=== PATIENT | female | born 1930 | race Hispanic/Latino ===

== ENCOUNTER 2017-02-02 09:59 | Inpatient (IN) | payer BC, MEDICARE ==
[2017-02-02] MEDS ORDERED: Sodium Chloride 0.9% 1,000 ML IV SCH ×2 (10:45→22:21)
[2017-02-02] MEDS ORDERED: Iohexol 240 (50 ml) ONE (10:47)
--- NOTE | 2017-02-02 10:50 | ED PDOC ---
Arrival/HPI - General Chief Complaint: Abdominal Pain Time Seen by Provider: 02/02/17 10:00 Historian: Patient, Other (son) - History of Present Illness Narrative History of Present Illness (Text): 02/02/17 10:54 An 86 year old female, whose past medical history includes coronary artery disease (cardiac stent next week), hypertension, and hypothyroidism, presents to the emergency department, with abdominal pain on right lower quadrant for the past 3 days. Patient notes slight diarrhea last week but denies any fever, vomiting, nausea, dysuria or any other complaints at this time. PMD: Dr. Hernandez Outsoles Channel Opener: Dr. Bauer 02/02/17 17:43 Time/Duration: Other (3 days) Symptom Onset: Sudden Symptom Course: Unchanged Activities at Onset: Rest Context: Home Associated Symptoms (Text): diarrhea Past Medical History - Provider Review Nursing Documentation Reviewed: Yes - Tetanus Immunization Tetanus Immunization: Unknown - Cardiac Hx Hypertension: Yes - Pulmonary Hx Respiratory Disorders: No - Neurological Hx Neurological Disorder: No - HEENT Hx HEENT Disorder: No - Renal Hx Renal Disorder: No - Endocrine/Metabolic Other/Comment: THYROID DISEASE - Hematological/Oncological Hx Blood Disorders: No - Integumentary Hx Dermatological Disorder: No - Musculoskeletal/Rheumatological Hx Musculoskeletal Disorders: No - Gastrointestinal Hx Gastrointestinal Disorders: Yes Other/Comment: COLON CA - Genitourinary/Gynecological Hx Genitourinary Disorders: No - Psychiatric Hx Depression: No Hx Emotional Abuse: No Hx Physical Abuse: No Hx Substance Use: No - Past Surgical History Past Surgical History: Non-Contributing - Surgical History Other/Comment: R/T COLON CA, ANEURYSM - Suicidal Assessment Feels Threatened In Home Enviroment: No Family/Social History - Physician Review Nursing Documentation Reviewed: Yes Family/Social History: No Known Family HX Smoking Status: Former Smoker Hx Alcohol Use: Yes Frequency of alcohol use: Socially Hx Substance Use: No Allergies/Home Meds Allergies/Adverse Reactions: Allergies No Known Allergies Allergy (Verified 02/02/17 10:11) Home Medications: Home Meds Medication Instructions Recorded Confirmed Aspirin [Ecotrin] 81 mg PO DAILY 01/30/17 02/02/17 Rosuvastatin Calcium [Crestor] 10 mg PO DAILY 01/30/17 02/02/17 Review of Systems - Physician Review All systems were reviewed & negative as marked: Yes - Review of Systems Constitutional: absent: Fevers Gastrointestinal: Abdominal Pain (RLQ ), Diarrhea. absent: Nausea, Vomiting Genitourinary Female: absent: Dysuria Physical Exam Vital Signs Reviewed: Yes Vital Signs Temp Pulse Resp BP Pulse Ox 02/02/17 21:00 91 H 17 188/99 H 94 L 02/02/17 20:45 86 17 189/99 H 95 02/02/17 20:11 98.1 F 86 19 209/118 H 02/02/17 18:00 83 18 152/103 H 97 02/02/17 16:00 75 18 147/95 H 98 02/02/17 14:00 80 18 132/91 H 97 02/02/17 10:17 98.1 F 74 21 184/91 H 98 Temperature: Afebrile Blood Pressure: Hypertensive Pulse: Regular Respiratory Rate: Normal Appearance: Positive for: Well-Appearing, Non-Toxic, Comfortable Pain Distress: None Mental Status: Positive for: Alert and Oriented X 3 - Systems Exam Head: Present: Atraumatic, Normocephalic Mouth: Present: Moist Mucous Membranes Nose (External): Present: Atraumatic Neck: Present: Normal Range of Motion Respiratory/Chest: Present: Clear to Auscultation, Good Air Exchange Cardiovascular: Present: Regular Rate and Rhythm, Normal S1, S2. No: Murmurs Abdomen: Present: Tenderness (RLQ), Normal Bowel Sounds. No: Distention, Peritoneal Signs Upper Extremity: Present: Normal Inspection Lower Extremity: Present: Normal Inspection Neurological: Present: GCS=15, Speech Normal Skin: Present: Warm, Dry Psychiatric: Present: Alert, Oriented x 3, Normal Insight, Normal Concentration Medical Decision Making ED Course and Treatment: 02/02/17 10:45 Impression: An 86 year old female with RLQ abdominal pain. rule out appendicitis Differential Diagnosis included but are not limited to: appendicitis Plan: -- EKG -- CT abd/pelvis -- labs -- Urinalysis -- Pepcid, IV fluids -- Reassess and disposition Prior Visits: Notes and results from previous visits were reviewed. Patient last reported to the emergency department on 04/07/14 for evaluation of laceration to forehead. Patient advised suture removal after a week. Patient was discharged. Progress Notes: 02/02/17 11:23 Dr. Bauer riveter pneumatic came down to the emergency department to see patient. Patient has a history of Atrial fibrillation. EKG: NSR at [address] Abdomen and Pelvis with contrast Creator : Saud Alvarenga MD Report Date : 02/02/2017 14:25 FINDINGS: LOWER THORAX: Unremarkable. LIVER: Unremarkable. No gross lesion or ductal dilatation. Innumerable hepatic cysts the largest measures 18.6 by a 14.4 cm. The preponderance of cysts in the liver measured 2 cm less. GALLBLADDER AND BILE DUCTS: Unremarkable. PANCREAS: Unremarkable. No gross lesion or ductal dilatation. SPLEEN: Unremarkable. ADRENALS: Unremarkable. No mass. KIDNEYS AND URETERS: Unremarkable. No hydronephrosis. No solid mass. Dilated extrarenal pelvis on the right without evidence of obstructive uropathy. Relative UPJ obstruction. VASCULATURE: Unremarkable. No aortic aneurysm. BOWEL: Segmental thickening of a short segmental loop of the terminal ileum. This extends to the ileocecal valve region. APPENDIX: No abnormalities to suggest acute appendicitis. No right lower quadrant inflammatory processes identified. PERITONEUM: Pelvic ascites, trace free fluid about the liver.. No free air. LYMPH NODES: Unremarkable. No enlarged lymph nodes. BLADDER: Unremarkable. REPRODUCTIVE: Unremarkable. BONES: No acute fracture. Moderate-severe thoracolumbar Scoliosis, secondary degenerative change at multiple levels. OTHER FINDINGS: IVC filter. IMPRESSION: Inflammatory changes likely focal/ short segment ileitis. No evidence of mechanical bowel obstruction. Additional benign and/or incidental findings described above. Paged Dr. Hernandez patients primary doctor for patient admission of hyponatremia , sodium 128 and Ileitis. pt ordered for IV fluids. 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 02/02/17 15:[address] Hernandez again. 02/02/17 15:[address] Hernandez, who recommends GI consult, Dr. Brown, to call resident Keena. Keena made aware. consult for GI placed. 02/02/17 17:44 02/02/17 17:55 - Lab Interpretations Microbiology Results: Microbiology Results 02/02/17 11:40 Urine Urine Culture - Final Gram Positive Cocci Lab Results: 02/02/17 10:50 02/02/17 10:50 Lab Results 02/02/17 11:40: Urine Color Light yellow, Urine Appearance Clear, Urine pH 7.0, Ur Specific [place] 1.010, Urine Protein Negative, Urine Glucose (UA) Negative, Urine Ketones Negative, Urine Blood Trace-intact H, Urine Nitrate Negative, Urine Bilirubin Negative, Urine Urobilinogen 0.2, Ur Leukocyte Esterase Negative , Urine RBC 0 - 2, Urine WBC 0 - 2, Ur Epithelial Cells 0 - 2, Urine Bacteria Rare 02/02/17 10:50: Sodium 127 L, Potassium 3.5 L, Chloride 89 L, Carbon Dioxide 29 , Anion Gap 13, BUN 12, Creatinine 0.8, Est GFR ( Amer) > 60, Est GFR ( Non-Af Amer) > 60, Random Glucose 93, Calcium 9.4, Total Bilirubin 1.9 H, AST 43 H, ALT 42, Alkaline Phosphatase 166 H, Total Protein 7.2, Albumin 4.2, Globulin 2.9, Albumin/Globulin Ratio 1.4 02/02/17 10:50: WBC 6.3, RBC 4.10, Hgb 12.8, Hct 35.8 L, MCV 87.3, MCH 31.2, MCHC 35.8, RDW 12.8, Plt Count 218, MPV 8.9, Gran % 69.6 H, Lymph % (Auto) 18.7 L, Geary % (Auto) 9.8 H, Eos % (Auto) 1.1 L, Baso % (Auto) 0.8, Gran # 4.40, Lymph # 1.2, Geary # 0.6, Eos # 0.1, Baso # 0.05 02/02/17 10:35: 25-OH Vitamin D Total 22.0 L 02/02/17 10:35: Free T4 1.71, TSH 3rd Generation 5.95 H 02/02/17 10:35: Vitamin B1 107 02/02/17 10:35: Vitamin B12 > 1000 H, Folate 10.7 I have reviewed the lab results: Yes - RAD Interpretation Radiology Orders: 02/02/17 10:44 ABD PELVIS PO & IV CONTRAST [CT] Stat - EKG Interpretation Interpreted by ED Physician: Yes Type: 12 lead EKG - Medication Orders Current Medication Orders: Acetaminophen (Tylenol 325mg Tab) 650 mg PO Q6H PRN PRN Reason: Fever >100.4 F Amlodipine Besylate (Norvasc) 5 mg PO DAILY YESENIA Last Admin: 02/12/17 09:24 Dose: 5 mg Aspirin (Ecotrin) 81 mg PO DAILY [facility] Last Admin: 02/12/17 09:24 Dose: 81 mg Atorvastatin Calcium (Lipitor) 20 mg PO DIN [facility] Last Admin: 02/12/17 17:44 Dose: 20 mg Cefpodoxime Proxetil (Vantin) 200 mg PO Q12 [facility] PRN Reason: Protocol Stop: 02/16/17 22:01 Last Admin: 02/12/17 22:00 Dose: 200 mg Cholecalciferol (Vitamin D) 2,000 iu PO DAILY [facility] Last Admin: 02/12/17 09:24 Dose: 2,000 iu Docusate Sodium (Colace) 100 mg PO BID [facility] Last Admin: 02/12/17 17:44 Dose: 100 mg Guaifenesin (Robitussin) 100 mg PO Q4H PRN PRN Reason: Cough Last Admin: 02/12/17 05:39 Dose: 100 mg Hydralazine HCl (Apresoline) 10 mg PO Q6H PRN PRN Reason: Systolic Blood Pressure Levalbuterol HCl (Xopenex) 0.63 mg IH [id number] [facility] Last Admin: 02/13/17 01:32 Dose: Not Given Non-Admin Reason: Patient Refused Levothyroxine Sodium (Synthroid) 50 mcg PO DAILY [facility] Last Admin: 02/12/17 09:24 Dose: 50 mcg Losartan Potassium (Cozaar) 100 mg PO DAILY [facility] Last Admin: 02/12/17 09:24 Dose: 100 mg Magnesium Oxide (Mag-Ox) 800 mg PO BID [facility] Last Admin: 02/12/17 17:44 Dose: 800 mg Metoprolol Tartrate (Lopressor) 25 mg PO BRKDIN [facility] Last Admin: 02/12/17 17:44 Dose: 25 mg Metronidazole (Flagyl) 500 mg PO Q8 [facility] PRN Reason: Protocol Last Admin: 02/13/17 06:29 Dose: 500 mg Morphine Sulfate (Morphine) 1 mg IVP Q4H PRN PRN Reason: Pain, moderate (4-7) Last Admin: 02/11/17 16:49 Dose: 1 mg Pantoprazole Sodium (Protonix Ec Tab) 40 mg PO 0630 [facility] Last Admin: 02/13/17 06:29 Dose: 40 mg Simethicone (Mylicon Chew Tab) 80 mg PO PCHS PRN PRN Reason: GI distress Zolpidem Tartrate (Ambien) 5 mg PO HS PRN; Protocol PRN Reason: Insomnia Last Admin: 02/12/17 23:30 Dose: 5 mg Re-Assess: Reassess Psych Meds Document 02/13/17 00:30 AJP (Rec: 02/13/17 02:04 AJP [email or web address]) Reassess Psych Med Effective Discontinued Medications Albuterol/Ipratropium (Duoneb 3 Mg/0.5 Mg (3 Ml) Ud) 3 ml IH [id number] [facility] Last Admin: 02/09/17 11:14 Dose: 3 ml Amlodipine Besylate (Norvasc) 2.5 mg PO DAILY [facility] Last Admin: 02/10/17 10:14 Dose: 2.5 mg Atropine Sulfate (Atropine) Confirm Administered Dose 0.8 mg .ROUTE .STK-MED ONE Stop: 02/09/17 07:07 Last Admin: 02/09/17 09:20 Dose: Bivalirudin (Angiomax) Confirm Administered Dose 250 mg IV .STK-MED ONE Stop: 02/09/17 07:05 Last Admin: 02/09/17 09:19 Dose: Cefpodoxime Proxetil (Vantin) 200 mg PO Q12 [facility] PRN Reason: Protocol Stop: 02/10/17 10:01 Last Admin: 02/09/17 09:32 Dose: Not Given Non-Admin Reason: Patient Lethargic Clopidogrel Bisulfate (Plavix) 300 mg PO STAT STA Stop: 02/08/17 16:06 Last Admin: 02/08/17 16:14 Dose: 300 mg Clopidogrel Bisulfate (Plavix) 75 mg PO DAILY [facility] Last Admin: 02/09/17 06:49 Dose: 75 mg Doxycycline Hyclate (Doryx) 100 mg PO Q12 [facility] PRN Reason: Protocol Last Admin: 02/11/17 09:23 Dose: 100 mg Enoxaparin Sodium (Lovenox) 30 mg SC DAILY [facility] PRN Reason: Protocol Last Admin: 02/08/17 10:25 Dose: 30 mg Epinephrine Bitartrate (Epinephrine) Confirm Administered Dose 1 mg .ROUTE .STK- MED ONE Stop: 02/09/17 07:07 Last Admin: 02/09/17 09:21 Dose: Famotidine (Pepcid) 20 mg IVP STAT STA Stop: 02/02/17 10:46 Last Admin: 02/02/17 11:06 Dose: 20 mg Fentanyl (Fentanyl) Confirm Administered Dose 100 mcg .ROUTE .STK-MED ONE Stop: 02/09/17 07:34 Last Admin: 02/09/17 07:43 Dose: 50 mcg Comments: IV by Dr. Bauer Furosemide (Lasix) 20 mg IVP ONCE STA Stop: 02/09/17 16:02 Furosemide (Lasix) 40 mg IVP ONCE STA Stop: 02/09/17 16:02 Last Admin: 02/09/17 16:29 Dose: 40 mg Hydralazine HCl (Apresoline) 10 mg IVP ONCE ONE Stop: 02/02/17 22:19 Last Admin: 02/02/17 22:36 Dose: 10 mg Hydralazine HCl (Apresoline) Confirm Administered Dose 20 mg .ROUTE .ST-MED ONE Stop: 02/09/17 08:07 Last Admin: 02/09/17 08:07 Dose: 20 mg Comments: IV per Dr. Bauer. 10 mg @ 0807 and 10 mg @ 0814 Hydralazine HCl (Apresoline) 10 mg PO STAT STA Stop: 02/10/17 12:28 Last Admin: 02/10/17 13:25 Dose: 10 mg Hydrochlorothiazide (Microzide) 12.5 mg PO STAT STA Stop: 02/02/17 16:53 Last Admin: 02/02/17 17:07 Dose: 12.5 mg Hydrochlorothiazide (Microzide) 12.5 mg PO DAILY [facility] Last Admin: 02/03/17 10:10 Dose: 12.5 mg Hydrochlorothiazide (Microzide) 12.5 mg PO DAILY [facility] Last Admin: 02/07/17 15:56 Dose: 12.5 mg Hydrochlorothiazide (Hydrodiuril) 25 mg PO DAILY [facility] Last Admin: 02/09/17 09:31 Dose: Not Given Non-Admin Reason: Patient Lethargic Sodium Chloride (Sodium Chloride 0.9%) 1,000 mls @ 100 mls/hr IV .Q10H [facility] Last Admin: 02/02/17 11:06 Dose: 100 mls/hr Metronidazole (Flagyl) 500 mg in 100 mls @ 100 mls/hr IVPB Q8 [facility] PRN Reason: Protocol Last Admin: 02/05/17 05:41 Dose: 100 mls/hr Sodium Chloride (Sodium Chloride 0.9%) 100 mls @ 75 mls/hr IV .[id number] [facility] Last Admin: 02/02/17 19:25 Dose: Ceftriaxone Sodium (Rocephin 1 Gram Ivpb) 1 gm in 100 mls @ 100 mls/hr IVPB DAILY [facility] PRN Reason: Protocol Last Admin: 02/04/17 10:09 Dose: 100 mls/hr Sodium Chloride (Sodium Chloride 0.9%) 1,000 mls @ 75 mls/hr IV .[id number] [facility] Last Admin: 02/02/17 23:48 Dose: Magnesium Sulfate 2 gm/ Sodium (Chloride) 104 mls @ 102 mls/hr IV ONCE ONE Stop: 02/03/17 13:18 Last Admin: 02/03/17 13:19 Dose: 102 mls/hr Sodium Chloride (Sodium Chloride 0.9%) 1,000 mls @ 75 mls/hr IV .[id number] [facility] Potassium Chloride (Potassium Chloride 10 Meq/100 Ml) 10 meq in 100 mls @ 100 mls/hr IVPB Q2H [facility] Stop: 02/04/17 14:44 Last Admin: 02/04/17 14:32 Dose: 100 mls/hr Sodium Chloride (Sodium Chloride 0.9%) 1,000 mls @ 100 mls/hr IV .Q10H [facility] Last Admin: 02/08/17 01:59 Dose: 100 mls/hr Magnesium Sulfate 2 gm/ Sodium (Chloride) 104 mls @ 102 mls/hr IV ONCE ONE Stop: 02/06/17 10:05 Last Admin: 02/06/17 10:11 Dose: 102 mls/hr Magnesium Sulfate 2 gm/ Sodium (Chloride) 104 mls @ 102 mls/hr IV ONCE ONE Stop: 02/07/17 10:17 Last Admin: 02/07/17 10:39 Dose: 102 mls/hr Magnesium Sulfate 2 gm/ Sodium (Chloride) 104 mls @ 102 mls/hr IV ONCE ONE Stop: 02/08/17 09:25 Last Admin: 02/08/17 10:28 Dose: 102 mls/hr Heparin Sodium (Porcine) (Heparin 1000 Units/500 Ml Ns) Confirm Administered Dose 1,500 mls @ ud IV .STK-MED ONE Stop: 02/09/17 07:06 Sodium Chloride (Sodium Chloride 0.9%) 1,000 mls @ 100 mls/hr IV .Q10H [facility] Stop: 02/09/17 14:00 Last Admin: 02/09/17 09:00 Dose: 100 mls/hr Magnesium Sulfate 2 gm/ Sodium (Chloride) 104 mls @ 102 mls/hr IV ONCE ONE Stop: 02/09/17 14:26 Last Admin: 02/09/17 14:45 Dose: 102 mls/hr Cefepime HCl (Maxipime 1gm) 1 gm in 100 mls @ 100 mls/hr IVPB Q12 [facility] PRN Reason: Protocol Last Admin: 02/10/17 10:13 Dose: 100 mls/hr Iohexol (Omnipaque 240 (50 Ml)) Confirm Administered Dose 50 ml .ROUTE .STK-MED ONE Stop: 02/02/17 10:48 Last Admin: 02/02/17 20:02 Dose: Iohexol (Omnipaque 240 (50 Ml)) Confirm Administered Dose 50 ml .ROUTE .STK-MED ONE Stop: 02/08/17 16:12 Iohexol (Omnipaque 350 150 Ml) Confirm Administered Dose 150 ml .ROUTE .STK-MED ONE Stop: 02/09/17 07:06 Last Admin: 02/09/17 07:54 Dose: 150 ml Comments: During cath Iohexol (Omnipaque 350mg/Ml 50 Ml) Confirm Administered Dose 50 ml .ROUTE .STK- MED ONE Stop: 02/09/17 07:06 Last Admin: 02/09/17 09:22 Dose: Iohexol (Omnipaque 350 100 Ml) Confirm Administered Dose 350 mg .ROUTE .STK-MED ONE Stop: 02/09/17 07:06 Last Admin: 02/09/17 09:22 Dose: Levalbuterol HCl (Xopenex) Confirm Administered Dose 0.63 mg .ROUTE .STK-MED ONE Stop: 02/09/17 15:33 Levofloxacin/Dextrose (Levaquin 750mg) 750 mg IVPB Q24H [facility] Last Admin: 02/09/17 16:30 Dose: Levothyroxine Sodium (Synthroid) 25 mcg PO DAILY [facility] Last Admin: 02/09/17 09:32 Dose: Not Given Non-Admin Reason: Patient Lethargic Lidocaine HCl (Lidocaine 2% 20ml Vial) Confirm Administered Dose 20 ml .ROUTE .STK-MED ONE Stop: 02/09/17 07:05 Last Admin: 02/09/17 07:54 Dose: 10 ml Comments: SC into right groin by Dr. Bauer Losartan Potassium (Cozaar) 100 mg PO DAILY [facility] Last Admin: 02/09/17 09:31 Dose: Not Given Non-Admin Reason: Patient Lethargic Losartan Potassium (Cozaar) 100 mg PO STAT STA Stop: 02/02/17 19:11 Last Admin: 02/02/17 19:24 Dose: 100 mg Losartan Potassium (Cozaar) 50 mg PO DAILY [facility] Last Admin: 02/11/17 09:23 Dose: 50 mg Magnesium Oxide (Mag-Ox) 400 mg PO BID [facility] Last Admin: 02/09/17 09:31 Dose: Not Given Non-Admin Reason: Patient Lethargic Metronidazole (Flagyl) 500 mg PO Q8 [facility] PRN Reason: Protocol Stop: 02/10/17 14:01 Last Admin: 02/10/17 13:59 Dose: 500 mg Midazolam HCl (Versed Inj) Confirm Administered Dose 2 mg .ROUTE .STK-MED ONE Stop: 02/09/17 07:34 Last Admin: 02/09/17 07:43 Dose: 2 mg Comments: IV by Dr. Bauer. Midazolam HCl (Versed Inj) Confirm Administered Dose 2 mg .ROUTE .STK-MED ONE Stop: 02/09/17 07:54 Last Admin: 02/09/17 07:53 Dose: 1 mg Comments: IV per Dr. Bauer Morphine Sulfate (Morphine) 1 mg IVP ONCE ONE Stop: 02/02/17 20:09 Last Admin: 02/02/17 20:15 Dose: 1 mg Pneumococcal Polyvalent Vaccine (Pneumovax 23 Vaccine) 0.5 ml IM .ONCE ONE Stop: 02/02/17 20:20 Potassium Chloride (K-Dur 20 Meq Er Tab) 40 meq PO ONCE ONE Stop: 02/02/17 16:25 Last Admin: 02/02/17 16:37 Dose: 40 meq Potassium Chloride (K-Dur 20 Meq Er Tab) 40 meq PO Q2 [facility] Stop: 02/04/17 14:01 Last Admin: 02/04/17 14:35 Dose: 40 meq Potassium Chloride (K-Dur 20 Meq Er Tab) 40 meq PO ONCE ONE Stop: 02/06/17 09:04 Last Admin: 02/06/17 10:12 Dose: 40 meq Potassium Chloride (K-Dur 20 Meq Er Tab) 40 meq PO ONCE ONE Stop: 02/08/17 08:25 Last Admin: 02/08/17 10:43 Dose: 40 meq Potassium Chloride (K-Dur 20 Meq Er Tab) 40 meq PO Q2H [facility]IA Stop: 02/09/17 15:31 Last Admin: 02/09/17 16:29 Dose: 40 meq Potassium Chloride (K-Dur 20 Meq Er Tab) 20 meq PO BID YESENIA Stop: 02/14/17 18:01 Last Admin: 02/10/17 17:21 Dose: 20 meq Potassium Phos/Sodium Phos (Neutra-Phos) 1 pkt PO BID YESENIA Stop: 02/08/17 10:01 Last Admin: 02/08/17 10:25 Dose: 1 pkt Tolvaptan (Samsca) 15 mg PO ONCE ONE Stop: 02/10/17 08:31 Last Admin: 02/10/17 10:16 Dose: 15 mg Tolvaptan (Samsca) 15 mg PO ONCE ONE Stop: 02/10/17 14:14 Last Admin: 02/10/17 17:20 Dose: 15 mg Zolpidem Tartrate (Ambien) 5 mg PO HS PRN; Protocol PRN Reason: Insomnia - Scribe Statement The provider has reviewed the documentation as recorded by the Christi Allen Provider Scribe Attestation: All medical record entries made by the Christi were at my direction and personally dictated by me. I have reviewed the chart and agree that the record accurately reflects my personal performance of the history, physical exam, medical decision making, and the department course for this patient. I have also personally directed, reviewed, and agree with the discharge instructions and disposition. Disposition/Present on Arrival - Present on Arrival Any Indicators Present on Arrival: No History of DVT/PE: No History of Uncontrolled Diabetes: No Urinary Catheter: No History of Decub. 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
[2017-02-02 11:08] LABS: ADD MANUAL DIFF? NO
[2017-02-02 11:18] LABS: BASO # 0.05 K/mm3 (0.0-2.0); BASO % 0.8 % (0.0-3.0); EOS # 0.1 (0.0-0.7); EOS % 1.1 % (1.5-5.0); GRAN % 69.6 % (50.0-68.0); HEMATOCRIT 35.8 % (36.0-48.0); LYMPH # 1.2 (1.2-3.4); LYMPH % 18.7 % (22.0-35.0); MEAN CELL VOLUME 87.3 fL (80.0-105.0); MEAN CORPUSCULAR HEMOGLOBIN 31.2 pg (25.0-35.0); MEAN CORPUSCULAR HGB CONC 35.8 g/dl (31.0-37.0); MEAN PLATELET VOLUME 8.9 fl (7.0-11.0); MONO # 0.6 (0.1-0.6); MONO % 9.8 % (1.0-6.0); PLATELET COUNT 218 10^3/uL (120.0-450.0); RED CELL DISTRIBUTION WIDTH 12.8 % (11.5-14.5); WHITE BLOOD COUNT 6.3 10^3/ul (4.5-11.0)
[2017-02-02 11:48] LABS: ALB/GLOB RATIO 1.4 (1.1-1.8); ALKALINE PHOSPHATASE 166 U/L (38-133); ALT/SGPT 42 U/L (7-56); AST/SGOT 43 U/L (15-39); BILIRUBIN,TOTAL 1.9 mg/dL (0.2-1.3); BLOOD UREA NITROGEN 12 mg/dL (7-21); CALCIUM 9.4 mg/dL (8.4-10.5); CARBON DIOXIDE 29 mmol/L (21-33); CHLORIDE 89 mmol/L (98-107); GFR AFRICAN-AMERICAN > 60; GLUCOSE,RANDOM 93 mg/dL (70-110); POTASSIUM 3.5 mmol/L (3.6-5.0); SODIUM 127 mmol/L (132-148); TOTAL PROTEIN 7.2 g/dL (5.8-8.3)
[2017-02-02 12:07] LABS: URINE BILIRUBIN NEGATIVE (NEGATIVE); URINE BLOOD TRACE-INTACT (NEGATIVE); URINE GLUCOSE (UA) NEGATIVE (NEGATIVE); URINE KETONE NEGATIVE (NEGATIVE); URINE LEUKOCYTE ESTERASE NEGATIVE Leu/uL (NEGATIVE); URINE PROTEIN NEGATIVE mg/dL (<30 mg/dL); URINE UROBILINOGEN 0.2 E.U./dL (<1 E.U./dL)
--- NOTE | 2017-02-02 12:12 | CON ---
DATE: 02/02/2017 HISTORY OF PRESENT ILLNESS: The patient is an 86-year-old woman who presents with abdominal pain, amber th right upper quadrant as well as right lower quadrant. She was evaluated in the Emergency Room wit h ruling out appendicitis. PAST MEDICAL HISTORY: Notable for chronic atrial fibrillation, in which she stopped taking anticoagu lation for questionable reasons. In addition, the patient recently underwent a stress test, which was abnormal. The patient was sched uled for cardiac catheterization next week. The patient also suffers from hypertension. She is free of chest pain at this point. SOCIAL HISTORY: Reviewed in detail. REVIEW OF SYSTEMS: Reviewed in detail. No cardiac symptomatology is noted. PHYSICAL EXAMINATION: VITAL SIGNS: Stable, heart rate is stable. NECK: Negative JVD. LUNGS: Without rales. HEART: Reveals S1, S2. EXTREMITIES: Without edema. ABDOMEN: Reveals right upper quadrant and right lower quadrant tenderness. EKG shows atrial fibrillation with nonspecific ST-T changes. The computer system is down and no laboratories are available. IMPRESSION: 1. Abdominal pain. 2. Chronic atrial fibrillation with controlled heart rate. 3. Hypertension. 4. History of abnormal stress test. Given these findings, no anticoagulation has been ordered with the possibility of ruling out appendic itis. The patient is being admitted to the hospital. Blaze Bauer MD cc: [id number] TT: 02/02/2017 12:12:02 Confirmation # [id number] Dictation # [id number]
[2017-02-02 12:41] LABS: URINE APPEARANCE CLEAR (CLEAR); URINE COLOR LIGHT YELLOW (YELLOW)
[2017-02-02 13:35] LABS: URINE BACTERIA RARE (NEG); URINE EPITHELIAL CELLS 0 - 2 /hpf (0-5); URINE RBC 0 - 2 /hpf (0-2); URINE WBC 0 - 2 /hpf (0-6)
--- NOTE | 2017-02-02 14:24 | CT ---
PROCEDURE: CT Abdomen and Pelvis with contrast HISTORY: RLQ abdominal pain COMPARISON: None. TECHNIQUE: Contrast dose: 100 cc Omnipaque 350. Radiation dose: Total exam DLP = 193.92 mGy-cm. This CT exam was performed using one or more of the following dose reduction techniques: Automated exposure control, adjustment of the mA and/or kV according to patient size, and/or use of iterative reconstruction technique. FINDINGS: LOWER THORAX: Unremarkable. LIVER: Unremarkable. No gross lesion or ductal dilatation. Innumerable hepatic cysts the largest measures 18.6 by a 14.4 cm. The preponderance of cysts in the liver measured 2 cm less. GALLBLADDER AND BILE DUCTS: Unremarkable. PANCREAS: Unremarkable. No gross lesion or ductal dilatation. SPLEEN: Unremarkable. ADRENALS: Unremarkable. No mass. KIDNEYS AND URETERS: Unremarkable. No hydronephrosis. No solid mass. Dilated extrarenal pelvis on the right without evidence of obstructive uropathy. Relative UPJ obstruction. VASCULATURE: Unremarkable. No aortic aneurysm. BOWEL: Segmental thickening of a short segmental loop of the terminal ileum. This extends to the ileocecal valve region. APPENDIX: No abnormalities to suggest acute appendicitis. No right lower quadrant inflammatory processes identified. PERITONEUM: Pelvic ascites, trace free fluid about the liver.. No free air. LYMPH NODES: Unremarkable. No enlarged lymph nodes. BLADDER: Unremarkable. REPRODUCTIVE: Unremarkable. BONES: No acute fracture. Moderate-severe thoracolumbar Scoliosis, secondary degenerative change at multiple levels. OTHER FINDINGS: IVC filter. IMPRESSION: Inflammatory changes likely focal/ short segment ileitis. No evidence of mechanical bowel obstruction. Additional benign and/or incidental findings described above.
[2017-02-02] MEDS ORDERED: Potassium Chloride 20 mEq ER Tab PO ONE (16:24)
--- NOTE | 2017-02-02 16:34 | CP.PCM.HP ---
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 Patient states the pain was sudden, when she was seating down. Described the pain as sharp, non radiating. Currently pain is 4/10. Patient didn 't try any meds to relieve the pain at home. Patient decided to come to the ed today because her daughter in law told her to come get it check out. Pain is not associated with eating. Patient denies n/v/d, admits to lack of appetite, drinks prune juice for constipation, thus have bowel movement at least once a day. Patient denies fever, or chills. Denies dysurea, hematuria. Denies night sweats. Admits to weight loss due to not eating. As per patient's daughter adri, patient was told by her creasing machine operator to stop digoxin few days ago. Patient is scheduled for cadiac cath next week with Dr Bauer. 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 PSH: Varun aneurysm clipping, ivc filter, colon ca resection in 2013. FMH: Mom, sisters and maternal aunts from brain hemorrhage 2nd to brain aneurysm. Social: lives with her son, daughter in law, former pack a day smoker, quit 47 yrs ago, denies alcohol and illicit drug use. Walks unassisted. Allergy: NKDA Home meds: please see emr for full list. Present on Admission - Present on Admission Any Indicators Present on Admission: No History of DVT/PE: No History of Uncontrolled Diabetes: No Urinary Catheter: No Decubitus Ulcer Present: No Review of Systems - Review of Systems All systems: reviewed and no additional remarkable complaints except Review of Systems: As mentioned in HPI. Past Patient History - Tetanus Immunizations Tetanus Immunization: Unknown - Past Social History Smoking Status: Former Smoker Alcohol: None Drugs: Denies Home Situation {Lives}: With Family - CARDIAC Hx Hypertension: Yes - PULMONARY Hx Respiratory Disorders: No - NEUROLOGICAL Hx Neurological Disorder: No - HEENT Hx HEENT Problems: No - RENAL Hx Chronic Kidney Disease: No - ENDOCRINE/METABOLIC Other/Comment: THYROID DISEASE - HEMATOLOGICAL/ONCOLOGICAL Hx Blood Disorders: No - INTEGUMENTARY Hx Dermatological Problems: No - MUSCULOSKELETAL/RHEUMATOLOGICAL Hx Musculoskeletal Disorders: No - GASTROINTESTINAL Hx Gastrointestinal Disorders: Yes Other/Comment: COLON CA - GENITOURINARY/GYNECOLOGICAL Hx Genitourinary Disorders: No - PSYCHIATRIC Hx Depression: No Hx Emotional Abuse: No Hx Physical Abuse: No Hx Substance Use: No - SURGICAL HISTORY Other/Comment: R/T COLON CA, ANEURYSM Meds Allergies/Adverse Reactions: Allergies Allergy/AdvReac Type Severity Reaction Status Date / Time No Known Allergies Allergy Verified 02/17/17 19:36 Physical Exam - Constitutional Appears: No Acute Distress, Cachectic, Chronically Ill - Head Exam Head Exam: ATRAUMATIC, NORMAL INSPECTION, NORMOCEPHALIC - Eye Exam Eye Exam: EOMI, Normal appearance, PERRL. absent: Scleral icterus - ENT Exam ENT Exam: Mucous Membranes Dry - Neck Exam Neck exam: Positive for: Normal Inspection - Respiratory Exam Respiratory Exam: Clear to Auscultation Bilateral, NORMAL BREATHING PATTERN. absent: Rales, Rhonchi, Wheezes, Respiratory Distress, Stridor - Cardiovascular Exam Cardiovascular Exam: REGULAR RHYTHM, RRR, +S1, +S2. absent: Gallop, Irregular Rhythm, Rubs, Systolic Murmur - GI/Abdominal Exam GI & Abdominal Exam: Distended (mild), Normal Bowel Sounds, Soft, Tenderness ( right upper and lower quadrants). absent: Firm, Hernia, Hyperactive Bowel Sounds, Hypoactive Bowel Sounds, Organomegaly, Pulsatile Mass, Rebound, Rigid - Extremities Exam Extremities exam: Positive for: normal inspection. Negative for: calf tenderness, pedal edema, tenderness - Back Exam Back exam: NORMAL INSPECTION - Neurological Exam Neurological exam: Alert, Oriented x3 - Psychiatric Exam Psychiatric exam: Normal Affect, Normal Mood - Skin Skin Exam: Dry, Intact, Rash (errythematous rash on the face.), Warm Results - Vital Signs Recent Vital Signs: Last Vital Signs Temp 98.1 F 02/02/17 10:17 Pulse 80 02/02/17 14:00 Resp 18 02/02/17 14:00 BP 132/91 H 02/02/17 14:00 Pulse Ox 97 02/02/17 14:00 - Labs Result Diagrams: 02/02/17 10:50 02/02/17 10:50 Labs: Laboratory Results - last 24 hr 02/02/17 02/02/17 02/02/17 10:50 10:50 11:40 WBC 6.3 RBC 4.10 Hgb 12.8 Hct 35.8 L MCV 87.3 MCH 31.2 MCHC 35.8 RDW 12.8 Plt Count 218 MPV 8.9 Gran % 69.6 H Lymph % (Auto) 18.7 L [place] % (Auto) 9.8 H Eos % (Auto) 1.1 L Baso % (Auto) 0.8 Gran # 4.40 Lymph # 1.2 [place] # 0.6 Eos # 0.1 Baso # 0.05 Sodium 127 L Potassium 3.5 L Chloride 89 L Carbon Dioxide 29 Anion Gap 13 BUN 12 Creatinine 0.8 Est GFR ( Amer) > 60 Est GFR (Non-Af Amer) > 60 Random Glucose 93 Calcium 9.4 Total Bilirubin 1.9 H AST 43 H ALT 42 Alkaline Phosphatase 166 H Total Protein 7.2 Albumin 4.2 Globulin 2.9 Albumin/Globulin Ratio 1.4 Urine Color Light yellow Urine Appearance Clear Urine pH 7.0 Ur Specific [place] 1.010 Urine Protein Negative Urine Glucose (UA) Negative Urine Ketones Negative Urine Blood Trace-intact H Urine Nitrate Negative Urine Bilirubin Negative Urine Urobilinogen 0.2 Ur Leukocyte Esterase Negative Urine RBC 0 - 2 Urine WBC 0 - 2 Ur Epithelial Cells 0 - 2 Urine Bacteria Rare Assessment & Plan - Assessment and Plan (Free Text) Assessment: Patient is an 86 y/o with PMH of Afib ( not on anticoagulation), htn, scoliosis , hypothyroidism, DVT with IVC filter 4 years ago, 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 CT abdomen revealed inflammatory changes likely focal short segment ileitis. Plan: 1) Right upper and lower quadrants abdominal pain - Ct revealed ileitis - r/o acute kimber versus appendicitis - will obtain bcx, ua normal - afebrile no leukocytosis - will start cipro/flagyl - ID consult - NS@75 cc/hr - Morphine prn for pain - Gi consult 2) Hypokalemia- will replete and monitor 3) Mild hyponatremia- ns@75 cc/hr 4) Mild transaminitis - will consider hep panel, - Ct with normal gallbladder and duscts, + hepatic cysts - will consider abdominal u/s. 5) Hypothyroism - will obtain tsh, free t4 - continue synthroid 6) Errythematous rash on the face - allergic reaction versus vitamin deficiency - Less likely shingles - will obtain vit b12, folate, tsh 7) HTN- continue cozaar and hctz 8) h/o abnormal stress test - Cardio on consult - Continue asa, and Lipitor 9) Chronic afib - not on anticoagulation due to brain aneurysm - CHADS2 score of 2, [id number] score of 4 for age, sex, and htn. - HASBLED score of 2 for predisposition to bleeding and age >65. 10) h/o DVT s/p IVC filter 11) DVT and gi prophylaxis: lovenox and protonix. Patient seen, examined, case discussed with Dr Hernandez - Date & Time Date: 02/02/17 Time: 16:40 <Leo Hernandez - Last Filed: 02/23/17 19:22> Results - Vital Signs Recent Vital Signs: Last Vital Signs Temp 97.9 F 02/14/17 16:00 Pulse 80 02/14/17 17:19 Resp 19 02/14/17 16:00 BP 144/91 H 02/14/17 17:19 Pulse Ox 99 02/14/17 16:00 - Labs Result Diagrams: 02/14/17 07:00 02/14/17 13:49 Attending/Attestation - Attestation I have personally seen and examined this patient.: Yes I have fully participated in the care of the patient.: Yes I have reviewed all pertinent clinical information: Yes Notes (Text): 02/23/17 19:22 Medical record note made by the resident after discussion with my direction and input after the patient was personally seen and examined by me. I have reviewed the chart and agree that the record accurately reflects by personal performance of the history, physical exam, data review, and medical decision-making, in the course for the patient. I have also personally directed the plan of care.
[2017-02-02] MEDS: metroNIDAZOLE IV 500 mg/100 ml 500 MG/100 ML BAG IVPB SCH ×2 (16:37→23:13)
[2017-02-02] MEDS: Sodium Chloride 0.9% 100 ML IV SCH ×2 (16:38→19:25)
--- NOTE | 2017-02-02 18:19 | CARD ---
APPROVED REPORT EKG Measurement Heart [id number] <Conclusion> Atrial fibrillation Left axis deviation Anteroseptal infarct, age undetermined ST & T wave abnormality, consider lateral ischemia or digitalis effect Abnormal ECG
[2017-02-02] MEDS: Morphine 2 mg/ml ISec IVP PRN (18:57)
[2017-02-02 19:18] LABS: FREE T4 1.71 ng/dL (0.78-2.19)
[2017-02-02 19:32] LABS: THYROID STIMULATING HORMONE 5.95 mIU/mL (0.46-4.68)
[2017-02-02] MEDS ORDERED: Morphine 2 mg/ml ISec IVP ONE (20:08)
[2017-02-02 20:19] VITALS: BMI 21.9
[2017-02-02] MEDS ORDERED: Pneumococcal 23-Valent Vaccine IM ONE (20:19)
[2017-02-02 21:13] LABS: FOLATE 10.7 ng/mL
[2017-02-02] MEDS ORDERED: Ciprofloxacin 400mg/200ml D5W 400 MG/200 ML BAG IVPB SCH (22:00)
[2017-02-02] MEDS: cefTRIAXone 1 gm 1 GM/100 ML BAG IVPB SCH (22:11)
[2017-02-03] MEDS: Morphine 2 mg/ml ISec IVP PRN ×3 (03:07→20:25)
[2017-02-03] MEDS: metroNIDAZOLE IV 500 mg/100 ml 500 MG/100 ML BAG IVPB SCH ×3 (05:53→22:09)
[2017-02-03] MEDS: Pantoprazole 40 mg EC Tab PO SCH (05:54)
[2017-02-03 08:20] LABS: ADD MANUAL DIFF? NO
[2017-02-03 08:28] LABS: BASO # 0.01 K/mm3 (0.0-2.0); BASO % 0.1 % (0.0-3.0); GRAN # 9.75 (1.4-6.5); GRAN % 87.5 % (50.0-68.0); HEMATOCRIT 37.3 % (36.0-48.0); LYMPH # 0.7 (1.2-3.4); LYMPH % 5.9 % (22.0-35.0); MEAN CELL VOLUME 87.6 fL (80.0-105.0); MEAN CORPUSCULAR HEMOGLOBIN 30.8 pg (25.0-35.0); MEAN CORPUSCULAR HGB CONC 35.1 g/dl (31.0-37.0); MEAN PLATELET VOLUME 9.3 fl (7.0-11.0); MONO # 0.7 (0.1-0.6); MONO % 6.5 % (1.0-6.0); PLATELET COUNT 231 10^3/uL (120.0-450.0); WHITE BLOOD COUNT 11.1 10^3/ul (4.5-11.0)
[2017-02-03 08:44] LABS: ALB/GLOB RATIO 1.4 (1.1-1.8); ALKALINE PHOSPHATASE 139 U/L (38-133); ALT/SGPT 33 U/L (7-56); AST/SGOT 43 U/L (15-39); BILIRUBIN,TOTAL 1.6 mg/dL (0.2-1.3); BLOOD UREA NITROGEN 13 mg/dL (7-21); CALCIUM 8.6 mg/dL (8.4-10.5); CARBON DIOXIDE 21 mmol/L (21-33); CHLORIDE 90 mmol/L (98-107); GFR AFRICAN-AMERICAN > 60; GLUCOSE,RANDOM 146 mg/dL (70-110); POTASSIUM 3.6 mmol/L (3.6-5.0); SODIUM 125 mmol/L (132-148)
--- NOTE | 2017-02-03 09:33 | CP.PCM.CON ---
History of Present Illness - History of Present Illness History of Present Illness: Hepatobiliary Surgery Consult: Dr Guerrier Pt is an 86F w/ pmh of htn, afib (not anticoagulated), DVT s/p IVC filter, hypothyroidism, brain aneurysm, and colon cancer s/p resection and chemo 16 years ago at [facility]. Pt presented with a 3 day history of RUQ abdominal pain, worse with movement. Currently pt states pain is a 1/10, dull ache, and has significantly improved since yesterday. She is currently eating and tolerating a diet. She is having regular bowel movements with the aide of prune juice. She denies fevers, chills, sob, chest pain, diarrhea, or constipation. Denies any recent weight loss. Her son was bedside who confirms her medical history. Pt is scheduled for cardiac cath next week as she had recent abnormal stress test. Surgery consulted for CT findings of multiple cysts of the liver. Per son pt has had these most of her life, and was told at time of colon cancer resection these are benign lesions, likely Polycystic Liver disease. Review of Systems - Review of Systems All systems: reviewed and no additional remarkable complaints except (as per hpi ) Past Patient History - Tetanus Immunizations Tetanus Immunization: Unknown - Past Social History Smoking Status: Former Smoker Alcohol: None Drugs: Denies Home Situation {Lives}: With Family - CARDIAC Hx Hypertension: Yes - PULMONARY Hx Respiratory Disorders: No - NEUROLOGICAL Hx Neurological Disorder: No - HEENT Hx HEENT Problems: No - RENAL Hx Chronic Kidney Disease: No - ENDOCRINE/METABOLIC Other/Comment: THYROID DISEASE - HEMATOLOGICAL/ONCOLOGICAL Hx Blood Disorders: No - INTEGUMENTARY Hx Dermatological Problems: No - MUSCULOSKELETAL/RHEUMATOLOGICAL Hx Musculoskeletal Disorders: No - GASTROINTESTINAL Hx Gastrointestinal Disorders: Yes Other/Comment: COLON CA - GENITOURINARY/GYNECOLOGICAL Hx Genitourinary Disorders: No - PSYCHIATRIC Hx Depression: No Hx Emotional Abuse: No Hx Physical Abuse: No Hx Substance Use: No - SURGICAL HISTORY Other/Comment: R/T COLON CA, ANEURYSM Meds Allergies/Adverse Reactions: Allergies Allergy/AdvReac Type Severity Reaction Status Date / Time No Known Allergies Allergy Verified 02/02/17 10:11 - Medications Medications: Current Medications Acetaminophen (Tylenol 325mg Tab) 650 mg PO Q6H PRN PRN Reason: Fever >100.4 F Aspirin (Ecotrin) 81 mg PO DAILY [facility] Atorvastatin Calcium (Lipitor) 20 mg PO DIN [facility] Last Admin: 02/02/17 17:08 Dose: 20 mg Docusate Sodium (Colace) 100 mg PO BID [facility] Last Admin: 02/02/17 17:08 Dose: 100 mg Enoxaparin Sodium (Lovenox) 30 mg SC DAILY [facility] PRN Reason: Protocol Hydrochlorothiazide (Microzide) 12.5 mg PO DAILY [facility] Metronidazole (Flagyl) 500 mg in 100 mls @ 100 mls/hr IVPB Q8 [facility] PRN Reason: Protocol Last Admin: 02/03/17 05:53 Dose: 100 mls/hr Ceftriaxone Sodium (Rocephin 1 Gram Ivpb) 1 gm in 100 mls @ 100 mls/hr IVPB DAILY [facility] PRN Reason: Protocol Last Admin: 02/02/17 22:11 Dose: 100 mls/hr Sodium Chloride (Sodium Chloride 0.9%) 1,000 mls @ 75 mls/hr IV .[id number] [facility] Last Admin: 02/02/17 23:48 Dose: Not Given Levothyroxine Sodium (Synthroid) 25 mcg PO DAILY [facility] Losartan Potassium (Cozaar) 100 mg PO DAILY [facility] Morphine Sulfate (Morphine) 1 mg IVP Q4H PRN PRN Reason: Pain, moderate (4-7) Last Admin: 02/03/17 03:07 Dose: 1 mg Pantoprazole Sodium (Protonix Ec Tab) 40 mg PO 0630 [facility] Last Admin: 02/03/17 05:54 Dose: 40 mg Zolpidem Tartrate (Ambien) 5 mg PO HS PRN; Protocol PRN Reason: Insomnia Last Admin: 02/02/17 22:36 Dose: 5 mg Physical Exam - Constitutional Appears: Non-toxic, No Acute Distress - Head Exam Head Exam: NORMOCEPHALIC - Eye Exam Eye Exam: Normal appearance. absent: Scleral icterus - ENT Exam ENT Exam: Normal Exam - Respiratory Exam Respiratory Exam: absent: Accessory Muscle Use, Respiratory Distress - Cardiovascular Exam Cardiovascular Exam: Irregular Rhythm - GI/Abdominal Exam GI & Abdominal Exam: Distended, Firm, Normal Bowel Sounds, Soft. absent: Guarding, Hernia, Tenderness - Extremities Exam Extremities exam: Negative for: pedal edema - Neurological Exam Neurological exam: Alert, Oriented x3 - Psychiatric Exam Psychiatric exam: Normal Affect, Normal Mood - Skin Skin Exam: Normal Color, Warm Results - Vital Signs Recent Vital Signs: Last Vital Signs Temp 98.3 F 02/03/17 08:22 Pulse 78 02/03/17 08:22 Resp 22 02/03/17 08:22 BP 150/89 02/03/17 08:22 Pulse Ox 96 02/03/17 08:22 - Labs Result Diagrams: 02/03/17 07:30 02/03/17 07:30 Labs: Laboratory Results - last 24 hr 02/03/17 02/03/17 02/03/17 06:20 07:30 07:30 WBC 11.1 H D RBC 4.26 Hgb 13.1 Hct 37.3 MCV 87.6 MCH 30.8 MCHC 35.1 RDW 13.0 Plt Count 231 MPV 9.3 Gran % 87.5 H Lymph % (Auto) 5.9 L [place] % (Auto) 6.5 H Eos % (Auto) 0.0 L Baso % (Auto) 0.1 Gran # 9.75 H Lymph # 0.7 L [place] # 0.7 H Eos # 0.0 Baso # 0.01 Sodium 125 L Potassium 3.6 Chloride 90 L Carbon Dioxide 21 Anion Gap 18 BUN 13 Creatinine 0.7 Est GFR ( Amer) > 60 Est GFR (Non-Af Amer) > 60 Random Glucose 146 H Calcium 8.6 Magnesium 1.2 L Total Bilirubin 1.6 H AST 43 H ALT 33 Alkaline Phosphatase 139 H Total Protein 7.0 Albumin 4.1 Globulin 2.9 Albumin/Globulin Ratio 1.4 Assessment & Plan - Assessment and Plan (Free Text) Assessment: 86F with significant PMH found to have multiple cysts of liver; likely Polycystic Liver Disease Plan: Pt currently with minimal symptoms These lesions have been present for a number of years and are likely benign Pt is poor surgical candidate given cardiac history regardless No surgical intervention planned Cont to adv diet as tolerated further mgmt per primary and cardiology d/w Dr Chey Guerrero, DO, PGY2
[2017-02-03] MEDS: Enoxaparin 30 mg Syringe SC SCH (10:09)
[2017-02-03] MEDS: Levothyroxine 25 MCG TAB PO SCH (10:10)
--- NOTE | 2017-02-03 10:10 | CP.PCM.PN ---
<Benita Morse - Last Filed: 02/03/17 17:22> Subjective - Date & Time of Evaluation Date of Evaluation: 02/03/17 Time of Evaluation: 08:20 - Subjective Subjective: Medicine progress note for Dr Sr and Dr Hernandez service Patient with no acute events overnight. Patient reports the abdominal pain has improved. Denies n/v/d. Denies fever or chills. Objective - Vital Signs/Intake and Output Vital Signs (last 24 hours): Temp Pulse Resp BP Pulse Ox 98.3 F 78 22 150/89 96 02/03/17 08:22 02/03/17 08:22 02/03/17 08:22 02/03/17 08:22 02/03/17 08:22 Intake and Output: 02/03/17 02/03/17 06:59 18:59 Intake Total 800 Balance 800 - Medications Medications: Current Medications Acetaminophen (Tylenol 325mg Tab) 650 mg PO Q6H PRN PRN Reason: Fever >100.4 F Aspirin (Ecotrin) 81 mg PO DAILY [facility] Atorvastatin Calcium (Lipitor) 20 mg PO DIN [facility] Last Admin: 02/02/17 17:08 Dose: 20 mg Docusate Sodium (Colace) 100 mg PO BID [facility] Last Admin: 02/02/17 17:08 Dose: 100 mg Enoxaparin Sodium (Lovenox) 30 mg SC DAILY [facility] PRN Reason: Protocol Hydrochlorothiazide (Microzide) 12.5 mg PO DAILY [facility] Metronidazole (Flagyl) 500 mg in 100 mls @ 100 mls/hr IVPB Q8 [facility] PRN Reason: Protocol Last Admin: 02/03/17 05:53 Dose: 100 mls/hr Ceftriaxone Sodium (Rocephin 1 Gram Ivpb) 1 gm in 100 mls @ 100 mls/hr IVPB DAILY [facility] PRN Reason: Protocol Last Admin: 02/02/17 22:11 Dose: 100 mls/hr Sodium Chloride (Sodium Chloride 0.9%) 1,000 mls @ 75 mls/hr IV .[id number] [facility] Last Admin: 02/02/17 23:48 Dose: Not Given Levothyroxine Sodium (Synthroid) 25 mcg PO DAILY [facility] Losartan Potassium (Cozaar) 100 mg PO DAILY [facility] Morphine Sulfate (Morphine) 1 mg IVP Q4H PRN PRN Reason: Pain, moderate (4-7) Last Admin: 02/03/17 03:07 Dose: 1 mg Pantoprazole Sodium (Protonix Ec Tab) 40 mg PO 0630 [facility] Last Admin: 02/03/17 05:54 Dose: 40 mg Zolpidem Tartrate (Ambien) 5 mg PO HS PRN; Protocol PRN Reason: Insomnia Last Admin: 02/02/17 22:36 Dose: 5 mg - Labs Labs: 02/03/17 07:30 02/03/17 07:30 - Constitutional Appears: No Acute Distress, Cachectic, Chronically Ill - Head Exam Head Exam: ATRAUMATIC, NORMAL INSPECTION, NORMOCEPHALIC - Eye Exam Eye Exam: EOMI, Normal appearance, PERRL. absent: Scleral icterus - ENT Exam ENT Exam: Mucous Membranes Dry - Neck Exam Neck Exam: Normal Inspection - Respiratory Exam Respiratory Exam: Clear to Ausculation Bilateral, NORMAL BREATHING PATTERN. absent: Rales, Rhonchi, Wheezes, Respiratory Distress, Stridor - Cardiovascular Exam Cardiovascular Exam: REGULAR RHYTHM, RRR, +S1, +S2 - GI/Abdominal Exam GI & Abdominal Exam: Distended, Soft, Tenderness (right upper quadrant pain. ), Normal Bowel Sounds. 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 CT abdomen revealed inflammatory changes likely focal short segment ileitis. Patient also has liver cysts with the largest being 20 cm. Plan: 1) Right upper and lower quadrants abdominal pain - Ct revealed ileitis, and liver cysts ( largest 20 cm) - bcx fo marek with no growth, ucx growing gram positive cocci, likely contamination. - Remains afebrile, no leukocytosis - On Rocephin and flagyl - ID following - d/c ivf - Morphine prn for pain - Gi following 2) Hypokalemia- will replete and monitor 3) Hypomagnesemia- will replete and monitor 4) Liver cysts- large being 20 cm - surgery consulted- - no surgical intervention - chronic problem, had work up in the past ~16 years ago as per family when patient was diagnosed with colon ca. 5) Mild hyponatremia- - continue ns@75 cc/hr 6) Transaminitis - likely secondary to hepatic cysts. - Ct with normal gallbladder and ducts, + hepatic cysts - no surgical intervention for the hepatic cysts - gi following 7) Hypothyroism - continue synthroid 25 cc qd. 8) Errythematous rash on the face - allergic reaction versus vitamin deficiency - Less likely shingles - vit b12 normal - will observe 9) HTN- continue cozaar and hctz - will monitor and adjust meds accordingly. 10) h/o abnormal stress test - Cardio on consult - Continue asa, and Lipitor - cardiac cath on 11) Chronic afib - not on anticoagulation due to brain aneurysm - CHADS2 score of 2, [id number] score of 4 for age, sex, and htn. - HASBLED score of 2 for predisposition to bleeding and age >65. - Risk versus benefit of choosing anticoagulation versus refusing anticoag discussed with family at bedside,. Considering eliquis versus pradaxa. 12) h/o DVT s/p IVC filter 13) DVT and gi prophylaxis: lovenox and protonix. Patient seen,examined, discussed with Dr Hernandez <Leo Hernandez - Last Filed: 02/23/17 19:25> Objective - Vital Signs/Intake and Output Vital Signs (last 24 hours): Temp Pulse Resp BP Pulse Ox 97.9 F 80 19 144/91 H 99 02/14/17 16:00 02/14/17 17:19 02/14/17 16:00 02/14/17 17:19 02/14/17 16:00 - Labs Labs: 02/14/17 07:00 02/14/17 13:49 Attending/Attestation - Attestation I have personally seen and examined this patient.: Yes I have fully participated in the care of the patient.: Yes I have reviewed all pertinent clinical information, including history, physical exam and plan: Yes Notes (Text): 02/23/17 19:25 Medical record note made by the resident after discussion with my direction and input after the patient was personally seen and examined by me. I have reviewed the chart and agree that the record accurately reflects by personal performance of the history, physical exam, data review, and medical decision-making, in the course for the patient. I have also personally directed the plan of care.
[2017-02-03] MEDS: cefTRIAXone 1 gm 1 GM/100 ML BAG IVPB SCH (10:11)
[2017-02-03] MEDS ORDERED: Magnesium Sulfate 2 GM in Sodium Chloride 0.9% 100 ML IV ONE (12:17)
[2017-02-03] MEDS ORDERED: Simethicone 80 mg Chewtab PO PRN (12:18)
--- NOTE | 2017-02-03 12:20 | PN ---
DATE: 02/03/[address] Blaze Bauer. SUBJECTIVE: The patient complains of weakness and poor appetite. She denies any chest pain. PHYSICAL EXAMINATION: VITAL SIGNS: Blood pressure 150/89, heart rate 78, temperature 98.3, respirations 22. HEENT: Normocephalic. NECK: No JVD. CHEST: Clear. HEART: S1, S2 irregular. EXTREMITIES: No edema. LABORATORIES: CBC: WBC 11.1, hemoglobin 13.1, hematocrit 37.6, platelet count 231,000. SMA-7: Sod ium 125, potassium 3.6, chloride 90, CO2 of 21, glucose 146, BUN 15, creatinine 0.7. TSH level is el evated at 5.95. EKG revealed atrial fibrillation at rate 64, anteroseptal infarct of indeterminate age, ST-T wave rachel nges. Consider lateral ischemia or digitalis effect. Abdomen and pelvis CT scan: Inflammatory wise ges likely focal/short segment ileitis, no evidence of mechanical bowel obstruction. ASSESSMENT: 1. Chronic atrial fibrillation. 2. History of recent positive stress test. The patient is planned to undergo a cardiac catheterizat ion 02/09. 3. History of colon cancer some 20 years ago, status post resection and chemotherapy. 4. History of deep venous thrombosis, status post inferior vena caval filter. 5. History of cerebral aneurysm, status post embolization some 20 years ago. 6. Ileitis. RECOMMENDATIONS: Continue current IV Rocephin at 1 gram daily. Continue Synthroid 25 mcg once a day . Hydrochlorothiazide will be discontinued as the patient appears dehydrated and hyponatremic. Cont inue IV Flagyl in the meantime, continue aspirin 81 mg once a day and Cozaar at 100 mg once a day. Joao Richard MD cc: [id number] TT: 02/03/2017 12:20:24 Confirmation # [id number] Dictation # [id number]
--- NOTE | 2017-02-03 16:44 | CP.PCM.CON ---
History of Present Illness - History of Present Illness History of Present Illness: 86 year old female with PMH of HTN, CAD, hypothyroidism was brought in to [facility] because of right lower quadrant pain for the past 3-4 days. She denies diarrhea, no nausea or vomiting, no fever or chills, no headache or dizziness, no chest pain, no SOB, no dysphagia, no cough or colds. In the ED, CT abdomen and pelvis revealed ileitis and Infectious Diseases consult is requested to further evaluate and manage. The patient denies eating foods out of the ordinary, has not traveled outside of [place] in the past 3 months. Review of Systems - Review of Systems All systems: reviewed and no additional remarkable complaints except (as per HPI ) Past Patient History - Tetanus Immunizations Tetanus Immunization: Unknown - Past Social History Smoking Status: Former Smoker - CARDIAC Hx Cardia Arrhythmia: Yes (afib) Hx Hypercholesterolemia: Yes Hx Hypertension: Yes Hx Peripheral Edema: Yes (feet at times when feet are down/ble+1) Other/Comment: embolism 20 years ago has ivc filter pt and family not sure where the embolism was,pt is scheduled for cardiac catherization 02/09/[address] trujillo, varicose veins to ble, feet turn "blue" at times when feet are down - PULMONARY Hx Respiratory Disorders: No - NEUROLOGICAL Hx Neurological Disorder: No - HEENT Hx HEENT Problems: Yes ([place] b/l hearing aids) Hx Cataracts: Yes (b/l no sx) 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 - RENAL Hx Chronic Kidney Disease: No - ENDOCRINE/METABOLIC Hx Hypothyroidism: Yes Other/Comment: THYROID DISEASE - HEMATOLOGICAL/ONCOLOGICAL Hx Cancer: Yes (colon ca 24 yrs ago) Hx Chemotherapy: Yes (1 yr) Hx Shingles: Yes (jul 04 2012 r groin vagina r buttocks) Other/Comment: colon resection - INTEGUMENTARY Hx Dermatological Problems: Yes Other/Comment: flat red rash to face of unknown origin on and off x1 yr, bruise left upper arm - MUSCULOSKELETAL/RHEUMATOLOGICAL Hx Falls: No - GASTROINTESTINAL Hx Gastrointestinal Disorders: Yes Other/Comment: COLON CA - GENITOURINARY/GYNECOLOGICAL Hx Genitourinary Disorders: No - PSYCHIATRIC Hx Substance Use: No - SURGICAL HISTORY Other/Comment: R/T COLON CA, ANEURYSM Meds Allergies/Adverse Reactions: Allergies Allergy/AdvReac Type Severity Reaction Status Date / Time No Known Allergies Allergy Verified 02/02/17 10:11 - Medications Medications: Current Medications Acetaminophen (Tylenol 325mg Tab) 650 mg PO Q6H PRN PRN Reason: Fever >100.4 F Aspirin (Ecotrin) 81 mg PO DAILY [facility] Atorvastatin Calcium (Lipitor) 20 mg PO DIN [facility] Last Admin: 02/02/17 17:08 Dose: 20 mg Docusate Sodium (Colace) 100 mg PO BID [facility] Last Admin: 02/02/17 17:08 Dose: 100 mg Enoxaparin Sodium (Lovenox) 30 mg SC DAILY [facility] PRN Reason: Protocol Metronidazole (Flagyl) 500 mg in 100 mls @ 100 mls/hr IVPB Q8 [facility] PRN Reason: Protocol Last Admin: 02/02/17 16:37 Dose: 100 mls/hr Sodium Chloride (Sodium Chloride 0.9%) 100 mls @ 75 mls/hr IV .Q1H20M [facility] Last Admin: 02/02/17 19:25 Dose: Not Given Levothyroxine Sodium (Synthroid) 25 mcg PO DAILY [facility] Losartan Potassium (Cozaar) 100 mg PO DAILY [facility] Morphine Sulfate (Morphine) 1 mg IVP Q4H PRN PRN Reason: Pain, moderate (4-7) Last Admin: 02/02/17 18:57 Dose: 1 mg Pantoprazole Sodium (Protonix Ec Tab) 40 mg PO 0630 [facility] Physical Exam - Constitutional Appears: Non-toxic, No Acute Distress - Head Exam Head Exam: NORMAL INSPECTION - ENT Exam ENT Exam: Mucous Membranes Moist - Neck Exam Neck exam: Negative for: Lymphadenopathy, Meningismus - Respiratory Exam Respiratory Exam: Decreased Breath Sounds - Cardiovascular Exam Cardiovascular Exam: +S1, +S2 - GI/Abdominal Exam GI & Abdominal Exam: Soft, Tenderness (right lower quadrant, mild). absent: Distended, Rebound, Rigid Results - Vital Signs Recent Vital Signs: Last Vital Signs Temp 98.1 F 02/02/17 20:11 Pulse 91 H 02/02/17 21:00 Resp 17 02/02/17 21:00 BP 188/99 H 02/02/17 21:00 Pulse Ox 94 L 02/02/17 21:00 - Labs Result Diagrams: 02/03/17 07:30 02/03/17 07:30 Assessment & Plan - Assessment and Plan (Free Text) Plan: Assessment Ileitis, acute hepatic cysts, etiology to be determined HTN CAD hypothyroidism Plan Started patient on Rocephin and Flagyl pending blood cx and will monitor clinical response Follow up GI evaluation of hepatic cysts - patient has no travel outside of the country and it would unlikely to be parasitic will follow clinically
[2017-02-03] MEDS ORDERED: Vancomycin 1gm in NS 250ml 1 GM/250 ML BAG IVPB SCH (16:45)
[2017-02-03] MEDS ORDERED: Sodium Chloride 0.9% 1,000 ML IV SCH (17:29)
--- NOTE | 2017-02-03 18:29 | CP.PCM.CON ---
History of Present Illness - History of Present Illness History of Present Illness: Seen and examined earlier this morning. Chart reviewed. Daughter in law and son at bedside. Request for consult is for Abdominal Pain/Ileitis. HPI: This is a 86 year old female with a PMH of Colon Cancer, s/p chemo and resection ,DVTw/ IVC filter, brain aneurysm, Atrial Fibrillation came to the ER with complaints of worsening right sided abdominal pain that originally started 5 days ago. The pain is not associated with eating food. No sick contacts, recent travel, or food intake, always go out to eat but nothing unsual. She also recall having diarrhea 1 week ago, it has improved , No N/V, fever or chills, her appetite is poor to begin with according to her daughter in law who say that she only has one good meal a day and just "picks" the rest of the day. SHe has "normal" BMs, does not note any bleeding er rectum. Does report weight loss but poor appetite as explained. Last COLOn was at least 5 year ago, no acute findings and she does not want another one. She does have a history of Liver cyst in the past, about 27 years now, it first discovered around the time she had colon cancer and multiple test done such as MRI that have been showing stable in size and was reproted to be benign as reported by her son. In the ER had ct scan of abdomen and pelvis and hepatic cyst 18.6x14.4cm and ileitis. PMH: Colon cancer with chemo, resection, Liver Cysts, DVT, Brain aneurysm, Atrial Fibrillation, Scoliosis, hypothyroidism,Dementia, [place], Shingles PSH: IVC filter, brain aneurysm clipping, colon resection(2012), colon 5 yrs ago. FHX: sister, mother, and unts from brain aneurysm Social HX: Former smoker, denies ETOH, drug abuse ALLergies: NKDA MEDS: reviewed as per MAR and home med list ROS: systems reviewed with positive findings, see hpi Past Patient History - Tetanus Immunizations Tetanus Immunization: Unknown - Past Social History Smoking Status: Former Smoker - CARDIAC Hx Cardia Arrhythmia: Yes (afib) Hx Hypercholesterolemia: Yes Hx Hypertension: Yes Hx Peripheral Edema: Yes (feet at times when feet are down/ble+1) Other/Comment: embolism 20 years ago has ivc filter pt and family not sure where the embolism was,pt is scheduled for cardiac catherization 02/09/[address] trujillo, varicose veins to ble, feet turn "blue" at times when feet are down - PULMONARY Hx Respiratory Disorders: No - NEUROLOGICAL Hx Neurological Disorder: No - HEENT Hx HEENT Problems: Yes ([place] b/l hearing aids) Hx Cataracts: Yes (b/l no sx) 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 - RENAL Hx Chronic Kidney Disease: No - ENDOCRINE/METABOLIC Hx Hypothyroidism: Yes Other/Comment: THYROID DISEASE - HEMATOLOGICAL/ONCOLOGICAL Hx Cancer: Yes (colon ca 24 yrs ago) Hx Chemotherapy: Yes (1 yr) Hx Shingles: Yes (jul 04 2012 r groin vagina r buttocks) Other/Comment: colon resection - INTEGUMENTARY Hx Dermatological Problems: Yes Other/Comment: flat red rash to face of unknown origin on and off x1 yr, bruise left upper arm - MUSCULOSKELETAL/RHEUMATOLOGICAL Hx Falls: No - GASTROINTESTINAL Hx Gastrointestinal Disorders: Yes Other/Comment: COLON CA - GENITOURINARY/GYNECOLOGICAL Hx Genitourinary Disorders: No - PSYCHIATRIC Hx Substance Use: No - SURGICAL HISTORY Other/Comment: R/T COLON CA, ANEURYSM Meds Allergies/Adverse Reactions: Allergies Allergy/AdvReac Type Severity Reaction Status Date / Time No Known Allergies Allergy Verified 02/02/17 10:11 - Medications Medications: Current Medications Acetaminophen (Tylenol 325mg Tab) 650 mg PO Q6H PRN PRN Reason: Fever >100.4 F Aspirin (Ecotrin) 81 mg PO DAILY [facility] Last Admin: 02/03/17 10:10 Dose: 81 mg Atorvastatin Calcium (Lipitor) 20 mg PO DIN [facility] Last Admin: 02/02/17 17:08 Dose: 20 mg Cholecalciferol (Vitamin D) 2,000 iu PO DAILY [facility] Docusate Sodium (Colace) 100 mg PO BID [facility] Last Admin: 02/03/17 10:10 Dose: 100 mg Enoxaparin Sodium (Lovenox) 30 mg SC DAILY [facility] PRN Reason: Protocol Last Admin: 02/03/17 10:09 Dose: 30 mg Metronidazole (Flagyl) 500 mg in 100 mls @ 100 mls/hr IVPB Q8 [facility] PRN Reason: Protocol Last Admin: 02/03/17 14:48 Dose: 100 mls/hr Ceftriaxone Sodium (Rocephin 1 Gram Ivpb) 1 gm in 100 mls @ 100 mls/hr IVPB DAILY [facility] PRN Reason: Protocol Last Admin: 02/03/17 10:11 Dose: 100 mls/hr Sodium Chloride (Sodium Chloride 0.9%) 100 mls @ 75 mls/hr IV .Q1H20M [facility] Levothyroxine Sodium (Synthroid) 25 mcg PO DAILY [facility] Last Admin: 02/03/17 10:10 Dose: 25 mcg Losartan Potassium (Cozaar) 100 mg PO DAILY [facility] Last Admin: 02/03/17 10:10 Dose: 100 mg Morphine Sulfate (Morphine) 1 mg IVP Q4H PRN PRN Reason: Pain, moderate (4-7) Last Admin: 02/03/17 10:26 Dose: 1 mg Pantoprazole Sodium (Protonix Ec Tab) 40 mg PO 0630 [facility] Last Admin: 02/03/17 05:54 Dose: 40 mg Simethicone (Mylicon Chew Tab) 80 mg PO [facility] PRN PRN Reason: GI distress Zolpidem Tartrate (Ambien) 5 mg PO HS PRN; Protocol PRN Reason: Insomnia Last Admin: 02/02/17 22:36 Dose: 5 mg Physical Exam - Constitutional Appears: No Acute Distress - Head Exam Head Exam: NORMAL INSPECTION - Eye Exam Eye Exam: Normal appearance, PERRL. absent: Scleral icterus - ENT Exam ENT Exam: Mucous Membranes Moist - Neck Exam Neck exam: Positive for: Normal Inspection - Respiratory Exam Respiratory Exam: Clear to Auscultation Bilateral, NORMAL BREATHING PATTERN. absent: Rhonchi, Wheezes, Respiratory Distress - Cardiovascular Exam Cardiovascular Exam: +S1, +S2 - GI/Abdominal Exam GI & Abdominal Exam: Distended, Normal Bowel Sounds, Soft, Tenderness. absent: Guarding, Organomegaly (right sided /mid abdominal tenderness), Rebound - Extremities Exam Extremities exam: Positive for: pedal pulses present. Negative for: calf tenderness, pedal edema - Neurological Exam Neurological exam: Alert, Oriented x3 - Skin Skin Exam: Dry, Warm Results - Vital Signs Recent Vital Signs: Last Vital Signs Temp 98.3 F 02/03/17 08:22 Pulse 78 02/03/17 08:22 Resp 22 02/03/17 08:22 BP 150/89 02/03/17 08:22 Pulse Ox 96 02/03/17 08:22 - Labs Result Diagrams: 02/03/17 07:30 05/26/17 07:30 Labs: Laboratory Results - last 24 hr 02/03/17 02/03/17 02/03/17 06:20 07:30 07:30 WBC 11.1 H D RBC 4.26 Hgb 13.1 Hct 37.3 MCV 87.6 MCH 30.8 MCHC 35.1 RDW 13.0 Plt Count 231 MPV 9.3 Gran % 87.5 H Lymph % (Auto) 5.9 L [place] % (Auto) 6.5 H Eos % (Auto) 0.0 L Baso % (Auto) 0.1 Gran # 9.75 H Lymph # 0.7 L [place] # 0.7 H Eos # 0.0 Baso # 0.01 Sodium 125 L Potassium 3.6 Chloride 90 L Carbon Dioxide 21 Anion Gap 18 BUN 13 Creatinine 0.7 Est GFR ( Amer) > 60 Est GFR (Non-Af Amer) > 60 Random Glucose 146 H Calcium 8.6 Magnesium 1.2 L Total Bilirubin 1.6 H AST 43 H ALT 33 Alkaline Phosphatase 139 H Total Protein 7.0 Albumin 4.1 Globulin 2.9 Albumin/Globulin Ratio 1.4 Assessment & Plan - Assessment and Plan (Free Text) Assessment: Abdominal Pain Ilietis Liver Cysts H/O Colon cancer, s/p resection H/O Brain Aneurysm w/clip Chronic Atrial Fibrillation Elevated LFT, ? liver cyst HTN Hyponatremia PLAN: on IV antibiotics: ceftriaxone and flagyl diet as tolerated bowel regmine, Colace on Lovenox continue PPi on Morphine for pain surgical eval Thank you for this consult and for allowing us to participate in your patient care, will make further recommendation based upon clinical course. Seen and discussed with Dr. Brown.
[2017-02-04] MEDS: metroNIDAZOLE IV 500 mg/100 ml 500 MG/100 ML BAG IVPB SCH ×3 (05:35→22:26)
[2017-02-04] MEDS: Pantoprazole 40 mg EC Tab PO SCH (05:35)
--- NOTE | 2017-02-04 06:39 | CP.PCM.PN ---
<Benita Morse - Last Filed: 02/04/17 21:59> Subjective - Date & Time of Evaluation Date of Evaluation: 02/04/17 Time of Evaluation: 08:00 - Subjective Subjective: Medicine progress note for Dr Sr and Dr Hernandez. No acute events overnight. Patient reports the abdominal pain has resolved, but she's still feeling weak. Admits to lack of appetite. Denies n/v/d, denies cp or sob. Objective - Vital Signs/Intake and Output Vital Signs (last 24 hours): Temp Pulse Resp BP Pulse Ox 98 F 85 19 143/80 93 L 02/03/17 16:00 02/03/17 16:00 02/03/17 16:00 02/03/17 16:00 02/03/17 16:00 Intake and Output: 02/03/17 02/04/17 18:59 06:59 Intake Total 180 Balance 180 - Medications Medications: Current Medications Acetaminophen (Tylenol 325mg Tab) 650 mg PO Q6H PRN PRN Reason: Fever >100.4 F Aspirin (Ecotrin) 81 mg PO DAILY [facility] Last Admin: 02/03/17 10:10 Dose: 81 mg Atorvastatin Calcium (Lipitor) 20 mg PO DIN [facility] Last Admin: 02/03/17 18:03 Dose: 20 mg Cholecalciferol (Vitamin D) 2,000 iu PO DAILY [facility] Last Admin: 02/03/17 18:04 Dose: 2,000 iu Docusate Sodium (Colace) 100 mg PO BID [facility] Last Admin: 02/03/17 18:03 Dose: 100 mg Enoxaparin Sodium (Lovenox) 30 mg SC DAILY [facility] PRN Reason: Protocol Last Admin: 02/03/17 10:09 Dose: 30 mg Metronidazole (Flagyl) 500 mg in 100 mls @ 100 mls/hr IVPB Q8 [facility] PRN Reason: Protocol Last Admin: 02/04/17 05:35 Dose: 100 mls/hr Ceftriaxone Sodium (Rocephin 1 Gram Ivpb) 1 gm in 100 mls @ 100 mls/hr IVPB DAILY [facility] PRN Reason: Protocol Last Admin: 02/03/17 10:11 Dose: 100 mls/hr Sodium Chloride (Sodium Chloride 0.9%) 1,000 mls @ 75 mls/hr IV .[id number] [facility] Levothyroxine Sodium (Synthroid) 25 mcg PO DAILY [facility] Last Admin: 02/03/17 10:10 Dose: 25 mcg Losartan Potassium (Cozaar) 100 mg PO DAILY [facility] Last Admin: 02/03/17 10:10 Dose: 100 mg Morphine Sulfate (Morphine) 1 mg IVP Q4H PRN PRN Reason: Pain, moderate (4-7) Last Admin: 02/03/17 20:25 Dose: 1 mg Pantoprazole Sodium (Protonix Ec Tab) 40 mg PO 0630 [facility] Last Admin: 02/04/17 05:35 Dose: 40 mg Simethicone (Mylicon Chew Tab) 80 mg PO [facility] PRN PRN Reason: GI distress Zolpidem Tartrate (Ambien) 5 mg PO HS PRN; Protocol PRN Reason: Insomnia Last Admin: 02/03/17 22:09 Dose: 5 mg - Labs Labs: 02/03/17 07:30 02/03/17 07:30 Assessment and Plan - Assessment and Plan (Free Text) Assessment: Patient is an 86 y/o with PMH of Afib ( not on anticoagulation), htn, scoliosis , hypothyroidism, DVT with IVC filter 4 years ago, 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 CT abdomen revealed inflammatory changes likely focal short segment ileitis. Patient also has liver cysts with the largest being 20 cm. Plan: 1) Ileitis - bcx,and ucx negative so far - Remains afebrile, +mild leukocytosis - On Rocephin and flagyl - Id following - Morphine prn for pain - Gi following 2) Severe hypokalemia- Potassium today is 2.9, - will replete with 40 meqx2 kdur, and 10 meqx2 iv kcl. 3) Hypomagnesemia- s/p repletion, will monitor. 4) Liver cysts- large being 20 cm - no surgical intervention - chronic problem, had work up in the past ~16 years ago as per family when patient was diagnosed with colon ca. Family's not interested in biopsy. 5) Hyponatremia -worsening, patient with poor oral intake. - Increase IVF to continue ns@100 cc/hr, and monitor bmp. 6) Anemia- likely dilutional, will monitor for now 7) Transaminitis - likely secondary to hepatic cysts. - Ct with normal gallbladder and ducts, + hepatic cysts - no surgical intervention for the hepatic cysts - gi following 7) Hypothyroidism - continue synthroid 25 cc qd. 8) Erythematous rash on the face - allergic reaction versus vitamin deficiency - Less likely shingles - vit b12 normal - will continue to observe 9) HTN- continue cozaar and hctz 10) h/o abnormal stress test - Cardio on consult - Continue asa, and Lipitor - cardiac cath on 11) Chronic afib - - CHADS2 score of 2, [id number] score of 4 for age, sex, and htn. - HASBLED score of 2 for predisposition to bleeding and age >65. - Risk versus benefit of choosing anticoagulation versus refusing anticoag discussed with family at bedside,.Considering eliquis versus pradaxa. 12) h/o DVT s/p IVC filter 13) DVT and gi prophylaxis: lovenox and protonix. Patient seen,examined, discussed with Dr Hernandez <Leo Hernandez - Last Filed: 02/24/17 18:41> Objective - Vital Signs/Intake and Output Vital Signs (last 24 hours): Temp Pulse Resp BP Pulse Ox 97.9 F 80 19 144/91 H 99 02/14/17 16:00 02/14/17 17:19 02/14/17 16:00 02/14/17 17:19 02/14/17 16:00 - Labs Labs: 02/14/17 07:00 02/14/17 13:49 Attending/Attestation - Attestation I have personally seen and examined this patient.: Yes I have fully participated in the care of the patient.: Yes I have reviewed all pertinent clinical information, including history, physical exam and plan: Yes Notes (Text): 02/24/17 18:41 Medical record note made by the resident after discussion with my direction and input after the patient was personally seen and examined by me. I have reviewed the chart and agree that the record accurately reflects by personal performance of the history, physical exam, data review, and medical decision-making, in the course for the patient. I have also personally directed the plan of care.
[2017-02-04 07:40] LABS: ADD MANUAL DIFF? NO
[2017-02-04 07:51] LABS: BASO # 0.01 K/mm3 (0.0-2.0); BASO % 0.1 % (0.0-3.0); EOS % 0.1 % (1.5-5.0); GRAN # 10.51 (1.4-6.5); GRAN % 82.5 % (50.0-68.0); HEMATOCRIT 32.7 % (36.0-48.0); LYMPH # 1.2 (1.2-3.4); LYMPH % 9.5 % (22.0-35.0); MEAN CELL VOLUME 87.7 fL (80.0-105.0); MEAN CORPUSCULAR HEMOGLOBIN 31.1 pg (25.0-35.0); MEAN CORPUSCULAR HGB CONC 35.5 g/dl (31.0-37.0); MEAN PLATELET VOLUME 9.1 fl (7.0-11.0); MONO % 7.8 % (1.0-6.0); PLATELET COUNT 224 10^3/uL (120.0-450.0); RED CELL DISTRIBUTION WIDTH 13.2 % (11.5-14.5); WHITE BLOOD COUNT 12.7 10^3/ul (4.5-11.0)
--- NOTE | 2017-02-04 08:12 | CON ---
DATE: 02/03/2017 This is an addendum to GI consultation report dicted by Ana Raphael APN. This patient was seen and evaluated earlier today. Discussed with the patient' s family members who were at bedside. This 86-year-old patient was admitted with abdominal pain and right-sided abdominal discomfort. The patient did have loose bowel movements. Two days before the onset, she had some fish for dinner The patient has loose bowel movements and abdominal discomfort since then. CT scan shows some thickening in the terminal ileal area. Some inflammatory changes. The patient was also found to have a large cystic lesion in the liver area. The patient has a history of colon cancer in the past. Had surgery. The patient was followed in the past by Dr. Yaw De Leon. On examination, the patient has fullness in the right upper quadrant area with a mass. Probably this cystic lesion which was noted in the CAT scan was palpable. The patient does have some tenderness in the right lower quadrant area. LABORATORY DATA: Her WBC mildly elevated at 11.1. Total bilirubin is 1.6, alkaline phosphatase 139. I discussed with the patient, presently on antibiotics. The most likely impression is most likely this is an acute enterocolitis, probably from food and the patient's large cyst and the history of colon cancer in the past. Discussed with the family. The patient does not want any invasive procedures. The present plan is to continue the antibiotic and slowly advance to soft diet. Followup of the stool cultures. This cystic lesion in the liver appears to be significantly larger. The patient, as per family, had a CAT scan done in the [facility]. I could not review it in the [facility]. We will review the [facility] records, the previous CAT scan and compare the size of the cyst. Thank you very much for allowing us to participate in the care of the patient. Discussed with her. The patient's case was also discussed with the surgical first assistant. Andreia Brown MD cc: [id number] TT: 02/04/2017 08:11:19 Confirmation # [id number] Dictation # [id number] vaughn GRIFFIN
[2017-02-04 09:02] LABS: ALB/GLOB RATIO 1.2 (1.1-1.8); ALKALINE PHOSPHATASE 96 U/L (38-133); ALT/SGPT 35 U/L (7-56); AST/SGOT 33 U/L (15-39); BILIRUBIN,TOTAL 1.3 mg/dL (0.2-1.3); BLOOD UREA NITROGEN 19 mg/dL (7-21); CALCIUM 7.9 mg/dL (8.4-10.5); CARBON DIOXIDE 24 mmol/L (21-33); CHLORIDE 94 mmol/L (98-107); GFR AFRICAN-AMERICAN > 60; GLUCOSE,RANDOM 106 mg/dL (70-110); SODIUM 124 mmol/L (132-148); TOTAL PROTEIN 5.3 g/dL (5.8-8.3)
[2017-02-04 09:13] LABS: POTASSIUM 2.9 mmol/L (3.6-5.0)
[2017-02-04] MEDS: Enoxaparin 30 mg Syringe SC SCH (10:09)
[2017-02-04] MEDS: cefTRIAXone 1 gm 1 GM/100 ML BAG IVPB SCH (10:09)
[2017-02-04] MEDS: Levothyroxine 25 MCG TAB PO SCH (10:10)
[2017-02-04] MEDS: Potassium Chloride 20 mEq ER Tab PO SCH ×2 (12:09→14:35)
--- NOTE | 2017-02-04 13:43 | PN ---
DATE: 02/04/2017 The patient seen earlier today in 363, bed 2. No fevers, no chills. She is comfortable. PHYSICAL EXAMINATION: VITAL SIGNS: Temperature is 98, blood pressure is 125/70, respiratory rate of 22. HEENT: Unremarkable. NECK: Supple. LUNGS: Have decreased breath sounds. HEART: Normal S1, S2. ABDOMEN: Soft. LABORATORY DATA: Reveals a white count of 12,700, hemoglobin of 11. BUN of 19, creatinine of 0.7. Urinalysis is noted. Microbiology is noted. Review of orders reveals the patient to be on IV Flagyl and IV ceftriaxone. ASSESSMENT AND PLAN: An 86-year-old female with hypertension, coronary artery disease, hypothyroidis m, admitted with abdominal discomfort, diarrhea, acute ileitis and hepatic cyst on ceftriaxone and Fl agyl. Today, she is doing much better. No stool cultures are available. May be able to switch to p .o. Vantin and p.o. Flagyl to complete therapy. Case discussed with Dr. Hernandez, covering doctor for today. The blood cultures are reported to be negative. No diarrhea now. Note, stool culture and t he urine culture is reported as a gram-positive cocci, so urinalysis is negative. Josh Callaway MD cc: [id number] TT: 02/04/2017 13:42:32 Confirmation # [id number] Dictation # [id number] cn
--- NOTE | 2017-02-04 14:12 | PN ---
DATE: 02/04/2017 The patient is still experiencing weakness and poor appetite. PHYSICAL EXAMINATION: VITAL SIGNS: Blood pressure 125/79, heart rate 87, temperature 98.6, respirations 22. HEENT: Dry mucous membranes. NECK: No JVD. CHEST: Clear. HEART: S1, S2 regular. EXTREMITIES: No edema. LABORATORIES: Hemoglobin and hematocrit 11.6 and 32.7, white count and platelet count 12.7 and 224,0 00. SMA-7: Sodium 124, potassium 2.9, chloride 94, CO2 24, glucose 106, BUN 19, creatinine 0.7. I did review the gastroenterology recommendation and according to the GI evaluation the most likely i mpression is acute enterocolitis, probably from food and the patient's large cyst and the history of colon cancer in the past. The patient does not require any invasive studies. Continue antibiotics. ASSESSMENT: 1. Chronic atrial fibrillation. 2. Positive recent stress test. 3. History of colon cancer. 4. Enterocolitis. 5. Hypokalemia and hyponatremia as well as dehydration. RECOMMENDATIONS: Continue current IV Rocephin and normal saline infusion at 75 mL an hour. Continue IV potassium infusion, a total of 20 mEq to be given intravenous today, besides K-Dur at 40 mEq oral replacement. Continue IV Flagyl. Continue aspirin 81 mg once a day. The patient was encouraged to drink and eat and avoid salt restriction for now. Joao Richard MD cc: [id number] TT: 02/04/2017 14:11:47 Confirmation # [id number] Dictation # [id number] judi
[2017-02-04] MEDS: Sodium Chloride 0.9% 1,000 ML IV SCH (21:50)
[2017-02-05] MEDS: Pantoprazole 40 mg EC Tab PO SCH (05:41)
[2017-02-05] MEDS: metroNIDAZOLE IV 500 mg/100 ml 500 MG/100 ML BAG IVPB SCH (05:41)
[2017-02-05 07:23] LABS: MAGNESIUM 1.6 mg/dL (1.7-2.2); PHOSPHOROUS 1.8 mg/dL (2.5-4.5)
[2017-02-05 08:10] LABS: ADD MANUAL DIFF? NO
[2017-02-05 08:20] LABS: BASO # 0.03 K/mm3 (0.0-2.0); BASO % 0.3 % (0.0-3.0); EOS # 0.1 (0.0-0.7); EOS % 1.1 % (1.5-5.0); GRAN # 7.64 (1.4-6.5); GRAN % 74.5 % (50.0-68.0); HEMATOCRIT 29.8 % (36.0-48.0); LYMPH # 1.4 (1.2-3.4); LYMPH % 13.9 % (22.0-35.0); MEAN CELL VOLUME 88.7 fL (80.0-105.0); MEAN CORPUSCULAR HEMOGLOBIN 31.3 pg (25.0-35.0); MEAN CORPUSCULAR HGB CONC 35.2 g/dl (31.0-37.0); MEAN PLATELET VOLUME 9.1 fl (7.0-11.0); MONO # 1.1 (0.1-0.6); MONO % 10.2 % (1.0-6.0); PLATELET COUNT 220 10^3/uL (120.0-450.0); RED CELL DISTRIBUTION WIDTH 13.3 % (11.5-14.5); WHITE BLOOD COUNT 10.3 10^3/ul (4.5-11.0)
[2017-02-05 08:30] LABS: ALB/GLOB RATIO 1.3 (1.1-1.8); ALKALINE PHOSPHATASE 91 U/L (38-133); ALT/SGPT 34 U/L (7-56); AST/SGOT 33 U/L (15-39); BILIRUBIN,TOTAL 1.1 mg/dL (0.2-1.3); BLOOD UREA NITROGEN 12 mg/dL (7-21); CALCIUM 7.8 mg/dL (8.4-10.5); CARBON DIOXIDE 22 mmol/L (21-33); CHLORIDE 99 mmol/L (98-107); GFR AFRICAN-AMERICAN > 60; GLUCOSE,RANDOM 81 mg/dL (70-110); POTASSIUM 3.9 mmol/L (3.6-5.0); SODIUM 126 mmol/L (132-148); TOTAL PROTEIN 5.4 g/dL (5.8-8.3)
--- NOTE | 2017-02-05 09:03 | PN ---
DATE: 02/04/2017 This patient was seen and evaluated earlier. The patient is tolerating the diet. Abdominal discomfort has significantly improved. PHYSICAL EXAMINATION: VITAL SIGNS: Temperature is 98.6, pulse 87, blood pressure is 125/79. HEENT: Atraumatic, anicteric. NECK: Supple. HEART: S1, S2 heard. LUNGS: Bilateral air entry present. ABDOMEN: Soft, softly distended. EXTREMITIES: No edema, no cyanosis. LABORATORY DATA: Hemoglobin 11.6, hematocrit 32.7, WBCs 12.7, platelets 224. Sodium 124, potassium 2.9. IMPRESSION: This 86-year-old patient is admitted with abdominal pain, loose bowel movements. The patient does have a large hepatic cyst. Clinically, the colonic inflammatory changes noticed on the CAT scan probably could be secondary to the enterocolitis. RECOMMENDATIONS: 1. Continue the antibiotics. 2. Electrolytic abnormalities. Supplement the potassium. Change the fluid to treat hyponatremia. Continue to closely monitor electrolytes. We will get the records of the previous CAT scan done in . We will continue to closely follow up her care and suggest further management based on the clinical course. Andreia Brown MD cc: [id number] TT: 02/05/2017 09:02:51 Confirmation # [id number] Dictation # [id number] en MTDD
[2017-02-05] MEDS: Levothyroxine 25 MCG TAB PO SCH (10:44)
[2017-02-05] MEDS: Enoxaparin 30 mg Syringe SC SCH (10:44)
[2017-02-05] MEDS: Cefpodoxime (Vantin) 200 mg Tab PO SCH ×2 (10:44→21:53)
--- NOTE | 2017-02-05 11:01 | PN ---
DATE: 02/05/2017 The patient is seen earlier this morning in 363, bed 2. No fevers and chills. PHYSICAL EXAMINATION: VITAL SIGNS: Temperature is 98. Blood pressure is 125/70, respiratory rate of 16. HEENT: Unremarkable. NECK: Supple. LUNGS: Have decreased breath sounds. HEART: Normal S1, S2. ABDOMEN: Soft, nontender. No organomegaly, no rebound or guarding. No masses. LABORATORY DATA: Reveals the white count is down to 10.3, hemoglobin of 10. Chemistries are noted. BUN of 12, creatinine of 0.6. Urinalysis is noted. Microbiology: Blood cultures are no growth. U rine culture has gram-positive cocci - it is final. Review of the orders reveals the patient to be on IV Flagyl and IV ceftriaxone. Dr. Brown's note is reviewed. ASSESSMENT AND PLAN: This is an 86-year-old female with hypertension, coronary artery disease, hypot hyroidism admitted with abdominal discomfort, diarrhea, acute ileitis, hepatic cyst and currently on ceftriaxone and Flagyl. We will change the Flagyl to p.o. and ceftriaxone, p.o. Vantin. The patient 's abdominal pain and diarrhea have resolved. ____ stool cultures. No etiology. We will need close followup with GI and PMD as outpatient. Josh Callaway MD cc: [phone] TT: 02/05/2017 11:00:50 Confirmation # [id number] Dictation # [id number] judi
--- NOTE | 2017-02-05 14:42 | CP.PCM.PN ---
<Cristobal Kern - Last Filed: 02/05/17 14:38> Subjective - Date & Time of Evaluation Date of Evaluation: 02/05/17 Time of Evaluation: 14:38 - Subjective Subjective: GI for Dr. Brown Pt s&e w attending. NAVA. Pain controlled. Pt doesn't want invasive intervention. Denies F/C/N/V/D/CP/SOB Objective - Vital Signs/Intake and Output Vital Signs (last 24 hours): Temp Pulse Resp BP Pulse Ox 98.0 F 92 H 20 163/98 H 95 02/05/17 06:00 02/05/17 06:00 02/05/17 06:00 02/05/17 06:00 02/05/17 06:00 Intake and Output: 02/05/17 02/05/17 06:59 18:59 Intake Total 1240 Output Total 0 Balance 1240 - Medications Medications: Current Medications Acetaminophen (Tylenol 325mg Tab) 650 mg PO Q6H PRN PRN Reason: Fever >100.4 F Aspirin (Ecotrin) 81 mg PO DAILY [facility] Last Admin: 02/05/17 10:45 Dose: 81 mg Atorvastatin Calcium (Lipitor) 20 mg PO DIN [facility] Last Admin: 02/04/17 17:16 Dose: 20 mg Cefpodoxime Proxetil (Vantin) 200 mg PO Q12 [facility] PRN Reason: Protocol Stop: 02/10/17 10:01 Last Admin: 02/05/17 10:44 Dose: 200 mg Cholecalciferol (Vitamin D) 2,000 iu PO DAILY [facility] Last Admin: 02/05/17 10:44 Dose: 2,000 iu Docusate Sodium (Colace) 100 mg PO BID [facility] Last Admin: 02/05/17 10:45 Dose: 100 mg Enoxaparin Sodium (Lovenox) 30 mg SC DAILY [facility] PRN Reason: Protocol Last Admin: 02/05/17 10:44 Dose: 30 mg Sodium Chloride (Sodium Chloride 0.9%) 1,000 mls @ 100 mls/hr IV .Q10H [facility] Last Admin: 02/04/17 21:50 Dose: 100 mls/hr Levothyroxine Sodium (Synthroid) 25 mcg PO DAILY [facility] Last Admin: 02/05/17 10:44 Dose: 25 mcg Losartan Potassium (Cozaar) 100 mg PO DAILY [facility] Last Admin: 02/05/17 10:45 Dose: 100 mg Magnesium Oxide (Mag-Ox) 400 mg PO BID [facility] Metronidazole (Flagyl) 500 mg PO Q8 [facility] PRN Reason: Protocol Stop: 02/10/17 14:01 Last Admin: 02/05/17 14:25 Dose: 500 mg Morphine Sulfate (Morphine) 1 mg IVP Q4H PRN PRN Reason: Pain, moderate (4-7) Last Admin: 02/03/17 20:25 Dose: 1 mg Pantoprazole Sodium (Protonix Ec Tab) 40 mg PO 0630 [facility] Last Admin: 02/05/17 05:41 Dose: 40 mg Simethicone (Mylicon Chew Tab) 80 mg PO [facility] PRN PRN Reason: GI distress Zolpidem Tartrate (Ambien) 5 mg PO HS PRN; Protocol PRN Reason: Insomnia Last Admin: 02/04/17 22:26 Dose: 5 mg - Labs Labs: 02/05/17 07:00 02/05/17 07:00 - Constitutional Appears: No Acute Distress - Head Exam Head Exam: ATRAUMATIC, NORMAL INSPECTION, NORMOCEPHALIC - Eye Exam Eye Exam: EOMI, Normal appearance, PERRL Pupil Exam: NORMAL ACCOMODATION, PERRL - ENT Exam ENT Exam: Mucous Membranes Moist, Normal Exam - Neck Exam Neck Exam: Full ROM, Normal Inspection. absent: Lymphadenopathy - Respiratory Exam Respiratory Exam: Clear to Ausculation Bilateral, NORMAL BREATHING PATTERN - Cardiovascular Exam Cardiovascular Exam: REGULAR RHYTHM, +S1, +S2. absent: Murmur - GI/Abdominal Exam GI & Abdominal Exam: Distended, Soft, Tenderness, Mass, Normal Bowel Sounds, Organomegaly. absent: Firm, Guarding, Rigid, Pulsatile Mass, Rebound - Exam Exam: NORMAL INSPECTION - Extremities Exam Extremities Exam: Full ROM, Normal Capillary Refill, Normal Inspection. absent : Joint Swelling, Pedal Edema - Back Exam Back Exam: NORMAL INSPECTION - Neurological Exam Neurological Exam: Alert, Awake, CN II-XII Intact, Normal Gait, Oriented x3 - Psychiatric Exam Psychiatric exam: Normal Affect, Normal Mood - Skin Skin Exam: Dry, Intact, Normal Color, Warm Assessment and Plan - Assessment and Plan (Free Text) Assessment: Abdominal Pain Ilietis, enterocolitis Hyponatremia Liver Cysts H/O Colon cancer, s/p resection H/O Brain Aneurysm w/clip Chronic Atrial Fibrillation HTN Hyponatremia PLAN: ABX diet as tolerated IVF for hyponatremia surgical eval: No surgical intervention at this time. Pt refuses invasive procedure f/u previous CT from [facility] Seen and discussed with Dr. Brown. <Andreia Brown V - Last Filed: 04/20/17 16:58> Objective - Vital Signs/Intake and Output Vital Signs (last 24 hours): Temp Pulse Resp BP Pulse Ox 97.9 F 80 19 144/91 H 99 02/14/17 16:00 02/14/17 17:19 02/14/17 16:00 02/14/17 17:19 02/14/17 16:00 - Labs Labs: 02/14/17 07:00 02/14/17 13:49 - GI/Abdominal Exam GI & Abdominal Exam: Soft, Tenderness. absent: Guarding, Rebound Assessment and Plan - Assessment and Plan (Free Text) Assessment: This is an addendum note to the GI progress note of Dr. Kern, patient was seen, case reviewed and discussed and agree with assessment and plan as stated above. continue diet as tolerated and antibiotics.
[2017-02-05] MEDS: Morphine 2 mg/ml ISec IVP PRN (19:05)
[2017-02-06] MEDS: Morphine 2 mg/ml ISec IVP PRN ×2 (03:16→17:48)
[2017-02-06] MEDS: Pantoprazole 40 mg EC Tab PO SCH (06:04)
[2017-02-06 07:51] LABS: ALB/GLOB RATIO 1.1 (1.1-1.8); ALKALINE PHOSPHATASE 104 U/L (38-133); ALT/SGPT 37 U/L (7-56); AST/SGOT 30 U/L (15-39); BLOOD UREA NITROGEN 7 mg/dL (7-21); CALCIUM 7.8 mg/dL (8.4-10.5); CARBON DIOXIDE 23 mmol/L (21-33); CHLORIDE 100 mmol/L (98-107); GFR AFRICAN-AMERICAN > 60; GLUCOSE,RANDOM 82 mg/dL (70-110); MAGNESIUM 1.4 mg/dL (1.7-2.2); PHOSPHOROUS 2.1 mg/dL (2.5-4.5); POTASSIUM 3.5 mmol/L (3.6-5.0); SODIUM 129 mmol/L (132-148); TOTAL PROTEIN 5.3 g/dL (5.8-8.3)
[2017-02-06 08:55] LABS: ADD MANUAL DIFF? NO
[2017-02-06] MEDS ORDERED: Potassium Chloride 20 mEq ER Tab PO ONE (09:03)
[2017-02-06] MEDS ORDERED: Magnesium Sulfate 2 GM in Sodium Chloride 0.9% 100 ML IV ONE (09:04)
--- NOTE | 2017-02-06 09:06 | CP.PCM.PN ---
<Benita Morse - Last Filed: 02/06/17 16:17> Subjective - Date & Time of Evaluation Date of Evaluation: 02/06/17 Time of Evaluation: 07:20 - Subjective Subjective: Medicine progress note for Dr Sr and Dr Hernandez. No events overnight. Patient denies cp. sob. n/v/. Patient report bm daily. Patient reports the abdominal pain has resolved. Objective - Vital Signs/Intake and Output Vital Signs (last 24 hours): Temp Pulse Resp BP Pulse Ox 98.0 F 92 H 20 163/98 H 95 02/05/17 06:00 02/05/17 06:00 02/05/17 06:00 02/05/17 06:00 02/05/17 06:00 Intake and Output: 02/06/17 02/06/17 06:59 18:59 Intake Total 420 Balance 420 - Medications Medications: Current Medications Acetaminophen (Tylenol 325mg Tab) 650 mg PO Q6H PRN PRN Reason: Fever >100.4 F Aspirin (Ecotrin) 81 mg PO DAILY [facility] Last Admin: 02/05/17 10:45 Dose: 81 mg Atorvastatin Calcium (Lipitor) 20 mg PO DIN [facility] Last Admin: 02/04/17 17:16 Dose: 20 mg Cefpodoxime Proxetil (Vantin) 200 mg PO Q12 [facility] PRN Reason: Protocol Stop: 02/10/17 10:01 Last Admin: 02/05/17 21:53 Dose: 200 mg Cholecalciferol (Vitamin D) 2,000 iu PO DAILY [facility] Last Admin: 02/05/17 10:44 Dose: 2,000 iu Docusate Sodium (Colace) 100 mg PO BID [facility] Last Admin: 02/05/17 10:45 Dose: 100 mg Enoxaparin Sodium (Lovenox) 30 mg SC DAILY [facility] PRN Reason: Protocol Last Admin: 02/05/17 10:44 Dose: 30 mg Sodium Chloride (Sodium Chloride 0.9%) 1,000 mls @ 100 mls/hr IV .Q10H [facility] Last Admin: 02/04/17 21:50 Dose: 100 mls/hr Magnesium Sulfate 2 gm/ Sodium (Chloride) 104 mls @ 102 mls/hr IV ONCE ONE Stop: 02/06/17 10:05 Levothyroxine Sodium (Synthroid) 25 mcg PO DAILY [facility] Last Admin: 02/05/17 10:44 Dose: 25 mcg Losartan Potassium (Cozaar) 100 mg PO DAILY [facility] Last Admin: 02/05/17 10:45 Dose: 100 mg Magnesium Oxide (Mag-Ox) 400 mg PO BID [facility] Metronidazole (Flagyl) 500 mg PO Q8 [facility] PRN Reason: Protocol Stop: 02/10/17 14:01 Last Admin: 02/06/17 06:04 Dose: 500 mg Morphine Sulfate (Morphine) 1 mg IVP Q4H PRN PRN Reason: Pain, moderate (4-7) Last Admin: 02/06/17 03:16 Dose: 1 mg Pantoprazole Sodium (Protonix Ec Tab) 40 mg PO 0630 [facility] Last Admin: 02/06/17 06:04 Dose: 40 mg Potassium Chloride (K-Dur 20 Meq Er Tab) 40 meq PO ONCE ONE Stop: 02/06/17 09:04 Potassium Phos/Sodium Phos (Neutra-Phos) 1 pkt PO BID [facility] Stop: 02/08/17 10:01 Simethicone (Mylicon Chew Tab) 80 mg PO [facility] PRN PRN Reason: GI distress Zolpidem Tartrate (Ambien) 5 mg PO HS PRN; Protocol PRN Reason: Insomnia Last Admin: 02/05/17 23:32 Dose: 5 mg - Labs Labs: 02/05/17 07:00 02/06/17 06:00 - Constitutional Appears: No Acute Distress, Cachectic, Chronically Ill - Head Exam Head Exam: ATRAUMATIC, NORMAL INSPECTION, NORMOCEPHALIC - Eye Exam Eye Exam: Normal appearance, PERRL. absent: Scleral icterus - ENT Exam ENT Exam: Mucous Membranes Moist - Neck Exam Neck Exam: Normal Inspection - Respiratory Exam Respiratory Exam: Clear to Ausculation Bilateral, NORMAL BREATHING PATTERN. absent: Rales, Rhonchi, Wheezes, Respiratory Distress, Stridor - Cardiovascular Exam Cardiovascular Exam: REGULAR RHYTHM, RRR, +S1, +S2 - GI/Abdominal Exam GI & Abdominal Exam: Soft, Normal Bowel Sounds. 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 CT abdomen revealed inflammatory changes likely focal short segment ileitis. Patient also has liver cysts with the largest being 20 cm. Plan: 1) Ileitis - Simons culture with no growth. contaminated urine. - afebrile, leukocytosis resolved. - On Rocephin and flagyl - Id and Gi following - Morphine prn for pain 2) Hyponatremia - improving - will keep ns@ 100cc/hr, will continue to monitor. 3) Hypokalemia, hypophosphatemia and hypomagnesemia- - will replete and continue monitor. 4) Liver cysts- largest being 20 cm - no surgical intervention - chronic problem, had work up in the past ~16 years ago as per family when patient was diagnosed with colon ca. Family's not interested in biopsy. 5) Anemia- likely dilutional, will monitor for now 6) Transaminitis- resolved - likely secondary to hepatic cysts. - Ct with normal gallbladder and ducts, + hepatic cysts - no surgical intervention for the hepatic cysts 7) Hypothyroidism - continue synthroid 25 cc qd. 8) Erythematous rash on the face - allergic reaction versus vitamin deficiency - Less likely shingles - vit b12 normal - will continue to observe 9) HTN- continue cozaar and hctz 10) h/o abnormal stress test - Cardio on consult - Continue asa, and Lipitor - cardiac cath on 11) Chronic afib - - CHADS2 score of 2, [id number] score of 4 for age, sex, and htn. - HASBLED score of 2 for predisposition to bleeding and age >65. - Risk versus benefit of choosing anticoagulation versus refusing anticoag discussed with family at bedside,.Considering eliquis versus pradaxa. 12) h/o DVT s/p IVC filter 13) DVT and gi prophylaxis: lovenox and protonix. 14) Dispo- transfer to TCU for PT, pending cardiac cath. Patient seen,examined, discussed with Dr Hernandez <Leo Hernandez - Last Filed: 02/24/17 18:52> Objective - Vital Signs/Intake and Output Vital Signs (last 24 hours): Temp Pulse Resp BP Pulse Ox 97.9 F 80 19 144/91 H 99 02/14/17 16:00 02/14/17 17:19 02/14/17 16:00 02/14/17 17:19 02/14/17 16:00 - Labs Labs: 02/14/17 07:00 02/14/17 13:49 Attending/Attestation - Attestation I have personally seen and examined this patient.: Yes I have fully participated in the care of the patient.: Yes I have reviewed all pertinent clinical information, including history, physical exam and plan: Yes Notes (Text): 02/24/17 18:52 Medical record note made by the resident after discussion with my direction and input after the patient was personally seen and examined by me. I have reviewed the chart and agree that the record accurately reflects by personal performance of the history, physical exam, data review, and medical decision-making, in the course for the patient. I have also personally directed the plan of care.
[2017-02-06 09:23] LABS: BASO # 0.04 K/mm3 (0.0-2.0); BASO % 0.5 % (0.0-3.0); EOS # 0.2 (0.0-0.7); EOS % 2.4 % (1.5-5.0); GRAN # 5.81 (1.4-6.5); GRAN % 68.7 % (50.0-68.0); HEMATOCRIT 30.3 % (36.0-48.0); LYMPH # 1.5 (1.2-3.4); LYMPH % 17.7 % (22.0-35.0); MEAN CELL VOLUME 89.1 fL (80.0-105.0); MEAN CORPUSCULAR HGB CONC 33.7 g/dl (31.0-37.0); MEAN PLATELET VOLUME 8.8 fl (7.0-11.0); MONO # 0.9 (0.1-0.6); MONO % 10.7 % (1.0-6.0); PLATELET COUNT 246 10^3/uL (120.0-450.0); RED CELL DISTRIBUTION WIDTH 13.5 % (11.5-14.5); WHITE BLOOD COUNT 8.4 10^3/ul (4.5-11.0)
[2017-02-06] MEDS: Cefpodoxime (Vantin) 200 mg Tab PO SCH ×2 (10:12→21:46)
[2017-02-06] MEDS: Magnesium Oxide 400 mg Tab UD PO SCH ×2 (10:13→17:32)
[2017-02-06] MEDS: Levothyroxine 25 MCG TAB PO SCH (10:13)
[2017-02-06] MEDS: Enoxaparin 30 mg Syringe SC SCH (10:14)
[2017-02-06] MEDS: Potassium & Sodium Phosphate PO SCH ×2 (10:14→17:32)
--- NOTE | 2017-02-06 13:06 | PN ---
DATE: 02/06/2017 The patient is in room 363, bed 2. PHYSICAL EXAMINATION: VITAL SIGNS: Temperature is 98, blood pressure is 140/70, respiratory rate of 16, heart rate of 98. HEENT: Unremarkable. NECK: Supple. LUNGS: Have decreased breath sounds. HEART: Normal S1, S2. ABDOMEN: Soft, nontender. LABORATORY DATA: Reveals a white count of 8.4, hemoglobin of 10, platelets of 246. BUN of 7, creati nine of 0.5. Urinalysis is noted. Microbiology is noted. Review of orders reveals the patient to be on p.o. Flagyl and p.o. Vantin. note is reviewe d. Dr. Kern's note is reviewed from yesterday. ASSESSMENT AND PLAN: This is an 86-year-old female with hypertension, coronary artery disease, hypot hyroidism, admitted with abdominal discomfort, diarrhea, acute ileitis, hepatic cyst, was treated wit h ceftriaxone, Flagyl, now currently on p.o. Vantin and p.o. Flagyl to complete therapy, to follow up with GI. Josh Callaway MD cc: [phone] TT: 02/06/2017 13:05:17 Confirmation # [id number] Dictation # [id number] misa
[2017-02-06] MEDS: Sodium Chloride 0.9% 1,000 ML IV SCH (23:36)
--- NOTE | 2017-02-06 23:55 | PN ---
DATE: 02/06/2017 SUBJECTIVE: This patient is tolerating the diet. The patient's family was at bedside. Denies any a bdominal pain now. PHYSICAL EXAMINATION: VITAL SIGNS: Temperature is 97.9, pulse 89, blood pressure is 150/80. HEENT: Atraumatic, anicteric. NECK: Supple. HEART: S1, S2 heard. LUNGS: present on the right side of the abdomen. EXTREMITIES: No cyanosis, no clubbing. ADDENDUM VITAL SIGNS: Temperature is 97.9, pulse 89, blood pressure is 150/80. LABORATORY DATA: Hemoglobin is 10.2, hematocrit is 30.3, platelet count is 246, WBC is 8.4. Sodium 129, creatinine is 3.5. IMPRESSION: This 86-year-old patient admitted with abdominal pain. CT shows some inflammation in th e terminal ilium area. The patient has a large area of cysts. IMPRESSION: Would recommend: 1. To continue the antibiotic course. 2. Correction of the electrolytes. 3. The largest cyst. Will try to get the old x-rays from the medical from the [facility]. Com pare it. Family does not want any surgical intervention or aggressive management. Denies for any. W ill continue to closely follow. The patient does have a large cyst. Less likely this carries an mehrdad ology for mild transaminase elevation that could be multifactorial, including drug induced has to be considered. Thank you very much for allowing us to participate in the care of the patient. Andreia Brown MD cc: [id number] TT: 02/06/2017 23:54:43 Confirmation # [id number] Dictation # [id number] dn
[2017-02-07] MEDS: Pantoprazole 40 mg EC Tab PO SCH (06:15)
[2017-02-07 07:40] LABS: ALB/GLOB RATIO 1.2 (1.1-1.8); ALKALINE PHOSPHATASE 124 U/L (38-133); ALT/SGPT 35 U/L (7-56); AST/SGOT 35 U/L (15-39); BILIRUBIN,TOTAL 0.8 mg/dL (0.2-1.3); BLOOD UREA NITROGEN 5 mg/dL (7-21); CALCIUM 8.1 mg/dL (8.4-10.5); CARBON DIOXIDE 24 mmol/L (21-33); CHLORIDE 100 mmol/L (98-107); GFR AFRICAN-AMERICAN > 60; GLUCOSE,RANDOM 81 mg/dL (70-110); MAGNESIUM 1.5 mg/dL (1.7-2.2); PHOSPHOROUS 2.6 mg/dL (2.5-4.5); POTASSIUM 3.8 mmol/L (3.6-5.0); SODIUM 128 mmol/L (132-148); TOTAL PROTEIN 5.6 g/dL (5.8-8.3)
--- NOTE | 2017-02-07 08:32 | PN ---
DATE: 02/05/2017 The patient is an ____[id number] female seen and examined at bedside. Granddaughter was also there at that time. States that she is feeling a little bit better. She did pass her bowels, and stated it was not diarrhea in nature, decreased p.o. intake still at this point. No chest pain, no shortness o f breath, no nausea, no vomiting. However, did notice that the patient was talking in 2-3 word sente nces with some mild shortness of breath. However, she denies that she short of breath. PHYSICAL EXAMINATION: VITAL SIGNS: Blood pressure currently is 125/79, pulse rate 92. Temperature is 98.0. O2 saturation is 95 on room air. HEENT: Normocephalic, atraumatic. [place] conjunctivae. Nonicteric sclerae. NECK: No JVD, no thyromegaly. CARDIOVASCULAR: Regular rate and rhythm. S1, S2 appreciated with a ____ II/ systolic murmur noted. ABDOMEN: Mildly distended, no tenderness. Negative Santana's sign. Negative guarding. EXTREMITIES: Peripheral pulses +2. No pitting edema. LABORATORY DATA: WBCs of 10.3, hemoglobin of 10.5, hematocrit of 29.8, platelets of 220. Chemistry within normal limits except for sodium of 126, magnesium 1.6. LFTs now within normal limits. Blood cultures are negative. ASSESSMENT: 1. Ileus. 2. Colitis. 3. Hypokalemia. 4. Liver cyst. 5. Hyponatremia. 6. Decreased magnesium. PLAN: At this time, we will restart her IV fluids. We will advance her diet. ____ GI evaluation. We will continue her levothyroxine, as well as IV fluids at this point, as well as Flagyl. We will g et her up and moving and advance her diet, and continue to watch her very closely. Leo Hernandez MD cc: [id number] TT: 02/05/2017 13:10:48 Confirmation # [id number] Dictation # [id number] judi
[2017-02-07] MEDS ORDERED: Magnesium Sulfate 2 GM in Sodium Chloride 0.9% 100 ML IV ONE (09:16)
[2017-02-07] MEDS: Magnesium Oxide 400 mg Tab UD PO SCH ×2 (09:30→18:31)
[2017-02-07] MEDS: Cefpodoxime (Vantin) 200 mg Tab PO SCH ×2 (09:30→21:35)
[2017-02-07] MEDS: Levothyroxine 25 MCG TAB PO SCH (09:30)
[2017-02-07] MEDS: Enoxaparin 30 mg Syringe SC SCH (09:31)
[2017-02-07] MEDS: Potassium & Sodium Phosphate PO SCH ×2 (09:31→18:31)
--- NOTE | 2017-02-07 12:26 | PN ---
DATE: 02/07/2017 The patient was seen and examined at the bedside late this morning. The patient denies any nausea or vomiting. The abdominal pain is better. She was reported to have a bowel movement that was soft. The patient is pending abdominal x-ray to evaluate the SBO, and chest x-ray. The patient denies any shortness of breath or chest pain. No fever or chills. VITAL SIGNS: Temperature is 97.9, blood pressure is 165/95, pulse rate is 102, respirations 20, 96% nasal cannula. LABORATORY DATA: No CBC today. Her labs today is a CMP: The sodium is 128, K 3.8, BUN is 5, creatinine 0.5, mag is 1.5. Total bilirubin is 0.8, AST 35, ALT 35, alkaline phosphatase is 124. PHYSICAL EXAMINATION: HEENT: Sclerae are anicteric. NECK: Supple. CARDIAC: S1 and S2. LUNGS: With decreased breath sounds but positive air entry. No rales or wheeze. ABDOMEN: With bowel sounds. Abdomen appears distended, soft, a little bit firm on the right side of the abdomen. No rebound or guarding. ASSESSMENT: An 86-year-old female who came with abdominal pain which patient states has improved as well as loose bowel movement. The patient with history of hepatic cysts in the past was found to have a large hepatic cyst. CAT scan done showing some inflammation in the ileum, probably has enterocolitis. The patient is noted to have hyponatremia. PLAN: The patient is going for an abdominal x-ray, rule out small bowel obstruction. The patient is reporting having bowel movements. The patient also has a history of colon cancer. Family does not want any liver biopsies. The patient is on IV antibiotics, Flagyl and is on oral Vantin. Continue aspirin. The patient is on stool softeners. The patient is also on magnesium supplements and is on Lovenox. Continue diet as tolerated. The patient's liver enzymes are now within normal limits. The patient was seen and case discussed with Dr. Brown. Ana Hooperes BOWEN cc: [id number] TT: 02/07/2017 12:02:36 Confirmation # [id number] Dictation # [id number] mn 02/07/2017 11:25:26 MTDD
--- NOTE | 2017-02-07 12:30 | CP.PCM.PN ---
Subjective - Date & Time of Evaluation Date of Evaluation: 02/07/17 Time of Evaluation: 10:45 - Subjective Subjective: Comfortable, improved abdominal pain, no fevers overnight, not in distress. Objective - Vital Signs/Intake and Output Vital Signs (last 24 hours): Temp Pulse Resp BP Pulse Ox 97.9 F 102 H 20 165/95 H 96 02/07/17 08:16 02/07/17 08:16 02/07/17 08:16 02/07/17 08:16 02/07/17 08:16 Intake and Output: 02/07/17 02/07/17 06:59 18:59 Intake Total 1220 Balance 1220 - Medications Medications: Current Medications Acetaminophen (Tylenol 325mg Tab) 650 mg PO Q6H PRN PRN Reason: Fever >100.4 F Aspirin (Ecotrin) 81 mg PO DAILY [facility] Last Admin: 02/07/17 09:30 Dose: 81 mg Atorvastatin Calcium (Lipitor) 20 mg PO DIN [facility] Last Admin: 02/06/17 17:32 Dose: 20 mg Cefpodoxime Proxetil (Vantin) 200 mg PO Q12 [facility] PRN Reason: Protocol Stop: 02/10/17 10:01 Last Admin: 02/07/17 09:30 Dose: 200 mg Cholecalciferol (Vitamin D) 2,000 iu PO DAILY [facility] Last Admin: 02/07/17 09:30 Dose: 2,000 iu Docusate Sodium (Colace) 100 mg PO BID [facility] Last Admin: 02/07/17 09:30 Dose: 100 mg Enoxaparin Sodium (Lovenox) 30 mg SC DAILY [facility] PRN Reason: Protocol Last Admin: 02/07/17 09:31 Dose: 30 mg Sodium Chloride (Sodium Chloride 0.9%) 1,000 mls @ 100 mls/hr IV .Q10H [facility] Last Admin: 02/06/17 23:36 Dose: 100 mls/hr Levothyroxine Sodium (Synthroid) 25 mcg PO DAILY [facility] Last Admin: 02/07/17 09:30 Dose: 25 mcg Losartan Potassium (Cozaar) 100 mg PO DAILY [facility] Last Admin: 02/07/17 09:30 Dose: 100 mg Magnesium Oxide (Mag-Ox) 400 mg PO BID [facility] Last Admin: 02/07/17 09:30 Dose: 400 mg Metronidazole (Flagyl) 500 mg PO Q8 [facility] PRN Reason: Protocol Stop: 02/10/17 14:01 Last Admin: 02/07/17 06:15 Dose: 500 mg Morphine Sulfate (Morphine) 1 mg IVP Q4H PRN PRN Reason: Pain, moderate (4-7) Last Admin: 02/06/17 17:48 Dose: 1 mg Pantoprazole Sodium (Protonix Ec Tab) 40 mg PO 0630 [facility] Last Admin: 02/07/17 06:15 Dose: 40 mg Potassium Phos/Sodium Phos (Neutra-Phos) 1 pkt PO BID [facility] Stop: 02/08/17 10:01 Last Admin: 02/07/17 09:31 Dose: 1 pkt Simethicone (Mylicon Chew Tab) 80 mg PO [facility] PRN PRN Reason: GI distress Zolpidem Tartrate (Ambien) 5 mg PO HS PRN; Protocol PRN Reason: Insomnia Last Admin: 02/06/17 23:34 Dose: 5 mg - Labs Labs: 02/06/17 08:00 02/07/17 06:45 - Constitutional Appears: Non-toxic, No Acute Distress - Head Exam Head Exam: NORMAL INSPECTION - Respiratory Exam Respiratory Exam: Decreased Breath Sounds - Cardiovascular Exam Cardiovascular Exam: +S1, +S2 - GI/Abdominal Exam GI & Abdominal Exam: Soft. absent: Tenderness Assessment and Plan - Assessment and Plan (Free Text) Plan: Assessment Ileitis, acute, improving clinically hepatic cysts, etiology to be determined HTN CAD hypothyroidism Plan continue Rocephin and Flagyl day 5; will continue to monitor clinical response Follow up GI evaluation of hepatic cysts - GI to compare old films with current one will follow clinically
--- NOTE | 2017-02-07 13:10 | CP.PCM.PN ---
<Benita Morse - Last Filed: 02/07/17 15:33> Subjective - Date & Time of Evaluation Date of Evaluation: 02/07/17 Time of Evaluation: 08:00 - Subjective Subjective: Medicine progress note for Dr Sr and Dr Hernandez No acute overnight events. Patient reports no abdominal pain, admits to cough with sputum ( don't known the color), denies fever, chills, n/v/d. Objective - Vital Signs/Intake and Output Vital Signs (last 24 hours): Temp Pulse Resp BP Pulse Ox 97.9 F 102 H 20 165/95 H 96 02/07/17 08:16 02/07/17 08:16 02/07/17 08:16 02/07/17 08:16 02/07/17 08:16 Intake and Output: 02/07/17 02/07/17 06:59 18:59 Intake Total 1220 Balance 1220 - Medications Medications: Current Medications Acetaminophen (Tylenol 325mg Tab) 650 mg PO Q6H PRN PRN Reason: Fever >100.4 F Aspirin (Ecotrin) 81 mg PO DAILY [facility] Last Admin: 02/07/17 09:30 Dose: 81 mg Atorvastatin Calcium (Lipitor) 20 mg PO DIN [facility] Last Admin: 02/06/17 17:32 Dose: 20 mg Cefpodoxime Proxetil (Vantin) 200 mg PO Q12 [facility] PRN Reason: Protocol Stop: 02/10/17 10:01 Last Admin: 02/07/17 09:30 Dose: 200 mg Cholecalciferol (Vitamin D) 2,000 iu PO DAILY [facility] Last Admin: 02/07/17 09:30 Dose: 2,000 iu Docusate Sodium (Colace) 100 mg PO BID [facility] Last Admin: 02/07/17 09:30 Dose: 100 mg Enoxaparin Sodium (Lovenox) 30 mg SC DAILY [facility] PRN Reason: Protocol Last Admin: 02/07/17 09:31 Dose: 30 mg Sodium Chloride (Sodium Chloride 0.9%) 1,000 mls @ 100 mls/hr IV .Q10H [facility] Last Admin: 02/06/17 23:36 Dose: 100 mls/hr Levothyroxine Sodium (Synthroid) 25 mcg PO DAILY [facility] Last Admin: 02/07/17 09:30 Dose: 25 mcg Losartan Potassium (Cozaar) 100 mg PO DAILY [facility] Last Admin: 02/07/17 09:30 Dose: 100 mg Magnesium Oxide (Mag-Ox) 400 mg PO BID [facility] Last Admin: 02/07/17 09:30 Dose: 400 mg Metronidazole (Flagyl) 500 mg PO Q8 [facility] PRN Reason: Protocol Stop: 02/10/17 14:01 Last Admin: 02/07/17 06:15 Dose: 500 mg Morphine Sulfate (Morphine) 1 mg IVP Q4H PRN PRN Reason: Pain, moderate (4-7) Last Admin: 02/06/17 17:48 Dose: 1 mg Pantoprazole Sodium (Protonix Ec Tab) 40 mg PO 0630 [facility] Last Admin: 02/07/17 06:15 Dose: 40 mg Potassium Phos/Sodium Phos (Neutra-Phos) 1 pkt PO BID [facility] Stop: 02/08/17 10:01 Last Admin: 02/07/17 09:31 Dose: 1 pkt Simethicone (Mylicon Chew Tab) 80 mg PO [facility] PRN PRN Reason: GI distress Zolpidem Tartrate (Ambien) 5 mg PO PRN; Protocol PRN Reason: Insomnia Last Admin: 02/06/17 23:34 Dose: 5 mg - Labs Labs: 02/06/17 08:00 02/07/17 06:45 - Constitutional Appears: No Acute Distress, Cachectic, Chronically Ill - Head Exam Head Exam: ATRAUMATIC, NORMAL INSPECTION, NORMOCEPHALIC - Eye Exam Eye Exam: Normal appearance. absent: Scleral icterus - ENT Exam ENT Exam: Mucous Membranes Dry - Neck Exam Neck Exam: Normal Inspection - Respiratory Exam Respiratory Exam: Decreased Breath Sounds (at the bases.), NORMAL BREATHING PATTERN. absent: Rales, Rhonchi, Wheezes, Respiratory Distress, Stridor - Cardiovascular Exam Cardiovascular Exam: REGULAR RHYTHM, +S1, +S2 - GI/Abdominal Exam GI & Abdominal Exam: Distended (mild), Soft, Normal Bowel Sounds. 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 CT abdomen revealed inflammatory changes likely focal short segment ileitis. Patient also has liver cysts with the largest being 20 cm, family not interested in surgical intervention. Plan: 1) Hyponatremia - Hyponatremia not adequately responding to NS - SIADH versus cerebral salt wasting versus poor intake versus thyroid - Serum osm of 262 - will obtain random urine creat, sodium and urine osmol. 3) Cough- - will obtain chest x-ray - afebrile, no neulocytosis - will consider duonebs, procal - will consider antibiotics for pna prn. 2) Ileitis - abdominal pain resolved - now on po vantin and flagyl. 3) Hypokalemia, hypophosphatemia and hypomagnesemia- - will replete and continue monitor. 4) Liver cysts- largest being 20 cm - no surgical intervention, no biopsy as per family - chronic problem, had work up in the past ~16 years ago as per family when patient was diagnosed with colon ca. 5) Anemia- likely dilutional, will monitor for now 6) Transaminitis- resolved - likely secondary to hepatic cysts. - Ct with normal gallbladder and ducts, + hepatic cysts - no surgical intervention for the hepatic cysts 7) Hypothyroidism - continue synthroid 25 cc qd. 8) Erythematous rash on the face- observe 9) HTN- continue cozaar and hctz, - will add Lopressor. 10) h/o abnormal stress test - Continue asa, and Lipitor - cardiac cath on 11) Chronic afib - - CHADS2 score of 2, [id number] score of 4 for age, sex, and htn. - HASBLED score of 2 for predisposition to bleeding and age >65. - Risk versus benefit of choosing anticoagulation versus refusing anticoag discussed with family at bedside.Considering eliquis versus pradaxa. 12) h/o DVT s/p IVC filter 13) DVT and gi prophylaxis: lovenox and protonix. 14) Dispo- pending Patient seen,examined, discussed with Dr Hernandez <Leo Hernandez - Last Filed: 02/24/17 18:56> Objective - Vital Signs/Intake and Output Vital Signs (last 24 hours): Temp Pulse Resp BP Pulse Ox 97.9 F 80 19 144/91 H 99 02/14/17 16:00 02/14/17 17:19 02/14/17 16:00 02/14/17 17:19 02/14/17 16:00 - Labs Labs: 02/14/17 07:00 02/14/17 13:49 Attending/Attestation - Attestation I have personally seen and examined this patient.: Yes I have fully participated in the care of the patient.: Yes I have reviewed all pertinent clinical information, including history, physical exam and plan: Yes Notes (Text): 02/24/17 18:56 Medical record note made by the resident after discussion with my direction and input after the patient was personally seen and examined by me. I have reviewed the chart and agree that the record accurately reflects by personal performance of the history, physical exam, data review, and medical decision-making, in the course for the patient. I have also personally directed the plan of care.
--- NOTE | 2017-02-07 13:13 | PN ---
DATE: 02/07/2017 The patient denies chest pain. Her appetite has improved. She did earlier report abdominal pain to the nursing team. However, she denies having abdominal pain at this time. PHYSICAL EXAMINATION: VITAL SIGNS: Blood pressure 165/95, heart rate 102, temperature 97.9, respirations 20. HEENT: Pale conjunctivae. CHEST: Diminished breath sounds over the bases. HEART: S1, S2 irregular. ABDOMEN: Soft. EXTREMITIES: No edema. LABORATORIES: Yesterday's hemoglobin and hematocrit 10.2 and 30.3. White count and platelet count a re within normal limit. Today's SMA-7: Sodium 138, potassium 3.8, chloride 100, CO2 of 24, glucose 81, BUN 5, creatinine 0.5. ASSESSMENT: 1. Chronic atrial fibrillation. 2. Recently positive stress test. 3. History of colon cancer. 4. Enterocolitis. 5. Improving hyponatremia. RECOMMENDATIONS: Continue current Cozaar at 100 mg once a day, aspirin at 81 mg once a day, oral Fla gyl at 500 mg q.8 hours, Lipitor at 20 mg once a day, subcutaneous Lovenox at 30 mg once a day, oral Protonix at 40 mg daily, Synthroid 25 mcg once a day. Joao Richard MD cc: [id number] TT: 02/07/2017 13:12:58 Confirmation # [id number] Dictation # [id number] sn
--- NOTE | 2017-02-07 13:58 | RAD ---
HISTORY: evaluate for sbo COMPARISON: No prior. FINDINGS: BOWEL: Normal. No obstruction. No free air. BONES: Normal. OTHER FINDINGS: None. IMPRESSION: No active disease.
--- NOTE | 2017-02-07 14:00 | RAD ---
HISTORY: evaluate for pneumonia. COMPARISON: No prior. TECHNIQUE: Chest PA and lateral FINDINGS: LUNGS: Bibasilar infiltrates and small effusions PLEURA: Small effusions CARDIOVASCULAR: Normal. OSSEOUS STRUCTURES: No significant abnormalities. VISUALIZED UPPER ABDOMEN: Normal. OTHER FINDINGS: None. IMPRESSION: Bibasilar infiltrates and small effusions
[2017-02-07] MEDS: Morphine 2 mg/ml ISec IVP PRN (18:39)
[2017-02-08] MEDS: Sodium Chloride 0.9% 1,000 ML IV SCH (01:59)
--- NOTE | 2017-02-08 05:17 | PN ---
DATE: 02/07/2017 ADDENDUM This is an addendum to the GI progress report dictated by Ana Raphael APN. The patient is tolerating the diet. She says she has been moving her bowels. Abdomen appears to be more distended. It is probably related to the cyst in the liver area. The patient was admitted with, what appears to be, like an enteritis, probably gastroenteritis, on IV antibiotics. The patient is on Vantin now and also p.o. Flagyl. The patient's family does not want any aggressive intervention. History of colon cancer in the past. Thank you very much for allowing me to participate in the care of the patient. Andreia Brown MD cc: [id number] TT: 02/08/2017 05:16:43 Confirmation # [id number] Dictation # [id number] vaughn GRIFFIN
[2017-02-08] MEDS: Pantoprazole 40 mg EC Tab PO SCH (06:02)
[2017-02-08] MEDS ORDERED: Albuterol-Ipratrop 3 mg / 0.5 (3 ml) UD IH PRN (07:20)
[2017-02-08 07:23] LABS: ADD MANUAL DIFF? NO
[2017-02-08 07:32] LABS: BASO # 0.11 K/mm3 (0.0-2.0); BASO % 1.7 % (0.0-3.0); EOS # 0.2 (0.0-0.7); GRAN # 3.94 (1.4-6.5); HEMATOCRIT 29.3 % (36.0-48.0); LYMPH # 1.4 (1.2-3.4); LYMPH % 21.9 % (22.0-35.0); MEAN CELL VOLUME 88.8 fL (80.0-105.0); MEAN CORPUSCULAR HEMOGLOBIN 30.6 pg (25.0-35.0); MEAN CORPUSCULAR HGB CONC 34.5 g/dl (31.0-37.0); MEAN PLATELET VOLUME 8.4 fl (7.0-11.0); MONO # 0.9 (0.1-0.6); MONO % 13.4 % (1.0-6.0); PLATELET COUNT 265 10^3/uL (120.0-450.0); RED CELL DISTRIBUTION WIDTH 13.5 % (11.5-14.5); WHITE BLOOD COUNT 6.6 10^3/ul (4.5-11.0)
[2017-02-08 07:41] LABS: ALB/GLOB RATIO 1.2 (1.1-1.8); ALKALINE PHOSPHATASE 115 U/L (38-133); ALT/SGPT 34 U/L (7-56); AST/SGOT 38 U/L (15-39); BILIRUBIN,TOTAL 0.8 mg/dL (0.2-1.3); BLOOD UREA NITROGEN 4 mg/dL (7-21); CALCIUM 7.9 mg/dL (8.4-10.5); CARBON DIOXIDE 26 mmol/L (21-33); CHLORIDE 96 mmol/L (98-107); GFR AFRICAN-AMERICAN > 60; GLUCOSE,RANDOM 82 mg/dL (70-110); MAGNESIUM 1.4 mg/dL (1.7-2.2); POTASSIUM 3.6 mmol/L (3.6-5.0); SODIUM 126 mmol/L (132-148); TOTAL PROTEIN 5.2 g/dL (5.8-8.3)
[2017-02-08] MEDS: Albuterol-Ipratrop 3 mg / 0.5 (3 ml) UD IH SCH ×5 (07:54→23:11)
[2017-02-08] MEDS ORDERED: Magnesium Sulfate 2 GM in Sodium Chloride 0.9% 100 ML IV ONE (08:24)
[2017-02-08] MEDS ORDERED: Potassium Chloride 20 mEq ER Tab PO ONE (08:24)
--- NOTE | 2017-02-08 10:17 | CON ---
DATE: 02/08/2017 REASON FOR CONSULTATION: Abnormal chest x-ray. REFERRING PHYSICIAN: Dr. Thanh Sr. History is obtained via extensive discussion with the medical affairs leader. I have also reviewed the chart at length, and discussed the case with the patient at length. HISTORY OF PRESENT ILLNESS: The patient is an 86-year-old female, with past medical history significant for hypertension, atrial fibrillation, hypothyroidism, deep venous thrombosis in the past, status post inferior vena cava filter placement, history of brain aneurysm, history of colon cancer, who presented to [facility] -- originally on 02/02/2017 -- with main complaint of abdominal pain for the previous 3 days. CAT scan of the abdomen and pelvis was done-- as part of the initial workup. Findings were consistent with acute ileitis. The patient was thus admitted for additional evaluation. Again, I did discuss the case with the medical affairs leader and patient at length. The patient is not short of breath at rest. She does state to occasional mild dyspnea on exertion. The patient also complains of a minimal cough with no sputum production. There is no history of chest pain, coughing up of blood or chest pain -- made worse with deep respirations. There is no history of temperatures, chills or infectious exposure. There is no history of night sweats, weight loss or appetite change prior to the above events. No history of leg or calf pains. No history of syncope or diaphoresis. No history of recent travel or trauma. REVIEW OF SYSTEMS: No history of acute urinary symptoms. No new neurological or musculoskeletal complaints. Rest of review of systems is negative. ALLERGIES: No known allergies. SOCIAL HISTORY: Positive for remote tobacco usage. No alcohol. FAMILY HISTORY: No inheritable diseases. HOME MEDICATIONS: Include Crestor, losartan, levothyroxine, Ecotrin. PHYSICAL EXAMINATION: GENERAL: The patient appears comfortable at rest this morning. She is not short of breath. VITAL SIGNS: Temperature is 97.9, pulse 102, respirations 18/20, blood pressure 165/95. Oxygen saturation on nasal cannula is 96%-98%. HEENT: Normocephalic, atraumatic. NECK: No JVD. CARDIOVASCULAR: Systolic ejection murmur at the lower left sternal border. No S3 gallop. LUNGS: Minimal crackles at the bases. No rhonchi. No wheezing. EXTREMITIES: Mild edema. No cyanosis, no clubbing. Calves are nontender to palpation. GASTROINTESTINAL: Abdomen is soft, nontender, nondistended. Bowel sounds are positive. SKIN: No acute rash. NEUROLOGIC: Limited at the present time. PERTINENT LABORATORY DATA: Chest x-ray was done yesterday and reviewed. There are small bilateral pleural effusions seen. There is also a minimal linear infiltrate noted at the right base -- most consistent with atelectasis. Complete metabolic profile: Sodium 126, chloride 96, calcium 7.9, magnesium 1.4 , total protein 5.2, albumin 2.8. Rest of the metabolic profile is within normal limits. CBC: White count 6.6, hemoglobin 10.1, hematocrit 29.3, platelets of 265. IMPRESSION: 1. Probable atelectasis -- right base. 2. Small pleural effusions. 3. Ileitis. 4. Mild anemia. 5. Electrolyte abnormalities. PLAN: Again, I did discuss the case with the medical affairs leader and patient at length. The patient presented to [facility] -- originally on 2016 -- with abdominal pain for 3 days. As above, the CAT scan revealed acute ileitis. The patient was thus admitted for additional evaluation. I did review the chest x-ray as above. There is a minimal linear infiltrate at the right base -- most consistent with atelectasis. There are also small bilateral pleural effusions. Procalcitonin level has been ordered. B-type natriuretic peptide has also been ordered. Again, there is no recent history of temperatures. The leukocytosis -- previously seen -- has completely resolved. There is no significant alveolar arterial gradient. Oxygen saturation on nasal cannula is 96%-98%. I will also order incentive spirometer for the patient. The patient was also instructed to be out of bed as much as possible--also spoke with the nurse. GI evaluation is ongoing. Inputs are noted. Clinical status of the patient is certainly improved -- compared to the initial presentation. Additional pulmonary intervention will be based on the above results, as well as the clinical status of the patient. Thank you very much for this pulmonary consultation. Tony Luong MD cc: [id number] TT: 02/08/2017 10:17:09 Confirmation # [id number] Dictation # [id number] jn ELIAS
[2017-02-08] MEDS: Levothyroxine 25 MCG TAB PO SCH (10:24)
[2017-02-08] MEDS: Cefpodoxime (Vantin) 200 mg Tab PO SCH ×2 (10:24→22:11)
[2017-02-08] MEDS: Magnesium Oxide 400 mg Tab UD PO SCH ×2 (10:24→17:52)
[2017-02-08] MEDS: Potassium & Sodium Phosphate PO SCH (10:25)
[2017-02-08] MEDS: Enoxaparin 30 mg Syringe SC SCH (10:25)
--- NOTE | 2017-02-08 13:30 | CP.PCM.PN ---
<ErlinCristobal - Last Filed: 02/08/17 13:26> Subjective - Date & Time of Evaluation Date of Evaluation: 02/08/17 Time of Evaluation: 13:27 - Subjective Subjective: GI for Dr. Stephanie Jackson s&raheem VICK. ABd pain controlled. +BM. Denies F/C/n/V/D/CP/SOB. Resting comfortably. Objective - Vital Signs/Intake and Output Vital Signs (last 24 hours): Temp Pulse Resp BP Pulse Ox 98.3 F 104 H 19 175/90 H 96 02/08/17 07:50 02/08/17 07:50 02/08/17 07:50 02/08/17 10:25 02/08/17 07:50 Intake and Output: 02/08/17 02/08/17 06:59 18:59 Intake Total 1360 Balance 1360 - Medications Medications: Current Medications Acetaminophen (Tylenol 325mg Tab) 650 mg PO Q6H PRN PRN Reason: Fever >100.4 F Albuterol/Ipratropium (Duoneb 3 Mg/0.5 Mg (3 Ml) Ud) 3 ml IH Q2H PRN PRN Reason: Shortness of Breath Albuterol/Ipratropium (Duoneb 3 Mg/0.5 Mg (3 Ml) Ud) 3 ml IH [id number] [facility] Last Admin: 02/08/17 11:16 Dose: 3 ml Amlodipine Besylate (Norvasc) 2.5 mg PO DAILY [facility] Last Admin: 02/08/17 10:25 Dose: 2.5 mg Aspirin (Ecotrin) 81 mg PO DAILY [facility] Last Admin: 02/08/17 10:24 Dose: 81 mg Atorvastatin Calcium (Lipitor) 20 mg PO DIN [facility] Last Admin: 02/07/17 18:31 Dose: 20 mg Cefpodoxime Proxetil (Vantin) 200 mg PO Q12 [facility] PRN Reason: Protocol Stop: 02/10/17 10:01 Last Admin: 02/08/17 10:24 Dose: 200 mg Cholecalciferol (Vitamin D) 2,000 iu PO DAILY [facility] Last Admin: 02/08/17 10:24 Dose: 2,000 iu Docusate Sodium (Colace) 100 mg PO BID [facility] Last Admin: 02/08/17 10:24 Dose: 100 mg Enoxaparin Sodium (Lovenox) 30 mg SC DAILY [facility] PRN Reason: Protocol Last Admin: 02/08/17 10:25 Dose: 30 mg Guaifenesin (Robitussin) 100 mg PO Q4H PRN PRN Reason: Cough Hydrochlorothiazide (Hydrodiuril) 25 mg PO DAILY [facility] Last Admin: 02/08/17 10:24 Dose: 25 mg Levothyroxine Sodium (Synthroid) 25 mcg PO DAILY [facility] Last Admin: 02/08/17 10:24 Dose: 25 mcg Losartan Potassium (Cozaar) 100 mg PO DAILY [facility] Last Admin: 02/08/17 10:25 Dose: 100 mg Magnesium Oxide (Mag-Ox) 400 mg PO BID [facility] Last Admin: 02/08/17 10:24 Dose: 400 mg Metronidazole (Flagyl) 500 mg PO Q8 [facility] PRN Reason: Protocol Stop: 02/10/17 14:01 Last Admin: 02/08/17 06:02 Dose: 500 mg Morphine Sulfate (Morphine) 1 mg IVP Q4H PRN PRN Reason: Pain, moderate (4-7) Last Admin: 02/07/17 18:39 Dose: 1 mg Pantoprazole Sodium (Protonix Ec Tab) 40 mg PO 0630 [facility] Last Admin: 02/08/17 06:02 Dose: 40 mg Simethicone (Mylicon Chew Tab) 80 mg PO HS PRN PRN Reason: GI distress Zolpidem Tartrate (Ambien) 5 mg PO HS PRN; Protocol PRN Reason: Insomnia Last Admin: 02/07/17 21:37 Dose: 5 mg - Labs Labs: 02/08/17 07:00 02/08/17 07:00 - Constitutional Appears: No Acute Distress - Head Exam Head Exam: ATRAUMATIC, NORMAL INSPECTION, NORMOCEPHALIC - Eye Exam Eye Exam: EOMI, Normal appearance, PERRL Pupil Exam: NORMAL ACCOMODATION, PERRL - ENT Exam ENT Exam: Mucous Membranes Moist, Normal Exam - Neck Exam Neck Exam: Full ROM, Normal Inspection. absent: Lymphadenopathy - Respiratory Exam Respiratory Exam: Clear to Ausculation Bilateral, NORMAL BREATHING PATTERN - Cardiovascular Exam Cardiovascular Exam: REGULAR RHYTHM, +S1, +S2. absent: Murmur - GI/Abdominal Exam GI & Abdominal Exam: Distended, Soft, Normal Bowel Sounds, Organomegaly. absent : Firm, Guarding, Rigid, Tenderness - Extremities Exam Extremities Exam: Full ROM, Normal Capillary Refill, Normal Inspection. absent : Joint Swelling, Pedal Edema - Back Exam Back Exam: NORMAL INSPECTION - Neurological Exam Neurological Exam: Alert, Awake, CN II-XII Intact, Normal Gait, Oriented x3 - Psychiatric Exam Psychiatric exam: Normal Affect, Normal Mood - Skin Skin Exam: Dry, Intact, Normal Color, Warm Assessment and Plan - Assessment and Plan (Free Text) Assessment: Abdominal Pain Ilietis, enterocolitis Hyponatremia Liver Cysts H/O Colon cancer, s/p resection H/O Brain Aneurysm w/clip Chronic Atrial Fibrillation HTN Hyponatremia PLAN: ABX diet as tolerated IVF for hyponatremia surgical eval: No surgical intervention at this time. Pt refuses invasive procedure f/u previous CT from [facility] Will discuss with Dr. Brown. <Andreia Brown V - Last Filed: 04/20/17 17:02> Objective - Vital Signs/Intake and Output Vital Signs (last 24 hours): Temp Pulse Resp BP Pulse Ox 97.9 F 80 19 144/91 H 99 02/14/17 16:00 02/14/17 17:19 02/14/17 16:00 02/14/17 17:19 02/14/17 16:00 - Labs Labs: 02/14/17 07:00 02/14/17 13:49 Assessment and Plan - Assessment and Plan (Free Text) Assessment: please see addendum, that was dictated.
--- NOTE | 2017-02-08 15:18 | CP.PCM.PN ---
<Benita Morse - Last Filed: 02/08/17 15:12> Subjective - Date & Time of Evaluation Date of Evaluation: 02/08/17 Time of Evaluation: 08:10 - Subjective Subjective: Medicine progress note for Dr Hernandez and Dr Sr service. Patient with no overnight acute events. Patient reports she's still coughing, with sputum ( don't know the color). Patient denies chest pain, sob, n/v/d. Denies fever or chills. Objective - Vital Signs/Intake and Output Vital Signs (last 24 hours): Temp Pulse Resp BP Pulse Ox 98.3 F 104 H 19 175/90 H 96 02/08/17 07:50 02/08/17 07:50 02/08/17 07:50 02/08/17 10:25 02/08/17 07:50 Intake and Output: 02/08/17 02/08/17 06:59 18:59 Intake Total 1360 660 Balance 1360 660 - Medications Medications: Current Medications Acetaminophen (Tylenol 325mg Tab) 650 mg PO Q6H PRN PRN Reason: Fever >100.4 F Albuterol/Ipratropium (Duoneb 3 Mg/0.5 Mg (3 Ml) Ud) 3 ml IH Q2H PRN PRN Reason: Shortness of Breath Albuterol/Ipratropium (Duoneb 3 Mg/0.5 Mg (3 Ml) Ud) 3 ml IH [id number] [facility] Last Admin: 02/08/17 11:16 Dose: 3 ml Amlodipine Besylate (Norvasc) 2.5 mg PO DAILY [facility] Last Admin: 02/08/17 10:25 Dose: 2.5 mg Aspirin (Ecotrin) 81 mg PO DAILY [facility] Last Admin: 02/08/17 10:24 Dose: 81 mg Atorvastatin Calcium (Lipitor) 20 mg PO DIN [facility] Last Admin: 02/07/17 18:31 Dose: 20 mg Cefpodoxime Proxetil (Vantin) 200 mg PO Q12 [facility] PRN Reason: Protocol Stop: 02/10/17 10:01 Last Admin: 02/08/17 10:24 Dose: 200 mg Cholecalciferol (Vitamin D) 2,000 iu PO DAILY [facility] Last Admin: 02/08/17 10:24 Dose: 2,000 iu Docusate Sodium (Colace) 100 mg PO BID [facility] Last Admin: 02/08/17 10:24 Dose: 100 mg Enoxaparin Sodium (Lovenox) 30 mg SC DAILY [facility] PRN Reason: Protocol Last Admin: 02/08/17 10:25 Dose: 30 mg Guaifenesin (Robitussin) 100 mg PO Q4H PRN PRN Reason: Cough Hydrochlorothiazide (Hydrodiuril) 25 mg PO DAILY [facility] Last Admin: 02/08/17 10:24 Dose: 25 mg Levothyroxine Sodium (Synthroid) 25 mcg PO DAILY [facility] Last Admin: 02/08/17 10:24 Dose: 25 mcg Losartan Potassium (Cozaar) 100 mg PO DAILY [facility] Last Admin: 02/08/17 10:25 Dose: 100 mg Magnesium Oxide (Mag-Ox) 400 mg PO BID [facility] Last Admin: 02/08/17 10:24 Dose: 400 mg Metronidazole (Flagyl) 500 mg PO Q8 [facility] PRN Reason: Protocol Stop: 02/10/17 14:01 Last Admin: 02/08/17 06:02 Dose: 500 mg Morphine Sulfate (Morphine) 1 mg IVP Q4H PRN PRN Reason: Pain, moderate (4-7) Last Admin: 02/07/17 18:39 Dose: 1 mg Pantoprazole Sodium (Protonix Ec Tab) 40 mg PO 0630 [facility] Last Admin: 02/08/17 06:02 Dose: 40 mg Simethicone (Mylicon Chew Tab) 80 mg PO P[facility] PRN PRN Reason: GI distress Zolpidem Tartrate (Ambien) 5 mg PO HS PRN; Protocol PRN Reason: Insomnia Last Admin: 02/07/17 21:37 Dose: 5 mg - Labs Labs: 02/08/17 07:00 02/08/17 07:00 - Constitutional Appears: No Acute Distress, Cachectic, Chronically Ill - Head Exam Head Exam: ATRAUMATIC, NORMAL INSPECTION, NORMOCEPHALIC - Eye Exam Eye Exam: EOMI, Normal appearance, PERRL. absent: Scleral icterus - ENT Exam ENT Exam: Mucous Membranes Dry - Neck Exam Neck Exam: Normal Inspection - Respiratory Exam Respiratory Exam: Clear to Ausculation Bilateral, NORMAL BREATHING PATTERN. absent: Prolonged Expiratory Phase, Rales, Rhonchi, Wheezes, Respiratory Distress, Stridor - Cardiovascular Exam Cardiovascular Exam: REGULAR RHYTHM, RRR, +S1, +S2. absent: Murmur - GI/Abdominal Exam GI & Abdominal Exam: Soft, Normal Bowel Sounds. 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 Patient also has liver cysts with the largest being 20 cm, family not interested in surgical intervention. Patient is going for cardiac cath tomorrow. Plan: 1) h/o abnormal stress test - Continue asa, and Lipitor - NPO for cardiac cath tomorrow. 2) Chronic hyponatremia - SIADH versus cerebral salt wasting versus poor intake versus thyroid - Serum osm of 262 - Not responding to fluid challenge - More like SIADH picture - will just monitor for now. 3) Cough likely 2nd to atelectasis, r/o pneumonia - OOBTC - duoneb treatment - Pulm consult, rec appreciated, will order procal and pro-bnp. - continue robitussin 4) Ileitis - abdominal pain resolved - now on po vantin and flagyl. 5) Hypokalemia, hypophosphatemia and hypomagnesemia- - will replete and continue monitor. 6) Liver cysts- largest being 20 cm- chronic- family not interested in biopsy or any intervention. 7) Anemia- likely dilutional versus iatrogenic, - will continue to monitor. 8) Transaminitis- resolved, continue to monitor. 9) Hypothyroidism - continue synthroid 25 cc qd. 10) Erythematous rash on the face- observe 11) HTN- continue cozaar, hctz, and lopressor. 12) Chronic afib - Not on anticoagulation, Risk versus benefit of choosing anticoagulation versus refusing anticoag discussed with family at bedside. Considering eliquis versus pradaxa. 13) h/o DVT s/p IVC filter 14) DVT and gi prophylaxis: lovenox and protonix. 15) Dispo- pending Patient seen,examined, discussed with Dr Hernandez <Leo Hernandez - Last Filed: 02/11/17 16:32> Objective - Vital Signs/Intake and Output Vital Signs (last 24 hours): Temp Pulse Resp BP Pulse Ox 98 F 76 21 140/82 94 L 02/11/17 07:18 02/11/17 14:00 02/11/17 07:18 02/11/17 09:23 02/11/17 07:18 Intake and Output: 02/11/17 02/11/17 06:59 18:59 Intake Total 1680 740 Balance 1680 740 - Medications Medications: Current Medications Acetaminophen (Tylenol 325mg Tab) 650 mg PO Q6H PRN PRN Reason: Fever >100.4 F Amlodipine Besylate (Norvasc) 5 mg PO DAILY [facility] Last Admin: 02/11/17 09:21 Dose: 5 mg Aspirin (Ecotrin) 81 mg PO DAILY [facility] Last Admin: 02/11/17 09:23 Dose: 81 mg Atorvastatin Calcium (Lipitor) 20 mg PO DIN [facility] Last Admin: 02/10/17 17:20 Dose: 20 mg Cefpodoxime Proxetil (Vantin) 200 mg PO Q12 [facility] PRN Reason: Protocol Stop: 02/16/17 22:01 Last Admin: 02/11/17 09:21 Dose: 200 mg Cholecalciferol (Vitamin D) 2,000 iu PO DAILY [facility] Last Admin: 02/11/17 09:19 Dose: 2,000 iu Docusate Sodium (Colace) 100 mg PO BID [facility] Last Admin: 02/11/17 09:21 Dose: 100 mg Guaifenesin (Robitussin) 100 mg PO Q4H PRN PRN Reason: Cough Last Admin: 02/10/17 21:14 Dose: 100 mg Hydralazine HCl (Apresoline) 10 mg PO Q6H PRN PRN Reason: Systolic Blood Pressure Levalbuterol HCl (Xopenex) 0.63 mg IH [id number] [facility] Last Admin: 02/11/17 13:16 Dose: 0.63 mg Levothyroxine Sodium (Synthroid) 50 mcg PO DAILY [facility] Last Admin: 02/11/17 09:21 Dose: 50 mcg Losartan Potassium (Cozaar) 50 mg PO DAILY [facility] Last Admin: 02/11/17 09:23 Dose: 50 mg Magnesium Oxide (Mag-Ox) 800 mg PO BID [facility] Last Admin: 02/11/17 09:23 Dose: 800 mg Metoprolol Tartrate (Lopressor) 25 mg PO BRKDIN [facility] Last Admin: 02/11/17 08:04 Dose: 25 mg Metronidazole (Flagyl) 500 mg PO Q8 [facility] PRN Reason: Protocol Last Admin: 02/11/17 13:23 Dose: 500 mg Morphine Sulfate (Morphine) 1 mg IVP Q4H PRN PRN Reason: Pain, moderate (4-7) Last Admin: 02/09/17 12:52 Dose: 1 mg Pantoprazole Sodium (Protonix Ec Tab) 40 mg PO 0630 [facility] Last Admin: 02/11/17 05:58 Dose: 40 mg Simethicone (Mylicon Chew Tab) 80 mg PO [facility] PRN PRN Reason: GI distress Zolpidem Tartrate (Ambien) 5 mg PO HS PRN; Protocol PRN Reason: Insomnia Last Admin: 02/10/17 21:15 Dose: 5 mg - Labs Labs: 02/11/17 06:30 02/11/17 15:00 Attending/Attestation - Attestation I have personally seen and examined this patient.: Yes I have fully participated in the care of the patient.: Yes I have reviewed all pertinent clinical information, including history, physical exam and plan: Yes Notes (Text): 02/11/17 16:32 Medical record note made by the resident after discussion with my direction and input after the patient was personally seen and examined by me. I have reviewed the chart and agree that the record accurately reflects by personal performance of the history, physical exam, data review, and medical decision-making, in the course for the patient. I have also personally directed the plan of care.
[2017-02-08] MEDS ORDERED: Iohexol 240 (50 ml) ONE (16:11)
--- NOTE | 2017-02-08 17:10 | PN ---
DATE: 02/08/2017 SUBJECTIVE: The patient is comfortable in bed. PHYSICAL EXAMINATION: VITAL SIGNS: Blood pressure varies from 166 to 175 systolic, heart rate is 100. NECK: Negative JVD. LUNGS: Decreased breath sounds. HEART: Revealed S1, S2. EXTREMITIES: Without edema. LABORATORY DATA: Hemoglobin is 10.1. Chemistries: The potassium is 3.6, BUN and creatinine is 8 an d 0.5. ProBNP is . IMPRESSION: 1. Abnormal stress test. 2. High probability for coronary artery disease. 3. History of atrial fibrillation. 4. Mild anemia. PLAN: Given these findings, will start the patient on aspirin and Plavix. Will proceed to cardiac c atheterization in the morning. Blaze Bauer MD cc: [id number] TT: 02/08/2017 17:10:03 Confirmation # [id number] Dictation # [id number] dn
--- NOTE | 2017-02-08 18:52 | CP.PCM.PN ---
Subjective - Date & Time of Evaluation Date of Evaluation: 02/08/17 Time of Evaluation: 11:00 - Subjective Subjective: Improved abdominal pain, no fevers overnight. Objective - Vital Signs/Intake and Output Vital Signs (last 24 hours): Temp Pulse Resp BP Pulse Ox 98.9 F 89 20 131/81 99 02/08/17 16:00 02/08/17 16:00 02/08/17 16:00 02/08/17 16:00 02/08/17 16:00 Intake and Output: 02/08/17 02/08/17 06:59 18:59 Intake Total 1360 660 Balance 1360 660 - Medications Medications: Current Medications Acetaminophen (Tylenol 325mg Tab) 650 mg PO Q6H PRN PRN Reason: Fever >100.4 F Albuterol/Ipratropium (Duoneb 3 Mg/0.5 Mg (3 Ml) Ud) 3 ml IH Q2H PRN PRN Reason: Shortness of Breath Albuterol/Ipratropium (Duoneb 3 Mg/0.5 Mg (3 Ml) Ud) 3 ml IH [id number] [facility] Last Admin: 02/08/17 15:35 Dose: 3 ml Amlodipine Besylate (Norvasc) 2.5 mg PO DAILY [facility] Last Admin: 02/08/17 10:25 Dose: 2.5 mg Aspirin (Ecotrin) 81 mg PO DAILY [facility] Last Admin: 02/08/17 10:24 Dose: 81 mg Atorvastatin Calcium (Lipitor) 20 mg PO DIN [facility] Last Admin: 02/08/17 17:52 Dose: 20 mg Cefpodoxime Proxetil (Vantin) 200 mg PO Q12 [facility] PRN Reason: Protocol Stop: 02/10/17 10:01 Last Admin: 02/08/17 10:24 Dose: 200 mg Cholecalciferol (Vitamin D) 2,000 iu PO DAILY [facility] Last Admin: 02/08/17 10:24 Dose: 2,000 iu Clopidogrel Bisulfate (Plavix) 75 mg PO DAILY [facility] Docusate Sodium (Colace) 100 mg PO BID [facility] Last Admin: 02/08/17 17:52 Dose: 100 mg Guaifenesin (Robitussin) 100 mg PO Q4H PRN PRN Reason: Cough Hydrochlorothiazide (Hydrodiuril) 25 mg PO DAILY [facility] Last Admin: 02/08/17 10:24 Dose: 25 mg Levothyroxine Sodium (Synthroid) 25 mcg PO DAILY [facility] Last Admin: 02/08/17 10:24 Dose: 25 mcg Losartan Potassium (Cozaar) 100 mg PO DAILY [facility] Last Admin: 02/08/17 10:25 Dose: 100 mg Magnesium Oxide (Mag-Ox) 400 mg PO BID [facility] Last Admin: 02/08/17 17:52 Dose: 400 mg Metronidazole (Flagyl) 500 mg PO Q8 [facility] PRN Reason: Protocol Stop: 02/10/17 14:01 Last Admin: 02/08/17 15:39 Dose: 500 mg Morphine Sulfate (Morphine) 1 mg IVP Q4H PRN PRN Reason: Pain, moderate (4-7) Last Admin: 02/07/17 18:39 Dose: 1 mg Pantoprazole Sodium (Protonix Ec Tab) 40 mg PO 0630 [facility] Last Admin: 02/08/17 06:02 Dose: 40 mg Simethicone (Mylicon Chew Tab) 80 mg PO [facility] PRN PRN Reason: GI distress Zolpidem Tartrate (Ambien) 5 mg PO PRN; Protocol PRN Reason: Insomnia Last Admin: 02/07/17 21:37 Dose: 5 mg - Labs Labs: 02/08/17 07:00 02/08/17 07:00 - Constitutional Appears: Non-toxic, No Acute Distress - Head Exam Head Exam: NORMAL INSPECTION - ENT Exam ENT Exam: Mucous Membranes Moist - Neck Exam Neck Exam: absent: Lymphadenopathy, Meningismus - Respiratory Exam Respiratory Exam: Decreased Breath Sounds - Cardiovascular Exam Cardiovascular Exam: +S1, +S2 - GI/Abdominal Exam GI & Abdominal Exam: Soft. absent: Tenderness Assessment and Plan - Assessment and Plan (Free Text) Plan: Assessment Ileitis, acute, improving clinically hepatic cysts, etiology to be determined HTN CAD hypothyroidism Plan continue Rocephin and Flagyl day 6; will continue to monitor clinical response Follow up GI evaluation of hepatic cysts - GI to compare old films with current one
--- NOTE | 2017-02-08 22:11 | CT ---
EXAM: CT Abdomen and Pelvis With Intravenous Contrast CLINICAL HISTORY: 86 years old, female; Signs and symptoms; Other: R/O obstruction TECHNIQUE: Axial computed tomography images of the abdomen and pelvis with intravenous contrast. This CT exam was performed using one or more of the following dose reduction techniques: automated exposure control, adjustment of the mA and/or kV according to patient size, and/or use of iterative reconstruction technique. Coronal and sagittal reformatted images were created and reviewed. CONTRAST: 50 mL of omni 240 administered intravenously. EXAM DATE/TIME: 02/08/2017 4:01 PM COMPARISON: CT - ABD PELVIS PO IV CONTRAST 02/02/2017 1:03:51 PM FINDINGS: Lower thorax: The heart is mildly enlarged. There are coronary calcifications.There is calcification of the mitral annulus. There is now a moderate right pleural effusion. There is partial right lower lobe atelectasis. There is trace left effusion. There is scarring at the left base. There is minimal atelectasis at the left base. ABDOMEN: Liver: The liver is enlarged. There are multiple cysts. Largest cyst measures at least 18 x 16 cm. Enlarged liver displaces adjacent solid viscera and bowel Gallbladder and bile ducts: unremarkable Pancreas: Pancreas is atrophic. Spleen: There is a calcification in the spleen. Adrenals: unremarkable Kidneys and ureters: Right kidney is displaced by the enlarged liver. There is mild right pelvocaliectasis. Right ureter is difficult to identify. Left kidney and ureter are unremarkable.. Stomach and bowel: Stomach is partially distended. Stomach is mildly displaced by the enlarged liver. Rotation is normal. There is no small bowel obstruction. The terminal ileum is collapsed. Terminal ileum is not opacified with contrast. Appendix is not visualized. There is a moderately large amount of stool in the colon. Appendix: See above. PELVIS: Bladder: Bladder is partially distended. Reproductive: Uterus and adnexal structures are unremarkable. ABDOMEN and PELVIS: Intraperitoneal space: There is a small amount of free fluid in the pelvis. There is no free air. Bones/joints: There is scoliosis. There is distortion of the thoracic cage. There are degenerative changes. Soft tissues: There is body wall edema. Vasculature: There are vascular calcifications. Aorta is ectatic. Lymph nodes: unremarkable IMPRESSION: Interval development of a moderate-sized right effusion with right lower lobe airspace disease, atelectasis and or infiltrate; enlarged liver with multiple cysts, unchanged; right pelvocaliectasis, similar findings seen on the prior study; no bowel obstruction, probable constipation; scoliosis and degenerative change Additional findings as described above.
--- NOTE | 2017-02-08 23:50 | PN ---
DATE: 02/08/2017 This is an addendum dictation to the GI progress note of Dr. Kern. The patient was seen and evaluated earlier today. The patient is comfortable, tolerating the diet. On examination, abdomen appears to be more pronounced. More distended. The patient is scheduled for cardiac catheterization. I did discuss with Dr. Bauer, would request for a CT with p.o. contrast to rule out any partial obstruction. We will continue to closely follow up her care. Thank you for allowing me to participate in the care of the patient. Andreia Brown MD cc: [phone] TT: 02/08/2017 23:50:09 Confirmation # [id number] Dictation # [id number]
[2017-02-09] MEDS: Albuterol-Ipratrop 3 mg / 0.5 (3 ml) UD IH SCH ×3 (04:28→11:14)
[2017-02-09] MEDS: Pantoprazole 40 mg EC Tab PO SCH (05:39)
[2017-02-09] MEDS ORDERED: Lidocaine 2% Inj (20ml) ONE (07:04)
[2017-02-09] MEDS ORDERED: Iohexol 350mgl/ml 50 ML ONE (07:05)
[2017-02-09] MEDS ORDERED: Iohexol 350 MG/100 ML VIAL ONE (07:05)
[2017-02-09] MEDS ORDERED: Atropine 0.4 mg/ml Inj (1 mL) ONE (07:06)
--- NOTE | 2017-02-09 07:24 | PN ---
DATE: 02/09/2017 SUBJECTIVE: The patient appears comfortable this morning. She is not short of breath at rest. PHYSICAL EXAMINATION: VITAL SIGNS: Temperature is 98.9, pulse 89, respirations 18/20, blood pressure 131/81. Oxygen saturation on nasal cannula is 99%. HEENT: Normocephalic, atraumatic. No JVD. CARDIOVASCULAR: Systolic ejection murmur at the lower left sternal border. No S3 gallop. LUNGS: Minimal crackles at the bases. No rhonchi. No wheezing. EXTREMITIES: Mild edema. No cyanosis, no clubbing. Calves are nontender to palpation. GASTROINTESTINAL: Abdomen is soft, nontender, nondistended. Bowel sounds are positive. SKIN: No acute rash. NEUROLOGIC: Limited at the present time. CURRENT LABORATORY DATA: B-type natriuretic peptide done yesterday - slightly elevated - 2009. Procalcitonin is negative - less than 0.05. IMPRESSION: 1. Atelectasis - right base. 2. Bilateral pleural effusions. 3. Ileitis. 4. Mild anemia. 5. Electrolyte abnormalities. PLAN: The patient appears comfortable this morning. She is not short of breath at rest. She states her cough is less. She states she is feeling much better overall. On physical exam, there no significant bronchospasm noted. In addition, there is no significant alveolar arterial gradient. I will continue with the current nebulizer treatments for now. The patient does have bilateral pleural effusions, with an increase in the B-type natriuretic peptide. However , she is going for cardiac catheterization today - and will receive a considerable dye load. Therefore, I will not start diuretics at this point in time. In addition to the above, the procalcitonin is negative. The patient has been started on antibiotic therapy - as per infectious disease. There are no temperatures noted. There is no leukocytosis. Clinical status of the patient is certainly improved - compared to the initial presentation. However, the overall status/prognosis - for this very elderly female - remains guarded. I will discuss the above with the attending physician this morning. Tony Luong MD cc: [phone] TT: 02/09/2017 07:24:03 Confirmation # [id number] Dictation # [id number] mn MTDD
[2017-02-09] MEDS ORDERED: Midazolam 2 MG/2 ML VIAL ONE ×2 (07:33→07:53)
[2017-02-09] MEDS ORDERED: Sodium Chloride 0.9% 1,000 ML IV SCH (08:30)
--- NOTE | 2017-02-09 08:42 | CARDCATH ---
PROCEDURE DATE: 02/09/2017 HISTORY: The patient is an 86-year-old woman who presents with abdominal pain. She had an abnormal stress test. Because of this, cardiac catheterization was recommended. PROCEDURE: Left heart catheterization with coronary angiography and left ventriculogram. The right femoral artery was cannulated with a 6-[place] sheath that was exchanged to a 7-[place] sheat h because of oozing around the sheath. Left ventriculogram and coronary arteriography were performed. There were no complications. Findings on catheterization revealed a left ventricle that contracted normally. Estimated ejection f raction is 70%. Her coronary anatomy revealed a left main artery that was calcified without critical lesions. The LAD revealed a 50% stenosis in the mid portion. The circumflex artery and obtuse marginal branches revealed calcification and atherosclerosis without critical lesions. The right coronary artery was visualized with an aortic flush and revealed no critical lesions, and w ith right dominant circulation. Manual compression was used to close the femoral artery site. The patient needed IV hydralazine to help control the blood pressure from 160/115 down to 110 systoli c. Manual compression resulted in hemostasis. The patient tolerated the procedure well. In summary, the catheterization revealed normal LV function. Diffuse atherosclerosis in the coronary tree with single-vessel CAD with a 50% stenosis in the mid-LA D. Given these findings, the patient's treatment will be medical therapy. We will discontinue her Plavi x. A strict cardiac risk reduction program will be necessary. Blaze Bauer MD cc: [phone] TT: 02/09/2017 08:41:53 jn
[2017-02-09] MEDS: Magnesium Oxide 400 mg Tab UD PO SCH ×2 (09:31→17:45)
[2017-02-09] MEDS: Cefpodoxime (Vantin) 200 mg Tab PO SCH (09:32)
[2017-02-09] MEDS: Levothyroxine 25 MCG TAB PO SCH (09:32)
[2017-02-09 10:38] LABS: ADD MANUAL DIFF? NO
[2017-02-09 10:44] LABS: BASO # 0.04 K/mm3 (0.0-2.0); BASO % 0.7 % (0.0-3.0); EOS % 0.5 % (1.5-5.0); GRAN # 4.55 (1.4-6.5); GRAN % 76.6 % (50.0-68.0); HEMATOCRIT 28.8 % (36.0-48.0); LYMPH # 0.8 (1.2-3.4); LYMPH % 13.1 % (22.0-35.0); MEAN CELL VOLUME 88.3 fL (80.0-105.0); MEAN CORPUSCULAR HEMOGLOBIN 30.7 pg (25.0-35.0); MEAN CORPUSCULAR HGB CONC 34.7 g/dl (31.0-37.0); MEAN PLATELET VOLUME 8.2 fl (7.0-11.0); MONO # 0.5 (0.1-0.6); MONO % 9.1 % (1.0-6.0); PLATELET COUNT 256 10^3/uL (120.0-450.0); RED CELL DISTRIBUTION WIDTH 13.7 % (11.5-14.5); WHITE BLOOD COUNT 5.9 10^3/ul (4.5-11.0)
[2017-02-09 10:54] LABS: ALB/GLOB RATIO 1.2 (1.1-1.8); ALKALINE PHOSPHATASE 115 U/L (38-133); ALT/SGPT 36 U/L (7-56); AST/SGOT 38 U/L (15-39); BILIRUBIN,TOTAL 0.9 mg/dL (0.2-1.3); BLOOD UREA NITROGEN 6 mg/dL (7-21); CARBON DIOXIDE 24 mmol/L (21-33); CHLORIDE 94 mmol/L (98-107); GFR AFRICAN-AMERICAN > 60; GLUCOSE,RANDOM 115 mg/dL (70-110); MAGNESIUM 1.4 mg/dL (1.7-2.2); PHOSPHOROUS 3.5 mg/dL (2.5-4.5); POTASSIUM 3.5 mmol/L (3.6-5.0); SODIUM 124 mmol/L (132-148); TOTAL PROTEIN 5.4 g/dL (5.8-8.3)
--- NOTE | 2017-02-09 12:31 | PN ---
DATE: 02/09/2017 Seen and examined at the bedside earlier today, status post cardiac catheterization. Family is curre ntly at the bedside. Denies any nausea, vomiting, or abdominal pain. Right groin remains intact. VITAL SIGNS: Temperature is 98.1, blood pressure is 109/93, pulse 97, respirations 18. LABORATORY DATA: WBC 5.9, H and H is 10.0 and 28.8, platelets are 256. Sodium 124, K is 3.5, BUN is 6, creatinine 0.5. LFTs are within normal limits. The patient had a CT scan of abdomen and pelvis yesterday with oral contrast and it showed moderate sized right effusion with right lower lobe airspa ce disease, atelectasis and/or infiltrate, enlarged liver with multiple cysts which is unchanged. Blaine mayberry also has pelvocaliectasis, similar findings seen on prior study. There is no bowel obstruction, pr obable constipation, scoliosis and degenerative change. PHYSICAL EXAMINATION: HEENT: Sclerae are anicteric. NECK: Supple. CARDIAC: S1, S2. LUNGS: Good air entry, mild crackles at the bases. No rales or wheeze. ABDOMEN: With bowel sounds, softly distended, not tender, no rebound or guarding. EXTREMITIES: Positive mild edema, right groin is intact. NEUROLOGIC: Awake, but lethargic. No acute distress. ASSESSMENT: The patient with ileitis, constipation, mild anemia with bilateral pleural effusions, st atus post cardiac catheterization. The cardiac catheterization revealed normal LV function and diffu se atherosclerosis and coronary tree with single vessel coronary artery disease with a 50% stenosis i n the mid left anterior descending. The patient also with multiple liver cysts with the largest cyst measuring 18 x 16 cm. PLAN: The patient is on oral Vantin, is on aspirin. Continue stool softeners. Continue GI prophyla xis. The patient is also on Flagyl. Diet as tolerated. The patient is off of Plavix now, and Loven ox. The patient did not want any aggressive intervention. Spoke to the family at the bedside. The patient was seen and case discussed with Dr. Brown. Ana WISEMAN cc: [phone] TT: 02/09/2017 12:30:18 Confirmation # [id number] Dictation # [id number] rn
[2017-02-09] MEDS: Morphine 2 mg/ml ISec IVP PRN (12:52)
[2017-02-09] MEDS ORDERED: Magnesium Sulfate 2 GM in Sodium Chloride 0.9% 100 ML IV ONE (13:25)
[2017-02-09] MEDS: Potassium Chloride 20 mEq ER Tab PO SCH ×3 (14:45→17:45)
[2017-02-09] MEDS ORDERED: Levalbuterol 0.63 MG/3 ML Inhal Soln UD ONE (15:32)
[2017-02-09] MEDS: Levalbuterol 0.63 MG/3 ML Inhal Soln UD IH SCH ×2 (15:33→19:13)
--- NOTE | 2017-02-09 15:52 | RAD ---
HISTORY: Shortness of breath COMPARISON: No prior. FINDINGS: LUNGS: There is diffuse haziness in the right lung. There is a left retrocardiac opacity. PLEURA: Bilateral pleural effusions. No pneumothorax. CARDIOVASCULAR: Normal. OSSEOUS STRUCTURES: There is severe S-shaped scoliosis. VISUALIZED UPPER ABDOMEN: Normal. OTHER FINDINGS: None. IMPRESSION: 1. Diffuse haziness in the right lung may represent layering pleural effusion or alveolar edema. Follow-up is advised. 2. Small pleural effusions.
--- NOTE | 2017-02-09 16:08 | CP.PCM.PN ---
<LitoBenita - Last Filed: 02/09/17 22:42> Subjective - Date & Time of Evaluation Date of Evaluation: 02/09/17 Time of Evaluation: 07:15 - Subjective Subjective: Medicine progress note for Dr Sr and Dr Hernandez service This AM patient went for cardiac cath. Saw patient post cath, patient appeared lethargic, was shivering and tachycardic. In reviewing the chart, it was noted patient had episodes of hypotension with SBP in the 80s during cardiac cath, however its currently resolved with SBP of 140s. Rectal temp was 99.1. Patient had crackles on auscultation. Chest x-ray was obtained and revealed b/l pulmonary effusion R>L. Spoke to Dr Sr-> will give 40 ivp Lasix. Spoke to Dr Hodges @[phone], agreed with Lasix 40 mg ivp stat, and is fine with treating her as HAP. Spoke to Dr Bauer, agreed with lasix. Will reevaluate. Patient is to be transferred back to 3rd floor on remote tele. Objective - Vital Signs/Intake and Output Vital Signs (last 24 hours): Temp Pulse Resp BP Pulse Ox 99.1 F 126 H 20 153/83 H 92 L 02/09/17 14:45 02/09/17 14:45 02/09/17 14:45 02/09/17 14:45 02/09/17 07:43 Intake and Output: 02/09/17 02/09/17 06:59 18:59 Intake Total 780 0 Balance 780 0 - Medications Medications: Current Medications Acetaminophen (Tylenol 325mg Tab) 650 mg PO Q6H PRN PRN Reason: Fever >100.4 F Amlodipine Besylate (Norvasc) 2.5 mg PO DAILY [facility] Last Admin: 02/09/17 09:31 Dose: Not Given Aspirin (Ecotrin) 81 mg PO DAILY [facility] Last Admin: 02/09/17 09:15 Dose: Not Given Atorvastatin Calcium (Lipitor) 20 mg PO DIN [facility] Last Admin: 02/08/17 17:52 Dose: 20 mg Cefpodoxime Proxetil (Vantin) 200 mg PO Q12 [facility] PRN Reason: Protocol Stop: 02/10/17 10:01 Last Admin: 02/09/17 09:32 Dose: Not Given Cholecalciferol (Vitamin D) 2,000 iu PO DAILY [facility] Last Admin: 02/09/17 09:33 Dose: Not Given Docusate Sodium (Colace) 100 mg PO BID [facility] Last Admin: 02/09/17 09:31 Dose: Not Given Furosemide (Lasix) 40 mg IVP ONCE STA Stop: 02/09/17 16:02 Guaifenesin (Robitussin) 100 mg PO Q4H PRN PRN Reason: Cough Levalbuterol HCl (Xopenex) 0.63 mg IH [id number] [facility] Last Admin: 02/09/17 15:33 Dose: 0.63 mg Levothyroxine Sodium (Synthroid) 25 mcg PO DAILY [facility] Last Admin: 02/09/17 09:32 Dose: Not Given Magnesium Oxide (Mag-Ox) 400 mg PO BID [facility] Last Admin: 02/09/17 09:31 Dose: Not Given Metronidazole (Flagyl) 500 mg PO Q8 [facility] PRN Reason: Protocol Stop: 02/10/17 14:01 Last Admin: 02/09/17 14:44 Dose: 500 mg Morphine Sulfate (Morphine) 1 mg IVP Q4H PRN PRN Reason: Pain, moderate (4-7) Last Admin: 02/09/17 12:52 Dose: 1 mg Pantoprazole Sodium (Protonix Ec Tab) 40 mg PO 0630 [facility] Last Admin: 02/09/17 05:39 Dose: Not Given Simethicone (Mylicon Chew Tab) 80 mg PO [facility] PRN PRN Reason: GI distress Zolpidem Tartrate (Ambien) 5 mg PO HS PRN; Protocol PRN Reason: Insomnia Last Admin: 02/08/17 22:06 Dose: 5 mg - Labs Labs: 02/09/17 10:20 02/09/17 10:20 - Constitutional Appears: In Acute Distress (mild), Older Than Stated Age, Cachectic, Chronically Ill, Other (appears jaundice.) - Head Exam Head Exam: ATRAUMATIC, NORMAL INSPECTION, NORMOCEPHALIC - Eye Exam Eye Exam: Normal appearance, PERRL. absent: Scleral icterus - ENT Exam ENT Exam: Mucous Membranes Moist - Neck Exam Neck Exam: Normal Inspection - Respiratory Exam Respiratory Exam: Rales (diffuse.), NORMAL BREATHING PATTERN. absent: Decreased Breath Sounds, Rhonchi, Wheezes, Respiratory Distress, Stridor - Cardiovascular Exam Cardiovascular Exam: Tachycardia, REGULAR RHYTHM, +S1, +S2. absent: Gallop, JVD , Rubs - GI/Abdominal Exam GI & Abdominal Exam: Distended (mild), Rigid, Soft, Tenderness, Normal Bowel Sounds. absent: Firm, Guarding, Rebound - Extremities Exam Extremities Exam: Normal Inspection - Back Exam Back Exam: NORMAL INSPECTION - Neurological Exam Neurological Exam: Alert, Awake. 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 Patient also has liver cysts with the largest being 20 cm, family not interested in surgical intervention. Patient is s/p cardiac cath with 50% stenosis of mid LAD. Patient is currently in CHF exacerbation. Patient also has worsening hyponatremia. Plan: 1) B/L pleural effusion R>L - will give stat Lasix 40 ivp and reassess 2) Lung infiltration- L>R - will repeat bcx and procal - will start doxy and cefepime for possible HAP. -Pulm made aware. -will change duoneb to xoponex 2nd to tachycardia. 3) Chronic hyponatremia- - SIADH versus cerebral salt wasting versus poor intake versus thyroid - Serum osm of 262 - Not responding to fluid challenge - will avoid diuretics - nephro consult 4) Ileitis - abdominal pain resolved - now on po vantin and flagyl. - Repeat CT with constipation - will continue stool softener. 5) Hypokalemia, hypophosphatemia and hypomagnesemia- - will replete and continue monitor. 6) Liver cysts- largest being 20 cm-, [facility] radialogist was not able locate find old scans, IR consult for possible draining of the cyst. 7) Anemia- likely dilutional versus iatrogenic, - will continue to monitor. 8) Transaminitis- resolved, continue to monitor. 9) Hypothyroidism - continue synthroid 50 mcg qd. 10) Erythematous rash on the face- observe 11) HTN- d/c htcz and losartan, will consider hyralazine and norvasc. 12) Chronic afib - Not on anticoagulation, Risk versus benefit of choosing anticoagulation versus refusing anticoag discussed with family at bedside. Considering eliquis versus pradaxa. 13) h/o DVT s/p IVC filter 14) DVT and gi prophylaxis: lovenox and protonix. 15) Dispo- pending Patient seen,examined, discussed with Dr Sr. <Thanh Sr - Last Filed: 03/17/17 09:30> Objective - Vital Signs/Intake and Output Vital Signs (last 24 hours): Temp Pulse Resp BP Pulse Ox 97.9 F 80 19 144/91 H 99 02/14/17 16:00 02/14/17 17:19 02/14/17 16:00 02/14/17 17:19 02/14/17 16:00 - Labs Labs: 02/14/17 07:00 02/14/17 13:49 Attending/Attestation - Attestation I have personally seen and examined this patient.: Yes I have fully participated in the care of the patient.: Yes I have reviewed all pertinent clinical information, including history, physical exam and plan: Yes Notes (Text): 03/17/17 09:30 03/17/17 09:23 Medical note made by resident after discussion with my direction and input after patient personally seen by me. I have reviewed the chart and agree that the record reflects my personal performance of the history, physical, data review and decision making.
[2017-02-09] MEDS ORDERED: levoFLOXacin 750 mg in D5W 150 ML BAG IVPB SCH (16:30)
--- NOTE | 2017-02-09 21:47 | CP.PCM.CON ---
History of Present Illness - History of Present Illness History of Present Illness: Initial Nephrology Consultation: Assessment: Hypo-osmolar Hyponatremia acute component with relatively conc urine as compared to serum with high urine Na favors excess ADH which may be triggered by her pain or it could very well be SIADH. chronic hyponatremia likely due to tea/toast diet, poor solute intake and thiazide diuretics Hypokalemia and Hypomagnesemia Hypertension Hepatomegaly with large liver cysts CAD Plan will Increase K and Mag supplementation oral fluid restriction to 40 oz/day avoid serum Na correction >6 meq/day. pt encouraged to eat more protein and food family doesn't wish to pursue aggressive testing for her such as looking for cancer causing these symptoms and hyponatremia. Hence will manage symptomatically considering slight elevated BNP and effusions, agree with lasix if Na stays low then will consider Tolvaptan HTN control: avoid HCTZ. may add beta-desmond if okay by cardiology as HR also elevated Glycemic control Further work up for as per primary team Thanks for allowing me to participate in care of your patient. Will follow patient with you. Please call if any Qs Dr Darrell Orellana Office: [phone] Chief Complaint; Abdomen distension Daughter is bedside and provided most of hx. HPI: Patient is a 86 y/o female with PMH of HTN, A fib, Hypothyroidism , h/o DVT with IVC filter, h/o brain aneurysm behind the optic nerve s/p surgery , h/o colon ca s/p chemo and surgery many years ago came with c/o abdomen distension and found to have large liver with cysts. She also has very decreased appetite for last 2-3 months with decreased oral intake. Also has SOB on exertion, gradually progressive. renal consult for hyponatremia. as per daughter, as outpt her serum Sodium usually on slight low side. on Hyzaar for years. ROS: Constitutional Symptoms: Denies fever. No chills. had Recent Weight Changes Eyes: denies change in vision, denies watery eyes, denies double vision Ears/Nose/Mouth/Throat: Denies Abnormal Taste. No Bad breath or Bad Taste. Cardiovascular: No chest pain. There is v/o shortness of breath. No palpitations. Pulmonary: c/o shortness of breath or cough. Gastrointestinal: c/o abdominal pain No nausea. No vomiting. Denies change in bowel habits but has chronic constipation. Denies Bleeding Genitourinary: No Change in force of strain when urinating. No increase in urinary frequency. No pain while urinating. Denies blood in urine. Neurological: Denies headaches. No dizziness. Denies loss of balance. has weakness, denies tingling/numbness Dermatological: No Rash or Bruising or ulcers. Psychiatric: Denies Anxiety. No depression. Denies hallucinations. Rheumatological: No joint pain. Denies Joint swelling Endocrine: c/o tiredness. c/o Fatigue and denies Heat/Cold Intolerance. Physical Examination: General Appearance: Comfortable, in no acute respiratory distress, co-operative . elderly female Vitals reviewed and noted as below Head; Atraumatic, normocephalic ENT: no ulcers no thrush. Tongue is midline. Oropharynx: no rash or ulcers. EYES: Pupils are equal, round and reactive to light accommodation. Eye muscles and extraocular movement intact. Sclera is anicteric. Neck; supple no lymphadenopathy, no thyromegaly or bruit Lungs: Normal respiratory rate/effort. Breath sounds bilateral equal and clear Heart: Normal rate. s1s2 normal. No rub or gallop. Extremities: no edema. No varicose veins Neurological: Patient is alert, awake and oriented to person, place and time. No focal deficit. Strength bilateral appropriate and equal Skin: Warm and dry. Normal turgor. No rash. Palpitation: Normal elasticity for age Abdomen: Abdomen is soft. Bowel sounds +. There is mild upper abdominal tenderness with hepatomegaly, no guarding/rigidity Psych: lack insight and has normal affect/mood MSK: no joint tenderness or swelling. Digits and nails normal, no deformity : kidney or bladder not palpable Labs/imaging reviewed. Past medical history, past surgical history, family history, social history, allergy reviewed and noted as below Work up CXR: b/l pleural effusion cath: 1 vessel CAD 50% and normal LVEF Mg 1.4 Phos 3.5 Alb 2.9 BNP 2070 Urine Na 106 with osmol 330 Past Patient History - Tetanus Immunizations Tetanus Immunization: Unknown - Past Social History Smoking Status: Former Smoker - CARDIAC Hx Hypercholesterolemia: Yes Hx Hypertension: Yes - PULMONARY Hx Respiratory Disorders: No - NEUROLOGICAL Hx Neurological Disorder: No - HEENT Hx HEENT Problems: Yes ([place] b/l hearing aids) Hx Cataracts: Yes (b/l no sx) 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 - RENAL Hx Chronic Kidney Disease: No - ENDOCRINE/METABOLIC Hx Hypothyroidism: Yes - HEMATOLOGICAL/ONCOLOGICAL Hx Blood Transfusion Reaction: No - INTEGUMENTARY Hx Dermatological Problems: Yes Other/Comment: flat red rash to face of unknown origin on and off x1 yr, bruise left upper arm - MUSCULOSKELETAL/RHEUMATOLOGICAL Hx Falls: No - GASTROINTESTINAL Hx Gastrointestinal Disorders: Yes Other/Comment: COLON CA - GENITOURINARY/GYNECOLOGICAL Hx Genitourinary Disorders: No - PSYCHIATRIC Hx Substance Use: No - SURGICAL HISTORY Hx Surgeries: Yes - ANESTHESIA Hx Anesthesia Reactions: No Meds Allergies/Adverse Reactions: Allergies Allergy/AdvReac Type Severity Reaction Status Date / Time No Known Allergies Allergy Verified 02/02/17 10:11 - Medications Medications: Current Medications Acetaminophen (Tylenol 325mg Tab) 650 mg PO Q6H PRN PRN Reason: Fever >100.4 F Amlodipine Besylate (Norvasc) 2.5 mg PO DAILY [facility] Last Admin: 02/09/17 09:31 Dose: Not Given Aspirin (Ecotrin) 81 mg PO DAILY [facility] Last Admin: 02/09/17 09:15 Dose: Not Given Atorvastatin Calcium (Lipitor) 20 mg PO DIN [facility] Last Admin: 02/09/17 17:45 Dose: 20 mg Cholecalciferol (Vitamin D) 2,000 iu PO DAILY [facility] Last Admin: 02/09/17 09:33 Dose: Not Given Docusate Sodium (Colace) 100 mg PO BID [facility] Last Admin: 02/09/17 17:45 Dose: 100 mg Doxycycline Hyclate (Doryx) 100 mg PO Q12 [facility] PRN Reason: Protocol Guaifenesin (Robitussin) 100 mg PO Q4H PRN PRN Reason: Cough Cefepime HCl (Maxipime 1gm) 1 gm in 100 mls @ 100 mls/hr IVPB Q12 [facility] PRN Reason: Protocol Levalbuterol HCl (Xopenex) 0.63 mg IH [id number] [facility] Last Admin: 02/09/17 19:13 Dose: Not Given Levothyroxine Sodium (Synthroid) 25 mcg PO DAILY [facility] Last Admin: 02/09/17 09:32 Dose: Not Given Magnesium Oxide (Mag-Ox) 800 mg PO BID [facility] Last Admin: 02/09/17 17:45 Dose: 800 mg Metronidazole (Flagyl) 500 mg PO Q8 [facility] PRN Reason: Protocol Stop: 02/10/17 14:01 Last Admin: 02/09/17 14:44 Dose: 500 mg Morphine Sulfate (Morphine) 1 mg IVP Q4H PRN PRN Reason: Pain, moderate (4-7) Last Admin: 02/09/17 12:52 Dose: 1 mg Pantoprazole Sodium (Protonix Ec Tab) 40 mg PO 0630 [facility] Last Admin: 02/09/17 05:39 Dose: Not Given Potassium Chloride (K-Dur 20 Meq Er Tab) 20 meq PO BID [facility] Stop: 02/14/17 18:01 Last Admin: 02/09/17 17:45 Dose: 20 meq Simethicone (Mylicon Chew Tab) 80 mg PO [facility] PRN PRN Reason: GI distress Zolpidem Tartrate (Ambien) 5 mg PO HS PRN; Protocol PRN Reason: Insomnia Last Admin: 02/08/17 22:06 Dose: 5 mg Results - Vital Signs Recent Vital Signs: Last Vital Signs Temp 99.1 F 02/09/17 14:45 Pulse 126 H 02/09/17 14:45 Resp 20 02/09/17 14:45 BP 146/92 H 02/09/17 16:29 Pulse Ox 92 L 02/09/17 07:43 - Labs Result Diagrams: 02/09/17 10:20 02/09/17 10:20 Labs: Laboratory Results - last 24 hr 02/09/17 02/09/17 02/09/17 10:20 10:20 15:10 WBC 5.9 RBC 3.26 L Hgb 10.0 L Hct 28.8 L MCV 88.3 MCH 30.7 MCHC 34.7 RDW 13.7 Plt Count 256 MPV 8.2 Gran % 76.6 H Lymph % (Auto) 13.1 L Bath % (Auto) 9.1 H Eos % (Auto) 0.5 L Baso % (Auto) 0.7 Gran # 4.55 Lymph # 0.8 L Bath # 0.5 Eos # 0.0 Baso # 0.04 Sodium 124 L Potassium 3.5 L Chloride 94 L Carbon Dioxide 24 Anion Gap 10 BUN 6 L Creatinine 0.5 Est GFR ( Amer) > 60 Est GFR (Non-Af Amer) > 60 Random Glucose 115 H Calcium 8.0 L Phosphorus 3.5 Magnesium 1.4 L Total Bilirubin 0.9 AST 38 ALT 36 Alkaline Phosphatase 115 Total Protein 5.4 L Albumin 2.9 L Globulin 2.5 Albumin/Globulin Ratio 1.2 Urine Osmolality 353 Ur Random Creatinine Ur Random Sodium 02/09/17 15:10 WBC RBC Hgb Hct MCV MCH MCHC RDW Plt Count MPV Gran % Lymph % (Auto) Bath % (Auto) Eos % (Auto) Baso % (Auto) Gran # Lymph # Bath # Eos # Baso # Sodium Potassium Chloride Carbon Dioxide Anion Gap BUN Creatinine Est GFR ( Amer) Est GFR (Non-Af Amer) Random Glucose Calcium Phosphorus Magnesium Total Bilirubin AST ALT Alkaline Phosphatase Total Protein Albumin Globulin Albumin/Globulin Ratio Urine Osmolality Ur Random Creatinine 20 Ur Random Sodium 106
[2017-02-09] MEDS: Cefepime 1gm in NS 100ml 1 GM/100 ML BAG IVPB SCH (22:04)
--- NOTE | 2017-02-10 00:58 | CARD ---
APPROVED REPORT EKG Measurement Heart [id number] <Conclusion> Atrial fibrillation with rapid ventricular response Low voltage QRS Cannot rule out Anteroseptal infarct, age undetermined ST & T wave abnormality, consider lateral ischemia or digitalis effect Abnormal ECG
[2017-02-10] MEDS: Levalbuterol 0.63 MG/3 ML Inhal Soln UD IH SCH ×4 (01:30→19:30)
[2017-02-10] MEDS: Pantoprazole 40 mg EC Tab PO SCH (06:31)
[2017-02-10 06:50] LABS: ADD MANUAL DIFF? NO
[2017-02-10 07:17] LABS: BASO # 0.03 K/mm3 (0.0-2.0); BASO % 0.4 % (0.0-3.0); EOS % 0.3 % (1.5-5.0); GRAN # 4.91 (1.4-6.5); HEMATOCRIT 27.2 % (36.0-48.0); LYMPH # 1.1 (1.2-3.4); LYMPH % 15.7 % (22.0-35.0); MEAN CELL VOLUME 87.5 fL (80.0-105.0); MEAN CORPUSCULAR HEMOGLOBIN 30.5 pg (25.0-35.0); MEAN CORPUSCULAR HGB CONC 34.9 g/dl (31.0-37.0); MEAN PLATELET VOLUME 8.2 fl (7.0-11.0); MONO % 14.6 % (1.0-6.0); PLATELET COUNT 302 10^3/uL (120.0-450.0); RED CELL DISTRIBUTION WIDTH 13.9 % (11.5-14.5); WHITE BLOOD COUNT 7.1 10^3/ul (4.5-11.0)
[2017-02-10 07:18] LABS: ALB/GLOB RATIO 1.3 (1.1-1.8); ALKALINE PHOSPHATASE 124 U/L (38-133); ALT/SGPT 33 U/L (7-56); AST/SGOT 40 U/L (15-39); BILIRUBIN,TOTAL 1.1 mg/dL (0.2-1.3); BLOOD UREA NITROGEN 8 mg/dL (7-21); CALCIUM 8.4 mg/dL (8.4-10.5); CARBON DIOXIDE 25 mmol/L (21-33); CHLORIDE 93 mmol/L (98-107); CHOLESTEROL 98 mg/dL (130-200); GFR AFRICAN-AMERICAN > 60; GLUCOSE,RANDOM 93 mg/dL (70-110); POTASSIUM 4.2 mmol/L (3.6-5.0); SODIUM 123 mmol/L (132-148); TOTAL PROTEIN 5.4 g/dL (5.8-8.3); URIC ACID 3.2 mg/dL (2.5-6.2)
[2017-02-10 07:46] LABS: THYROID STIMULATING HORMONE 5.42 mIU/mL (0.46-4.68)
[2017-02-10] MEDS ORDERED: Tolvaptan 15 MG TAB PO ONE ×2 (08:30→14:13)
--- NOTE | 2017-02-10 08:39 | PN ---
DATE: 02/10/2017 SUBJECTIVE: The patient appears comfortable this morning. She is not short of breath at rest. PHYSICAL EXAMINATION: VITAL SIGNS: Last temperature recorded 99.1, pulse is approximately 100 this morning, respiratory rate 18, blood pressure 146/92. Oxygen saturation on nasal cannula is 92%-99%. HEENT: Normocephalic, atraumatic. No JVD. CARDIOVASCULAR: Systolic ejection murmur at the lower left sternal border. No S3 gallop. LUNGS: Minimal crackles at the bases. No rhonchi. No wheezing. EXTREMITIES: Mild edema. No cyanosis, no clubbing. Calves are nontender to palpation. GASTROINTESTINAL: Abdomen is soft, nontender, nondistended. Bowel sounds are positive. SKIN: No acute rash. NEUROLOGIC: Limited at the present time. PERTINENT LABORATORY DATA: Chest x-ray was repeated yesterday and reviewed. There is some haziness noted in the right lung -- probably representing layering of the pleural effusion. IMPRESSION: 1. Atelectasis -- right base. 2. Bilateral pleural effusions. 3. Mild volume overload. 4. Ileitis. 5. Mild anemia. 6. Electrolyte abnormalities. PLAN: The patient appears comfortable this morning. She is not short of breath at rest. She states her cough is less. On physical exam, there is less bronchospasm noted. I will continue with the current nebulizer treatments for now. Last chest x-ray is noted above. The patient was given several doses of Lasix yesterday. She is certainly comfortable this morning. I would continue with the antibiotic coverage as per infectious disease. There are no temperatures noted. There is no leukocytosis. Cardiology and GI evaluations are also noted. Clinical status of the patient is certainly improved -- compared to the initial presentation. However, again, the overall status/ prognosis of this very elderly patient -- remains very guarded. I will discuss the above with the attending physician. Tony Luong MD cc: [id number] TT: 02/10/2017 08:38:44 Confirmation # [id number] Dictation # [id number] en MTDD
[2017-02-10] MEDS: Cefepime 1gm in NS 100ml 1 GM/100 ML BAG IVPB SCH (10:13)
[2017-02-10] MEDS: Levothyroxine 50 MCG TAB PO SCH (10:14)
[2017-02-10] MEDS: Potassium Chloride 20 mEq ER Tab PO SCH ×2 (10:14→17:21)
[2017-02-10] MEDS: Magnesium Oxide 400 mg Tab UD PO SCH ×2 (10:15→17:20)
--- NOTE | 2017-02-10 11:00 | CP.PCM.PN ---
Subjective - Date & Time of Evaluation Date of Evaluation: 02/10/17 Time of Evaluation: 09:40 - Subjective Subjective: Comfortable, afebrile, not in distress. Objective - Vital Signs/Intake and Output Vital Signs (last 24 hours): Temp Pulse Resp BP Pulse Ox 98.2 F 108 H 19 142/96 H 94 L 02/10/17 06:00 02/10/17 06:00 02/10/17 06:00 02/10/17 10:14 02/10/17 06:00 Intake and Output: 02/10/17 02/10/17 06:59 18:59 Intake Total 300 0 Balance 300 0 - Medications Medications: Current Medications Acetaminophen (Tylenol 325mg Tab) 650 mg PO Q6H PRN PRN Reason: Fever >100.4 F Amlodipine Besylate (Norvasc) 2.5 mg PO DAILY [facility] Last Admin: 02/10/17 10:14 Dose: 2.5 mg Aspirin (Ecotrin) 81 mg PO DAILY [facility] Last Admin: 02/10/17 10:14 Dose: 81 mg Atorvastatin Calcium (Lipitor) 20 mg PO DIN [facility] Last Admin: 02/09/17 17:45 Dose: 20 mg Cholecalciferol (Vitamin D) 2,000 iu PO DAILY [facility] Last Admin: 02/10/17 10:14 Dose: 2,000 iu Docusate Sodium (Colace) 100 mg PO BID [facility] Last Admin: 02/10/17 10:15 Dose: 100 mg Doxycycline Hyclate (Doryx) 100 mg PO Q12 [facility] PRN Reason: Protocol Last Admin: 02/10/17 10:14 Dose: 100 mg Guaifenesin (Robitussin) 100 mg PO Q4H PRN PRN Reason: Cough Cefepime HCl (Maxipime 1gm) 1 gm in 100 mls @ 100 mls/hr IVPB Q12 [facility] PRN Reason: Protocol Last Admin: 02/10/17 10:13 Dose: 100 mls/hr Levalbuterol HCl (Xopenex) 0.63 mg IH [id number] [facility] Last Admin: 02/10/17 08:01 Dose: 0.63 mg Levothyroxine Sodium (Synthroid) 50 mcg PO DAILY [facility] Last Admin: 02/10/17 10:14 Dose: 50 mcg Losartan Potassium (Cozaar) 50 mg PO DAILY [facility] Last Admin: 02/10/17 10:15 Dose: 50 mg Magnesium Oxide (Mag-Ox) 800 mg PO BID [facility] Last Admin: 02/10/17 10:15 Dose: 800 mg Metoprolol Tartrate (Lopressor) 25 mg PO BRKDIN [facility] Last Admin: 02/10/17 08:44 Dose: 25 mg Metronidazole (Flagyl) 500 mg PO Q8 [facility] PRN Reason: Protocol Stop: 02/10/17 14:01 Last Admin: 02/10/17 06:31 Dose: 500 mg Morphine Sulfate (Morphine) 1 mg IVP Q4H PRN PRN Reason: Pain, moderate (4-7) Last Admin: 02/09/17 12:52 Dose: 1 mg Pantoprazole Sodium (Protonix Ec Tab) 40 mg PO 0630 [facility] Last Admin: 02/10/17 06:31 Dose: 40 mg Potassium Chloride (K-Dur 20 Meq Er Tab) 20 meq PO BID [facility] Stop: 02/14/17 18:01 Last Admin: 02/10/17 10:14 Dose: 20 meq Simethicone (Mylicon Chew Tab) 80 mg PO HS PRN PRN Reason: GI distress Zolpidem Tartrate (Ambien) 5 mg PO HS PRN; Protocol PRN Reason: Insomnia Last Admin: 02/08/17 22:06 Dose: 5 mg - Labs Labs: 02/10/17 06:40 02/10/17 06:40 - Constitutional Appears: Non-toxic, No Acute Distress - Head Exam Head Exam: NORMAL INSPECTION - Neck Exam Neck Exam: absent: Meningismus - Respiratory Exam Respiratory Exam: Decreased Breath Sounds - Cardiovascular Exam Cardiovascular Exam: +S1, +S2 - GI/Abdominal Exam GI & Abdominal Exam: Soft. absent: Tenderness Assessment and Plan - Assessment and Plan (Free Text) Plan: Assessment Ileitis, acute, improving clinically atelectasis noted on the right lung base hepatic cysts, etiology to be determined HTN CAD hypothyroidism Plan continue PO Vantin and Flagyl day 8 (to complete 10-14 days) GI evaluating of hepatic cysts will continue to monitor clinically
--- NOTE | 2017-02-10 11:15 | CP.PCM.PN ---
<Benita Morse - Last Filed: 02/10/17 12:46> Subjective - Date & Time of Evaluation Date of Evaluation: 02/10/17 Time of Evaluation: 08:00 - Subjective Subjective: Medicine progress note for Dr Sr and Dr Hernandez service. Patient's SOB improved yesterday after 40 mg ivp Lasix. Patient's remained tachycardia with HR in the 110s. Patient denies chills, denies n/v/d. Denies cp , or sob, the abdominal pain has resolved. However patient's feeling weak. Objective - Vital Signs/Intake and Output Vital Signs (last 24 hours): Temp Pulse Resp BP Pulse Ox 98.2 F 108 H 19 142/96 H 94 L 02/10/17 06:00 02/10/17 06:00 02/10/17 06:00 02/10/17 10:14 02/10/17 06:00 Intake and Output: 02/10/17 02/10/17 06:59 18:59 Intake Total 300 0 Balance 300 0 - Medications Medications: Current Medications Acetaminophen (Tylenol 325mg Tab) 650 mg PO Q6H PRN PRN Reason: Fever >100.4 F Amlodipine Besylate (Norvasc) 2.5 mg PO DAILY [facility] Last Admin: 02/10/17 10:14 Dose: 2.5 mg Aspirin (Ecotrin) 81 mg PO DAILY [facility] Last Admin: 02/10/17 10:14 Dose: 81 mg Atorvastatin Calcium (Lipitor) 20 mg PO DIN [facility] Last Admin: 02/09/17 17:45 Dose: 20 mg Cholecalciferol (Vitamin D) 2,000 iu PO DAILY [facility] Last Admin: 02/10/17 10:14 Dose: 2,000 iu Docusate Sodium (Colace) 100 mg PO BID [facility] Last Admin: 02/10/17 10:15 Dose: 100 mg Doxycycline Hyclate (Doryx) 100 mg PO Q12 [facility] PRN Reason: Protocol Last Admin: 02/10/17 10:14 Dose: 100 mg Guaifenesin (Robitussin) 100 mg PO Q4H PRN PRN Reason: Cough Cefepime HCl (Maxipime 1gm) 1 gm in 100 mls @ 100 mls/hr IVPB Q12 [facility] PRN Reason: Protocol Last Admin: 02/10/17 10:13 Dose: 100 mls/hr Levalbuterol HCl (Xopenex) 0.63 mg IH [id number] [facility] Last Admin: 02/10/17 08:01 Dose: 0.63 mg Levothyroxine Sodium (Synthroid) 50 mcg PO DAILY [facility] Last Admin: 02/10/17 10:14 Dose: 50 mcg Losartan Potassium (Cozaar) 50 mg PO DAILY [facility] Last Admin: 02/10/17 10:15 Dose: 50 mg Magnesium Oxide (Mag-Ox) 800 mg PO BID [facility] Last Admin: 02/10/17 10:15 Dose: 800 mg Metoprolol Tartrate (Lopressor) 25 mg PO BRKDIN [facility] Last Admin: 02/10/17 08:44 Dose: 25 mg Metronidazole (Flagyl) 500 mg PO Q8 [facility] PRN Reason: Protocol Stop: 02/10/17 14:01 Last Admin: 02/10/17 06:31 Dose: 500 mg Morphine Sulfate (Morphine) 1 mg IVP Q4H PRN PRN Reason: Pain, moderate (4-7) Last Admin: 02/09/17 12:52 Dose: 1 mg Pantoprazole Sodium (Protonix Ec Tab) 40 mg PO 0630 [facility] Last Admin: 02/10/17 06:31 Dose: 40 mg Potassium Chloride (K-Dur 20 Meq Er Tab) 20 meq PO BID [facility] Stop: 02/14/17 18:01 Last Admin: 02/10/17 10:14 Dose: 20 meq Simethicone (Mylicon Chew Tab) 80 mg PO [facility] PRN PRN Reason: GI distress Zolpidem Tartrate (Ambien) 5 mg PO HS PRN; Protocol PRN Reason: Insomnia Last Admin: 02/08/17 22:06 Dose: 5 mg - Labs Labs: 02/10/17 06:40 02/10/17 06:40 - Constitutional Appears: No Acute Distress, Cachectic, Chronically Ill - Head Exam Head Exam: ATRAUMATIC, NORMAL INSPECTION, NORMOCEPHALIC - Eye Exam Eye Exam: Normal appearance. absent: Scleral icterus - ENT Exam ENT Exam: Mucous Membranes Moist - Neck Exam Neck Exam: Normal Inspection - Respiratory Exam Respiratory Exam: Rales (at the bases), Rhonchi, NORMAL BREATHING PATTERN. absent: Prolonged Expiratory Phase, Wheezes, Respiratory Distress, Stridor - Cardiovascular Exam Cardiovascular Exam: Tachycardia, Irregular Rhythm, RRR, +S1, +S2. absent: Murmur - GI/Abdominal Exam GI & Abdominal Exam: Soft, Normal Bowel Sounds. 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 Patient also has liver cysts with the largest being 20 cm, family not interested in surgical intervention. Patient is s/p cardiac cath with 50% stenosis of mid LAD. Patient is currently in CHF exacerbation. Patient also has a worsening hyponatremia. Plan: 1) Atelectasis - will continue bronchodilators - OOBTC - Chest PT - IS - procal low, no wbc, no fever - will d/c cefepime, continue vantin. - Pulm rec appreciated. 2) B/L pleural effusion R>L - 2nd to volume overload - sob improved 3) Chronic hyponatremia- - SIADH picture - Serum osm low - nephro rec appreciated - Patient got Tolvaptan today - will continue to monitor 4) Ileitis - abdominal pain resolved - now on po vantin and flagyl. - Repeat CT with constipation - will continue stool softener. 5) Hypokalemia, hypophosphatemia and hypomagnesemia- - will continue to monitor. 6) Liver cysts- largest being 20 cm-, IR consulted for possible draining/biopsy of the cyst. 7) Anemia- likely dilutional versus iatrogenic, - will continue to monitor. 8) Transaminitis- resolved, continue to monitor. 9) Hypothyroidism - continue synthroid 50 mcg qd. 10) Erythematous rash on the face- observe 11) HTN- d/c htcz and losartan, will consider hyralazine and norvasc. 12) Chronic afib - Not on anticoagulation, - Risk versus benefit of choosing anticoagulation versus refusing anticoag discussed with family at bedside. - Patient has not agreed to anticoagulation yet. 13) h/o DVT s/p IVC filter 14) DVT and gi prophylaxis: lovenox and protonix. 15) Dispo- pending Patient seen,examined, discussed with Dr Sr. <Thanh Sr - Last Filed: 03/17/17 09:30> Objective - Vital Signs/Intake and Output Vital Signs (last 24 hours): Temp Pulse Resp BP Pulse Ox 97.9 F 80 19 144/91 H 99 02/14/17 16:00 02/14/17 17:19 02/14/17 16:00 02/14/17 17:19 02/14/17 16:00 - Labs Labs: 02/14/17 07:00 02/14/17 13:49 Attending/Attestation - Attestation I have personally seen and examined this patient.: Yes I have fully participated in the care of the patient.: Yes I have reviewed all pertinent clinical information, including history, physical exam and plan: Yes Notes (Text): 03/17/17 09:30 03/17/17 09:23 Medical note made by resident after discussion with my direction and input after patient personally seen by me. I have reviewed the chart and agree that the record reflects my personal performance of the history, physical, data review and decision making.
--- NOTE | 2017-02-10 12:19 | PN ---
DATE: 02/10/2017 The patient with an episode of dyspnea, relieved with IV Lasix. The patient is currently in a chair. She is comfortable without shortness of breath, without chest p ain. PHYSICAL EXAMINATION: VITAL SIGNS: Blood pressure is 142/96. Heart rate is 100. NECK: Negative JVD. LUNGS: Decreased breath sounds bilaterally. HEART: Revealed S1, S2. EXTREMITIES: Without edema. The right groin site is stable. LABORATORY DATA: Hemoglobin is 9.5. Chemistries: BUN and creatinine are unremarkable. IMPRESSION: 1. Transient congestive heart failure secondary to volume overload. 2. Right lower lobe pneumonia. 3. Diabetes mellitus. 4. Anemia. 5. Sepsis. Given these findings, the patient is stable post cardiac catheterization. Her CHF was secondary to a ggressive fluid administration to avoid contrast nephropathy. Currently, the patient is stable. Blaze Bauer MD cc: [facility] TT: 02/10/2017 12:18:25 Confirmation # [id number] Dictation # [id number] mn
--- NOTE | 2017-02-10 13:28 | PN ---
DATE: 02/10/2017 Seen and examined at the bedside. Earlier today the family was there. The patient occasionally havi ng cough and had shortness of breath yesterday. She had a chest x-ray, which was showing pneumonia. Denies any nausea or vomiting. She is reported to be having bowel movements daily. No reports of a ny bleeding. Did not have any fever or chills. PHYSICAL EXAMINATION: VITAL SIGNS: Temperature is 98.2, blood pressure is 142/96, respirations are 19, and is 94 on room a ir. HEENT: Sclerae are anicteric. NECK: Supple. CARDIAC: S1, S2. LUNGS: Decreased breath sounds, but no rales or wheeze. ABDOMEN: With bowel sounds, softly distended. No tenderness on palpation. No rebound or guarding. Right groin is intact. ASSESSMENT: The patient with right lower lobe pneumonia, anemia, status post ileitis, improved const ipation, history of coronary artery disease, status post cardiac catheterization and no stent placed. The patient also does have a history of liver cysts with status post CT scan showing largest cyst m easuring 18 x 16 cm. PLAN: Continue diet as tolerated. She is on aspirin. She is on IV antibiotics of Maxipime, doxycyc line p.o. and Flagyl. Continue stool softeners. She did have a repeat CT scan on 02/08 and there is no bowel obstruction and multiple cysts in the liver, same as before. I spoke to the daughter-i n-law at the bedside. The patient was seen and case discussed with Dr. Brown. Ana Raphael BOWEN cc: [id number] TT: 02/10/2017 13:28:33 Confirmation # [id number] Dictation # [id number] maile
--- NOTE | 2017-02-10 13:43 | CP.PCM.PN ---
Subjective - Date & Time of Evaluation Date of Evaluation: 02/10/17 Time of Evaluation: 13:40 - Subjective Subjective: Follow up Nephrology Consultation: Assessment: Hypo-osmolar Hyponatremia acute component with relatively conc urine as compared to serum with high urine Na favors excess ADH which may be triggered by her pain or it could very well be SIADH. chronic hyponatremia likely due to tea/toast diet, poor solute intake and thiazide diuretics Hypokalemia and Hypomagnesemia Hypertension Hepatomegaly with large liver cysts CAD Plan continue with K and Mag supplementation dose her today with tolvaptan 15 mg and monitor BMP No fluid restriction while getting tolvaptan avoid serum Na correction >6-8 meq/day. pt encouraged to eat more protein and food family doesn't wish to pursue aggressive testing for her such as looking for cancer causing these symptoms and hyponatremia. Hence will manage symptomatically HTN control with meds as ordered. avoid HCTZ. Glycemic control Further work up for as per primary team Thanks for allowing me to participate in care of your patient. Will follow patient with you. Please call if any Qs Dr Darrell Orellana Office: [phone] subjective: no new complaints. denies CP/leg swelling or urinary complaints. getting nebs Physical Examination: General Appearance: Comfortable, in no acute respiratory distress, co-operative . elderly female Vitals reviewed and noted as below Lungs: Normal respiratory rate/effort. Breath sounds bilateral with wheeze Heart: Normal rate. s1s2 normal. No rub or gallop. Extremities: no edema. No varicose veins Neurological: Patient is alert, awake and oriented to person, place and time. No focal deficit. Strength bilateral appropriate and equal Skin: Warm and dry. Normal turgor. No rash. Palpitation: Normal elasticity for age Abdomen: Abdomen is soft. Bowel sounds +. There is mild upper abdominal tenderness with hepatomegaly, no guarding/rigidity : kidney or bladder not palpable Labs/imaging reviewed. Past medical history, past surgical history, family history, social history, allergy reviewed and noted as below Work up CXR: b/l pleural effusion cath: 1 vessel CAD 50% and normal LVEF Mg 1.4 Phos 3.5 Alb 2.9 BNP 2070 Urine Na 106 with osmol 330 Objective - Vital Signs/Intake and Output Vital Signs (last 24 hours): Temp Pulse Resp BP Pulse Ox 98.2 F 108 H 19 142/96 H 94 L 02/10/17 06:00 02/10/17 06:00 02/10/17 06:00 02/10/17 10:14 02/10/17 06:00 Intake and Output: 02/10/17 02/10/17 06:59 18:59 Intake Total 300 0 Balance 300 0 - Medications Medications: Current Medications Acetaminophen (Tylenol 325mg Tab) 650 mg PO Q6H PRN PRN Reason: Fever >100.4 F Amlodipine Besylate (Norvasc) 5 mg PO DAILY [facility] Aspirin (Ecotrin) 81 mg PO DAILY [facility] Last Admin: 02/10/17 10:14 Dose: 81 mg Atorvastatin Calcium (Lipitor) 20 mg PO DIN [facility] Last Admin: 02/09/17 17:45 Dose: 20 mg Cefpodoxime Proxetil (Vantin) 200 mg PO Q12 [facility] PRN Reason: Protocol Stop: 02/16/17 22:01 Cholecalciferol (Vitamin D) 2,000 iu PO DAILY [facility] Last Admin: 02/10/17 10:14 Dose: 2,000 iu Docusate Sodium (Colace) 100 mg PO BID [facility] Last Admin: 02/10/17 10:15 Dose: 100 mg Doxycycline Hyclate (Doryx) 100 mg PO Q12 [facility] PRN Reason: Protocol Last Admin: 02/10/17 10:14 Dose: 100 mg Guaifenesin (Robitussin) 100 mg PO Q4H PRN PRN Reason: Cough Hydralazine HCl (Apresoline) 10 mg PO Q6H PRN PRN Reason: Systolic Blood Pressure Levalbuterol HCl (Xopenex) 0.63 mg IH [id number] [facility] Last Admin: 02/10/17 13:23 Dose: 0.63 mg Levothyroxine Sodium (Synthroid) 50 mcg PO DAILY [facility] Last Admin: 02/10/17 10:14 Dose: 50 mcg Losartan Potassium (Cozaar) 50 mg PO DAILY [facility] Last Admin: 02/10/17 10:15 Dose: 50 mg Magnesium Oxide (Mag-Ox) 800 mg PO BID [facility] Last Admin: 02/10/17 10:15 Dose: 800 mg Metoprolol Tartrate (Lopressor) 25 mg PO BRKDIN [facility] Last Admin: 02/10/17 08:44 Dose: 25 mg Metronidazole (Flagyl) 500 mg PO Q8 [facility] PRN Reason: Protocol Stop: 02/10/17 14:01 Last Admin: 02/10/17 06:31 Dose: 500 mg Morphine Sulfate (Morphine) 1 mg IVP Q4H PRN PRN Reason: Pain, moderate (4-7) Last Admin: 02/09/17 12:52 Dose: 1 mg Pantoprazole Sodium (Protonix Ec Tab) 40 mg PO 0630 [facility] Last Admin: 02/10/17 06:31 Dose: 40 mg Potassium Chloride (K-Dur 20 Meq Er Tab) 20 meq PO BID [facility] Stop: 02/14/17 18:01 Last Admin: 02/10/17 10:14 Dose: 20 meq Simethicone (Mylicon Chew Tab) 80 mg PO [facility] PRN PRN Reason: GI distress Zolpidem Tartrate (Ambien) 5 mg PO HS PRN; Protocol PRN Reason: Insomnia Last Admin: 02/08/17 22:06 Dose: 5 mg - Labs Labs: 02/10/17 06:40 02/10/17 06:40
[2017-02-10 13:50] LABS: BLOOD UREA NITROGEN 9 mg/dL (7-21); CALCIUM 8.5 mg/dL (8.4-10.5); CARBON DIOXIDE 26 mmol/L (21-33); CHLORIDE 91 mmol/L (98-107); GFR AFRICAN-AMERICAN > 60; GLUCOSE,RANDOM 121 mg/dL (70-110); POTASSIUM 4.3 mmol/L (3.6-5.0); SODIUM 122 mmol/L (132-148)
--- NOTE | 2017-02-10 19:23 | CON ---
DATE: 02/10/2017 TIME OF CONSULTATION: 6:11 p.m. CHIEF COMPLAINT AND HISTORY OF PRESENT ILLNESS: This is an 86-year-old female who was admitted with significant right abdominal pain. Her CT scan is notable for a 15 x 20 cm hepatic cyst, which is demonstrating mass effect on the right kidney and diaphragm. Multiple smaller hepatic cysts are seen. There is some compressive atelectasis and a small right effusion present. The patient underwent a cardiac catheterization yesterday, which was unremarkable. PAST MEDICAL HISTORY: atrial fibrillation, previous DVT with inferior vena cava filter placement. Colon cancer status post surgery and chemotherapy and a brain aneurysm status post surgery. I reviewed the patient's CT scan. I spoke briefly with the family and patient. The cyst is large and not completely simple. Some associated soft tissue is noted posteriorly. Certainly a CT-guided drainage could be performed and this could have significant relief for her pain and possibly improve her respiratory status. The family is hesitant to perform any invasive procedures given her age. Unfortunately, we cannot definitively predict her response without placing the tube and seeing how it affects her symptoms. The fluid can be sent for cytology and microbiology. The family and patient would like to consider their options. Please contact me if they wish to proceed with a CT drainage. The tube could possibly remain for several days/weeks. I explained this to the family. Blaze Ramos MD cc: [id number] TT: 02/10/2017 19:22:50 Confirmation # [id number] Dictation # [id number] reza GRIFFIN
[2017-02-10 20:28] LABS: BLOOD UREA NITROGEN 11 mg/dL (7-21); CALCIUM 8.8 mg/dL (8.4-10.5); CARBON DIOXIDE 25 mmol/L (21-33); CHLORIDE 93 mmol/L (98-107); GFR AFRICAN-AMERICAN > 60; GLUCOSE,RANDOM 115 mg/dL (70-110); POTASSIUM 4.7 mmol/L (3.6-5.0); SODIUM 124 mmol/L (132-148)
[2017-02-10] MEDS: Cefpodoxime (Vantin) 200 mg Tab PO SCH (21:14)
[2017-02-10] MEDS: guaiFENesin 100 mg/5 ml Syrup UD PO PRN (21:14)
[2017-02-11] MEDS: Levalbuterol 0.63 MG/3 ML Inhal Soln UD IH SCH ×4 (02:17→19:15)
[2017-02-11] MEDS: Pantoprazole 40 mg EC Tab PO SCH (05:58)
[2017-02-11 06:54] LABS: ADD MANUAL DIFF? NO
[2017-02-11 07:12] LABS: BASO # 0.04 K/mm3 (0.0-2.0); BASO % 0.6 % (0.0-3.0); EOS % 0.3 % (1.5-5.0); GRAN # 4.51 (1.4-6.5); GRAN % 66.9 % (50.0-68.0); HEMATOCRIT 28.1 % (36.0-48.0); LYMPH # 1.1 (1.2-3.4); LYMPH % 15.6 % (22.0-35.0); MEAN CELL VOLUME 88.1 fL (80.0-105.0); MEAN CORPUSCULAR HEMOGLOBIN 30.1 pg (25.0-35.0); MEAN CORPUSCULAR HGB CONC 34.2 g/dl (31.0-37.0); MEAN PLATELET VOLUME 8.3 fl (7.0-11.0); MONO # 1.1 (0.1-0.6); MONO % 16.6 % (1.0-6.0); PLATELET COUNT 321 10^3/uL (120.0-450.0); WHITE BLOOD COUNT 6.7 10^3/ul (4.5-11.0)
[2017-02-11 07:17] LABS: ALB/GLOB RATIO 1.2 (1.1-1.8); ALKALINE PHOSPHATASE 135 U/L (38-133); ALT/SGPT 34 U/L (7-56); AST/SGOT 38 U/L (15-39); BLOOD UREA NITROGEN 10 mg/dL (7-21); CALCIUM 8.7 mg/dL (8.4-10.5); CARBON DIOXIDE 23 mmol/L (21-33); CHLORIDE 101 mmol/L (98-107); GFR AFRICAN-AMERICAN > 60; GLUCOSE,RANDOM 93 mg/dL (70-110); POTASSIUM 4.2 mmol/L (3.6-5.0); SODIUM 132 mmol/L (132-148); TOTAL PROTEIN 5.6 g/dL (5.8-8.3)
--- NOTE | 2017-02-11 09:19 | PN ---
DATE: 02/11/2017 SUBJECTIVE: The patient appears comfortable this morning. She is not short of breath at rest. PHYSICAL EXAMINATION: VITAL SIGNS: Temperature is 98.0, pulse 104, respirations 18/20, blood pressure 145/89. Oxygen saturation on room air is 94%-97%. HEENT: Normocephalic, atraumatic. No JVD. CARDIOVASCULAR: Systolic ejection murmur at the lower left sternal border. No S3 gallop. LUNGS: Minimal crackles at the bases. Minimal/less rhonchi. No wheezing. EXTREMITIES: Mild edema. No cyanosis, no clubbing. Calves are nontender to palpation. GASTROINTESTINAL: Abdomen is soft, nontender, nondistended. Bowel sounds are positive. SKIN: No acute rash. NEUROLOGIC: Limited at the present time. IMPRESSION: 1. Atelectasis -- right base. 2. Bilateral pleural effusions. 3. Mild volume overload. 4. Ileitis. 5. Mild anemia. 6. Electrolyte abnormalities. PLAN: The patient appears comfortable this morning. She is not short of breath at rest. She does state to feeling better overall. On physical exam, only minimal bronchospasm is noted. In addition, there is no significant alveolar arterial gradient. Oxygen saturation on room air is now 94%-97%. I will continue with the current nebulizer treatments for now. The patient remains on antibiotic therapy -- as per infectious disease. Input by Dr. Hernandez is noted. Input by cardiology and GI also noted Clinical status of the patient is certainly improved -- compared to last week. However, again, the overall status/prognosis of this elderly patient remains very guarded at best. I will discuss the above with the attending physician. Tony Luong MD cc: [id number] TT: 02/11/2017 09:18:51 Confirmation # [id number] Dictation # [id number] jn ELIAS
[2017-02-11] MEDS: Levothyroxine 50 MCG TAB PO SCH (09:21)
[2017-02-11] MEDS: Cefpodoxime (Vantin) 200 mg Tab PO SCH ×2 (09:21→22:14)
[2017-02-11] MEDS: Magnesium Oxide 400 mg Tab UD PO SCH ×2 (09:23→17:06)
--- NOTE | 2017-02-11 11:41 | CP.PCM.PN ---
Subjective - Date & Time of Evaluation Date of Evaluation: 02/11/17 Time of Evaluation: 10:15 - Subjective Subjective: Comfortable, afebrile, not in distress. Objective - Vital Signs/Intake and Output Vital Signs (last 24 hours): Temp Pulse Resp BP Pulse Ox 98.2 F 108 H 19 158/100 H 94 L 02/10/17 06:00 02/10/17 06:00 02/10/17 06:00 02/10/17 06:00 02/10/17 06:00 Intake and Output: 02/10/17 02/10/17 06:59 18:59 Intake Total 300 0 Balance 300 0 - Medications Medications: Current Medications Acetaminophen (Tylenol 325mg Tab) 650 mg PO Q6H PRN PRN Reason: Fever >100.4 F Amlodipine Besylate (Norvasc) 2.5 mg PO DAILY [facility] Last Admin: 02/09/17 09:31 Dose: Not Given Aspirin (Ecotrin) 81 mg PO DAILY [facility] Last Admin: 02/09/17 09:15 Dose: Not Given Atorvastatin Calcium (Lipitor) 20 mg PO DIN [facility] [place] Last Admin: 02/09/17 17:45 Dose: 20 mg Cholecalciferol (Vitamin D) 2,000 iu PO DAILY [facility] [place] Last Admin: 02/09/17 09:33 Dose: Not Given Docusate Sodium (Colace) 100 mg PO BID [facility] [place] Last Admin: 02/09/17 17:45 Dose: 100 mg Doxycycline Hyclate (Doryx) 100 mg PO Q12 [facility] PRN Reason: Protocol Last Admin: 02/09/17 22:03 Dose: 100 mg Guaifenesin (Robitussin) 100 mg PO Q4H PRN PRN Reason: Cough Cefepime HCl (Maxipime 1gm) 1 gm in 100 mls @ 100 mls/hr IVPB Q12 [facility] [place] PRN Reason: Protocol Last Admin: 02/09/17 22:04 Dose: 100 mls/hr Levalbuterol HCl (Xopenex) 0.63 mg IH [id number] [facility] [place] Last Admin: 02/10/17 08:01 Dose: 0.63 mg Levothyroxine Sodium (Synthroid) 50 mcg PO DAILY [facility] [place] Losartan Potassium (Cozaar) 50 mg PO DAILY [facility] Magnesium Oxide (Mag-Ox) 800 mg PO BID [facility] [place] Last Admin: 02/09/17 17:45 Dose: 800 mg Metoprolol Tartrate (Lopressor) 25 mg PO BRKDIN [facility] Metronidazole (Flagyl) 500 mg PO Q8 [facility] PRN Reason: Protocol Stop: 02/10/17 14:01 Last Admin: 02/10/17 06:31 Dose: 500 mg Morphine Sulfate (Morphine) 1 mg IVP Q4H PRN PRN Reason: Pain, moderate (4-7) Last Admin: 02/09/17 12:52 Dose: 1 mg Pantoprazole Sodium (Protonix Ec Tab) 40 mg PO 0630 [facility] Last Admin: 02/10/17 06:31 Dose: 40 mg Potassium Chloride (K-Dur 20 Meq Er Tab) 20 meq PO BID [facility] Stop: 02/14/17 18:01 Last Admin: 02/09/17 17:45 Dose: 20 meq Simethicone (Mylicon Chew Tab) 80 mg PO [facility] PRN PRN Reason: GI distress Zolpidem Tartrate (Ambien) 5 mg PO HS PRN; Protocol PRN Reason: Insomnia Last Admin: 02/08/17 22:06 Dose: 5 mg - Labs Labs: 02/10/17 06:40 02/10/17 06:40 - Constitutional Appears: Non-toxic, No Acute Distress - Head Exam Head Exam: NORMAL INSPECTION - Respiratory Exam Respiratory Exam: Decreased Breath Sounds - Cardiovascular Exam Cardiovascular Exam: +S1, +S2 - GI/Abdominal Exam GI & Abdominal Exam: Soft. absent: Tenderness Assessment and Plan - Assessment and Plan (Free Text) Plan: Assessment Ileitis, acute, improving clinically hepatic cysts, etiology to be determined HTN CAD hypothyroidism Plan continue PO Vantin and Flagyl day 9; will continue to monitor clinical response Follow up GI evaluation of hepatic cysts - patient is for possible CT-guided drainage / biopsy of the cysts
--- NOTE | 2017-02-11 15:09 | CP.PCM.PN ---
Subjective - Date & Time of Evaluation Date of Evaluation: 02/11/17 Time of Evaluation: 15:07 - Subjective Subjective: Follow up Nephrology Consultation: Assessment: Hypo-osmolar Hyponatremia acute component with relatively conc urine as compared to serum with high urine Na favors excess ADH which may be triggered by her pain or it could very well be SIADH. chronic hyponatremia likely due to tea/toast diet, poor solute intake and thiazide diuretics Hypokalemia and Hypomagnesemia Hypertension Hepatomegaly with large liver cysts CAD Plan s/p dose with tolvaptan 15 mg x 2 now serum Na 132, was 124 (48 hrs ago) and 122 -124 in last 24 hrs. Hence current Na 132 is still acceptable. will repeat BMP stat and if serum Na much higher then will dilute it with D5W. avoid serum Na correction >6-8 meq/day. pt encouraged to eat more protein and food family doesn't wish to pursue aggressive testing for her such as looking for cancer causing these symptoms and hyponatremia. Hence will manage symptomatically HTN control with meds as ordered. avoid HCTZ. Glycemic control Further work up for as per primary team Thanks for allowing me to participate in care of your patient. Will follow patient with you. Please call if any Qs Dr Darrell Orellana Office: [phone] subjective: no new complaints. denies CP/leg swelling or urinary complaints. Physical Examination: General Appearance: Comfortable, in no acute respiratory distress, co-operative . elderly female Vitals reviewed and noted as below Lungs: Normal respiratory rate/effort. Breath sounds bilateral with minimal wheeze Heart: Normal rate. s1s2 normal. No rub or gallop. Extremities: no edema. No varicose veins Neurological: Patient is alert, awake and oriented to person, place and time. No focal deficit. Strength bilateral appropriate and equal Skin: Warm and dry. Normal turgor. No rash. Palpitation: Normal elasticity for age Abdomen: Abdomen is soft. Bowel sounds +. There is mild upper abdominal tenderness with hepatomegaly, no guarding/rigidity : kidney or bladder not palpable Labs/imaging reviewed. Past medical history, past surgical history, family history, social history, allergy reviewed and noted as below Work up CXR: b/l pleural effusion cath: 1 vessel CAD 50% and normal LVEF Mg 1.4 Phos 3.5 Alb 2.9 BNP 2070 Urine Na 106 with osmol 330 Objective - Vital Signs/Intake and Output Vital Signs (last 24 hours): Temp Pulse Resp BP Pulse Ox 98 F 76 21 140/82 94 L 02/11/17 07:18 02/11/17 14:00 02/11/17 07:18 02/11/17 09:23 02/11/17 07:18 Intake and Output: 02/11/17 02/11/17 06:59 18:59 Intake Total 1680 Balance 1680 - Medications Medications: Current Medications Acetaminophen (Tylenol 325mg Tab) 650 mg PO Q6H PRN PRN Reason: Fever >100.4 F Amlodipine Besylate (Norvasc) 5 mg PO DAILY [facility] Last Admin: 02/11/17 09:21 Dose: 5 mg Aspirin (Ecotrin) 81 mg PO DAILY [facility] Last Admin: 02/11/17 09:23 Dose: 81 mg Atorvastatin Calcium (Lipitor) 20 mg PO DIN [facility] Last Admin: 02/10/17 17:20 Dose: 20 mg Cefpodoxime Proxetil (Vantin) 200 mg PO Q12 [facility] PRN Reason: Protocol Stop: 02/16/17 22:01 Last Admin: 02/11/17 09:21 Dose: 200 mg Cholecalciferol (Vitamin D) 2,000 iu PO DAILY [facility] Last Admin: 02/11/17 09:19 Dose: 2,000 iu Docusate Sodium (Colace) 100 mg PO BID [facility] Last Admin: 02/11/17 09:21 Dose: 100 mg Guaifenesin (Robitussin) 100 mg PO Q4H PRN PRN Reason: Cough Last Admin: 02/10/17 21:14 Dose: 100 mg Hydralazine HCl (Apresoline) 10 mg PO Q6H PRN PRN Reason: Systolic Blood Pressure Levalbuterol HCl (Xopenex) 0.63 mg IH [id number] [facility] Last Admin: 02/11/17 13:16 Dose: 0.63 mg Levothyroxine Sodium (Synthroid) 50 mcg PO DAILY [facility] Last Admin: 02/11/17 09:21 Dose: 50 mcg Losartan Potassium (Cozaar) 50 mg PO DAILY [facility] Last Admin: 02/11/17 09:23 Dose: 50 mg Magnesium Oxide (Mag-Ox) 800 mg PO BID [facility] Last Admin: 02/11/17 09:23 Dose: 800 mg Metoprolol Tartrate (Lopressor) 25 mg PO BRKDIN YESENIA Last Admin: 02/11/17 08:04 Dose: 25 mg Metronidazole (Flagyl) 500 mg PO Q8 [facility] PRN Reason: Protocol Last Admin: 02/11/17 13:23 Dose: 500 mg Morphine Sulfate (Morphine) 1 mg IVP Q4H PRN PRN Reason: Pain, moderate (4-7) Last Admin: 02/09/17 12:52 Dose: 1 mg Pantoprazole Sodium (Protonix Ec Tab) 40 mg PO 0630 [facility] Last Admin: 02/11/17 05:58 Dose: 40 mg Simethicone (Mylicon Chew Tab) 80 mg PO PCHS PRN PRN Reason: GI distress Zolpidem Tartrate (Ambien) 5 mg PO HS PRN; Protocol PRN Reason: Insomnia Last Admin: 02/10/17 21:15 Dose: 5 mg - Labs Labs: 02/11/17 06:30 02/11/17 06:30
[2017-02-11 15:29] LABS: BLOOD UREA NITROGEN 10 mg/dL (7-21); CALCIUM 8.8 mg/dL (8.4-10.5); CARBON DIOXIDE 25 mmol/L (21-33); CHLORIDE 99 mmol/L (98-107); GFR AFRICAN-AMERICAN > 60; GLUCOSE,RANDOM 130 mg/dL (70-110); SODIUM 129 mmol/L (132-148)
[2017-02-11] MEDS: Morphine 2 mg/ml ISec IVP PRN (16:49)
--- NOTE | 2017-02-11 17:12 | CP.PCM.DIS ---
Provider - Provider Date of Admission: 02/02/17 15:16 Attending physician: Thanh Sr MD Primary care physician: Thanh Sr MD Consults: Nephro- Dr Orellana Cardio- Dr Bauer IR: Dr Ramos Surgery: Dr Guerrier ID: Dr Hernandez. Gi: Dr Houston Pulm: Dr Luong. 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 (11) Transaminitis Status: Acute Hospital Course - Lab Results Lab Results: Micro Results 02/09/17 20:30 Blood-Venous Blood Culture - Preliminary NO GROWTH AFTER 24 HOURS 02/09/17 20:00 Blood-Venous Blood Culture - Preliminary NO GROWTH AFTER 24 HOURS 02/02/17 16:30 Blood-Venous Blood Culture - Final NO GROWTH AFTER 5 DAYS 02/02/17 16:30 Blood-Venous Gram Stain - Final Most Recent Lab Values WBC 6.7 10^3/ul (4.5-11.0) 02/11/17 06:30 RBC 3.19 10^6/uL (3.5-6.1) L 02/11/17 06:30 Hgb 9.6 gm/dL (12.0-16.0) L 02/11/17 06:30 Hct 28.1 % (36.0-48.0) L 02/11/17 06:30 MCV 88.1 fL (80.0-105.0) 02/11/17 06:30 MCH 30.1 pg (25.0-35.0) 02/11/17 06:30 MCHC 34.2 g/dl (31.0-37.0) 02/11/17 06:30 RDW 14.0 % (11.5-14.5) 02/11/17 06:30 Plt Count 321 10^3/uL (120.0-450.0) 02/11/17 06:30 MPV 8.3 fl (7.0-11.0) 02/11/17 06:30 Gran % 66.9 % (50.0-68.0) 02/11/17 06:30 Lymph % (Auto) 15.6 % (22.0-35.0) L 02/11/17 06:30 Brule % (Auto) 16.6 % (1.0-6.0) H 02/11/17 06:30 Eos % (Auto) 0.3 % (1.5-5.0) L 02/11/17 06:30 Baso % (Auto) 0.6 % (0.0-3.0) 02/11/17 06:30 Gran # 4.51 (1.4-6.5) 02/11/17 06:30 Lymph # 1.1 (1.2-3.4) L 02/11/17 06:30 Brule # 1.1 (0.1-0.6) H 02/11/17 06:30 Eos # 0.0 (0.0-0.7) 02/11/17 06:30 Baso # 0.04 K/mm3 (0.0-2.0) 02/11/17 06:30 Sodium 129 mmol/L (132-148) L 02/11/17 15:00 Potassium 4.0 mmol/L (3.6-5.0) 02/11/17 15:00 Chloride 99 mmol/L (98-107) 02/11/17 15:00 Carbon Dioxide 25 mmol/L (21-33) 02/11/17 15:00 Anion Gap 9 (10-20) L 02/11/17 15:00 BUN 10 mg/dL (7-21) 02/11/17 15:00 Creatinine 0.6 mg/dL (0.5-1.4) 02/11/17 15:00 Est GFR ( Amer) > 60 02/11/17 15:00 Est GFR (Non-Af Amer) > 60 02/11/17 15:00 Random Glucose 130 mg/dL (70-110) H 02/11/17 15:00 Serum Osmolality 255 mosm/kg (271-296) L 02/10/17 06:40 Uric Acid 3.2 mg/dL (2.5-6.2) 02/10/17 06:40 Calcium 8.8 mg/dL (8.4-10.5) 02/11/17 15:00 Phosphorus 3.6 mg/dL (2.5-4.5) 02/10/17 06:30 Magnesium 1.4 mg/dL (1.7-2.2) L 02/09/17 10:20 Total Bilirubin 1.0 mg/dL (0.2-1.3) 02/11/17 06:30 AST 38 U/L (15-39) 02/11/17 06:30 ALT 34 U/L (7-56) 02/11/17 06:30 Alkaline Phosphatase 135 U/L (38-133) H 02/11/17 06:30 NT-Pro-B Natriuret Pep 2010 pg/mL (0-450) H 02/08/17 08:50 Total Protein 5.6 g/dL (5.8-8.3) L 02/11/17 06:30 Albumin 3.1 g/dL (3.0-4.8) 02/11/17 06:30 Globulin 2.5 gm/dL 02/11/17 06:30 Albumin/Globulin Ratio 1.2 (1.1-1.8) 02/11/17 06:30 Triglycerides 40 mg/dL (35-160) 02/10/17 06:40 Cholesterol 98 mg/dL (130-200) L 02/10/17 06:40 LDL Cholesterol Direct 32 mg/dL (0-129) 02/10/17 06:40 HDL Cholesterol 50 mg/dL (29-60) 02/10/17 06:40 Vitamin B1 107 nmol/L (78-185) 02/02/17 10:35 Vitamin B12 > 1000 pg/mL (239-931) H 02/02/17 10:35 25-OH Vitamin D Total 22.0 NG/ML (30.0-100.0) L 02/02/17 10:35 Folate 10.7 ng/mL 02/02/17 10:35 Procalcitonin < 0.05 NG/ML (0.19-0.49) L 02/10/17 08:30 Free T4 1.71 ng/dL (0.78-2.19) 02/02/17 10:35 TSH 3rd Generation 5.42 mIU/mL (0.46-4.68) H 02/10/17 06:40 Urine Color Light yellow (YELLOW) 02/02/17 11:40 Urine Appearance Clear (CLEAR) 02/02/17 11:40 Urine pH 7.0 (4.7-8.0) 02/02/17 11:40 Ur Specific [place] 1.010 (1.005-1.035) 02/02/17 11:40 Urine Protein Negative mg/dL (<30 mg/dL) 02/02/17 11:40 Urine Glucose (UA) Negative mg/dL (NEGATIVE) 02/02/17 11:40 Urine Ketones Negative mg/dL (NEGATIVE) 02/02/17 11:40 Urine Blood Trace-intact (NEGATIVE) H 02/02/17 11:40 Urine Nitrate Negative (NEGATIVE) 02/02/17 11:40 Urine Bilirubin Negative (NEGATIVE) 02/02/17 11:40 Urine Urobilinogen 0.2 E.U./dL (<1 E.U./dL) 02/02/17 11:40 Ur Leukocyte Esterase Negative Rosita/uL (NEGATIVE) 02/02/17 11:40 Urine RBC 0 - 2 /hpf (0-2) 02/02/17 11:40 Urine WBC 0 - 2 /hpf (0-6) 02/02/17 11:40 Ur Epithelial Cells 0 - 2 /hpf (0-5) 02/02/17 11:40 Urine Bacteria Rare (NEG) 02/02/17 11:40 Urine Osmolality 353 mosm/kg (50-645) 02/09/17 15:10 Ur Random Creatinine 20 mg/dL 02/09/17 15:10 Ur Random Sodium 106 meq/L 02/09/17 15:10 - Hospital Course Hospital Course: Patient is an 86 y/o with PMH of Afib ( not on anticoagulation), htn, scoliosis , hypothyroidism, DVT with IVC filter 4 years ago, 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 Patient was [place] cultured, with no growth so far. Patient was started on Rocephin and flagyl, and is currently completing 5 more days of po vantin and flagyl. Patient's abdominal pain has resolved, and patient reported she had bowel movement every day. Repeat flat plate and abdominal CT didn't reveal any obstructions. Patient will continue with colace and semethicone prn. Patient also has liver cysts with the largest being 20 cm, IR evaluated patient for possible drainage, however family not interested in surgical intervention. Patient is s/p cardiac cath with 50% stenosis of mid LAD. Post cardiac cath, patient developed pulm congestion, 2nd to fluid overload, chest x-ray revealed pulm congestion and atelectasis. Patient was giving bronchodilators, Lasix 40 mg ivp. Patient improved after lasix. Patient underwent repeat bcx with no growth, procal was low, with mildly elevated pro bnp. For chronic hyponatremia, nephrology was consulted, patient failed fluid challenge, work up was sent, suggesting SIADH picture. However patient's family are not interested in exploring further. Patient was giving 2 doses of Tolvaptan increasing the sodium to 132 today from 122-124s. Repeat lab revealed sodium of 129. Patient also had electrolytes abnormalities, which was repleted. Synthroid was increased to 50 mcg due elevated tsh. Furthermore, patient had transient transaminitis which has since resolved. Patient has a unknown chronic afib but was not on anticoagulation. As per patient and family, patient is at increased risk of falling, and has h/o brain aneurysm, giving the reasons why they don't want patient to be on anticoagulation. Risk versus benefit of choosing anticoagulation versus refusing anticoag discussed with family at bedside. Patient is to be discharge to follow up with Dr Sr as outpatient. Patient to complete 5 more days of vantin and flagyl. - Date & Time of H&P Date of H&P: 03/05/17 Time of H&P: 16:34 Discharge Exam - Head Exam Head Exam: ATRAUMATIC, NORMAL INSPECTION, NORMOCEPHALIC - Eye Exam Eye Exam: EOMI, Normal appearance, PERRL. absent: Scleral icterus - ENT Exam ENT Exam: Mucous Membranes Moist - Neck Exam Neck exam: Normal Inspection - Respiratory Exam Respiratory Exam: Clear to PA & Lateral, NORMAL BREATHING PATTERN, UNREMARKABLE. absent: Rales, Rhonchi, Wheezes, Respiratory Distress, Stridor - Cardiovascular Exam Cardiovascular Exam: Irregular Rhythm, +S1, +S2. absent: Diastolic murmur, Gallop, JVD, Rubs, Systolic Murmur - GI/Abdominal Exam GI & Abdominal Exam: Mass, Normal Bowel Sounds, Soft, Unremarkable. absent: Distended, Firm, Guarding, Hernia, Rebound, Tenderness - Extremities Exam Extremities exam: normal inspection - Back Exam Back exam: NORMAL INSPECTION - Neurological Exam Neurological exam: Alert, Oriented x3 - Psychiatric Exam Psychiatric exam: Normal Affect, Normal Mood - Skin Skin Exam: Dry, Intact, Normal Color, Warm Discharge Plan - Discharge Medications Prescriptions: amLODIPine [Norvasc] 5 mg PO DAILY #30 tab Cefpodoxime [Vantin] 200 mg PO Q12 #10 tab Cholecalciferol [Vitamin D 1000 IU] 2,000 iu PO DAILY #30 tab Docusate [Colace] 100 mg PO BID #30 cap Levothyroxine [Synthroid] 50 mcg PO DAILY #30 tab Losartan [Cozaar] 50 mg PO DAILY #30 tab Metoprolol Tartrate [Lopressor] 25 mg PO BRKDIN #30 tab metroNIDAZOLE [Flagyl] 500 mg PO Q8 #30 tab Simethicone [Mylicon Chew Tab] 80 mg PO PCHS PRN #30 PRN Reason: Gi Distress - Follow Up Plan Condition: STABLE Disposition: HOME/ ROUTINE Patient education suggested?: Yes Additional Instructions: Patient can be discharged home to follow up with Dr Sr in 1-2 weeks. Patient to take meds as prescribed. Go to the nearest emergency room if you experience cp, sob, fever, worst headache of your life, blurred vision. Referrals: Thanh Sr MD [Primary Care Provider] -
--- NOTE | 2017-02-11 20:10 | PN ---
DATE: 02/11/2017 SUBJECTIVE: This patient was seen and evaluated earlier today. The patient is tolerating the diet. No abdominal complaints. PHYSICAL EXAMINATION: VITAL SIGNS: Temperature is 97.8, pulse is 74, blood pressure 121/74. HEENT: Atraumatic, anicteric. NECK: Supple. HEART: S1, S2 heard. LUNGS: Bilateral air entry present. ABDOMEN: Soft and distended. EXTREMITIES: No cyanosis, no clubbing. LABORATORY DATA: Hemoglobin 9.6, hematocrit 28.1, WBC 6.7, platelets 321. Sodium 129, potassium 4.0 . IMPRESSION: This is an 86-year-old patient who was admitted with abdominal pain. The CT showed some inflammation in the area and has a large hepatic cyst. The patient's family does not want any intervention for that. The patient was treated with antibiotics with good clinical improvement. Th e patient is planned to be discharged today to complete the antibiotic course as per ID. Thank you very much for allowing us to participate in the care of the patient. Andreia Brown MD cc: [id number] TT: 02/11/2017 20:09:11 Confirmation # [id number] Dictation # [id number] dn
[2017-02-12] MEDS: Levalbuterol 0.63 MG/3 ML Inhal Soln UD IH SCH ×4 (02:06→20:11)
[2017-02-12] MEDS: guaiFENesin 100 mg/5 ml Syrup UD PO PRN (05:39)
[2017-02-12] MEDS: Pantoprazole 40 mg EC Tab PO SCH (05:39)
[2017-02-12 07:07] LABS: ALB/GLOB RATIO 1.2 (1.1-1.8); ALKALINE PHOSPHATASE 137 U/L (38-133); ALT/SGPT 46 U/L (7-56); AST/SGOT 39 U/L (15-39); BILIRUBIN,TOTAL 0.7 mg/dL (0.2-1.3); BLOOD UREA NITROGEN 10 mg/dL (7-21); CALCIUM 8.2 mg/dL (8.4-10.5); CARBON DIOXIDE 25 mmol/L (21-33); CHLORIDE 98 mmol/L (95-110); GFR AFRICAN-AMERICAN > 60; GLUCOSE,RANDOM 85 mg/dL (70-110); POTASSIUM 3.8 mmol/L (3.6-5.0); SODIUM 129 mmol/L (132-148); TOTAL PROTEIN 5.5 g/dL (5.8-8.3)
--- NOTE | 2017-02-12 08:55 | PN ---
DATE: 02/12/2017 PULMONARY NOTE SUBJECTIVE: The patient appears very comfortable this morning. She is not short of breath at rest. OBJECTIVE: VITAL SIGNS: Temperature is 97.8, pulse 74, respirations 18/20, blood pressure 121/74. Oxygen saturation on room air is 96%. HEENT: Normocephalic, atraumatic. No JVD. CARDIOVASCULAR: Systolic ejection murmur at the lower left sternal border. No S3 gallop. LUNGS: Minimal crackles at the bases. No rhonchi or wheezing this morning. EXTREMITIES: Mild edema. No cyanosis, no clubbing. Calves are nontender to palpation. GASTROINTESTINAL: Abdomen is soft, nontender, nondistended. Bowel sounds are positive. SKIN: No acute rash. NEUROLOGIC: Limited at the present time. IMPRESSION: 1. Atelectasis - right base. 2. Bilateral pleural effusions. 3. Mild volume overload. 4. Ileitis. 5. Mild anemia. 6. Electrolyte abnormalities. PLAN: The patient appears very comfortable this morning. She is not short of breath at rest. She does state to feeling better overall. On physical exam, her bronchospasm continues to resolve. In addition, the alveolar arterial gradient also continues to resolve. Oxygen saturation on room air is now 96%. I would continue with the current nebulizer treatments for now. GI evaluation is also noted. I did review the note by Dr. Riggs. The patient is for discharge in the near future. Clinically, she is certainly improved - compared to last week. However, again, the overall status/prognosis of this very elderly patient - remains very guarded. I will discuss the above with the attending physician. Tony Luong MD cc: [id number] TT: 02/12/2017 08:54:44 Confirmation # [id number] Dictation # [id number] jn ELIAS
--- NOTE | 2017-02-12 09:02 | DS ---
The resident is now talking with the family and the patient if they want to have an interventional ra diologist drain the liver cyst. Otherwise, if they are refusing, she can go home. She is comfortabl e. She is on Ambien, Apresoline, Colace, Cozaar, Ecotrin, Flagyl, Lipitor, Lopressor, magnesium oxide, m orphine p.r.n., Mylicon, Norvasc, Protonix, Robitussin, Samsca, Synthroid, Tylenol, Vantin, vitamin D and Xopenex. PHYSICAL EXAMINATION: VITAL SIGNS: She has a 98 temp, 104 pulse, 145/89 blood pressure, 21 respiratory rate, 94% O2 sat on room air. HEENT: Head is atraumatic, normocephalic. HEART: Regular rate. LUNGS: Clear to auscultation. ABDOMEN: Soft. Positive bowel sounds. EXTREMITIES: No edema. She has a 132 sodium, potassium 4.2, BUN is 10, creatinine 0.6, GFR is greater than 60, sugar is 93, calcium is 8.7, total bili is 1, AST is 38, ALT is 34, alk phos 135, total protein 5.6. White count is 6.7, hemoglobin 9.6, hematocrit 28.1, platelets of 321. She is being seen by infectious disease, pulmonology, renal and interventional radiologist and cardio logy. As far as I am concerned, if they are refusing the liver I and D and aspiration, we can discha rge her. She will continue the same medications. Follow up with Dr. Sr next week. Saud Riggs DO cc: [id number] TT: 02/12/2017 09:01:58 en
[2017-02-12] MEDS: Levothyroxine 50 MCG TAB PO SCH (09:24)
[2017-02-12] MEDS: Cefpodoxime (Vantin) 200 mg Tab PO SCH ×2 (09:24→22:00)
[2017-02-12] MEDS: Magnesium Oxide 400 mg Tab UD PO SCH ×2 (09:24→17:44)
--- NOTE | 2017-02-12 10:15 | PN ---
DATE: 02/12/[address] Sr today. Yesterday, after seeing her and writing a note, I was called later on in the day by the resident that she is ready for discharge secondary to the renal doctor, so I pu t an order in for discharge and then I got multiple phone calls from family stating that she is not r joe for discharge, so I discussed this with the resident again and we kept her for physical therapy. She might need subacute rehab. PHYSICAL EXAMINATION: VITAL SIGNS: Temp 98, 91 pulse, 154/95 blood pressure, 20 respiratory rate, 93% O2 sat on room air. HEENT: Head is atraumatic, normocephalic. HEART: Regular rate. LUNGS: Clear to auscultation. ABDOMEN: Soft. EXTREMITIES: No edema, but she is weak. She is currently on Ambien, Apresoline, Colace, Cozaar, Ecotrin, Flagyl, Lipitor, Lopressor, magnesiu m oxide, morphine, simethicone, Norvasc, Protonix, guaifenesin, Synthroid, Tylenol, Vanin, vitamin D, Xopenex. She has a 6.7 white count, 9.6 hemoglobin, 28.1 hematocrit with 321 platelets. Sodium 129, 3.8 potas sium, BUN 10, creatinine 0.6, GFR is greater than 60, sugar is 85, calcium is 8.2, total bili is 0.7, AST is 39, ALT is 46, alk phos 137, total protein is 5.5, albumin is 3, total globulin is 2.5. So the plan is to go to subacute rehab I understand now. We will check her labs tomorrow. I am larry g to increase her Cozaar to 100 mg since her blood pressure is a little bit up today. Hopefully, get her out of bed to chair, continue with physical therapy. She was here for ileitis, hypertension, coronary artery disease, liver cysts. They refused the inter ventional radiologist's approach of that. She did get the okay from renal to be discharged, but we w ill keep her for subacute rehab. Saud Riggs DO cc: [id number] TT: 02/12/2017 10:15:24 Confirmation # [id number] Dictation # [id number] en
--- NOTE | 2017-02-12 11:05 | CP.PCM.PN ---
Subjective - Date & Time of Evaluation Date of Evaluation: 02/12/17 Time of Evaluation: 10:05 - Subjective Subjective: comfortable, not in distress, no fevers overnight, no abdominal pain. Objective - Vital Signs/Intake and Output Vital Signs (last 24 hours): Temp Pulse Resp BP Pulse Ox 98 F 91 H 20 154/95 H 93 L 02/12/17 07:24 02/12/17 08:49 02/12/17 07:24 02/12/17 08:49 02/12/17 07:24 Intake and Output: 02/12/17 02/12/17 06:59 18:59 Intake Total 360 Balance 360 - Medications Medications: Current Medications Acetaminophen (Tylenol 325mg Tab) 650 mg PO Q6H PRN PRN Reason: Fever >100.4 F Amlodipine Besylate (Norvasc) 5 mg PO DAILY [facility] Last Admin: 02/12/17 09:24 Dose: 5 mg Aspirin (Ecotrin) 81 mg PO DAILY [facility] Last Admin: 02/12/17 09:24 Dose: 81 mg Atorvastatin Calcium (Lipitor) 20 mg PO DIN [facility] Last Admin: 02/11/17 17:07 Dose: 20 mg Cefpodoxime Proxetil (Vantin) 200 mg PO Q12 [facility] PRN Reason: Protocol Stop: 02/16/17 22:01 Last Admin: 02/12/17 09:24 Dose: 200 mg Cholecalciferol (Vitamin D) 2,000 iu PO DAILY [facility] Last Admin: 02/12/17 09:24 Dose: 2,000 iu Docusate Sodium (Colace) 100 mg PO BID [facility] Last Admin: 02/12/17 09:24 Dose: 100 mg Guaifenesin (Robitussin) 100 mg PO Q4H PRN PRN Reason: Cough Last Admin: 02/12/17 05:39 Dose: 100 mg Hydralazine HCl (Apresoline) 10 mg PO Q6H PRN PRN Reason: Systolic Blood Pressure Levalbuterol HCl (Xopenex) 0.63 mg IH [id number] [facility] Last Admin: 02/12/17 08:14 Dose: 0.63 mg Levothyroxine Sodium (Synthroid) 50 mcg PO DAILY [facility] Last Admin: 02/12/17 09:24 Dose: 50 mcg Losartan Potassium (Cozaar) 100 mg PO DAILY [facility] Last Admin: 02/12/17 09:24 Dose: 100 mg Magnesium Oxide (Mag-Ox) 800 mg PO BID [facility] Last Admin: 02/12/17 09:24 Dose: 800 mg Metoprolol Tartrate (Lopressor) 25 mg PO BRKDIN [facility] Last Admin: 02/12/17 08:49 Dose: 25 mg Metronidazole (Flagyl) 500 mg PO Q8 YESENIA PRN Reason: Protocol Last Admin: 02/12/17 05:39 Dose: 500 mg Morphine Sulfate (Morphine) 1 mg IVP Q4H PRN PRN Reason: Pain, moderate (4-7) Last Admin: 02/11/17 16:49 Dose: 1 mg Pantoprazole Sodium (Protonix Ec Tab) 40 mg PO 0630 [facility] Last Admin: 02/12/17 05:39 Dose: 40 mg Simethicone (Mylicon Chew Tab) 80 mg PO PCHS PRN PRN Reason: GI distress Zolpidem Tartrate (Ambien) 5 mg PO HS PRN; Protocol PRN Reason: Insomnia Last Admin: 02/11/17 23:37 Dose: 5 mg - Labs Labs: 02/11/17 06:30 02/12/17 06:46 - Constitutional Appears: Non-toxic, No Acute Distress - Head Exam Head Exam: NORMAL INSPECTION - Respiratory Exam Respiratory Exam: Decreased Breath Sounds - Cardiovascular Exam Cardiovascular Exam: +S1, +S2 - GI/Abdominal Exam GI & Abdominal Exam: Soft. absent: Tenderness Assessment and Plan - Assessment and Plan (Free Text) Plan: Assessment Ileitis, acute, improving clinically hepatic cysts, etiology to be determined HTN CAD hypothyroidism Plan continue PO Vantin and Flagyl day 10 (to complete 10-14 days of therapy); will continue to monitor clinical response Follow up GI evaluation of hepatic cysts - patient is for possible CT-guided drainage / biopsy of the cysts
--- NOTE | 2017-02-12 15:20 | CP.PCM.PN ---
Subjective - Date & Time of Evaluation Date of Evaluation: 02/12/17 Time of Evaluation: 13:00 - Subjective Subjective: Follow up Nephrology Consultation: Assessment: Hypo-osmolar Hyponatremia acute component with relatively conc urine as compared to serum with high urine Na favors excess ADH which may be triggered by her pain or it could very well be SIADH. chronic hyponatremia likely due to tea/toast diet, poor solute intake and thiazide diuretics Hypokalemia and Hypomagnesemia Hypertension Hepatomegaly with large liver cysts CAD Plan s/p dose with tolvaptan 15 mg x 2 now serum Na 129 oral fluid restriction to 40 ounces/day avoid serum Na correction >6-8 meq/day. pt encouraged to eat more protein and food family doesn't wish to pursue aggressive testing for her such as looking for cancer causing these symptoms and hyponatremia. Hence will manage symptomatically HTN control with meds as ordered. avoid HCTZ. Glycemic control Further work up for as per primary team Thanks for allowing me to participate in care of your patient. Will follow patient with you. Please call if any Qs Dr Darrell Orellana Office: [phone] subjective: no new complaints. denies CP/leg swelling or urinary complaints. Physical Examination: General Appearance: Comfortable, in no acute respiratory distress, co-operative . elderly female Vitals reviewed and noted as below Lungs: Normal respiratory rate/effort. Breath sounds bilateral clear Heart: Normal rate. s1s2 normal. No rub or gallop. Extremities: no edema. No varicose veins Neurological: Patient is alert, awake and oriented to person, place and time. No focal deficit. Strength bilateral appropriate and equal Skin: Warm and dry. Normal turgor. No rash. Palpitation: Normal elasticity for age Abdomen: Abdomen is soft. Bowel sounds +. There is mild upper abdominal tenderness with hepatomegaly, no guarding/rigidity : kidney or bladder not palpable Labs/imaging reviewed. Past medical history, past surgical history, family history, social history, allergy reviewed and noted as below Work up CXR: b/l pleural effusion cath: 1 vessel CAD 50% and normal LVEF Mg 1.4 Phos 3.5 Alb 2.9 BNP 2070 Urine Na 106 with osmol 330 Objective - Vital Signs/Intake and Output Vital Signs (last 24 hours): Temp Pulse Resp BP Pulse Ox 98 F 98 H 20 154/95 H 93 L 02/12/17 07:24 02/12/17 10:00 02/12/17 07:24 02/12/17 08:49 02/12/17 07:24 Intake and Output: 02/12/17 02/12/17 06:59 18:59 Intake Total 360 940 Balance 360 940 - Medications Medications: Current Medications Acetaminophen (Tylenol 325mg Tab) 650 mg PO Q6H PRN PRN Reason: Fever >100.4 F Amlodipine Besylate (Norvasc) 5 mg PO DAILY [facility] Last Admin: 02/12/17 09:24 Dose: 5 mg Aspirin (Ecotrin) 81 mg PO DAILY [facility] Last Admin: 02/12/17 09:24 Dose: 81 mg Atorvastatin Calcium (Lipitor) 20 mg PO DIN [facility] Last Admin: 02/11/17 17:07 Dose: 20 mg Cefpodoxime Proxetil (Vantin) 200 mg PO Q12 [facility] PRN Reason: Protocol Stop: 02/16/17 22:01 Last Admin: 02/12/17 09:24 Dose: 200 mg Cholecalciferol (Vitamin D) 2,000 iu PO DAILY [facility] Last Admin: 02/12/17 09:24 Dose: 2,000 iu Docusate Sodium (Colace) 100 mg PO BID [facility] Last Admin: 02/12/17 09:24 Dose: 100 mg Guaifenesin (Robitussin) 100 mg PO Q4H PRN PRN Reason: Cough Last Admin: 02/12/17 05:39 Dose: 100 mg Hydralazine HCl (Apresoline) 10 mg PO Q6H PRN PRN Reason: Systolic Blood Pressure Levalbuterol HCl (Xopenex) 0.63 mg IH [id number] [facility] Last Admin: 02/12/17 13:15 Dose: 0.63 mg Levothyroxine Sodium (Synthroid) 50 mcg PO DAILY [facility] Last Admin: 02/12/17 09:24 Dose: 50 mcg Losartan Potassium (Cozaar) 100 mg PO DAILY [facility] Last Admin: 02/12/17 09:24 Dose: 100 mg Magnesium Oxide (Mag-Ox) 800 mg PO BID [facility] Last Admin: 02/12/17 09:24 Dose: 800 mg Metoprolol Tartrate (Lopressor) 25 mg PO BRKDIN [facility] Last Admin: 02/12/17 08:49 Dose: 25 mg Metronidazole (Flagyl) 500 mg PO Q8 [facility] PRN Reason: Protocol Last Admin: 02/12/17 13:02 Dose: 500 mg Morphine Sulfate (Morphine) 1 mg IVP Q4H PRN PRN Reason: Pain, moderate (4-7) Last Admin: 02/11/17 16:49 Dose: 1 mg Pantoprazole Sodium (Protonix Ec Tab) 40 mg PO 0630 [facility] Last Admin: 02/12/17 05:39 Dose: 40 mg Simethicone (Mylicon Chew Tab) 80 mg PO PCHS PRN PRN Reason: GI distress Zolpidem Tartrate (Ambien) 5 mg PO HS PRN; Protocol PRN Reason: Insomnia Last Admin: 02/11/17 23:37 Dose: 5 mg - Labs Labs: 02/11/17 06:30 02/12/17 06:46
[2017-02-13] MEDS: Levalbuterol 0.63 MG/3 ML Inhal Soln UD IH SCH ×4 (01:32→19:25)
[2017-02-13] MEDS: Pantoprazole 40 mg EC Tab PO SCH (06:29)
[2017-02-13 07:33] LABS: HEMATOCRIT 28.4 % (36.0-48.0); MEAN CELL VOLUME 89.6 fL (80.0-105.0); MEAN CORPUSCULAR HEMOGLOBIN 30.3 pg (25.0-35.0); MEAN CORPUSCULAR HGB CONC 33.8 g/dl (31.0-37.0); MEAN PLATELET VOLUME 8.2 fl (7.0-11.0); RED CELL DISTRIBUTION WIDTH 14.3 % (11.5-14.5); WHITE BLOOD COUNT 7.8 10^3/ul (4.5-11.0)
[2017-02-13 07:42] LABS: ALB/GLOB RATIO 1.2 (1.1-1.8); ALKALINE PHOSPHATASE 149 U/L (38-133); ALT/SGPT 38 U/L (7-56); AST/SGOT 35 U/L (15-39); BILIRUBIN,TOTAL 0.8 mg/dL (0.2-1.3); BLOOD UREA NITROGEN 9 mg/dL (7-21); CALCIUM 8.4 mg/dL (8.4-10.5); CARBON DIOXIDE 26 mmol/L (21-33); CHLORIDE 96 mmol/L (95-110); GFR AFRICAN-AMERICAN > 60; GLUCOSE,RANDOM 90 mg/dL (70-110); POTASSIUM 3.8 mmol/L (3.6-5.0); SODIUM 128 mmol/L (132-148); TOTAL PROTEIN 5.8 g/dL (5.8-8.3)
--- NOTE | 2017-02-13 08:30 | PN ---
DATE: 02/13/2017 SUBJECTIVE: The patient appears comfortable this morning. She is not short of breath at rest. OBJECTIVE: VITAL SIGNS: Temperature is 98.6, pulse 91, respirations 18, blood pressure 136 /84. Oxygen saturation on room air is 94%. HEENT: Normocephalic, atraumatic. No JVD. CARDIOVASCULAR: Systolic ejection murmur at the lower left sternal border. No S3 gallop. LUNGS: Minimal crackles at the bases. No rhonchi. No wheezing. EXTREMITIES: Mild edema. No cyanosis, no clubbing. Calves are nontender to palpation. GASTROINTESTINAL: Abdomen is soft, nontender, nondistended. Bowel sounds are positive. SKIN: No acute rash. NEUROLOGIC: Limited at the present time. IMPRESSION: 1. Atelectasis - right base. 2. Bilateral pleural effusions. 3. Mild volume overload. 4. Ileitis. 5. Mild anemia. 6. Electrolyte abnormalities. PLAN: The patient appears comfortable this morning. She is not short of breath at rest. She states her cough is much less. She also states to feeling much better overall. On physical exam, there is no significant bronchospasm noted. In addition, there is no significant alveolar arterial gradient. I will continue with the current nebulizer treatments for now. The patient remains on antibiotic therapy - as per infectious disease. There are no temperatures noted. There is no leukocytosis. Inputs by GI and renal are also noted. Clinical status of the patient is certainly improved - compared to last week. However, again, the overall status/prognosis of this elderly patient - remains very guarded at best. I will discuss the above with the attending physician. Tony Luong MD cc: [id number] TT: 02/13/2017 08:30:05 Confirmation # [id number] Dictation # [id number] abe GRIFFIN
--- NOTE | 2017-02-13 09:28 | CP.PCM.PN ---
Subjective - Date & Time of Evaluation Date of Evaluation: 02/13/17 Time of Evaluation: 08:15 - Subjective Subjective: Comfortable, not in distress, afebrile, no diarrhea. Objective - Vital Signs/Intake and Output Vital Signs (last 24 hours): Temp Pulse Resp BP Pulse Ox 97.7 F 97 H 21 153/91 H 93 L 02/13/17 07:31 02/13/17 07:31 02/13/17 07:31 02/13/17 07:31 02/13/17 07:31 Intake and Output: 02/13/17 02/13/17 06:59 18:59 Intake Total 180 Balance 180 - Medications Medications: Current Medications Acetaminophen (Tylenol 325mg Tab) 650 mg PO Q6H PRN PRN Reason: Fever >100.4 F Amlodipine Besylate (Norvasc) 5 mg PO DAILY [facility] Last Admin: 02/12/17 09:24 Dose: 5 mg Aspirin (Ecotrin) 81 mg PO DAILY [facility] Last Admin: 02/12/17 09:24 Dose: 81 mg Atorvastatin Calcium (Lipitor) 20 mg PO DIN [facility] Last Admin: 02/12/17 17:44 Dose: 20 mg Cefpodoxime Proxetil (Vantin) 200 mg PO Q12 [facility] PRN Reason: Protocol Stop: 02/16/17 22:01 Last Admin: 02/12/17 22:00 Dose: 200 mg Cholecalciferol (Vitamin D) 2,000 iu PO DAILY [facility] Last Admin: 02/12/17 09:24 Dose: 2,000 iu Docusate Sodium (Colace) 100 mg PO BID [facility] Last Admin: 02/12/17 17:44 Dose: 100 mg Guaifenesin (Robitussin) 100 mg PO Q4H PRN PRN Reason: Cough Last Admin: 02/12/17 05:39 Dose: 100 mg Hydralazine HCl (Apresoline) 10 mg PO Q6H PRN PRN Reason: Systolic Blood Pressure Levalbuterol HCl (Xopenex) 0.63 mg IH [id number] [facility] Last Admin: 02/13/17 01:32 Dose: Not Given Levothyroxine Sodium (Synthroid) 50 mcg PO DAILY [facility] Last Admin: 02/12/17 09:24 Dose: 50 mcg Losartan Potassium (Cozaar) 100 mg PO DAILY [facility] Last Admin: 02/12/17 09:24 Dose: 100 mg Magnesium Oxide (Mag-Ox) 800 mg PO BID [facility] Last Admin: 02/12/17 17:44 Dose: 800 mg Metoprolol Tartrate (Lopressor) 25 mg PO BRKDIN [facility] Last Admin: 02/12/17 17:44 Dose: 25 mg Metronidazole (Flagyl) 500 mg PO Q8 [facility] PRN Reason: Protocol Last Admin: 02/13/17 06:29 Dose: 500 mg Morphine Sulfate (Morphine) 1 mg IVP Q4H PRN PRN Reason: Pain, moderate (4-7) Last Admin: 02/11/17 16:49 Dose: 1 mg Pantoprazole Sodium (Protonix Ec Tab) 40 mg PO 0630 [facility] Last Admin: 02/13/17 06:29 Dose: 40 mg Simethicone (Mylicon Chew Tab) 80 mg PO PCHS PRN PRN Reason: GI distress Zolpidem Tartrate (Ambien) 5 mg PO HS PRN; Protocol PRN Reason: Insomnia Last Admin: 02/12/17 23:30 Dose: 5 mg - Labs Labs: 02/13/17 07:00 02/13/17 07:00 - Constitutional Appears: Non-toxic, No Acute Distress - Head Exam Head Exam: NORMAL INSPECTION - Respiratory Exam Respiratory Exam: Decreased Breath Sounds - Cardiovascular Exam Cardiovascular Exam: +S1, +S2 - GI/Abdominal Exam GI & Abdominal Exam: Soft. absent: Tenderness Assessment and Plan - Assessment and Plan (Free Text) Plan: Assessment Ileitis, acute, improving clinically hepatic cysts, etiology to be determined HTN CAD hypothyroidism Plan continue PO Vantin and Flagyl day 11 (to complete 10-14 days of therapy); will continue to follow clinically there was plan for possible CT-guided drainage / biopsy of the cysts but family does not want invasive procedures
[2017-02-13] MEDS: guaiFENesin 100 mg/5 ml Syrup UD PO PRN (10:11)
[2017-02-13] MEDS: Magnesium Oxide 400 mg Tab UD PO SCH ×2 (10:12→17:41)
[2017-02-13] MEDS: Cefpodoxime (Vantin) 200 mg Tab PO SCH ×2 (10:12→22:04)
[2017-02-13] MEDS: Levothyroxine 50 MCG TAB PO SCH (10:12)
--- NOTE | 2017-02-13 11:49 | PN ---
DATE: 02/13/2017 Seen and examined at the bedside this morning. Her son was at the bedside. He reported that she has been having some dyspnea on exertion. She got up to the bathroom and he noticed that she was a esvin le bit short of breath, but no distress and patient has been coughing, bringing up phlegm. No hemopt ysis. The patient denies any nausea or any abdominal pain. Her appetite remains poor. No problem w ith the swallowing. She is having bowel movements. She had a formed stool today. VITAL SIGNS: Temperature is 97.7, blood pressure 153/91, pulse 97, respirations 21. LABORATORIES: WBC is 7.8, H and H is 9.6 and 28.4. Sodium 128, K 3.8, BUN is 9, creatinine 0.5, tot al bilirubin is 0.8, AST 35, ALT 38, alkaline phosphatase is 149. PHYSICAL EXAMINATION: HEENT: Sclera is anicteric. NECK: Supple. CARDIAC: S1, S2. LUNGS: With decreased breath sounds, some faint crackles at the bases and mild expiratory wheezing. ABDOMEN: With bowel sounds, soft. It is distended, nontender. EXTREMITIES: Minimal edema bilaterally. NEUROLOGIC: Awake, alert. ASSESSMENT: The patient with bilateral pleural effusions, came with abdominal pain and constipation, status post CT scan reporting ileitis. The patient also with right base atelectasis, mild anemia, h epatic cysts. The patient does have history of liver cysts in the past. On CT, she is found to have multiple liver cysts now noted to have large hepatic cyst. Family does not want intervention for th at. PLAN: Continue current diet as tolerated with Ensure supplements. Encouraged to take this. She is on oral Vantin and Flagyl. We will continue her bowel regimen. She is on stool softeners. She is a lso getting Protonix. She is also on breathing treatments. The patient was seen and case discussed with Dr. Brown. Ana Raphael BOWEN cc: [id number] TT: 02/13/2017 11:49:28 Confirmation # [id number] Dictation # [id number] en
--- NOTE | 2017-02-13 12:23 | RAD ---
HISTORY: SOB COMPARISON: 02/09/2017 TECHNIQUE: Chest PA and lateral FINDINGS: LUNGS: No active pulmonary disease. PLEURA: Small pleural effusions CARDIOVASCULAR: Moderate cardiomegaly OSSEOUS STRUCTURES: No significant abnormalities. VISUALIZED UPPER ABDOMEN: Normal. OTHER FINDINGS: None. IMPRESSION: Moderate cardiomegaly. Small pleural effusions. No active disease
--- NOTE | 2017-02-13 12:26 | CP.PCM.PN ---
<Carrillo Watson - Last Filed: 02/13/17 14:41> Subjective - Date & Time of Evaluation Date of Evaluation: 02/13/17 Time of Evaluation: 12:17 - Subjective Subjective: Medicine progress note for Dr. Sr/Dr. Hernandez - Carrillo Watson PGY1 Patient seen and examined at bedside this morning. No acute overnight events or new complaints. Discussed current plan for TCU placement for physical therapy rehabilitation with family pending medical clearance. Family is agreeable. Objective - Vital Signs/Intake and Output Vital Signs (last 24 hours): Temp Pulse Resp BP Pulse Ox 97.7 F 97 H 21 153/91 H 93 L 02/13/17 07:31 02/13/17 07:31 02/13/17 07:31 02/13/17 10:12 02/13/17 07:31 Intake and Output: 02/13/17 02/13/17 06:59 18:59 Intake Total 180 Balance 180 - Medications Medications: Current Medications Acetaminophen (Tylenol 325mg Tab) 650 mg PO Q6H PRN PRN Reason: Fever >100.4 F Amlodipine Besylate (Norvasc) 5 mg PO DAILY [facility] Last Admin: 02/13/17 10:12 Dose: 5 mg Aspirin (Ecotrin) 81 mg PO DAILY [facility] Last Admin: 02/13/17 10:12 Dose: 81 mg Atorvastatin Calcium (Lipitor) 20 mg PO DIN [facility] Last Admin: 02/12/17 17:44 Dose: 20 mg Cefpodoxime Proxetil (Vantin) 200 mg PO Q12 [facility] PRN Reason: Protocol Stop: 02/16/17 22:01 Last Admin: 02/13/17 10:12 Dose: 200 mg Cholecalciferol (Vitamin D) 2,000 iu PO DAILY [facility] Last Admin: 02/13/17 10:11 Dose: 2,000 iu Docusate Sodium (Colace) 100 mg PO BID [facility] Last Admin: 02/13/17 10:12 Dose: 100 mg Guaifenesin (Robitussin) 100 mg PO Q4H PRN PRN Reason: Cough Last Admin: 02/13/17 10:11 Dose: 100 mg Hydralazine HCl (Apresoline) 10 mg PO Q6H PRN PRN Reason: Systolic Blood Pressure Levalbuterol HCl (Xopenex) 0.63 mg IH [id number] [facility] Last Admin: 02/13/17 08:29 Dose: Not Given Levothyroxine Sodium (Synthroid) 50 mcg PO DAILY [facility] Last Admin: 02/13/17 10:12 Dose: 50 mcg Losartan Potassium (Cozaar) 100 mg PO DAILY [facility] Last Admin: 02/13/17 10:12 Dose: 100 mg Magnesium Oxide (Mag-Ox) 800 mg PO BID [facility] Last Admin: 02/13/17 10:12 Dose: 800 mg Metoprolol Tartrate (Lopressor) 25 mg PO BRKDIN [facility] Last Admin: 02/13/17 10:12 Dose: 25 mg Metronidazole (Flagyl) 500 mg PO Q8 [facility] PRN Reason: Protocol Last Admin: 02/13/17 06:29 Dose: 500 mg Morphine Sulfate (Morphine) 1 mg IVP Q4H PRN PRN Reason: Pain, moderate (4-7) Last Admin: 02/11/17 16:49 Dose: 1 mg Pantoprazole Sodium (Protonix Ec Tab) 40 mg PO 0630 [facility] Last Admin: 02/13/17 06:29 Dose: 40 mg Simethicone (Mylicon Chew Tab) 80 mg PO PCHS PRN PRN Reason: GI distress Zolpidem Tartrate (Ambien) 5 mg PO HS PRN; Protocol PRN Reason: Insomnia Last Admin: 02/12/17 23:30 Dose: 5 mg - Labs Labs: 02/13/17 07:00 02/13/17 07:00 - Constitutional Appears: Non-toxic, No Acute Distress - Head Exam Head Exam: ATRAUMATIC, NORMAL INSPECTION, NORMOCEPHALIC - Eye Exam Eye Exam: EOMI, PERRL - ENT Exam ENT Exam: Mucous Membranes Moist - Neck Exam Neck Exam: Normal Inspection - Respiratory Exam Respiratory Exam: Clear to Ausculation Bilateral. absent: Rales, Rhonchi, Wheezes - Cardiovascular Exam Cardiovascular Exam: Irregular Rhythm, +S1, +S2. absent: Gallop, Rubs - GI/Abdominal Exam GI & Abdominal Exam: Soft. 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 CT showed ileitis. Patient also has liver cysts with the largest being 20 cm, family not interested in surgical intervention. 1. Atelectasis -Afebrile, no leukocytosis -Repeat CXR pending -Procalcitonin pending -Continue bronchodilators -Continue with out of bed to chair -Chest PT -Pulmonary consulted - Dr. Luong 2. Chronic hyponatremia -Nephrology consulted -Hyponatremia likely secondary to SIADH -Recommend fluid restriction -Patient previously given tolvaptan -Will continue to monitor hyponatremia 3. Ileitis -abdominal pain resolved -Continue vantin and flagyl as per ID recommendations -Continue stool softener 4. Hypokalemia, hypophosphatemia and hypomagnesemia- -Continuing to monitor 5. Liver cysts -IR consulted however patient and family not interested in intervention 6. Anemia -likely dilutional versus iatrogenic -will continue to monitor. 7. Hypothyroidism -continue synthroid 50 mcg qd. 8. Hypertension -Continue losartan and norvasc 9. Chronic afib -Not on anticoagulation -Risk versus benefit of choosing anticoagulation versus refusing anticoag discussed with family at bedside. 10. h/o DVT s/p IVC filter 11. DVT and gi prophylaxis: lovenox and protonix. 12. Disposition: Patient for likely TCU placement Patient seen, examined and case discussed with attending, Dr. Hernandez <Leo Hernandez - Last Filed: 02/23/17 19:28> Objective - Vital Signs/Intake and Output Vital Signs (last 24 hours): Temp Pulse Resp BP Pulse Ox 97.9 F 80 19 144/91 H 99 02/14/17 16:00 02/14/17 17:19 02/14/17 16:00 02/14/17 17:19 02/14/17 16:00 - Labs Labs: 02/14/17 07:00 02/14/17 13:49 Attending/Attestation - Attestation I have personally seen and examined this patient.: Yes I have fully participated in the care of the patient.: Yes I have reviewed all pertinent clinical information, including history, physical exam and plan: Yes Notes (Text): 02/23/17 19:28 Medical record note made by the resident after discussion with my direction and input after the patient was personally seen and examined by me. I have reviewed the chart and agree that the record accurately reflects by personal performance of the history, physical exam, data review, and medical decision-making, in the course for the patient. I have also personally directed the plan of care.
--- NOTE | 2017-02-13 14:27 | CP.PCM.PN ---
Subjective - Date & Time of Evaluation Date of Evaluation: 02/13/17 Time of Evaluation: 14:26 - Subjective Subjective: Follow up Nephrology Consultation: Assessment: Hypo-osmolar Hyponatremia acute component with relatively conc urine as compared to serum with high urine Na favors excess ADH which may be triggered by her pain or it could very well be SIADH. chronic hyponatremia likely due to tea/toast diet, poor solute intake and thiazide diuretics Hypokalemia and Hypomagnesemia Hypertension Hepatomegaly with large liver cysts CAD Plan s/p dose with tolvaptan 15 mg x 2 now serum Na 128 oral fluid restriction to 40 ounces/day avoid serum Na correction >6-8 meq/day. pt encouraged to eat more protein and food family doesn't wish to pursue aggressive testing for her such as looking for cancer causing these symptoms and hyponatremia. Hence will manage symptomatically HTN control with meds as ordered. avoid HCTZ. Glycemic control Further work up for as per primary team Thanks for allowing me to participate in care of your patient. Will follow patient with you. Please call if any Qs Dr Darrell Orellana Office: [phone] subjective: no new complaints. denies CP/leg swelling or urinary complaints. Physical Examination: General Appearance: Comfortable, in no acute respiratory distress, co-operative . elderly female Vitals reviewed and noted as below Lungs: Normal respiratory rate/effort. Breath sounds bilateral clear Heart: Normal rate. s1s2 normal. No rub or gallop. Extremities: no edema. No varicose veins Neurological: Patient is alert, awake and oriented to person, place and time. No focal deficit. Strength bilateral appropriate and equal Skin: Warm and dry. Normal turgor. No rash. Palpitation: Normal elasticity for age Abdomen: Abdomen is soft. Bowel sounds +. There is mild upper abdominal tenderness with hepatomegaly, no guarding/rigidity : kidney or bladder not palpable Labs/imaging reviewed. Past medical history, past surgical history, family history, social history, allergy reviewed and noted as below Work up CXR: b/l pleural effusion cath: 1 vessel CAD 50% and normal LVEF Mg 1.4 Phos 3.5 Alb 2.9 BNP 2070 Urine Na 106 with osmol 330 Objective - Vital Signs/Intake and Output Vital Signs (last 24 hours): Temp Pulse Resp BP Pulse Ox 97.7 F 97 H 21 153/91 H 93 L 02/13/17 07:31 02/13/17 07:31 02/13/17 07:31 02/13/17 10:12 02/13/17 07:31 Intake and Output: 02/13/17 02/13/17 06:59 18:59 Intake Total 180 Balance 180 - Medications Medications: Current Medications Acetaminophen (Tylenol 325mg Tab) 650 mg PO Q6H PRN PRN Reason: Fever >100.4 F Amlodipine Besylate (Norvasc) 5 mg PO DAILY [facility] Last Admin: 02/13/17 10:12 Dose: 5 mg Aspirin (Ecotrin) 81 mg PO DAILY [facility] Last Admin: 02/13/17 10:12 Dose: 81 mg Atorvastatin Calcium (Lipitor) 20 mg PO DIN [facility] Last Admin: 02/12/17 17:44 Dose: 20 mg Cefpodoxime Proxetil (Vantin) 200 mg PO Q12 [facility] PRN Reason: Protocol Stop: 02/16/17 22:01 Last Admin: 02/13/17 10:12 Dose: 200 mg Cholecalciferol (Vitamin D) 2,000 iu PO DAILY [facility] Last Admin: 02/13/17 10:11 Dose: 2,000 iu Docusate Sodium (Colace) 100 mg PO BID [facility] Last Admin: 02/13/17 10:12 Dose: 100 mg Guaifenesin (Robitussin) 100 mg PO Q4H PRN PRN Reason: Cough Last Admin: 02/13/17 10:11 Dose: 100 mg Hydralazine HCl (Apresoline) 10 mg PO Q6H PRN PRN Reason: Systolic Blood Pressure Levalbuterol HCl (Xopenex) 0.63 mg IH [id number] [facility] Last Admin: 02/13/17 13:45 Dose: 0.63 mg Levothyroxine Sodium (Synthroid) 50 mcg PO DAILY [facility] Last Admin: 02/13/17 10:12 Dose: 50 mcg Losartan Potassium (Cozaar) 100 mg PO DAILY [facility] Last Admin: 02/13/17 10:12 Dose: 100 mg Magnesium Oxide (Mag-Ox) 800 mg PO BID [facility] Last Admin: 02/13/17 10:12 Dose: 800 mg Metoprolol Tartrate (Lopressor) 25 mg PO BRKDIN [facility] Last Admin: 02/13/17 10:12 Dose: 25 mg Metronidazole (Flagyl) 500 mg PO Q8 [facility] PRN Reason: Protocol Last Admin: 02/13/17 13:01 Dose: 500 mg Morphine Sulfate (Morphine) 1 mg IVP Q4H PRN PRN Reason: Pain, moderate (4-7) Last Admin: 02/11/17 16:49 Dose: 1 mg Pantoprazole Sodium (Protonix Ec Tab) 40 mg PO 0630 [facility] Last Admin: 02/13/17 06:29 Dose: 40 mg Simethicone (Mylicon Chew Tab) 80 mg PO PCHS PRN PRN Reason: GI distress Zolpidem Tartrate (Ambien) 5 mg PO HS PRN; Protocol PRN Reason: Insomnia Last Admin: 02/12/17 23:30 Dose: 5 mg - Labs Labs: 02/13/17 07:00 02/13/17 07:00
--- NOTE | 2017-02-13 14:35 | PN ---
DATE: 02/13/2017 The patient is without shortness of breath, without chest pain. PHYSICAL EXAMINATION: VITAL SIGNS: Blood pressure is 153/91. The heart rate is in the 90s. NECK: Negative JVD. LUNGS: Decreased breath sounds bilaterally. HEART: Revealed S1, S2. EXTREMITIES: Without edema. The hemoglobin is 9.6. Chemistries are unremarkable. IMPRESSION: 1. Pneumonia. 2. History of mild congestive heart failure. 3. Diabetes mellitus. 4. Anemia. 5. Sepsis. Given these findings, the patient's cardiac status is stable. Awaiting disposition. Blaze Bauer MD cc: [id number] TT: 02/13/2017 14:34:35 Confirmation # [id number] Dictation # [id number] en
[2017-02-14] MEDS: Levalbuterol 0.63 MG/3 ML Inhal Soln UD IH SCH ×4 (01:09→19:35)
--- NOTE | 2017-02-14 02:08 | PN ---
DATE: 02/13/2017 ADDENDUM: SUBJECTIVE: This patient was seen and evaluated earlier. This is an addendum to the GI progress report dictated by Ana Raphael NP. The patient is comfortable, tolerating the diet. PHYSICAL EXAMINATION: ABDOMEN: Soft. IMPRESSION: History of ileitis, improving, history of large hepatic cyst. The family does want only conservative management. PLAN: Now, is to continue the antibiotics course as per ID. Thank you very much for allowing us to participate in the care of the patient. Andreia Brown MD cc: [phone] TT: 02/14/2017 02:07:48 Confirmation # [id number] Dictation # [id number] abe GRIFFIN
[2017-02-14] MEDS: Pantoprazole 40 mg EC Tab PO SCH (05:29)
[2017-02-14 07:12] LABS: ADD MANUAL DIFF? NO
[2017-02-14 07:24] LABS: BASO # 0.07 K/mm3 (0.0-2.0); BASO % 0.9 % (0.0-3.0); EOS # 0.1 (0.0-0.7); EOS % 1.1 % (1.5-5.0); GRAN % 70.2 % (50.0-68.0); HEMATOCRIT 29.9 % (36.0-48.0); LYMPH # 1.2 (1.2-3.4); LYMPH % 15.6 % (22.0-35.0); MEAN CELL VOLUME 91.7 fL (80.0-105.0); MEAN CORPUSCULAR HEMOGLOBIN 29.8 pg (25.0-35.0); MEAN CORPUSCULAR HGB CONC 32.4 g/dl (31.0-37.0); MEAN PLATELET VOLUME 8.4 fl (7.0-11.0); MONO % 12.2 % (1.0-6.0); PLATELET COUNT 314 10^3/uL (120.0-450.0); RED CELL DISTRIBUTION WIDTH 14.5 % (11.5-14.5)
--- NOTE | 2017-02-14 07:56 | PN ---
DATE: 02/14/2017 SUBJECTIVE: The patient appears comfortable at rest. She is not short of breath. PHYSICAL EXAMINATION: VITAL SIGNS: Temperature is 98.2, pulse 84, respirations 18, blood pressure 139 /84. Oxygen saturation on room air is between 90-95%. HEENT: Normocephalic, atraumatic. No JVD. CARDIOVASCULAR: Systolic ejection murmur at the lower left sternal border. No S3 gallop. LUNGS: Minimal crackles at the bases. Minimal rhonchi. No wheezing. EXTREMITIES: Mild edema. No cyanosis, no clubbing. Calves are nontender to palpation. GASTROINTESTINAL: Abdomen is soft, nontender, nondistended. Bowel sounds are positive. SKIN: No acute rash. NEUROLOGIC: Limited at the present time. PERTINENT LABORATORY DATA: Chest x-ray was repeated yesterday and reviewed. There are very small bilateral pleural effusions noted. The right pleural effusion, in particular, appears decreased with no apparent layering in the right lung. IMPRESSION: 1. Atelectasis - right base. 2. Bilateral pleural effusions. 3. Mild volume overload. 4. Ileitis. 5. Mild anemia. 6. Electrolyte abnormalities. PLAN: The patient appears comfortable this morning. She is not short of breath at rest. She does state that her cough is less. I did discuss the case with the night nurse at length. The night nurse stated that the patient is dyspneic on exertion, and she does hear occasional wheezing. I do not appreciate wheezing - on my physical exam - this morning. The patient is currently on Xopenex nebulizer treatments. I will add inhaled Pulmicort this morning. I did review the last chest x-ray as above. The x-ray is improved - with decreased pleural effusions - especially the right pleural effusion. Cardiology, GI, and renal evaluations are all noted. The patient's clinical status is certainly improved - compared to last week. However, again, the overall status/prognosis of this patient remains very guarded. I will discuss the above with the attending physician this morning. Tony Luong MD cc: [phone] TT: 02/14/2017 07:55:52 Confirmation # [id number] Dictation # [id number] abe GRIFFIN
[2017-02-14] MEDS: Budesonide 0.5 mg/2 ml Inhal Susp UD IH SCH ×2 (08:00→19:35)
[2017-02-14 08:12] LABS: ALB/GLOB RATIO 1.2 (1.1-1.8); ALKALINE PHOSPHATASE 149 U/L (38-133); ALT/SGPT 33 U/L (7-56); AST/SGOT 35 U/L (15-39); BILIRUBIN,TOTAL 0.9 mg/dL (0.2-1.3); BLOOD UREA NITROGEN 8 mg/dL (7-21); CALCIUM 8.1 mg/dL (8.4-10.5); CARBON DIOXIDE 25 mmol/L (21-33); CHLORIDE 94 mmol/L (98-107); GFR AFRICAN-AMERICAN > 60; GLUCOSE,RANDOM 85 mg/dL (70-110); POTASSIUM 3.5 mmol/L (3.6-5.0); SODIUM 126 mmol/L (132-148); TOTAL PROTEIN 5.5 g/dL (5.8-8.3)
[2017-02-14] MEDS: Cefpodoxime (Vantin) 200 mg Tab PO SCH (09:59)
[2017-02-14] MEDS: Magnesium Oxide 400 mg Tab UD PO SCH ×2 (09:59→17:20)
[2017-02-14] MEDS: Levothyroxine 50 MCG TAB PO SCH (09:59)
[2017-02-14] MEDS ORDERED: Tolvaptan 15 MG TAB PO ONE (10:30)
--- NOTE | 2017-02-14 10:59 | CT ---
PROCEDURE: CT HEAD WITHOUT CONTRAST. HISTORY: r/o mass COMPARISON: 04/07/2014 TECHNIQUE: Axial computed tomography images were obtained through the head/brain without intravenous contrast. Radiation dose: Total exam DLP = 712 mGy-cm. This CT exam was performed using one or more of the following dose reduction techniques: Automated exposure control, adjustment of the mA and/or kV according to patient size, and/or use of iterative reconstruction technique. FINDINGS: HEMORRHAGE: No intracranial hemorrhage. BRAIN: No mass effect or edema. Chronic microvascular changes in the periventricular white matter and basal ganglia. No acute findings VENTRICLES: Unremarkable. No hydrocephalus. CALVARIUM: Unremarkable. PARANASAL SINUSES: Unremarkable as visualized. No significant inflammatory changes. MASTOID AIR CELLS: Unremarkable as visualized. No inflammatory changes. OTHER FINDINGS: There is a small fluid and air collection in the nasopharynx IMPRESSION: Chronic microvascular changes. No acute finding
--- NOTE | 2017-02-14 11:07 | CT ---
PROCEDURE: CT Chest without contrast HISTORY: SOB; hx of SIADH COMPARISON: 02/08/2017 TECHNIQUE: Contiguous axial images were obtained through the chest without intravenous contrast enhancement. Sagittal and coronal reconstructions were performed. Radiation dose (DLP): 323 mGy-cm. This CT exam was performed using one or more of the following dose reduction techniques: Automated exposure control, adjustment of the mA and/or kV according to patient size, and/or use of iterative reconstruction technique. FINDINGS: LUNGS: Clear lungs. Visualized airway clear. MEDIASTINUM: Unremarkable thoracic aorta. No aneurysm. Normal sized heart. Main pulmonary artery unremarkable. No vascular congestion. No lymphadenopathy. PLEURA: Moderate size right pleural effusion. BONES: Severe scoliotic curvature of the thoracic spine convex to the right. The mediastinum is shifted to the left UPPER ABDOMEN: There is a large cyst in the liver measuring 13 x 20 cm. This elevates the right hemidiaphragm OTHER FINDINGS: None. IMPRESSION: Moderate size right pleural effusion. No evidence of lung mass or consolidation
--- NOTE | 2017-02-14 11:22 | CP.PCM.DIS ---
<Carrillo Watson - Last Filed: 02/18/17 09:18> Provider - Provider Date of Admission: 02/02/17 15:16 Attending physician: Thanh Sr MD Primary care physician: Thanh Sr MD Consults: Surgery - Dr Guerrier ID - Dr Hernandez. GI - Dr Houston Pulmonary - Dr Luong Nephrology - Dr Orellana Cardiology - Dr Bauer IR - Dr Ramos Time Spent in preparation of Discharge (in minutes): 40 Hospital Course - Lab Results Lab Results: Micro Results 02/09/17 20:30 Blood-Venous Blood Culture - Preliminary NO GROWTH AFTER 4 DAYS 02/09/17 20:00 Blood-Venous Blood Culture - Preliminary NO GROWTH AFTER 4 DAYS 02/02/17 16:30 Blood-Venous Blood Culture - Final NO GROWTH AFTER 5 DAYS 02/02/17 16:30 Blood-Venous Gram Stain - Final Most Recent Lab Values WBC 8.0 10^3/ul (4.5-11.0) 02/14/17 07:00 RBC 3.26 10^6/uL (3.5-6.1) L 02/14/17 07:00 Hgb 9.7 gm/dL (12.0-16.0) L 02/14/17 07:00 Hct 29.9 % (36.0-48.0) L 02/14/17 07:00 MCV 91.7 fL (80.0-105.0) 02/14/17 07:00 MCH 29.8 pg (25.0-35.0) 02/14/17 07:00 MCHC 32.4 g/dl (31.0-37.0) 02/14/17 07:00 RDW 14.5 % (11.5-14.5) 02/14/17 07:00 Plt Count 314 10^3/uL (120.0-450.0) 02/14/17 07:00 MPV 8.4 fl (7.0-11.0) 02/14/17 07:00 Gran % 70.2 % (50.0-68.0) H 02/14/17 07:00 Lymph % (Auto) 15.6 % (22.0-35.0) L 02/14/17 07:00 [place] % (Auto) 12.2 % (1.0-6.0) H 02/14/17 07:00 Eos % (Auto) 1.1 % (1.5-5.0) L 02/14/17 07:00 Baso % (Auto) 0.9 % (0.0-3.0) 02/14/17 07:00 Gran # 5.60 (1.4-6.5) 02/14/17 07:00 Lymph # 1.2 (1.2-3.4) 02/14/17 07:00 [place] # 1.0 (0.1-0.6) H 02/14/17 07:00 Eos # 0.1 (0.0-0.7) 02/14/17 07:00 Baso # 0.07 K/mm3 (0.0-2.0) 02/14/17 07:00 Sodium 126 mmol/L (132-148) L 02/14/17 07:00 Potassium 3.5 mmol/L (3.6-5.0) L 02/14/17 07:00 Chloride 94 mmol/L (98-107) L 02/14/17 07:00 Carbon Dioxide 25 mmol/L (21-33) 02/14/17 07:00 Anion Gap 11 (10-20) 02/14/17 07:00 BUN 8 mg/dL (7-21) 02/14/17 07:00 Creatinine 0.5 mg/dL (0.5-1.4) 02/14/17 07:00 Est GFR ( Amer) > 60 02/14/17 07:00 Est GFR (Non-Af Amer) > 60 02/14/17 07:00 Random Glucose 85 mg/dL (70-110) 02/14/17 07:00 Serum Osmolality 255 mosm/kg (271-296) L 02/10/17 06:40 Uric Acid 3.2 mg/dL (2.5-6.2) 02/10/17 06:40 Calcium 8.1 mg/dL (8.4-10.5) L 02/14/17 07:00 Phosphorus 3.6 mg/dL (2.5-4.5) 02/10/17 06:30 Magnesium 1.4 mg/dL (1.7-2.2) L 02/09/17 10:20 Total Bilirubin 0.9 mg/dL (0.2-1.3) 02/14/17 07:00 AST 35 U/L (15-39) 02/14/17 07:00 ALT 33 U/L (7-56) 02/14/17 07:00 Alkaline Phosphatase 149 U/L (38-133) H 02/14/17 07:00 NT-Pro-B Natriuret Pep 2010 pg/mL (0-450) H 02/08/17 08:50 Total Protein 5.5 g/dL (5.8-8.3) L 02/14/17 07:00 Albumin 3.0 g/dL (3.0-4.8) 02/14/17 07:00 Globulin 2.5 gm/dL 02/14/17 07:00 Albumin/Globulin Ratio 1.2 (1.1-1.8) 02/14/17 07:00 Triglycerides 40 mg/dL (35-160) 02/10/17 06:40 Cholesterol 98 mg/dL (130-200) L 02/10/17 06:40 LDL Cholesterol Direct 32 mg/dL (0-129) 02/10/17 06:40 HDL Cholesterol 50 mg/dL (29-60) 02/10/17 06:40 Vitamin B1 107 nmol/L (78-185) 02/02/17 10:35 Vitamin B12 > 1000 pg/mL (239-931) H 02/02/17 10:35 25-OH Vitamin D Total 22.0 NG/ML (30.0-100.0) L 02/02/17 10:35 Folate 10.7 ng/mL 02/02/17 10:35 Procalcitonin < 0.05 NG/ML (0.19-0.49) L 02/13/17 11:27 Free T4 1.71 ng/dL (0.78-2.19) 02/02/17 10:35 TSH 3rd Generation 5.42 mIU/mL (0.46-4.68) H 02/10/17 06:40 Urine Color Light yellow (YELLOW) 02/02/17 11:40 Urine Appearance Clear (CLEAR) 02/02/17 11:40 Urine pH 7.0 (4.7-8.0) 02/02/17 11:40 Ur Specific [place] 1.010 (1.005-1.035) 02/02/17 11:40 Urine Protein Negative mg/dL (<30 mg/dL) 02/02/17 11:40 Urine Glucose (UA) Negative mg/dL (NEGATIVE) 02/02/17 11:40 Urine Ketones Negative mg/dL (NEGATIVE) 02/02/17 11:40 Urine Blood Trace-intact (NEGATIVE) H 02/02/17 11:40 Urine Nitrate Negative (NEGATIVE) 02/02/17 11:40 Urine Bilirubin Negative (NEGATIVE) 02/02/17 11:40 Urine Urobilinogen 0.2 E.U./dL (<1 E.U./dL) 02/02/17 11:40 Ur Leukocyte Esterase Negative Rosita/uL (NEGATIVE) 02/02/17 11:40 Urine RBC 0 - 2 /hpf (0-2) 02/02/17 11:40 Urine WBC 0 - 2 /hpf (0-6) 02/02/17 11:40 Ur Epithelial Cells 0 - 2 /hpf (0-5) 02/02/17 11:40 Urine Bacteria Rare (NEG) 02/02/17 11:40 Urine Osmolality 353 mosm/kg (50-645) 02/09/17 15:10 Ur Random Creatinine 20 mg/dL 02/09/17 15:10 Ur Random Sodium 106 meq/L 02/09/17 15:10 - Hospital Course Hospital Course: Patient is an 86yo female with history of atrial fibrillation, hypertension, scoliosis, hypothyroidism, DVT s/p IVC filter 4 years ago, brain aneurysm s/p clipping, dementia, shingles, colon ca s/p resection and chemotherapy 2012 and liver cysts who originally presented to c/o abdominal pain for several days prior to presentation. A CT abd/pelvis was done in the ED and showed ileitis. Patient was started on cetriaxone and flagyl and was subsequently transitioned to oral vantin and flagyl. Patient reported improvement in her abdominal pain had no issues with bowel or bladder movement. A repeat abdominal flat plate and abdominal CTwas negative for obstructions. Patient was also noted to have multiple liver cysts with the largest being 20 cm. She was evaluated by interventional radiology for possible drainage, however the family was not interested in surgical intervention. She also underwent a cardiac catherization due to concerns for possible cardiac etiology of her chest pain. It revealed 50% stenosis of mid LAD and no stents were placed. Post cardiac cath, patient developed pulm congestion, 2nd to fluid overload, chest x-ray revealed pulm congestion and atelectasis. Patient was giving bronchodilators, Lasix 40 mg ivp. Patient improved after lasix. Patient underwent repeat bcx with no growth, procal was low, with mildly elevated pro bnp. For chronic hyponatremia, nephrology was consulted, patient failed fluid challenge, work up was sent, suggesting SIADH picture. She was subsequently started on tolvaptan and had moderate improvement of her hyponatermia. Patient also has known chronic atrial fibrillation, however she is not on anticoagulation. As per patient and family, patient is at increased risk of falling, and has a history of brain aneurysm, giving the reasons why they don't want patient to be on anticoagulation. Risk versus benefit of choosing anticoagulation versus refusing anticoag discussed with family at bedside. Eventually, her symptoms improvement and she was discharged to the transitional care unit for physical therapy and rehabiliation due to deconditioning. Discharge Exam - Head Exam Head Exam: ATRAUMATIC, NORMAL INSPECTION, NORMOCEPHALIC - Eye Exam Eye Exam: EOMI, PERRL - ENT Exam ENT Exam: Mucous Membranes Moist - Respiratory Exam Respiratory Exam: Clear to PA & Lateral. absent: Rales, Rhonchi, Wheezes - Cardiovascular Exam Cardiovascular Exam: +S1, +S2. absent: Gallop, Rubs - GI/Abdominal Exam GI & Abdominal Exam: Soft. absent: Distended, Firm, Guarding, Tenderness - Neurological Exam Neurological exam: Alert, Oriented x3 - Psychiatric Exam Psychiatric exam: Normal Affect, Normal Mood - Skin Skin Exam: Dry, Intact, Normal Color, Warm Discharge Plan - Discharge Medications Prescriptions: Losartan [Cozaar] 50 mg PO DAILY #30 tab - Follow Up Plan Condition: STABLE Disposition: TRANSF TO SNF Instructions: Heart Catheterization (GEN) Additional Instructions: Patient can be discharged home to follow up with Dr Sr in 1-2 weeks. Patient to take meds as prescribed. Go to the nearest emergency room if you experience cp, sob, fever, worst headache of your life, blurred vision. Referrals: Thanh Sr MD [Primary Care Provider] - <Thanh Sr - Last Filed: 03/17/17 09:32> Provider - Provider Date of Admission: 02/02/17 15:16 Attending physician: Thanh Sr MD Primary care physician: Thanh Sr MD Hospital Course - Lab Results Lab Results: Micro Results 02/09/17 20:30 Blood-Venous Blood Culture - Final NO GROWTH AFTER 5 DAYS 02/09/17 20:30 Blood-Venous Gram Stain - Final 02/09/17 20:00 Blood-Venous Blood Culture - Final NO GROWTH AFTER 5 DAYS 02/09/17 20:00 Blood-Venous Gram Stain - Final 02/02/17 16:30 Blood-Venous Blood Culture - Final NO GROWTH AFTER 5 DAYS 02/02/17 16:30 Blood-Venous Gram Stain - Final Most Recent Lab Values WBC 8.0 10^3/ul (4.5-11.0) 02/14/17 07:00 RBC 3.26 10^6/uL (3.5-6.1) L 02/14/17 07:00 Hgb 9.7 gm/dL (12.0-16.0) L 02/14/17 07:00 Hct 29.9 % (36.0-48.0) L 02/14/17 07:00 MCV 91.7 fL (80.0-105.0) 02/14/17 07:00 MCH 29.8 pg (25.0-35.0) 02/14/17 07:00 MCHC 32.4 g/dl (31.0-37.0) 02/14/17 07:00 RDW 14.5 % (11.5-14.5) 02/14/17 07:00 Plt Count 314 10^3/uL (120.0-450.0) 02/14/17 07:00 MPV 8.4 fl (7.0-11.0) 02/14/17 07:00 Gran % 70.2 % (50.0-68.0) H 02/14/17 07:00 Lymph % (Auto) 15.6 % (22.0-35.0) L 02/14/17 07:00 [place] % (Auto) 12.2 % (1.0-6.0) H 02/14/17 07:00 Eos % (Auto) 1.1 % (1.5-5.0) L 02/14/17 07:00 Baso % (Auto) 0.9 % (0.0-3.0) 02/14/17 07:00 Gran # 5.60 (1.4-6.5) 02/14/17 07:00 Lymph # 1.2 (1.2-3.4) 02/14/17 07:00 [place] # 1.0 (0.1-0.6) H 02/14/17 07:00 Eos # 0.1 (0.0-0.7) 02/14/17 07:00 Baso # 0.07 K/mm3 (0.0-2.0) 02/14/17 07:00 Sodium 127 mmol/L (132-148) L 02/14/17 13:49 Potassium 4.1 mmol/L (3.6-5.0) 02/14/17 13:49 Chloride 93 mmol/L (98-107) L 02/14/17 13:49 Carbon Dioxide 26 mmol/L (21-33) 02/14/17 13:49 Anion Gap 12 (10-20) 02/14/17 13:49 BUN 9 mg/dL (7-21) 02/14/17 13:49 Creatinine 0.5 mg/dL (0.5-1.4) 02/14/17 13:49 Est GFR ( Amer) > 60 02/14/17 13:49 Est GFR (Non-Af Amer) > 60 02/14/17 13:49 Random Glucose 93 mg/dL (70-110) 02/14/17 13:49 Serum Osmolality 255 mosm/kg (271-296) L 02/10/17 06:40 Uric Acid 3.2 mg/dL (2.5-6.2) 02/10/17 06:40 Calcium 8.5 mg/dL (8.4-10.5) 02/14/17 13:49 Phosphorus 3.6 mg/dL (2.5-4.5) 02/10/17 06:30 Magnesium 1.4 mg/dL (1.7-2.2) L 02/09/17 10:20 Total Bilirubin 0.9 mg/dL (0.2-1.3) 02/14/17 07:00 AST 35 U/L (15-39) 02/14/17 07:00 ALT 33 U/L (7-56) 02/14/17 07:00 Alkaline Phosphatase 149 U/L (38-133) H 02/14/17 07:00 NT-Pro-B Natriuret Pep 2010 pg/mL (0-450) H 02/08/17 08:50 Total Protein 5.5 g/dL (5.8-8.3) L 02/14/17 07:00 Albumin 3.0 g/dL (3.0-4.8) 02/14/17 07:00 Globulin 2.5 gm/dL 02/14/17 07:00 Albumin/Globulin Ratio 1.2 (1.1-1.8) 02/14/17 07:00 Triglycerides 40 mg/dL (35-160) 02/10/17 06:40 Cholesterol 98 mg/dL (130-200) L 02/10/17 06:40 LDL Cholesterol Direct 32 mg/dL (0-129) 02/10/17 06:40 HDL Cholesterol 50 mg/dL (29-60) 02/10/17 06:40 Vitamin B1 107 nmol/L (78-185) 02/02/17 10:35 Vitamin B12 > 1000 pg/mL (239-931) H 02/02/17 10:35 25-OH Vitamin D Total 22.0 NG/ML (30.0-100.0) L 02/02/17 10:35 Folate 10.7 ng/mL 02/02/17 10:35 Procalcitonin < 0.05 NG/ML (0.19-0.49) L 02/13/17 11:27 Free T4 1.71 ng/dL (0.78-2.19) 02/02/17 10:35 TSH 3rd Generation 5.42 mIU/mL (0.46-4.68) H 02/10/17 06:40 Urine Color Light yellow (YELLOW) 02/02/17 11:40 Urine Appearance Clear (CLEAR) 02/02/17 11:40 Urine pH 7.0 (4.7-8.0) 02/02/17 11:40 Ur Specific [place] 1.010 (1.005-1.035) 02/02/17 11:40 Urine Protein Negative mg/dL (<30 mg/dL) 02/02/17 11:40 Urine Glucose (UA) Negative mg/dL (NEGATIVE) 02/02/17 11:40 Urine Ketones Negative mg/dL (NEGATIVE) 02/02/17 11:40 Urine Blood Trace-intact (NEGATIVE) H 02/02/17 11:40 Urine Nitrate Negative (NEGATIVE) 02/02/17 11:40 Urine Bilirubin Negative (NEGATIVE) 02/02/17 11:40 Urine Urobilinogen 0.2 E.U./dL (<1 E.U./dL) 02/02/17 11:40 Ur Leukocyte Esterase Negative Rosita/uL (NEGATIVE) 02/02/17 11:40 Urine RBC 0 - 2 /hpf (0-2) 02/02/17 11:40 Urine WBC 0 - 2 /hpf (0-6) 02/02/17 11:40 Ur Epithelial Cells 0 - 2 /hpf (0-5) 02/02/17 11:40 Urine Bacteria Rare (NEG) 02/02/17 11:40 Urine Osmolality 353 mosm/kg (50-645) 02/09/17 15:10 Ur Random Creatinine 20 mg/dL 02/09/17 15:10 Ur Random Sodium 106 meq/L 02/09/17 15:10 Attending/Attestation - Attestation I have personally seen and examined this patient.: Yes I have fully participated in the care of the patient.: Yes I have reviewed all pertinent clinical information, including history, physical exam and plan: Yes Notes (Text): 03/17/17 09:32 03/17/17 09:23 Medical note made by resident after discussion with my direction and input after patient personally seen by me. I have reviewed the chart and agree that the record reflects my personal performance of the history, physical, data review and decision making.
--- NOTE | 2017-02-14 13:30 | CP.PCM.PN ---
Subjective - Date & Time of Evaluation Date of Evaluation: 02/14/17 Time of Evaluation: 13:29 - Subjective Subjective: Follow up Nephrology Consultation: Assessment: Hypo-osmolar Hyponatremia acute component with relatively conc urine as compared to serum with high urine Na favors excess ADH which may be triggered by her pain or it could very well be SIADH. chronic hyponatremia likely due to tea/toast diet, poor solute intake and thiazide diuretics Hypokalemia and Hypomagnesemia Hypertension Hepatomegaly with large liver cysts CAD Plan s/p dose with tolvaptan 15 mg x 2 now serum Na 126, will redose her with tolvaptan today and repeat BMP. start lasix from tomorrow considering moderate pleural effusion seen on chest CT oral fluid restriction to 40 ounces/day avoid serum Na correction >6-8 meq/day. pt encouraged to eat more protein and food family doesn't wish to pursue aggressive testing for her such as looking for cancer causing these symptoms and hyponatremia. Hence will manage symptomatically HTN control with meds as ordered. avoid HCTZ. Glycemic control Further work up for as per primary team Thanks for allowing me to participate in care of your patient. Will follow patient with you. Please call if any Qs Dr Darrell Orellana Office: [phone] subjective: no new complaints. denies CP/leg swelling or urinary complaints. Physical Examination: General Appearance: Comfortable, in no acute respiratory distress, co-operative . elderly female Vitals reviewed and noted as below Lungs: Normal respiratory rate/effort. Breath sounds bilateral clear Heart: Normal rate. s1s2 normal. No rub or gallop. Extremities: no edema. No varicose veins Neurological: Patient is alert, awake and oriented to person, place and time. No focal deficit. Strength bilateral appropriate and equal Skin: Warm and dry. Normal turgor. No rash. Palpitation: Normal elasticity for age Abdomen: Abdomen is soft. Bowel sounds +. There is mild upper abdominal tenderness with hepatomegaly, no guarding/rigidity : kidney or bladder not palpable Labs/imaging reviewed. Past medical history, past surgical history, family history, social history, allergy reviewed and noted as below Work up CXR: b/l pleural effusion cath: 1 vessel CAD 50% and normal LVEF Mg 1.4 Phos 3.5 Alb 2.9 BNP 2070 Urine Na 106 with osmol 330 Objective - Vital Signs/Intake and Output Vital Signs (last 24 hours): Temp Pulse Resp BP Pulse Ox 97.8 F 86 18 154/76 H 92 L 02/14/17 08:12 02/14/17 09:58 02/14/17 08:12 02/14/17 09:58 02/14/17 08:12 Intake and Output: 02/14/17 02/14/17 06:59 18:59 Intake Total 480 Balance 480 - Medications Medications: Current Medications Acetaminophen (Tylenol 325mg Tab) 650 mg PO Q6H PRN PRN Reason: Fever >100.4 F Amlodipine Besylate (Norvasc) 5 mg PO DAILY [facility] Last Admin: 02/14/17 09:58 Dose: 5 mg Aspirin (Ecotrin) 81 mg PO DAILY [facility] Last Admin: 02/14/17 09:59 Dose: 81 mg Atorvastatin Calcium (Lipitor) 20 mg PO DIN [facility] Last Admin: 02/13/17 17:41 Dose: 20 mg Budesonide (Pulmicort Respules) 0.5 mg IH [id number] [facility] Last Admin: 02/14/17 08:00 Dose: 0.5 mg Cefpodoxime Proxetil (Vantin) 200 mg PO Q12 [facility] PRN Reason: Protocol Stop: 02/16/17 22:01 Last Admin: 02/14/17 09:59 Dose: 200 mg Cholecalciferol (Vitamin D) 2,000 iu PO DAILY [facility] Last Admin: 02/14/17 09:59 Dose: 2,000 iu Docusate Sodium (Colace) 100 mg PO BID [facility] Last Admin: 02/14/17 09:59 Dose: 100 mg Furosemide (Lasix) 20 mg PO DAILY [facility] Guaifenesin (Robitussin) 100 mg PO Q4H PRN PRN Reason: Cough Last Admin: 02/13/17 10:11 Dose: 100 mg Hydralazine HCl (Apresoline) 10 mg PO Q6H PRN PRN Reason: Systolic Blood Pressure Levalbuterol HCl (Xopenex) 0.63 mg IH [id number] [facility] Last Admin: 02/14/17 08:00 Dose: 0.63 mg Levothyroxine Sodium (Synthroid) 50 mcg PO DAILY [facility] Last Admin: 02/14/17 09:59 Dose: 50 mcg Losartan Potassium (Cozaar) 100 mg PO DAILY [facility] Last Admin: 02/14/17 09:59 Dose: 100 mg Magnesium Oxide (Mag-Ox) 800 mg PO BID [facility] Last Admin: 02/14/17 09:59 Dose: 800 mg Metoprolol Tartrate (Lopressor) 25 mg PO BRKDIN [facility] Last Admin: 02/14/17 08:45 Dose: 25 mg Metronidazole (Flagyl) 500 mg PO Q8 [facility] PRN Reason: Protocol Last Admin: 02/14/17 05:28 Dose: 500 mg Pantoprazole Sodium (Protonix Ec Tab) 40 mg PO 629 [facility] Last Admin: 02/14/17 05:29 Dose: 40 mg Simethicone (Mylicon Chew Tab) 80 mg PO [facility] PRN PRN Reason: GI distress Zolpidem Tartrate (Ambien) 5 mg PO HS PRN; Protocol PRN Reason: Insomnia Last Admin: 02/13/17 23:44 Dose: 5 mg - Labs Labs: 02/14/17 07:00 02/14/17 07:00
[2017-02-14 14:07] LABS: BLOOD UREA NITROGEN 9 mg/dL (7-21); CALCIUM 8.5 mg/dL (8.4-10.5); CARBON DIOXIDE 26 mmol/L (21-33); CHLORIDE 93 mmol/L (98-107); GFR AFRICAN-AMERICAN > 60; GLUCOSE,RANDOM 93 mg/dL (70-110); POTASSIUM 4.1 mmol/L (3.6-5.0); SODIUM 127 mmol/L (132-148)
--- NOTE | 2017-02-14 14:25 | CP.PCM.PN ---
Subjective - Date & Time of Evaluation Date of Evaluation: 02/14/17 Time of Evaluation: 10:10 - Subjective Subjective: Comfortable, afebrile, no diarrhea. Objective - Vital Signs/Intake and Output Vital Signs (last 24 hours): Temp Pulse Resp BP Pulse Ox 97.8 F 86 18 163/99 H 92 L 02/14/17 08:12 02/14/17 08:12 02/14/17 08:12 02/14/17 08:12 02/14/17 08:12 Intake and Output: 02/14/17 02/14/17 06:59 18:59 Intake Total 480 Balance 480 - Medications Medications: Current Medications Acetaminophen (Tylenol 325mg Tab) 650 mg PO Q6H PRN PRN Reason: Fever >100.4 F Amlodipine Besylate (Norvasc) 5 mg PO DAILY [facility] Last Admin: 02/13/17 10:12 Dose: 5 mg Aspirin (Ecotrin) 81 mg PO DAILY [facility] Last Admin: 02/13/17 10:12 Dose: 81 mg Atorvastatin Calcium (Lipitor) 20 mg PO DIN [facility] Last Admin: 02/13/17 17:41 Dose: 20 mg Budesonide (Pulmicort Respules) 0.5 mg IH [id number] [facility] Last Admin: 02/14/17 08:00 Dose: 0.5 mg Cefpodoxime Proxetil (Vantin) 200 mg PO Q12 [facility] PRN Reason: Protocol Stop: 02/16/17 22:01 Last Admin: 02/13/17 22:04 Dose: 200 mg Cholecalciferol (Vitamin D) 2,000 iu PO DAILY [facility] Last Admin: 02/13/17 10:11 Dose: 2,000 iu Docusate Sodium (Colace) 100 mg PO BID [facility] Last Admin: 02/13/17 17:41 Dose: 100 mg Guaifenesin (Robitussin) 100 mg PO Q4H PRN PRN Reason: Cough Last Admin: 02/13/17 10:11 Dose: 100 mg Hydralazine HCl (Apresoline) 10 mg PO Q6H PRN PRN Reason: Systolic Blood Pressure Levalbuterol HCl (Xopenex) 0.63 mg IH [id number] [facility] Last Admin: 02/14/17 08:00 Dose: 0.63 mg Levothyroxine Sodium (Synthroid) 50 mcg PO DAILY [facility] Last Admin: 02/13/17 10:12 Dose: 50 mcg Losartan Potassium (Cozaar) 100 mg PO DAILY [facility] Last Admin: 02/13/17 10:12 Dose: 100 mg Magnesium Oxide (Mag-Ox) 800 mg PO BID [facility] Last Admin: 02/13/17 17:41 Dose: 800 mg Metoprolol Tartrate (Lopressor) 25 mg PO BRKDIN [facility] Last Admin: 02/13/17 17:41 Dose: 25 mg Metronidazole (Flagyl) 500 mg PO Q8 [facility] PRN Reason: Protocol Last Admin: 02/14/17 05:28 Dose: 500 mg Pantoprazole Sodium (Protonix Ec Tab) 40 mg PO 0630 [facility] Last Admin: 02/14/17 05:29 Dose: 40 mg Simethicone (Mylicon Chew Tab) 80 mg PO [facility] PRN PRN Reason: GI distress Zolpidem Tartrate (Ambien) 5 mg PO HS PRN; Protocol PRN Reason: Insomnia Last Admin: 02/13/17 23:44 Dose: 5 mg - Labs Labs: 02/14/17 07:00 02/14/17 07:00 - Constitutional Appears: Non-toxic, No Acute Distress - Head Exam Head Exam: NORMAL INSPECTION - Respiratory Exam Respiratory Exam: Decreased Breath Sounds - Cardiovascular Exam Cardiovascular Exam: +S1, +S2 - GI/Abdominal Exam GI & Abdominal Exam: Soft. absent: Tenderness Assessment and Plan - Assessment and Plan (Free Text) Plan: Assessment Ileitis, acute, improving clinically hepatic cysts, etiology to be determined HTN CAD hypothyroidism Plan continue PO Vantin and Flagyl day 12 (to complete 10-14 days of therapy); will continue to follow clinically there was plan for possible CT-guided drainage / biopsy of the cysts but family does not want invasive procedures
[2017-02-14 17:22] VITALS: BP 144/91; PULSE 80
[2017-02-14 17:32] VITALS: RESP 19; TEMP 97.9; O2SAT 99
--- NOTE | 2017-02-14 17:41 | CP.PCM.PN ---
Subjective - Date & Time of Evaluation Date of Evaluation: 02/14/17 Time of Evaluation: 10:45 - Subjective Subjective: Seen and examined earlier today. SOB better, trying to eat more, no problem with swallowing, having formed BM, no bleeding or reports of overt GI bleed. Objective - Vital Signs/Intake and Output Vital Signs (last 24 hours): Temp Pulse Resp BP Pulse Ox 97.8 F 80 18 144/91 H 92 L 02/14/17 08:12 02/14/17 17:19 02/14/17 08:12 02/14/17 17:19 02/14/17 08:12 Intake and Output: 02/14/17 02/14/17 06:59 18:59 Intake Total 480 Balance 480 - Medications Medications: Current Medications Acetaminophen (Tylenol 325mg Tab) 650 mg PO Q6H PRN PRN Reason: Fever >100.4 F Amlodipine Besylate (Norvasc) 5 mg PO DAILY [facility] Last Admin: 02/14/17 09:58 Dose: 5 mg Aspirin (Ecotrin) 81 mg PO DAILY [facility] Last Admin: 02/14/17 09:59 Dose: 81 mg Atorvastatin Calcium (Lipitor) 20 mg PO DIN [facility] Last Admin: 02/14/17 17:20 Dose: 20 mg Budesonide (Pulmicort Respules) 0.5 mg IH [id number] [facility] Last Admin: 02/14/17 08:00 Dose: 0.5 mg Cefpodoxime Proxetil (Vantin) 200 mg PO Q12 [facility] PRN Reason: Protocol Stop: 02/16/17 22:01 Last Admin: 02/14/17 09:59 Dose: 200 mg Cholecalciferol (Vitamin D) 2,000 iu PO DAILY [facility] Last Admin: 02/14/17 09:59 Dose: 2,000 iu Docusate Sodium (Colace) 100 mg PO BID [facility] Last Admin: 02/14/17 17:20 Dose: 100 mg Furosemide (Lasix) 20 mg PO DAILY [facility] Guaifenesin (Robitussin) 100 mg PO Q4H PRN PRN Reason: Cough Last Admin: 02/13/17 10:11 Dose: 100 mg Hydralazine HCl (Apresoline) 10 mg PO Q6H PRN PRN Reason: Systolic Blood Pressure Levalbuterol HCl (Xopenex) 0.63 mg IH [id number] [facility] Last Admin: 02/14/17 13:50 Dose: 0.63 mg Levothyroxine Sodium (Synthroid) 50 mcg PO DAILY [facility] Last Admin: 02/14/17 09:59 Dose: 50 mcg Losartan Potassium (Cozaar) 100 mg PO DAILY [facility] Last Admin: 02/14/17 09:59 Dose: 100 mg Magnesium Oxide (Mag-Ox) 800 mg PO BID [facility] Last Admin: 02/14/17 17:20 Dose: 800 mg Metoprolol Tartrate (Lopressor) 25 mg PO BRKDIN [facility] Last Admin: 02/14/17 17:19 Dose: 25 mg Metronidazole (Flagyl) 500 mg PO Q8 [facility] PRN Reason: Protocol Last Admin: 02/14/17 14:27 Dose: 500 mg Pantoprazole Sodium (Protonix Ec Tab) 40 mg PO 0630 [facility] Last Admin: 02/14/17 05:29 Dose: 40 mg Simethicone (Mylicon Chew Tab) 80 mg PO [facility] PRN PRN Reason: GI distress Zolpidem Tartrate (Ambien) 5 mg PO PRN; Protocol PRN Reason: Insomnia Last Admin: 02/13/17 23:44 Dose: 5 mg - Labs Labs: 02/14/17 07:00 02/14/17 13:49 - Constitutional Appears: No Acute Distress - Head Exam Head Exam: NORMAL INSPECTION - Eye Exam Eye Exam: Normal appearance. absent: Scleral icterus - ENT Exam ENT Exam: Mucous Membranes Moist - Neck Exam Neck Exam: Normal Inspection - Respiratory Exam Respiratory Exam: Decreased Breath Sounds, Rales (faint), NORMAL BREATHING PATTERN. absent: Wheezes, Respiratory Distress - Cardiovascular Exam Cardiovascular Exam: +S1, +S2 - GI/Abdominal Exam GI & Abdominal Exam: Distended, Soft, Normal Bowel Sounds. absent: Guarding, Tenderness, Organomegaly, Rebound - Extremities Exam Extremities Exam: absent: Calf Tenderness, Pedal Edema - Neurological Exam Neurological Exam: Alert, Awake, Oriented x3 - Skin Skin Exam: Dry, Warm Assessment and Plan - Assessment and Plan (Free Text) Assessment: ASSESSMENT: Bilateral pleural effusion Resolved abdominal pain/consitpation Ileitis Anemia LIver cyst, family does not want any invasive intervention now. PLAN: continue diet as tolerated with Ensure supplements On oral Vantin and Flagyl Colcare PPI Plan to dc to TCU when bed available. The patient was seen and case discussed with Dr. Brown.
--- NOTE | 2017-02-14 20:37 | PN ---
DATE: 02/14/2017 ADDENDUM This patient was seen and evaluated today. This patient is tolerating the diet. No complaints of ab dominal pain. PHYSICAL EXAMINATION: ABDOMEN: Softly distended, no tenderness. This is an addendum to the GI progress report dictated by Ana Raphael. We will continue the present management. Improved ileitis, large cyst. Family does not want any intervention. Andreia Brown MD cc: [id number] TT: 02/14/2017 20:37:30 Confirmation # [id number] Dictation # [id number] maile
== END 2017-02-14 21:46 | DRG 643 ==
LOC: ED 09:59 → EROBSV 10:46 → OBSVTOIN 15:16 → ERH 15:16 → 3RNO 21:21 → 2RSO 02-09 08:51 → 3RNO 02-09 17:27
PROVIDERS: ADMIT Internal Medicine; ATTEND Internal Medicine
PROC: 4A023N7 Measurement of Cardiac Sampling and Pressure, Left Heart, Percutaneous Approach (ICD-10-PCS; principal; 2017-02-09)
PROC: B2111ZZ Fluoroscopy of Multiple Coronary Arteries using Low Osmolar Contrast (ICD-10-PCS; 2017-02-09)
PROC: B2151ZZ Fluoroscopy of Left Heart using Low Osmolar Contrast (ICD-10-PCS; 2017-02-09)
DX: E22.2 Syndrome of inappropriate secretion of antidiuretic hormone (principal); K52.9 Noninfective gastroenteritis and colitis, unspecified; J18.9 Pneumonia, unspecified organism; I11.0 Hypertensive heart disease with heart failure; E83.42 Hypomagnesemia; M41.9 Scoliosis, unspecified; I50.9 Heart failure, unspecified; F03.90 Unspecified dementia, unspecified severity, without behavioral disturbance, psychotic disturbance, mood disturbance, and anxiety; K76.89 Other specified diseases of liver; E83.39 Other disorders of phosphorus metabolism; J98.11 Atelectasis; I48.2 Chronic atrial fibrillation; E86.0 Dehydration; R63.0 Anorexia; I25.10 Atherosclerotic heart disease of native coronary artery without angina pectoris; E03.9 Hypothyroidism, unspecified; E87.6 Hypokalemia; R94.39 Abnormal result of other cardiovascular function study; D64.9 Anemia, unspecified; R16.0 Hepatomegaly, not elsewhere classified; E11.9 Type 2 diabetes mellitus without complications; T50.2X5A Adverse effect of carbonic-anhydrase inhibitors, benzothiadiazides and other diuretics, initial encounter; Z95.5 Presence of coronary angioplasty implant and graft; Z85.038 Personal history of other malignant neoplasm of large intestine; Z86.718 Personal history of other venous thrombosis and embolism; Z92.21 Personal history of antineoplastic chemotherapy; Z87.891 Personal history of nicotine dependence

== ENCOUNTER 2017-02-14 21:13 | Inpatient (IN) | payer MEDICARE ==
[2017-02-15] MEDS ORDERED: Simethicone 80 mg Chewtab PO PRN (00:25)
[2017-02-15 00:58] VITALS: BMI 19.5
[2017-02-15] MEDS: Levalbuterol 0.63 MG/3 ML Inhal Soln UD IH SCH ×4 (03:00→21:59)
[2017-02-15] MEDS: guaiFENesin 100 mg/5 ml Syrup UD PO PRN (04:22)
[2017-02-15] MEDS: Levothyroxine 50 MCG TAB PO SCH (06:01)
[2017-02-15] MEDS: Pantoprazole 40 mg EC Tab PO SCH (06:01)
[2017-02-15] MEDS: Budesonide 0.5 mg/2 ml Inhal Susp UD IH SCH ×2 (07:25→21:59)
--- NOTE | 2017-02-15 08:13 | PN ---
DATE: 02/15/2017 SUBJECTIVE: The patient appears comfortable this morning. She is not short of breath at rest. OBJECTIVE: VITAL SIGNS: Temperature is 97.8, pulse 67, respirations 18, blood pressure 135 /75. Oxygen saturation on nasal cannula is 97%. HEENT: Normocephalic, atraumatic. No JVD. CARDIOVASCULAR: Systolic ejection murmur at the lower left sternal border. No S3 gallop. LUNGS: Minimal crackles at both bases. Minimal/less rhonchi. No wheezing. EXTREMITIES: Mild edema. No cyanosis, no clubbing. Calves are nontender to palpation. GASTROINTESTINAL: Abdomen is soft, nontender, nondistended. Bowel sounds are positive. SKIN: No acute rash. NEUROLOGIC: Limited at the present time. PERTINENT LABORATORY DATA: CAT scan of the chest was done yesterday and reviewed. There remains bilateral pleural effusions -- right worse than left - - not significantly changed from the previous CAT scan. There is no evidence of lung mass or consolidation. There is no lymphadenopathy. IMPRESSION: 1. Atelectasis -- right base. 2. Bilateral pleural effusions. 3. Mild volume overload. 4. Ileitis. 5. Mild anemia. 6. Electrolyte abnormalities. PLAN: The patient appears comfortable this morning. She is not short of breath at rest. She does state to feeling better overall. On physical exam, her bronchospasm is less. In addition, the patient does state to less cough. I will continue with the current nebulizer treatments and inhaled steroids ( added yesterday) for now. The patient remains on antibiotic therapy. There are no temperatures noted. I would continue with the GI and infectious disease evaluations--noted. The patient is now on the transitional unit -- where she will participate with physical therapy. The patient's clinical status is certainly improved -- compared to the initial presentation. However, again, the overall status/prognosis for this patient does remain very guarded. I will discuss the above with Dr. Sr. Tony Luong MD cc: [id number] TT: 02/15/2017 08:12:51 Confirmation # [id number] Dictation # [id number] [facility]
[2017-02-15] MEDS: Magnesium Oxide 400 mg Tab UD PO SCH ×2 (09:10→17:40)
[2017-02-15] MEDS: Cefpodoxime (Vantin) 200 mg Tab PO SCH ×2 (09:10→22:28)
--- NOTE | 2017-02-15 10:20 | CP.PCM.HP ---
<Carrillo Watson - Last Filed: 02/15/17 12:50> History of Present Illness - History of Present Illness History of Present Illness: H&P for Dr. Sr/Dr. 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 Patient described the pain as being sudden in onset, sharp and non-radiating. No relieving or exacerbating factors were noted. At the time, she had denied nausea, vomiting, diarrhea, chest pain, palpitations, SOB, fever, chills, cough. A CT abd/pelvis was notable for ileitis and she was subsequently admitted for further evaluation and treatment. She was started on vantin and flagyl as per ID recommendations and completed over a 10 day course. Presently, she is in the transitional care unit for physical therapy and rehabilitation. 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 Walks unassisted. Allergy: NKDA PMD: Dr. Sr Present on Admission - Present on Admission Any Indicators Present on Admission: Yes History of DVT/PE: Yes Past Patient History - Tetanus Immunizations Tetanus Immunization: Unknown - Past Social History Smoking Status: Never Smoked - CARDIAC Hx Cardiac Disorders: Yes Hx Hypertension: Yes Hx Peripheral Vascular Disease: Yes - PULMONARY Hx Respiratory Disorders: No - NEUROLOGICAL Hx Neurological Disorder: No - HEENT Hx HEENT Problems: Yes (hoopa b/l hearing aids) - RENAL Hx Chronic Kidney Disease: No - ENDOCRINE/METABOLIC Hx Endocrine Disorders: Yes Hx Hypothyroidism: Yes Other/Comment: THYROID DISEASE - HEMATOLOGICAL/ONCOLOGICAL Hx Blood Disorders: Yes Hx Shingles: Yes - INTEGUMENTARY Hx Dermatological Problems: No - MUSCULOSKELETAL/RHEUMATOLOGICAL Hx Falls: No - GASTROINTESTINAL Hx Gastrointestinal Disorders: Yes Hx Gastroesophageal Reflux: Yes Other/Comment: COLON CA - GENITOURINARY/GYNECOLOGICAL Hx Genitourinary Disorders: No - PSYCHIATRIC Hx Substance Use: No - SURGICAL HISTORY Hx Surgeries: Yes Other/Comment: R/T COLON CA, ANEURYSM Meds Allergies/Adverse Reactions: Allergies Allergy/AdvReac Type Severity Reaction Status Date / Time No Known Allergies Allergy Verified 02/28/17 10:04 Physical Exam - Constitutional Appears: Non-toxic, No Acute Distress - Head Exam Head Exam: ATRAUMATIC, NORMAL INSPECTION, NORMOCEPHALIC - Eye Exam Eye Exam: EOMI, PERRL - ENT Exam ENT Exam: Mucous Membranes Moist - Respiratory Exam Respiratory Exam: Clear to Auscultation Bilateral. absent: Rales, Rhonchi, Wheezes - Cardiovascular Exam Cardiovascular Exam: Irregular Rhythm, +S1, +S2. absent: Gallop, JVD - GI/Abdominal Exam GI & Abdominal Exam: Soft. absent: Diminished Bowel Sounds, Distended, Firm, Guarding, Rebound, Tenderness - Neurological Exam Neurological exam: Alert, Oriented x3 - Psychiatric Exam Psychiatric exam: Normal Affect, Normal Mood - Skin Skin Exam: Dry, Intact, Normal Color, Warm Results - Vital Signs Recent Vital Signs: Last Vital Signs Temp 97.8 F 02/15/17 00:45 Pulse 74 02/15/17 09:15 Resp 18 02/15/17 00:45 BP 151/91 H 02/15/17 09:15 Pulse Ox 97 02/14/17 22:43 - Labs Result Diagrams: 02/15/17 11:30 02/15/17 11:30 Assessment & Plan - Assessment and Plan (Free Text) Plan: 86yo female with history of afib, hypertension, hypothyroidism, DVT s/p IVC filter placement 4 years ago and liver cysts who [place] [facility] [place] currently in the TCU for rehabilitation/physical therapy 1. Deconditioning -Patient is currently working with physical therapy in the TCU for rehabilitation due to deconditioning 2. Atelectasis -Afebrile, no leukocytosis -Repeat CXR revealed no active disease -Procalcitonin negative -Continue bronchodilators -Continue with out of bed to chair -Chest PT -Pulmonary on board - Dr. Luong 3. Chronic hyponatremia -Hyponatremia likely secondary to SIADH/tea-toast diet -Recommend fluid restriction -Patient has been given tolvaptan previously per nephrology recommendation -Will continue to monitor hyponatremia -Nephrology consulted - Dr. Orellana 4. Ileitis, resolved -abdominal pain resolved -Previously was on vantin and flagyl per ID recommendations; completed over 10 day course -Continue stool softener 4. Hypokalemia, hypophosphatemia and hypomagnesemia- -Will continue to monitor 5. Liver cysts -IR was previously consulted however patient and family not interested in intervention 6. Hypothyroidism -continue synthroid 50 mcg qd. 7. Hypertension -Continue losartan and norvasc 8. Chronic afib -Not on anticoagulation; risk vs benefit previously discussed with family 9. GI/DVT prophylaxis -Protonix/lovenox Patient seen, examined and case discussed with attending, Dr. Sr <Thanh Sr - Last Filed: 03/17/17 09:31> Results - Vital Signs Recent Vital Signs: Last Vital Signs Temp 98.3 F 02/16/17 10:00 Pulse 91 H 02/17/17 17:17 Resp 20 02/16/17 10:00 BP 100/64 02/17/17 17:17 Pulse Ox 99 02/16/17 10:00 - Labs Result Diagrams: 02/17/17 06:20 02/17/17 19:17 Attending/Attestation - Attestation I have personally seen and examined this patient.: Yes I have fully participated in the care of the patient.: Yes I have reviewed all pertinent clinical information: Yes Notes (Text): 03/17/17 09:31 03/17/17 09:23 Medical note made by resident after discussion with my direction and input after patient personally seen by me. I have reviewed the chart and agree that the record reflects my personal performance of the history, physical, data review and decision making.
[2017-02-15 11:36] LABS: ADD MANUAL DIFF? NO
[2017-02-15 11:41] LABS: BASO # 0.05 K/mm3 (0.0-2.0); BASO % 0.5 % (0.0-3.0); EOS % 0.2 % (1.5-5.0); GRAN # 7.08 (1.4-6.5); GRAN % 77.3 % (50.0-68.0); HEMATOCRIT 33.2 % (36.0-48.0); LYMPH # 1.1 (1.2-3.4); MEAN CELL VOLUME 92.2 fL (80.0-105.0); MEAN CORPUSCULAR HGB CONC 32.5 g/dl (31.0-37.0); MEAN PLATELET VOLUME 8.3 fl (7.0-11.0); MONO # 0.9 (0.1-0.6); PLATELET COUNT 328 10^3/uL (120.0-450.0); RED CELL DISTRIBUTION WIDTH 14.7 % (11.5-14.5); WHITE BLOOD COUNT 9.2 10^3/ul (4.5-11.0)
[2017-02-15 11:52] LABS: ALB/GLOB RATIO 1.2 (1.1-1.8); ALKALINE PHOSPHATASE 142 U/L (38-133); ALT/SGPT 30 U/L (7-56); AST/SGOT 32 U/L (15-39); BILIRUBIN,TOTAL 0.9 mg/dL (0.2-1.3); BLOOD UREA NITROGEN 8 mg/dL (7-21); CALCIUM 8.7 mg/dL (8.4-10.5); CARBON DIOXIDE 26 mmol/L (21-33); CHLORIDE 99 mmol/L (98-107); GFR AFRICAN-AMERICAN > 60; GLUCOSE,RANDOM 114 mg/dL (70-110); POTASSIUM 3.6 mmol/L (3.6-5.0); SODIUM 133 mmol/L (132-148)
--- NOTE | 2017-02-15 12:47 | CP.PCM.PN ---
Subjective - Date & Time of Evaluation Date of Evaluation: 02/15/17 Time of Evaluation: 12:42 - Subjective Subjective: Follow up Nephrology Consultation: Assessment: Hypo-osmolar Hyponatremia acute component with relatively conc urine as compared to serum with high urine Na favors excess ADH Likely SIADH. chronic hyponatremia likely due to tea/toast diet, poor solute intake and thiazide diuretics Hypokalemia and Hypomagnesemia Hypertension Hepatomegaly with large liver cysts CAD Plan s/p dose with tolvaptan 30 mg x 2. start lasix from today considering moderate pleural effusion seen on chest CT. if serum Na continue to drop then consider tolvaptan on more consistent basis oral fluid restriction to 40 ounces/day avoid serum Na correction >6-8 meq/day. pt encouraged to eat more protein and food family doesn't wish to pursue aggressive testing for her such as looking for cancer causing these symptoms and hyponatremia. Hence will manage symptomatically HTN control with meds as ordered. avoid HCTZ. Glycemic control Further work up for as per primary team Thanks for allowing me to participate in care of your patient. Will follow patient with you. Please call if any Qs Dr Darrell Orellana Office: [phone] subjective: no new complaints. denies CP/leg swelling or urinary complaints. Physical Examination: General Appearance: Comfortable, in no acute respiratory distress, co-operative . elderly female Vitals reviewed and noted as below Lungs: Normal respiratory rate/effort. Breath sounds decreased at Rt base Heart: Normal rate. s1s2 normal. No rub or gallop. Extremities: no edema. No varicose veins Neurological: Patient is alert, awake and oriented to person, place and time. No focal deficit. Strength bilateral appropriate and equal Skin: Warm and dry. Normal turgor. No rash. Palpitation: Normal elasticity for age Abdomen: Abdomen is soft. Bowel sounds +. There is mild upper abdominal tenderness with hepatomegaly, no guarding/rigidity : kidney or bladder not palpable Labs/imaging reviewed. Past medical history, past surgical history, family history, social history, allergy reviewed Work up CXR: b/l pleural effusion cath: 1 vessel CAD 50% and normal LVEF Mg 1.4 Phos 3.5 Alb 2.9 BNP 2070 Urine Na 106 with osmol 330 Objective - Vital Signs/Intake and Output Vital Signs (last 24 hours): Temp Pulse Resp BP Pulse Ox 97.8 F 74 18 151/91 H 97 02/15/17 00:45 02/15/17 09:15 02/15/17 00:45 02/15/17 09:15 02/14/17 22:43 - Medications Medications: Current Medications Acetaminophen (Tylenol 325mg Tab) 650 mg PO Q6H PRN PRN Reason: Fever >100.4 F Amlodipine Besylate (Norvasc) 5 mg PO DAILY [facility] Last Admin: 02/15/17 09:12 Dose: 5 mg Aspirin (Ecotrin) 81 mg PO 0800 [facility] Last Admin: 02/15/17 09:12 Dose: 81 mg Atorvastatin Calcium (Lipitor) 20 mg PO DIN [facility] Budesonide (Pulmicort Respules) 0.5 mg IH [id number] [facility] Last Admin: 02/15/17 07:25 Dose: 0.5 mg Cefpodoxime Proxetil (Vantin) 200 mg PO Q12 [facility] PRN Reason: Protocol Stop: 02/16/17 22:05 Last Admin: 02/15/17 09:10 Dose: 200 mg Cholecalciferol (Vitamin D) 2,000 iu PO DAILY [facility] Docusate Sodium (Colace) 100 mg PO BID [facility] Furosemide (Lasix) 20 mg PO DAILY [facility] Last Admin: 02/15/17 09:11 Dose: 20 mg Guaifenesin (Robitussin) 100 mg PO Q4H PRN PRN Reason: Cough Last Admin: 02/15/17 04:22 Dose: 100 mg Hydralazine HCl (Apresoline) 10 mg PO Q6H PRN PRN Reason: Systolic Blood Pressure Levalbuterol HCl (Xopenex) 0.63 mg IH [id number] [facility] Last Admin: 02/15/17 07:25 Dose: 0.63 mg Levothyroxine Sodium (Synthroid) 50 mcg PO 0600 [facility] Last Admin: 02/15/17 06:01 Dose: 50 mcg Losartan Potassium (Cozaar) 100 mg PO DAILY [facility] Last Admin: 02/15/17 09:12 Dose: 100 mg Magnesium Oxide (Mag-Ox) 800 mg PO BID [facility] Last Admin: 02/15/17 09:10 Dose: 800 mg Metoprolol Tartrate (Lopressor) 25 mg PO 0800,1800 [facility] Last Admin: 02/15/17 09:12 Dose: 25 mg Metronidazole (Flagyl) 500 mg PO Q8 [facility] PRN Reason: Protocol Last Admin: 02/15/17 06:01 Dose: 500 mg Pantoprazole Sodium (Protonix Ec Tab) 40 mg PO 0630 [facility] Last Admin: 02/15/17 06:01 Dose: 40 mg Simethicone (Mylicon Chew Tab) 80 mg PO [facility] PRN PRN Reason: GI distress Zolpidem Tartrate (Ambien) 5 mg PO HS PRN; Protocol PRN Reason: Insomnia Last Admin: 02/14/17 23:38 Dose: 5 mg - Labs Labs: 02/15/17 11:30 02/15/17 11:30
[2017-02-15] MEDS ORDERED: Morphine 2 mg/ml ISec IVP ONE (19:32)
[2017-02-16] MEDS: Levalbuterol 0.63 MG/3 ML Inhal Soln UD IH SCH ×4 (04:30→19:44)
[2017-02-16] MEDS: Levothyroxine 50 MCG TAB PO SCH (05:43)
[2017-02-16] MEDS: Pantoprazole 40 mg EC Tab PO SCH (05:43)
[2017-02-16] MEDS: Budesonide 0.5 mg/2 ml Inhal Susp UD IH SCH ×2 (07:28→19:44)
--- NOTE | 2017-02-16 07:35 | PN ---
DATE: 02/16/2017 SUBJECTIVE: The patient appears comfortable this morning. She is not short of breath at rest. PHYSICAL EXAMINATION: VITAL SIGNS: Temperature is 98.4, pulse 72, respirations 18, blood pressure 136 /74. Oxygen saturation on nasal cannula is 97%. HEENT: Normocephalic, atraumatic. No JVD. CARDIOVASCULAR: Systolic ejection murmur at the lower left sternal border. No S3 gallop. LUNGS: Minimal crackles at the bases. Very minimal/less rhonchi. No wheezing. EXTREMITIES: Mild edema. No cyanosis, no clubbing. Calves are nontender to palpation. GASTROINTESTINAL: Abdomen is soft, nontender, nondistended. Bowel sounds are positive. SKIN: No acute rash. NEUROLOGIC: Limited at the present time. IMPRESSION: 1. Atelectasis -- right base. 2. Bilateral pleural effusions. 3. Mild volume overload. 4. Ileitis. 5. Mild anemia. 6. Electrolyte abnormalities. PLAN: The patient appears very comfortable this morning. She is not short of breath at rest. Her cough is much less. She does state to feeling much better overall. On physical exam, her bronchospasm continues to resolve. In addition , there is no significant alveolar-arterial gradient. I will continue with the current nebulizer treatments and inhaled steroids for now. The patient remains on antibiotic therapy. There are no temperatures noted. There is no leukocytosis. Renal evaluation is also noted. Clinical status of the patient is certainly improved -- compared to last week. However, the overall status/ prognosis for this patient does remain guarded. I did discuss the case with Dr. Sr yesterday. I will discuss the above with the attending physician this morning. Tony Luong MD cc: [id number] TT: 02/16/2017 07:34:42 Confirmation # [id number] Dictation # [id number] MTDD
[2017-02-16 09:10] LABS: ADD MANUAL DIFF? NO
[2017-02-16 09:25] LABS: BASO # 0.04 K/mm3 (0.0-2.0); BASO % 0.3 % (0.0-3.0); EOS % 0.1 % (1.5-5.0); GRAN # 12.07 (1.4-6.5); GRAN % 88.6 % (50.0-68.0); HEMATOCRIT 31.2 % (36.0-48.0); LYMPH # 0.9 (1.2-3.4); LYMPH % 6.2 % (22.0-35.0); MEAN CELL VOLUME 92.6 fL (80.0-105.0); MEAN CORPUSCULAR HEMOGLOBIN 30.3 pg (25.0-35.0); MEAN CORPUSCULAR HGB CONC 32.7 g/dl (31.0-37.0); MEAN PLATELET VOLUME 8.5 fl (7.0-11.0); MONO # 0.7 (0.1-0.6); MONO % 4.8 % (1.0-6.0); PLATELET COUNT 308 10^3/uL (120.0-450.0); RED CELL DISTRIBUTION WIDTH 14.8 % (11.5-14.5); WHITE BLOOD COUNT 13.6 10^3/ul (4.5-11.0)
[2017-02-16 09:53] LABS: ALB/GLOB RATIO 1.2 (1.1-1.8); ALKALINE PHOSPHATASE 133 U/L (38-133); ALT/SGPT 26 U/L (7-56); AST/SGOT 32 U/L (15-39); BILIRUBIN,TOTAL 1.6 mg/dL (0.2-1.3); BLOOD UREA NITROGEN 10 mg/dL (7-21); CALCIUM 8.3 mg/dL (8.4-10.5); CARBON DIOXIDE 28 mmol/L (21-33); CHLORIDE 97 mmol/L (95-110); GFR AFRICAN-AMERICAN > 60; GLUCOSE,RANDOM 142 mg/dL (70-110); POTASSIUM 3.1 mmol/L (3.6-5.0); SODIUM 129 mmol/L (132-148); TOTAL PROTEIN 5.5 g/dL (5.8-8.3)
[2017-02-16] MEDS: Magnesium Oxide 400 mg Tab UD PO SCH ×2 (10:42→18:09)
[2017-02-16] MEDS: Cefpodoxime (Vantin) 200 mg Tab PO SCH ×2 (10:43→22:35)
[2017-02-16 11:30] VITALS: RESP 20; TEMP 98.3; O2SAT 99
[2017-02-16] MEDS ORDERED: Potassium Chloride 20 mEq ER Tab PO ONE (12:30)
[2017-02-16] MEDS ORDERED: Tolvaptan 15 MG TAB PO SCH (13:00)
[2017-02-16] MEDS: Morphine 2 mg/ml ISec IVP PRN ×2 (13:05→18:34)
[2017-02-16] MEDS ORDERED: Potassium Chloride 20 mEq ER Tab PO STA (14:10)
--- NOTE | 2017-02-16 14:17 | CP.PCM.PN ---
Subjective - Date & Time of Evaluation Date of Evaluation: 02/16/17 Time of Evaluation: 14:14 - Subjective Subjective: Follow up Nephrology Consultation: Assessment: Hypo-osmolar Hyponatremia acute component with relatively conc urine as compared to serum with high urine Na favors excess ADH Likely SIADH. chronic hyponatremia likely due to tea/toast diet, poor solute intake and thiazide diuretics Hypokalemia and Hypomagnesemia Hypertension Hepatomegaly with large liver cysts CAD Plan continue with lasix considering moderate pleural effusion seen on chest CT. Since serum Na continue to drop will start tolvaptan 15 mg/day. will d/c oral fluid restriction while on vaptans supplement KDUR 40 meq today avoid serum Na correction >6-8 meq/day. pt encouraged to eat more protein and food family doesn't wish to pursue aggressive testing for her such as looking for cancer causing these symptoms and hyponatremia. Hence will manage symptomatically HTN control with meds as ordered. avoid HCTZ. Glycemic control Further work up for as per primary team Thanks for allowing me to participate in care of your patient. Will follow patient with you. Please call if any Qs Dr Darrell Orellana Office: [phone] subjective: no new complaints. as per family, she is not doing good today. pt herself denies CP/leg swelling or urinary complaints. reports abdomen distension and pain. Physical Examination: General Appearance: in no acute respiratory distress, co-operative . elderly female. ill appearing Vitals reviewed and noted as below Lungs: Normal respiratory rate/effort. Breath sounds decreased at Rt base Heart: Normal rate. s1s2 normal. No rub or gallop. Extremities: no edema. has RLE varicose veins Neurological: Patient is awake and oriented to person, place and time. No focal deficit but has generalized weakness Skin: Warm and dry. Normal turgor. No rash. Palpitation: Normal elasticity for age Abdomen: Abdomen is soft. Bowel sounds +. There is mild upper abdominal tenderness with hepatomegaly, no guarding/rigidity : kidney or bladder not palpable Labs/imaging reviewed. Past medical history, past surgical history, family history, social history, allergy reviewed Work up CXR: b/l pleural effusion cath: 1 vessel CAD 50% and normal LVEF Mg 1.4 Phos 3.5 Alb 2.9 BNP 2070 Urine Na 106 with osmol 330 Objective - Vital Signs/Intake and Output Vital Signs (last 24 hours): Temp Pulse Resp BP Pulse Ox 98.3 F 90 20 130/74 99 02/16/17 10:00 02/16/17 10:42 02/16/17 10:00 02/16/17 10:42 02/16/17 10:00 - Medications Medications: Current Medications Acetaminophen (Tylenol 325mg Tab) 650 mg PO Q6H PRN PRN Reason: Fever >100.4 F Last Admin: 02/16/17 09:52 Dose: 650 mg Amlodipine Besylate (Norvasc) 5 mg PO DAILY [facility] Last Admin: 02/16/17 10:42 Dose: 5 mg Aspirin (Ecotrin) 81 mg PO 0800 [facility] Last Admin: 02/16/17 08:54 Dose: 81 mg Atorvastatin Calcium (Lipitor) 20 mg PO DIN [facility] Last Admin: 02/15/17 17:39 Dose: 20 mg Budesonide (Pulmicort Respules) 0.5 mg IH [id number] [facility] Last Admin: 02/16/17 07:28 Dose: 0.5 mg Cefpodoxime Proxetil (Vantin) 200 mg PO Q12 [facility] PRN Reason: Protocol Stop: 02/16/17 22:05 Last Admin: 02/16/17 10:43 Dose: 200 mg Cholecalciferol (Vitamin D) 2,000 iu PO DAILY [facility] Last Admin: 02/16/17 10:43 Dose: 2,000 iu Docusate Sodium (Colace) 100 mg PO BID [facility] Last Admin: 02/16/17 10:41 Dose: 100 mg Furosemide (Lasix) 20 mg PO DAILY [facility] Guaifenesin (Robitussin) 100 mg PO Q4H PRN PRN Reason: Cough Last Admin: 02/15/17 04:22 Dose: 100 mg Hydralazine HCl (Apresoline) 10 mg PO Q6H PRN PRN Reason: Systolic Blood Pressure Levalbuterol HCl (Xopenex) 0.63 mg IH [id number] [facility] Last Admin: 02/16/17 13:48 Dose: 0.63 mg Levothyroxine Sodium (Synthroid) 50 mcg PO 0600 [facility] Last Admin: 02/16/17 05:43 Dose: 50 mcg Losartan Potassium (Cozaar) 100 mg PO DAILY [facility] Last Admin: 02/16/17 10:41 Dose: 100 mg Magnesium Oxide (Mag-Ox) 800 mg PO BID [facility] Last Admin: 02/16/17 10:42 Dose: 800 mg Metoprolol Tartrate (Lopressor) 25 mg PO 0800,1800 [facility] Last Admin: 02/16/17 08:54 Dose: 25 mg Metronidazole (Flagyl) 500 mg PO Q8 [facility] PRN Reason: Protocol Last Admin: 02/16/17 05:43 Dose: 500 mg Morphine Sulfate (Morphine) 1 mg IVP Q4H PRN PRN Reason: Pain, severe (8-10) Last Admin: 02/16/17 13:05 Dose: 1 mg Pantoprazole Sodium (Protonix Ec Tab) 40 mg PO 0630 [facility] Last Admin: 02/16/17 05:43 Dose: 40 mg Potassium Chloride (K-Dur 20 Meq Er Tab) 40 meq PO STAT [facility] Stop: 02/16/17 14:11 Simethicone (Mylicon Chew Tab) 80 mg PO PCHS PRN PRN Reason: GI distress Tolvaptan (Samsca) 15 mg PO DAILY [facility] Stop: 02/22/17 13:01 Last Admin: 02/16/17 14:00 Dose: 15 mg Zolpidem Tartrate (Ambien) 5 mg PO HS PRN; Protocol PRN Reason: Insomnia Last Admin: 02/15/17 23:32 Dose: 5 mg - Labs Labs: 02/16/17 07:00 02/16/17 07:00
--- NOTE | 2017-02-16 15:34 | US ---
PROCEDURE: Portal vein duplex ultrasound. CLINICAL HISTORY: Large hepatic cyst. Evaluate portal vein patency PHYSICIAN(S): Blaze Ramos M.D. FINDINGS: There is a large septated cyst with layering debris replacing the majority of the right lobe of the liver The extrahepatic portal vein is patent with hepatopetal flow The hepatic artery is patent. The central hepatic veins are patent. No significant ascites is appreciated. IMPRESSION: 1. Patent portal vein with hepatopetal flow. 2. Large septated cyst in the right lobe of the liver
[2017-02-16 17:10] LABS: URINE BILIRUBIN NEGATIVE (NEGATIVE); URINE BLOOD TRACE-LYSED (NEGATIVE); URINE GLUCOSE (UA) NEGATIVE (NEGATIVE); URINE KETONE NEGATIVE (NEGATIVE); URINE LEUKOCYTE ESTERASE NEGATIVE Leu/uL (NEGATIVE); URINE PROTEIN TRACE mg/dL (<30 mg/dL); URINE UROBILINOGEN 0.2 E.U./dL (<1 E.U./dL)
[2017-02-16 17:12] LABS: URINE APPEARANCE SLIGHT-CLOUDY (CLEAR); URINE COLOR YELLOW (YELLOW)
[2017-02-16 17:36] LABS: URINE BACTERIA FEW (NEG)
[2017-02-16] MEDS ORDERED: Morphine 2 mg/ml ISec IVP PRN (19:50)
[2017-02-16] MEDS ORDERED: Morphine 2 mg/ml ISec IVP STA (20:11)
[2017-02-17] MEDS: Levalbuterol 0.63 MG/3 ML Inhal Soln UD IH SCH ×3 (01:50→13:05)
[2017-02-17] MEDS: Pantoprazole 40 mg EC Tab PO SCH (05:33)
[2017-02-17] MEDS: Levothyroxine 50 MCG TAB PO SCH (05:33)
[2017-02-17 06:41] LABS: ADD MANUAL DIFF? NO
[2017-02-17 07:11] LABS: BASO # 0.03 K/mm3 (0.0-2.0); BASO % 0.2 % (0.0-3.0); EOS # 0.1 (0.0-0.7); EOS % 0.3 % (1.5-5.0); GRAN # 12.22 (1.4-6.5); GRAN % 84.3 % (50.0-68.0); HEMATOCRIT 27.1 % (36.0-48.0); LYMPH # 1.4 (1.2-3.4); LYMPH % 9.4 % (22.0-35.0); MEAN CELL VOLUME 92.8 fL (80.0-105.0); MEAN CORPUSCULAR HEMOGLOBIN 30.5 pg (25.0-35.0); MEAN CORPUSCULAR HGB CONC 32.8 g/dl (31.0-37.0); MEAN PLATELET VOLUME 8.5 fl (7.0-11.0); MONO # 0.8 (0.1-0.6); MONO % 5.8 % (1.0-6.0); PLATELET COUNT 266 10^3/uL (120.0-450.0); RED CELL DISTRIBUTION WIDTH 15.1 % (11.5-14.5); WHITE BLOOD COUNT 14.5 10^3/ul (4.5-11.0)
[2017-02-17 07:16] LABS: ALB/GLOB RATIO 1.2 (1.1-1.8); ALKALINE PHOSPHATASE 103 U/L (38-133); ALT/SGPT 32 U/L (7-56); AST/SGOT 32 U/L (15-39); BILIRUBIN,TOTAL 1.8 mg/dL (0.2-1.3); BLOOD UREA NITROGEN 16 mg/dL (7-21); CALCIUM 8.2 mg/dL (8.4-10.5); CARBON DIOXIDE 27 mmol/L (21-33); CHLORIDE 94 mmol/L (98-107); GFR AFRICAN-AMERICAN > 60; GLUCOSE,RANDOM 85 mg/dL (70-110); MAGNESIUM 1.4 mg/dL (1.7-2.2); PHOSPHOROUS 2.9 mg/dL (2.5-4.5); POTASSIUM 4.1 mmol/L (3.6-5.0); SODIUM 125 mmol/L (132-148); TOTAL PROTEIN 5.2 g/dL (5.8-8.3)
[2017-02-17] MEDS: Budesonide 0.5 mg/2 ml Inhal Susp UD IH SCH (07:24)
[2017-02-17] MEDS: guaiFENesin 100 mg/5 ml Syrup UD PO PRN (08:43)
--- NOTE | 2017-02-17 09:02 | PN ---
DATE: 02/17/2017 PULMONARY NOTE SUBJECTIVE: The patient appears comfortable at rest. She is not short of breath. PHYSICAL EXAMINATION: VITAL SIGNS: Temperature is 98.3, pulse 87, respirations 18, blood pressure 111 /68. Oxygen saturation on nasal cannula is 99%. HEENT: Normocephalic, atraumatic. No JVD. CARDIOVASCULAR: Systolic ejection murmur at the lower left sternal border. No S3 gallop. LUNGS: Minimal crackles at the bases. Minimal/less rhonchi. No wheezing. EXTREMITIES: Mild edema. No cyanosis, no clubbing. Calves are nontender to palpation. GASTROINTESTINAL: Abdomen is soft, nontender, nondistended. Bowel sounds are positive. SKIN: No acute rash. NEUROLOGIC: Limited at the present time. IMPRESSION: 1. Atelectasis - right base. 2. Bilateral pleural effusions. 3. Mild volume overload. 4. Ileitis. 5. Mild anemia. 6. Electrolyte abnormalities. PLAN: The patient appears comfortable this morning. She is not short of breath at rest. She does cough at times - but less. She does state to feeling much better overall. On physical exam, her bronchospasm is certainly less. In addition, the alveolar arterial gradient is also much less. Oxygen saturation on nasal cannula is now 99%. I will continue with the current nebulizer treatments and inhaled steroids for now. The patient remains on Lasix/ afterload reduction. Input by renal is noted. Clinical status of the patient is certainly improved - compared to last week. However, the overall status/ prognosis of this elderly patient - does remain guarded. I will discuss the above with the attending physician. Tony Luong MD cc: [id number] TT: 02/17/2017 09:01:57 Confirmation # [id number] Dictation # [id number] MTDD
[2017-02-17 10:01] LABS: URINE BILIRUBIN SMALL (NEGATIVE); URINE BLOOD NEGATIVE (NEGATIVE); URINE GLUCOSE (UA) NEGATIVE (NEGATIVE); URINE KETONE NEGATIVE (NEGATIVE); URINE LEUKOCYTE ESTERASE TRACE Leu/uL (NEGATIVE); URINE PROTEIN TRACE mg/dL (<30 mg/dL); URINE UROBILINOGEN 0.2 E.U./dL (<1 E.U./dL)
[2017-02-17 10:07] LABS: URINE COLOR BROWN (YELLOW)
[2017-02-17 10:08] LABS: URINE APPEARANCE SL CLOUDY (CLEAR)
[2017-02-17 10:11] LABS: URINE RBC 0 - 2 /hpf (0-2); URINE WBC 0 - 2 /hpf (0-6)
[2017-02-17 10:12] LABS: URINE BACTERIA TRACE (NEG)
--- NOTE | 2017-02-17 11:25 | US ---
HISTORY: abd pain COMPARISON: None. TECHNIQUE: Sonographic evaluation of the abdomen. FINDINGS: LIVER: Measures 22 cm. Normal echogenicity of the liver parenchyma. Numerous large hepatic cysts measuring up to 15 centimeters with internal debris in the right hepatic lobe with accompanying right pleural effusion. GALLBLADDER: Unremarkable. No gallstones. COMMON BILE DUCT: Measures mm. No stones. No dilatation. PANCREAS: Unremarkable as visualized. No mass. No ductal dilatation. RIGHT KIDNEY: Measures cm. Normal echogenicity. No calculus, mass, or hydronephrosis. LEFT KIDNEY: Measures cm. Normal echogenicity. No calculus, mass, or hydronephrosis. SPLEEN: Normal in size and contour. No mass. AORTA: No aneurysmal dilatation. IVC: Unremarkable. OTHER FINDINGS: Enlarged IMPRESSION: Enlarged liver with numerous large hepatic cyst measuring up to 15 centimeters with internal debris and with accompanying right pleural.
[2017-02-17] MEDS: Magnesium Oxide 400 mg Tab UD PO SCH ×2 (11:44→17:09)
[2017-02-17] MEDS: Tolvaptan 15 MG TAB PO SCH ×2 (11:47→13:54)
--- NOTE | 2017-02-17 12:27 | CP.PCM.PN ---
<Carrillo Watson - Last Filed: 02/17/17 15:27> Subjective - Date & Time of Evaluation Date of Evaluation: 02/17/17 Time of Evaluation: 12:22 - Subjective Subjective: Medicine progress note for Dr. Sr/Dr. Hernandez - Carrillo Watson PGY1 Patient seen and examined at bedside this morning. Family reported that the patient had been complaining of some abdominal pain previously. Abdominal US ordered. Urinalysis, repeat blood culture and urine culture pending. ID and GI consulted. Will follow up workup. Objective - Vital Signs/Intake and Output Vital Signs (last 24 hours): Temp Pulse Resp BP Pulse Ox 98.3 F 85 20 107/69 99 02/16/17 10:00 02/17/17 11:46 02/16/17 10:00 02/17/17 11:46 02/16/17 10:00 - Medications Medications: Current Medications Acetaminophen (Tylenol 325mg Tab) 650 mg PO Q6H PRN PRN Reason: Fever >100.4 F Last Admin: 02/16/17 09:52 Dose: 650 mg Amlodipine Besylate (Norvasc) 5 mg PO DAILY [facility] Last Admin: 02/17/17 11:46 Dose: 5 mg Aspirin (Ecotrin) 81 mg PO 0800 [facility] Last Admin: 02/17/17 08:12 Dose: 81 mg Atorvastatin Calcium (Lipitor) 20 mg PO DIN [facility] Last Admin: 02/16/17 18:00 Dose: 20 mg Budesonide (Pulmicort Respules) 0.5 mg IH [id number] [facility] Last Admin: 02/17/17 07:24 Dose: 0.5 mg Cholecalciferol (Vitamin D) 2,000 iu PO DAILY [facility] Last Admin: 02/17/17 11:48 Dose: 2,000 iu Docusate Sodium (Colace) 100 mg PO BID [facility] Last Admin: 02/17/17 11:43 Dose: 100 mg Furosemide (Lasix) 20 mg PO DAILY [facility] Last Admin: 02/17/17 11:44 Dose: 20 mg Guaifenesin (Robitussin) 100 mg PO Q4H PRN PRN Reason: Cough Last Admin: 02/17/17 08:43 Dose: 100 mg Hydralazine HCl (Apresoline) 10 mg PO Q6H PRN PRN Reason: Systolic Blood Pressure Levalbuterol HCl (Xopenex) 0.63 mg IH [id number] [facility] Last Admin: 02/17/17 07:24 Dose: 0.63 mg Levothyroxine Sodium (Synthroid) 50 mcg PO 0600 [facility] Last Admin: 02/17/17 05:33 Dose: 50 mcg Losartan Potassium (Cozaar) 100 mg PO DAILY [facility] Last Admin: 02/17/17 11:45 Dose: 100 mg Magnesium Oxide (Mag-Ox) 800 mg PO BID [facility] Last Admin: 02/17/17 11:44 Dose: 800 mg Metoprolol Tartrate (Lopressor) 25 mg PO 0800,1800 [facility] Last Admin: 02/17/17 08:13 Dose: 25 mg Metronidazole (Flagyl) 500 mg PO Q8 [facility] PRN Reason: Protocol Last Admin: 02/17/17 05:33 Dose: 500 mg Morphine Sulfate (Morphine) 2 mg IVP Q4H PRN PRN Reason: Pain, severe (8-10) Pantoprazole Sodium (Protonix Ec Tab) 40 mg PO 0630 [facility] Last Admin: 02/17/17 05:33 Dose: 40 mg Simethicone (Mylicon Chew Tab) 80 mg PO [facility] PRN PRN Reason: GI distress Tolvaptan (Samsca) 30 mg PO DAILY [facility] Stop: 02/23/17 09:01 Last Admin: 02/17/17 11:47 Dose: 30 mg Zolpidem Tartrate (Ambien) 5 mg PO HS PRN; Protocol PRN Reason: Insomnia Last Admin: 02/16/17 23:37 Dose: 5 mg - Labs Labs: 02/17/17 06:20 02/17/17 06:20 Assessment and Plan - Assessment and Plan (Free Text) Plan: 86yo female with history of afib, hypertension, hypothyroidism, DVT s/p IVC filter placement 4 years ago and liver cysts who presented to [facility] with abdominal pain currently in the TCU for rehabilitation/physical therapy 1. Abdominal pain -Leukocytosis, afebrile -Abdominal doppler reviewed; no acute thrombosis -Abdominal US reviewed; revealed hepatic cysts previously known -Pain control -GI consulted - Dr. Brown -ID consulted - Dr. Hernandez 2. Atelectasis -Afebrile, no leukocytosis -Repeat CXR revealed no active disease -Procalcitonin negative -Continue bronchodilators -Continue with out of bed to chair -Chest PT -Pulmonary on board - Dr. Luong 3. Chronic hyponatremia -Hyponatremia likely secondary to SIADH/tea-toast diet -Recommend fluid restriction -Patient has been given tolvaptan previously per nephrology recommendation -Will continue to monitor hyponatremia -Nephrology consulted - Dr. Orellana 4. Ileitis, resolved -abdominal pain resolved -Previously was on vantin and flagyl per ID recommendations; completed over 10 day course -Continue stool softener 5. Hypokalemia, hypophosphatemia and hypomagnesemia- -Will continue to monitor 6. Liver cysts -IR was previously consulted however patient and family not interested in intervention 7. Hypothyroidism -continue synthroid 50 mcg qd. 8. Hypertension -Continue losartan and norvasc 9. Chronic afib -Not on anticoagulation; risk vs benefit previously discussed with family 10. GI/DVT prophylaxis -Protonix/lovenox 11. Deconditioning -Patient is currently working with physical therapy in the TCU for rehabilitation due to deconditioning Patient seen, examined and case discussed with attending, Dr. Sr <Thanh Sr - Last Filed: 03/17/17 09:31> Objective - Vital Signs/Intake and Output Vital Signs (last 24 hours): Temp Pulse Resp BP Pulse Ox 98.3 F 91 H 20 100/64 99 02/16/17 10:00 02/17/17 17:17 02/16/17 10:00 02/17/17 17:17 02/16/17 10:00 - Labs Labs: 02/17/17 06:20 02/17/17 19:17 Attending/Attestation - Attestation I have personally seen and examined this patient.: Yes I have fully participated in the care of the patient.: Yes I have reviewed all pertinent clinical information, including history, physical exam and plan: Yes Notes (Text): 03/17/17 09:31 03/17/17 09:23 Medical note made by resident after discussion with my direction and input after patient personally seen by me. I have reviewed the chart and agree that the record reflects my personal performance of the history, physical, data review and decision making.
--- NOTE | 2017-02-17 12:40 | PN ---
DATE: 02/17/2017 Seen and examined in TCU. The chart was reviewed. This is an 86-year-old female who was seen on the medical surgical floor for abdominal pain, constipation. The patient was found to have ileitis. Blaine mayberry does have a history of liver cysts in the past and found to have the largest cyst measuring 18 cm x 16 cm. The patient and family did not want any intervention. The patient is now in TCU for IV anti biotics and physical therapy rehab. The patient yesterday complained of abdominal pain. She was sen t for abdominal Doppler, which showed a patent portal vein and abdominal ultrasound, which showed enl arged liver cyst. The patient denies any abdominal pain today. Her abdomen does appear distended, b ut it is soft. She reports having regular bowel movements. Spoke to the nursing staff as well. No nausea, vomiting. Denies any shortness of breath or chest pain. She did cough when I was there, but no complaints of any hematemesis, hemoptysis or any overt GI bleed. VITAL SIGNS: Temperature is 98.3, blood pressure is 107/69, pulse 85. LABORATORIES: Most recent is today. WBC 14.5, H and H is 8.9 and 27.1, platelets is 266. Her sodiu m is 125, potassium 4.1, BUN 16, creatinine 0.7, total bilirubin 1.8, AST 32, ALT 32, alk phos is 103 . Urinalysis was done and it showed a trace of leukocyte esterase, small bilirubin, positive nitrite s and trace of protein. PHYSICAL EXAMINATION: HEENT: Sclera is anicteric. NECK: Supple. CARDIAC: S1, S2. LUNG SOUNDS: With decreased breath sounds with positive air entry with positive rhonchi, no wheezing . ABDOMEN: With bowel sounds. It is softly distended and there was no tenderness appreciated on deep palpation. No rebound or guarding. EXTREMITIES: No edema. NEUROLOGIC: Awake, alert, and aware of surroundings, hard of hearing. ASSESSMENT: This is an 86-year-old female with a history of hepatic cysts, came with acute abdominal pain, constipation, found to have ileitis. She is moving her bowels now. The constipation is resol jr. Had abdominal pain yesterday. Her abdominal ultrasound and Doppler were negative except showin g the liver cysts. Anemia, bilateral pleural effusion. PLAN: The patient is on bowel regimen, Colace. Continue gastrointestinal prophylaxis. The family d oes not want any invasive intervention at this time for liver cysts. The patient is on oral antibiot ic of Flagyl. She is on aspirin. Will monitor her H and H and for overt gastrointestinal bleed, and we will follow closely. The patient also with hyponatremia. Thank you for allowing us to participate in your patient's care. The patient was seen and case discu ssed with Dr. Brown. Ana WISEMAN cc: [id number] TT: 02/17/2017 12:39:48 Confirmation # [id number] Dictation # [id number]
[2017-02-17] MEDS ORDERED: cefTRIAXone 1 gm 1 GM/100 ML BAG IVPB SCH (15:00)
--- NOTE | 2017-02-17 16:43 | CP.PCM.PN ---
Subjective - Date & Time of Evaluation Date of Evaluation: 02/17/17 Time of Evaluation: 16:41 - Subjective Subjective: Follow up Nephrology Consultation: Assessment: Hypo-osmolar Hyponatremia acute component with relatively conc urine as compared to serum with high urine Na favors excess ADH Likely SIADH. chronic hyponatremia likely due to tea/toast diet, poor solute intake and thiazide diuretics Hypokalemia and Hypomagnesemia Hypertension Hepatomegaly with large liver cysts CAD Plan continue with lasix considering moderate pleural effusion seen on chest CT. Since serum Na continue to drop, increased tolvaptan 30 mg/day. will d/c oral fluid restriction while on vaptans avoid serum Na correction >6-8 meq/day. pt encouraged to eat more protein and food family doesn't wish to pursue aggressive testing for her such as looking for cancer causing these symptoms and hyponatremia. Hence will manage symptomatically HTN control with meds as ordered. avoid HCTZ. Glycemic control Further work up for as per primary team Thanks for allowing me to participate in care of your patient. Will follow patient with you. Please call if any Qs Dr Darrell Orellana Office: [phone] subjective: no new complaints. pt herself denies CP/leg swelling or urinary complaints. reports abdomen distension and pain. says feel okay Physical Examination: General Appearance: in no acute respiratory distress, co-operative . elderly female. ill appearing Vitals reviewed and noted as below Lungs: Normal respiratory rate/effort. Breath sounds decreased at Rt base Heart: Normal rate. s1s2 normal. No rub or gallop. Extremities: no edema. has RLE varicose veins Neurological: Patient is awake and oriented to person, place and time. No focal deficit but has generalized weakness Skin: Warm and dry. Normal turgor. No rash. Palpitation: Normal elasticity for age Abdomen: Abdomen is soft. Bowel sounds +. There is mild upper abdominal tenderness with hepatomegaly, no guarding/rigidity : kidney or bladder not palpable Labs/imaging reviewed. Past medical history, past surgical history, family history, social history, allergy reviewed Work up CXR: b/l pleural effusion cath: 1 vessel CAD 50% and normal LVEF Mg 1.4 Phos 3.5 Alb 2.9 BNP 2070 Urine Na 106 with osmol 330 Objective - Vital Signs/Intake and Output Vital Signs (last 24 hours): Temp Pulse Resp BP Pulse Ox 98.3 F 85 20 107/69 99 02/16/17 10:00 02/17/17 11:46 02/16/17 10:00 02/17/17 11:46 02/16/17 10:00 - Medications Medications: Current Medications Acetaminophen (Tylenol 325mg Tab) 650 mg PO Q6H PRN PRN Reason: Fever >100.4 F Last Admin: 02/16/17 09:52 Dose: 650 mg Amlodipine Besylate (Norvasc) 5 mg PO DAILY [facility] Last Admin: 02/17/17 11:46 Dose: 5 mg Aspirin (Ecotrin) 81 mg PO 0800 [facility] Last Admin: 02/17/17 08:12 Dose: 81 mg Atorvastatin Calcium (Lipitor) 20 mg PO DIN [facility] Last Admin: 02/16/17 18:00 Dose: 20 mg Budesonide (Pulmicort Respules) 0.5 mg IH [id number] [facility] Last Admin: 02/17/17 07:24 Dose: 0.5 mg Cholecalciferol (Vitamin D) 2,000 iu PO DAILY [facility] Last Admin: 02/17/17 11:48 Dose: 2,000 iu Docusate Sodium (Colace) 100 mg PO BID [facility] Last Admin: 02/17/17 11:43 Dose: 100 mg Furosemide (Lasix) 20 mg PO DAILY [facility] Last Admin: 02/17/17 11:44 Dose: 20 mg Guaifenesin (Robitussin) 100 mg PO Q4H PRN PRN Reason: Cough Last Admin: 02/17/17 08:43 Dose: 100 mg Hydralazine HCl (Apresoline) 10 mg PO Q6H PRN PRN Reason: Systolic Blood Pressure Ceftriaxone Sodium (Rocephin 1 Gram Ivpb) 1 gm in 100 mls @ 100 mls/hr IVPB DAILY [facility] PRN Reason: Protocol Last Admin: 02/17/17 15:55 Dose: 100 mls/hr Levalbuterol HCl (Xopenex) 0.63 mg IH [id number] [facility] Last Admin: 02/17/17 13:05 Dose: 0.63 mg Levothyroxine Sodium (Synthroid) 50 mcg PO 0600 [facility] Last Admin: 02/17/17 05:33 Dose: 50 mcg Losartan Potassium (Cozaar) 100 mg PO DAILY [facility] Last Admin: 02/17/17 11:45 Dose: 100 mg Magnesium Oxide (Mag-Ox) 800 mg PO BID [facility] Last Admin: 02/17/17 11:44 Dose: 800 mg Metoprolol Tartrate (Lopressor) 25 mg PO 0800,1800 [facility] Last Admin: 02/17/17 08:13 Dose: 25 mg Metronidazole (Flagyl) 500 mg PO Q8 [facility] PRN Reason: Protocol Last Admin: 02/17/17 13:53 Dose: 500 mg Morphine Sulfate (Morphine) 2 mg IVP Q4H PRN PRN Reason: Pain, severe (8-10) Pantoprazole Sodium (Protonix Ec Tab) 40 mg PO 0630 [facility] Last Admin: 02/17/17 05:33 Dose: 40 mg Simethicone (Mylicon Chew Tab) 80 mg PO [facility] PRN PRN Reason: GI distress Tolvaptan (Samsca) 30 mg PO DAILY [facility] Stop: 02/23/17 09:01 Last Admin: 02/17/17 13:54 Dose: Not Given Zolpidem Tartrate (Ambien) 5 mg PO HS PRN; Protocol PRN Reason: Insomnia Last Admin: 02/16/17 23:37 Dose: 5 mg - Labs Labs: 02/17/17 06:20 02/17/17 06:20
--- NOTE | 2017-02-17 17:11 | CP.PCM.CON ---
History of Present Illness - History of Present Illness History of Present Illness: 86 year old female with PMH of HTN, CAD, hypothyroidism was initially admitted in [facility] because of abdominal pain and was found to have ileitis as well as hepatic cysts. She has been on antibiotics and has been doing well. GI was also seeing her for the hepatic cysts but the family does not want invasive procedures for further work up. She is now transferred to [facility] for continued medical therapy and physical rehab. Infectious Diseases consult is requested to evaluate the need for antibiotics. Currently the patient is comfortable, doing her physical rehab, not complaining of abdominal pain currently, no fever or chills, no nausea or vomiting, no headache or dizziness, no chest pain, no SOB, no dysphagia, no cough or colds. Review of Systems - Review of Systems All systems: reviewed and no additional remarkable complaints except (as per HPI ) Past Patient History - Tetanus Immunizations Tetanus Immunization: Unknown - Past Social History Smoking Status: Never Smoked - CARDIAC Hx Hypercholesterolemia: Yes Hx Hypertension: Yes - PULMONARY Hx Respiratory Disorders: No - NEUROLOGICAL Hx Neurological Disorder: No - HEENT Hx HEENT Problems: Yes ([place] b/l hearing aids) - RENAL Hx Chronic Kidney Disease: No - ENDOCRINE/METABOLIC Hx Hypothyroidism: Yes - HEMATOLOGICAL/ONCOLOGICAL Hx Blood Disorders: Yes Hx Shingles: Yes - INTEGUMENTARY Hx Dermatological Problems: No - MUSCULOSKELETAL/RHEUMATOLOGICAL Hx Falls: No - GASTROINTESTINAL Hx Gastrointestinal Disorders: Yes Hx Gastroesophageal Reflux: Yes Other/Comment: COLON CA - GENITOURINARY/GYNECOLOGICAL Hx Genitourinary Disorders: No - PSYCHIATRIC Hx Substance Use: No - SURGICAL HISTORY Hx Surgeries: Yes Other/Comment: R/T COLON CA, ANEURYSM Meds Allergies/Adverse Reactions: Allergies Allergy/AdvReac Type Severity Reaction Status Date / Time No Known Allergies Allergy Verified 02/02/17 10:11 - Medications Medications: Current Medications Acetaminophen (Tylenol 325mg Tab) 650 mg PO Q6H PRN PRN Reason: Fever >100.4 F Last Admin: 02/16/17 09:52 Dose: 650 mg Amlodipine Besylate (Norvasc) 5 mg PO DAILY [facility] Last Admin: 02/16/17 10:42 Dose: 5 mg Aspirin (Ecotrin) 81 mg PO 0800 [facility] Last Admin: 02/16/17 08:54 Dose: 81 mg Atorvastatin Calcium (Lipitor) 20 mg PO DIN [facility] Last Admin: 02/16/17 18:00 Dose: 20 mg Budesonide (Pulmicort Respules) 0.5 mg IH [id number] [facility] Last Admin: 02/16/17 19:44 Dose: 0.5 mg Cholecalciferol (Vitamin D) 2,000 iu PO DAILY [facility] Last Admin: 02/16/17 10:43 Dose: 2,000 iu Docusate Sodium (Colace) 100 mg PO BID [facility] Last Admin: 02/16/17 18:08 Dose: 100 mg Furosemide (Lasix) 20 mg PO DAILY [facility] Guaifenesin (Robitussin) 100 mg PO Q4H PRN PRN Reason: Cough Last Admin: 02/15/17 04:22 Dose: 100 mg Hydralazine HCl (Apresoline) 10 mg PO Q6H PRN PRN Reason: Systolic Blood Pressure Levalbuterol HCl (Xopenex) 0.63 mg IH [id number] [facility] Last Admin: 02/16/17 19:44 Dose: 0.63 mg Levothyroxine Sodium (Synthroid) 50 mcg PO 0600 [facility] Last Admin: 02/16/17 05:43 Dose: 50 mcg Losartan Potassium (Cozaar) 100 mg PO DAILY [facility] Last Admin: 02/16/17 10:41 Dose: 100 mg Magnesium Oxide (Mag-Ox) 800 mg PO BID [facility] Last Admin: 02/16/17 18:09 Dose: 800 mg Metoprolol Tartrate (Lopressor) 25 mg PO 0800,1800 [facility] Last Admin: 02/16/17 18:09 Dose: 25 mg Metronidazole (Flagyl) 500 mg PO Q8 [facility] PRN Reason: Protocol Last Admin: 02/16/17 15:00 Dose: 500 mg Morphine Sulfate (Morphine) 2 mg IVP Q4H PRN PRN Reason: Pain, severe (8-10) Pantoprazole Sodium (Protonix Ec Tab) 40 mg PO 0630 [facility] Last Admin: 02/16/17 05:43 Dose: 40 mg Simethicone (Mylicon Chew Tab) 80 mg PO PCHS PRN PRN Reason: GI distress Tolvaptan (Samsca) 15 mg PO DAILY [facility] Stop: 02/22/17 13:01 Last Admin: 02/16/17 14:00 Dose: 15 mg Zolpidem Tartrate (Ambien) 5 mg PO HS PRN; Protocol PRN Reason: Insomnia Last Admin: 02/15/17 23:32 Dose: 5 mg Physical Exam - Constitutional Appears: Non-toxic, No Acute Distress - Head Exam Head Exam: NORMAL INSPECTION - ENT Exam ENT Exam: Mucous Membranes Moist - Neck Exam Neck exam: Negative for: Lymphadenopathy, Meningismus - Respiratory Exam Respiratory Exam: Decreased Breath Sounds - Cardiovascular Exam Cardiovascular Exam: +S1, +S2 - GI/Abdominal Exam GI & Abdominal Exam: Soft. absent: Tenderness Results - Vital Signs Recent Vital Signs: Last Vital Signs Temp 98.3 F 02/16/17 10:00 Pulse 87 02/16/17 18:09 Resp 20 02/16/17 10:00 BP 111/68 02/16/17 18:09 Pulse Ox 99 02/16/17 10:00 - Labs Result Diagrams: 02/17/17 06:20 02/17/17 06:20 Labs: Laboratory Results - last 24 hr 02/16/17 02/16/17 02/16/17 07:00 07:00 09:00 WBC 13.6 H D RBC 3.37 L Hgb 10.2 L Hct 31.2 L MCV 92.6 MCH 30.3 MCHC 32.7 RDW 14.8 H Plt Count 308 MPV 8.5 Gran % 88.6 H Lymph % (Auto) 6.2 L [place] % (Auto) 4.8 Eos % (Auto) 0.1 L Baso % (Auto) 0.3 Gran # 12.07 H Lymph # 0.9 L [place] # 0.7 H Eos # 0.0 Baso # 0.04 ESR 7 Sodium 129 L Potassium 3.1 L Chloride 97 Carbon Dioxide 28 Anion Gap 7 L BUN 10 Creatinine 0.5 Est GFR ( Amer) > 60 Est GFR (Non-Af Amer) > 60 Random Glucose 142 H Calcium 8.3 L Total Bilirubin 1.6 H AST 32 ALT 26 Alkaline Phosphatase 133 C-React Prot High Sens Total Protein 5.5 L Albumin 3.0 Globulin 2.5 Albumin/Globulin Ratio 1.2 Urine Color Urine Appearance Urine pH Ur Specific [place] Urine Protein Urine Glucose (UA) Urine Ketones Urine Blood Urine Nitrate Urine Bilirubin Urine Urobilinogen Ur Leukocyte Esterase Urine RBC Urine WBC Ur Epithelial Cells Urine Bacteria 02/16/17 02/16/17 12:00 17:02 WBC RBC Hgb Hct MCV MCH MCHC RDW Plt Count MPV Gran % Lymph % (Auto) [place] % (Auto) Eos % (Auto) Baso % (Auto) Gran # Lymph # [place] # Eos # Baso # ESR Sodium Potassium Chloride Carbon Dioxide Anion Gap BUN Creatinine Est GFR ( Amer) Est GFR (Non-Af Amer) Random Glucose Calcium Total Bilirubin AST ALT Alkaline Phosphatase C-React Prot High Sens 9.39 H Total Protein Albumin Globulin Albumin/Globulin Ratio Urine Color Yellow Urine Appearance Slight-cloudy Urine pH 7.0 Ur Specific [place] 1.010 Urine Protein Trace H Urine Glucose (UA) Negative Urine Ketones Negative Urine Blood Trace-lysed H Urine Nitrate Positive H Urine Bilirubin Negative Urine Urobilinogen 0.2 Ur Leukocyte Esterase Negative Urine RBC 1 - 3 Urine WBC 1 - 3 Ur Epithelial Cells 1 - 3 Urine Bacteria Few Assessment & Plan - Assessment and Plan (Free Text) Plan: Assessment Ileitis, acute, improving clinically hepatic cysts, etiology to be determined HTN CAD hypothyroidism Plan continue rocephin and Flagyl day 13 (to complete 10-14 days of therapy); will continue to follow clinically there was plan for possible CT-guided drainage / biopsy of the cysts but family does not want invasive procedures
[2017-02-17 17:19] VITALS: BP 100/64; PULSE 91
[2017-02-17 19:32] LABS: BLOOD UREA NITROGEN 25 mg/dL (7-21); CALCIUM 8.2 mg/dL (8.4-10.5); CARBON DIOXIDE 26 mmol/L (21-33); CHLORIDE 94 mmol/L (98-107); GFR AFRICAN-AMERICAN > 60; GLUCOSE,RANDOM 111 mg/dL (70-110); POTASSIUM 4.1 mmol/L (3.6-5.0); SODIUM 126 mmol/L (132-148)
== END 2017-02-17 21:27 | disposition short-term general hospital (02) | DRG 392 ==
LOC: TRCU 21:13
PROVIDERS: ADMIT Internal Medicine; ATTEND Internal Medicine
PROC: F07Z9FZ Gait Training/Functional Ambulation Treatment using Assistive, Adaptive, Supportive or Protective Equipment (ICD-10-PCS; principal; 2017-02-15)
PROC: F08Z4FZ Home Management Treatment using Assistive, Adaptive, Supportive or Protective Equipment (ICD-10-PCS; 2017-02-15)
PROC: 3E0F7GC Introduction of Other Therapeutic Substance into Respiratory Tract, Via Natural or Artificial Opening (ICD-10-PCS; 2017-02-15)
DX: K52.9 Noninfective gastroenteritis and colitis, unspecified (principal); J90 Pleural effusion, not elsewhere classified; E22.2 Syndrome of inappropriate secretion of antidiuretic hormone; K76.89 Other specified diseases of liver; E87.70 Fluid overload, unspecified; I48.2 Chronic atrial fibrillation; E83.42 Hypomagnesemia; M41.9 Scoliosis, unspecified; F03.90 Unspecified dementia, unspecified severity, without behavioral disturbance, psychotic disturbance, mood disturbance, and anxiety; J98.11 Atelectasis; Z79.2 Long term (current) use of antibiotics; R16.0 Hepatomegaly, not elsewhere classified; I10 Essential (primary) hypertension; E03.9 Hypothyroidism, unspecified; E87.6 Hypokalemia; I25.10 Atherosclerotic heart disease of native coronary artery without angina pectoris; T50.2X5A Adverse effect of carbonic-anhydrase inhibitors, benzothiadiazides and other diuretics, initial encounter; K21.9 Gastro-esophageal reflux disease without esophagitis; K59.00 Constipation, unspecified; D64.9 Anemia, unspecified; Z85.038 Personal history of other malignant neoplasm of large intestine; Z92.21 Personal history of antineoplastic chemotherapy; Z86.718 Personal history of other venous thrombosis and embolism; Z87.891 Personal history of nicotine dependence

== ENCOUNTER 2017-02-17 19:27 | Inpatient (IN) | payer MEDICARE ==
[2017-02-17 19:36] VITALS: BMI 18.5
[2017-02-17] MEDS ORDERED: Sodium Chloride 0.9% 500 ML IV STA (19:43)
[2017-02-17 20:09] LABS: ADD MANUAL DIFF? NO
[2017-02-17 20:19] LABS: VENOUS BLOOD GAS BASE EXCESS 3.6 mmol/L (0.0-2.0); VENOUS BLOOD PH 7.46 (7.32-7.43)
[2017-02-17 20:20] LABS: BASO # 0.03 K/mm3 (0.0-2.0); BASO % 0.3 % (0.0-3.0); EOS # 0.1 (0.0-0.7); GRAN # 8.65 (1.4-6.5); GRAN % 79.3 % (50.0-68.0); LYMPH # 1.2 (1.2-3.4); LYMPH % 11.1 % (22.0-35.0); MEAN CELL VOLUME 93.1 fL (80.0-105.0); MEAN CORPUSCULAR HGB CONC 32.2 g/dl (31.0-37.0); MONO # 0.9 (0.1-0.6); MONO % 8.3 % (1.0-6.0); PLATELET COUNT 257 10^3/uL (120.0-450.0); RED CELL DISTRIBUTION WIDTH 15.1 % (11.5-14.5); WHITE BLOOD COUNT 10.9 10^3/ul (4.5-11.0)
[2017-02-17 20:24] LABS: INR 1.42 (0.93-1.08); PARTIAL THROMBOPLASTIN TIME 31.3 Seconds (23.7-30.8)
--- NOTE | 2017-02-17 20:28 | ED PDOC ---
Arrival/HPI - General Chief Complaint: Weakness/Neurological Deficit Time Seen by Provider: 02/17/17 19:28 Historian: Patient - History of Present Illness Narrative History of Present Illness (Text): 02/17/17 20:29 An 86 year old female, whose past medical history includes hypertension, hypothyroidism, atrial fibrillation, DVT (with IVC placement), brain aneurysm and colon cancer, presents to the emergency department from TCU for evaluation of generalized hypotension. Patient treated for chronic hyponatremia and ileitis on antibiotics. Patient had been given morphine while on TCU. Patient notes a possible low grade fever but denies abdominal pain, nausea, vomiting or any other complaints at this time. Symptom Onset: Sudden Symptom Course: Unchanged Activities at Onset: Rest Context: Other (TCU) Past Medical History - Provider Review Nursing Documentation Reviewed: Yes - Tetanus Immunization Tetanus Immunization: Unknown - Cardiac Hx Hypertension: Yes - Pulmonary Hx Respiratory Disorders: No - Neurological Hx Neurological Disorder: No - HEENT Hx HEENT Disorder: Yes ([place] b/l hearing aids) - Renal Hx Renal Disorder: No - Endocrine/Metabolic Hx Hypothyroidism: Yes - Hematological/Oncological Hx Blood Disorders: No Hx Shingles: Yes (jul 04 2012 r groin vagina r buttocks) - Integumentary Hx Dermatological Disorder: Yes - Musculoskeletal/Rheumatological Hx Musculoskeletal Disorders: No Hx Unsteady Gait: Yes (cane occasionally) - Gastrointestinal Hx Gastrointestinal Disorders: Yes Other/Comment: COLON CA - Genitourinary/Gynecological Hx Genitourinary Disorders: No - Psychiatric Hx Depression: No Hx Emotional Abuse: No Hx Physical Abuse: No Hx Substance Use: No - Past Surgical History Past Surgical History: Non-Contributing - Surgical History Other/Comment: R/T COLON CA, ANEURYSM - Anesthesia Hx Anesthesia: Yes - Suicidal Assessment Feels Threatened In Home Enviroment: No Family/Social History - Physician Review Nursing Documentation Reviewed: Yes Family/Social History: No Known Family HX Smoking Status: Former Smoker Hx Alcohol Use: No Hx Substance Use: No Allergies/Home Meds Allergies/Adverse Reactions: Allergies No Known Allergies Allergy (Verified 02/17/17 19:36) Home Medications: Home Meds Medication Instructions Recorded Confirmed Aspirin [Ecotrin] 81 mg PO DAILY 01/30/17 02/02/17 Rosuvastatin Calcium [Crestor] 10 mg PO DAILY 01/30/17 02/02/17 Review of Systems - Physician Review All systems were reviewed & negative as marked: Yes - Review of Systems Constitutional: Fevers, Other (generalized hypotension) Gastrointestinal: absent: Abdominal Pain, Nausea, Vomiting Physical Exam Vital Signs Reviewed: Yes Vital Signs Temp Pulse Resp BP Pulse Ox 02/17/17 20:39 94 H 26 H 95/55 L 100 02/17/17 20:04 97 H 27 H 100/61 100 02/17/17 19:36 100 F H 84 23 98 02/17/17 19:34 100 F H 86 23 84/44 L 99 Temperature: Febrile Blood Pressure: Hypotensive Pulse: Regular Respiratory Rate: Normal Appearance: Positive for: Well-Appearing, Non-Toxic, Comfortable Pain Distress: None Mental Status: Positive for: Alert and Oriented X 3 - Systems Exam Head: Present: Atraumatic, Normocephalic Pupils: Present: PERRL Extroacular Muscles: Present: EOMI Conjunctiva: Present: Normal Mouth: Present: Moist Mucous Membranes Neck: Present: Normal Range of Motion Respiratory/Chest: Present: Clear to Auscultation, Good Air Exchange. No: Respiratory Distress, Accessory Muscle Use Cardiovascular: Present: Regular Rate and Rhythm, Normal S1, S2. No: Murmurs Abdomen: Present: Normal Bowel Sounds. No: Tenderness, Distention, Peritoneal Signs Back: Present: Normal Inspection Upper Extremity: Present: Normal Inspection. No: Cyanosis, Edema Lower Extremity: Present: Normal Inspection. No: Edema, Cyanosis Neurological: Present: GCS=15, CN II-XII Intact, Speech Normal Skin: Present: Warm, Dry, Normal Color. No: Rashes Psychiatric: Present: Alert, Oriented x 3, Normal Insight, Normal Concentration Medical Decision Making ED Course and Treatment: 02/17/17 20:24 Impression: An 86 year old female with hypotension. Differential Diagnosis included but are not limited to: dehydration vs. hypotension Plan: -- EKG -- chest xray -- labs -- IV fluids -- Urinalysis -- Reassess and disposition Prior Visits: Notes and results from previous visits were reviewed. Patient last reported to the emergency department on 02/02/17 for evaluation of RLQ abdominal pain. Patient was discharged on 02/14/17. Progress Notes: Patient is DNR/DNI. EKG: Ordered, reviewed, and independently interpreted the EKG. Rate : 79 BPM Rhythm : atrial fib Interpretation : anteroseptal infarct, nonspecific st t changes 02/17/17 21:09 Reviewed radiology, Chest X-ray shows right pleural effusion. 02/17/17 21:[address] Riggs, covering for Dr. Hernandez, who is aware and agrees with plan. Pt will go to Telemetry observation for dehydration, hyponatremia, UTI, and transient hypotension under Dr. Sr' service.Pt. was treated few hrs prior to ED transfer with a dose of Rocephin. - Lab Interpretations Lab Results: 02/17/17 19:56 02/17/17 19:56 Lab Results 02/17/17 19:56: Sodium 125 L, Chloride 93 L, Potassium 4.2, Carbon Dioxide 26, Anion Gap 10, BUN 26 H, Creatinine 0.8, Est GFR ( Amer) > 60, Est GFR ( Non-Af Amer) > 60, Random Glucose 125 H, Calcium 8.2 L, Phosphorus 3.0, Magnesium 1.6 L, Total Bilirubin 1.2, AST 28, ALT 28, Alkaline Phosphatase 96, Troponin I 0.03, Total Protein 5.4 L, Albumin 2.8 L, Globulin 2.5, Albumin/ Globulin Ratio 1.1 02/17/17 19:56: pO2 211 H, VBG pH 7.46 H, VBG pCO2 39.0 L, VBG HCO3 27.7, VBG Total CO2 28.9 H, VBG O2 Sat (Calc) 99.6 H, VBG Base Excess 3.6 H, VBG Potassium 4.3, Sodium 126.0 L, Chloride 97.0 L, Glucose 135 H, Lactate 1.3, FiO2 21.0, Venous Blood Potassium 4.3 02/17/17 19:56: PT 15.3 H, INR 1.42 H, APTT 31.3 H 02/17/17 19:56: WBC 10.9 D, RBC 2.90 L, Hgb 8.7 L, Hct 27.0 L, MCV 93.1, MCH 30.0, MCHC 32.2, RDW 15.1 H, Plt Count 257, MPV 9.0, Gran % 79.3 H, Lymph % ( Auto) 11.1 L, [place] % (Auto) 8.3 H, Eos % (Auto) 1.0 L, Baso % (Auto) 0.3, Gran # 8.65 H, Lymph # 1.2, [place] # 0.9 H, Eos # 0.1, Baso # 0.03 I have reviewed the lab results: Yes - RAD Interpretation Radiology Orders: 02/17/17 19:41 CHEST PORTABLE [RAD] Stat Underwriter: ED Physician - EKG Interpretation Interpreted by ED Physician: Yes Type: 12 lead EKG - Medication Orders Current Medication Orders: Sodium Chloride (Sodium Chloride 0.9%) 1,000 mls @ 40 mls/hr IV .Q24H STA Stop: 02/18/17 21:31 Discontinued Medications Acetaminophen (Tylenol 325mg Tab) 650 mg PO STAT STA Stop: 02/17/17 20:56 Sodium Chloride (Sodium Chloride 0.9%) 500 mls @ 500 mls/hr IV .Q1H STA Stop: 02/17/17 20:42 Last Admin: 02/17/17 19:40 Dose: 500 mls/hr - Scribe Statement The provider has reviewed the documentation as recorded by the Christi Allen Provider Scribe Attestation: All medical record entries made by the Christi were at my direction and personally dictated by me. I have reviewed the chart and agree that the record accurately reflects my personal performance of the history, physical exam, medical decision making, and the department course for this patient. I have also personally directed, reviewed, and agree with the discharge instructions and disposition. Disposition/Present on Arrival - Present on Arrival Any Indicators Present on Arrival: No History of DVT/PE: No History of Uncontrolled Diabetes: No Urinary Catheter: No History of Decub. Ulcer: No History Surgical Site Infection Following: None - Disposition Have Diagnosis and Disposition been Completed?: Yes Diagnosis: Hyponatremia, Dehydration, UTI (urinary tract infection) Disposition: HOSPITALIZED Disposition Time: 21:31 Patient Plan: Observation Patient Problems: Current Active Problems Problem Status Onset Dehydration Acute Hyponatremia Acute UTI (urinary tract infection) Acute Condition: STABLE Referrals: Thanh Sr MD [Primary Care Provider] - Follow up with primary
[2017-02-17 20:32] LABS: ALB/GLOB RATIO 1.1 (1.1-1.8); ALKALINE PHOSPHATASE 96 U/L (38-133); ALT/SGPT 28 U/L (7-56); AST/SGOT 28 U/L (15-39); BILIRUBIN,TOTAL 1.2 mg/dL (0.2-1.3); BLOOD UREA NITROGEN 26 mg/dL (7-21); CALCIUM 8.2 mg/dL (8.4-10.5); CARBON DIOXIDE 26 mmol/L (21-33); CHLORIDE 93 mmol/L (98-107); GFR AFRICAN-AMERICAN > 60; GLUCOSE,RANDOM 125 mg/dL (70-110); MAGNESIUM 1.6 mg/dL (1.7-2.2); POTASSIUM 4.2 mmol/L (3.6-5.0); SODIUM 125 mmol/L (132-148); TOTAL PROTEIN 5.4 g/dL (5.8-8.3)
[2017-02-17 20:44] LABS: TROPONIN I 0.03 ng/mL
[2017-02-17] MEDS ORDERED: Sodium Chloride 0.9% 1,000 ML IV STA (21:32)
[2017-02-17] MEDS ORDERED: Vancomycin 1gm in NS 250ml 1 GM/250 ML BAG IVPB STA (22:02)
[2017-02-17] MEDS: Meropenem 1g/NS 100mL IVPB 1 GM/100 ML PIGGYBACK IVPB SCH (22:39)
[2017-02-18 02:29] LABS: PH,URINE 6.5 (4.7-8.0); URINE BILIRUBIN NEGATIVE (NEGATIVE); URINE BLOOD NEGATIVE (NEGATIVE); URINE GLUCOSE (UA) NEGATIVE (NEGATIVE); URINE KETONE NEGATIVE (NEGATIVE); URINE LEUKOCYTE ESTERASE TRACE Leu/uL (NEGATIVE); URINE PROTEIN NEGATIVE mg/dL (<30 mg/dL); URINE UROBILINOGEN 0.2 E.U./dL (<1 E.U./dL)
[2017-02-18 02:35] LABS: URINE APPEARANCE CLEAR (CLEAR)
[2017-02-18 02:37] LABS: URINE BACTERIA TRACE (NEG)
[2017-02-18] MEDS: Meropenem 1g/NS 100mL IVPB 1 GM/100 ML PIGGYBACK IVPB SCH ×3 (05:45→22:00)
--- NOTE | 2017-02-18 10:04 | RAD ---
HISTORY: Sepsis Patient COMPARISON: 02/13/2017. FINDINGS: LUNGS: Stable lower lobe infiltrates/compressive atelectasis. PLEURA: Stable bilateral pleural effusions. CARDIOVASCULAR: No radiographic findings to suggest acute or significant cardiovascular disease. OSSEOUS STRUCTURES: Severe thoracolumbar scoliosis. VISUALIZED UPPER ABDOMEN: Normal. OTHER FINDINGS: None. IMPRESSION: No significant interval change compared to the prior examination(s).
--- NOTE | 2017-02-18 10:13 | CON ---
DATE: 02/18/2017 HISTORY OF PRESENT ILLNESS: The patient is an 86-year-old woman who was in the TCU and developed hyp otension. She was transferred to telemetry. The patient has been in the hospital for an extensive workup. This has included a cardiac workup, wh ich revealed good LV function and nonobstructive CAD. PAST MEDICAL HISTORY: Includes hypertension as well as hypercholesterolemia. The patient currently is chest pain free. She is resting in bed, weak with decreased appetite but in creasing. 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 The rest of her review of systems are unremarkable. PHYSICAL EXAMINATION: VITAL SIGNS: Blood pressure 109/68, heart rate is in the 70s, atrial fibrillation. NECK: Negative JVD. LUNGS: Without rales. HEART: S1, S2. EXTREMITIES: Without edema. LABORATORIES: Hemoglobin is 8.7. Sodium is 125, BUN and creatinine is 26/0.8. IMPRESSION: 1. Transient hypotension. 2. The patient on multiple hypertensive medications. 3. Hyponatremia. 4. Nonobstructive coronary artery disease. 5. Weakness. 6. Decreased appetite. PLAN: Given these findings, we will stop all the antihypertensive medications. We will need to reev aluate her need for blood pressure medications given her decreased appetite. I agree with stopping her antibiotics. Blaze Bauer MD cc: [id number] TT: 02/18/2017 10:12:12 Confirmation # [id number] Dictation # [id number] maile
--- NOTE | 2017-02-18 10:25 | CARD ---
APPROVED REPORT EKG Measurement Heart [id number] <Conclusion> Atrial fibrillation Low voltage QRS limb leads Cannot rule out Anteroseptal infarct, age undetermined LVH by voltage Improved repolarization c/w ECG 02/09/17
[2017-02-18] MEDS ORDERED: Morphine 2 mg/ml ISec IVP PRN ×2 (11:56→16:18)
[2017-02-18 12:22] LABS: ADD MANUAL DIFF? NO
[2017-02-18 12:30] LABS: BASO # 0.04 K/mm3 (0.0-2.0); BASO % 0.5 % (0.0-3.0); EOS # 0.1 (0.0-0.7); EOS % 1.4 % (1.5-5.0); GRAN # 5.86 (1.4-6.5); GRAN % 73.1 % (50.0-68.0); HEMATOCRIT 28.1 % (36.0-48.0); LYMPH # 1.1 (1.2-3.4); MEAN CELL VOLUME 94.3 fL (80.0-105.0); MEAN CORPUSCULAR HEMOGLOBIN 30.5 pg (25.0-35.0); MEAN CORPUSCULAR HGB CONC 32.4 g/dl (31.0-37.0); MEAN PLATELET VOLUME 8.6 fl (7.0-11.0); MONO # 0.9 (0.1-0.6); PLATELET COUNT 241 10^3/uL (120.0-450.0); RED CELL DISTRIBUTION WIDTH 15.2 % (11.5-14.5)
[2017-02-18 12:40] LABS: ALB/GLOB RATIO 1.1 (1.1-1.8); ALKALINE PHOSPHATASE 96 U/L (38-133); ALT/SGPT 27 U/L (7-56); AST/SGOT 30 U/L (15-39); BILIRUBIN,TOTAL 1.1 mg/dL (0.2-1.3); BLOOD UREA NITROGEN 19 mg/dL (7-21); CALCIUM 8.4 mg/dL (8.4-10.5); CARBON DIOXIDE 24 mmol/L (21-33); CHLORIDE 100 mmol/L (98-107); GFR AFRICAN-AMERICAN > 60; GLUCOSE,RANDOM 94 mg/dL (70-110); POTASSIUM 4.4 mmol/L (3.6-5.0); SODIUM 130 mmol/L (132-148); TOTAL PROTEIN 5.5 g/dL (5.8-8.3)
[2017-02-18] MEDS: Levothyroxine 25 MCG TAB PO SCH (13:10)
--- NOTE | 2017-02-18 14:01 | HP ---
For Dr. Sr who is off. HISTORY OF PRESENT ILLNESS: She was in the transitional care unit the other day and she had some low blood pressures and not feeling well. They sent her to the Emergency Room at [facility] where she had hypotension, was given IV fluids and now she is here in the hospital. She is an 86-ye ar-old female who has been having a hard time improving. She has hypertension, hypothyroid, atrial f ibrillation, DVT with inferior vena cava placement, brain aneurysm, colon cancer, refused any procedu res to be done. She was in the TCU for hypotension. She also has low sodium, SIADH. She has chroni c hyponatremia with ileitis on antibiotics. She was given morphine when on TCU. She had low grade f josee, she is on IV antibiotics. She had no nausea, vomiting. There was a sudden change. Now she i s in the room, she is doing a lot better with IV fluids. She ate a little bit this morning. PAST MEDICAL HISTORY: She has hypertension, hard of hearing , hypothyroid, right groin shingles in t he past. She walks with a cane, very unsteady, colon cancer history, aneurysm. REVIEW OF SYSTEMS: No acute vision changes or hearing changes very lethargic and tired. No sore thr oat. No chest pain. There is shortness of breath. No abdominal discomfort. She is very weak in al l 4 extremities. She is very weak overall. SOCIAL HISTORY: She is a former smoker, no alcohol, no drugs. FAMILY HISTORY: There is hypertension in the family. ALLERGIES: No known drug allergies. MEDICATIONS: She is on Ecotrin and Crestor at home. I will go over the medicine list in a little wh ile. PHYSICAL EXAMINATION: VITAL SIGNS: She had fevers. She had 100 temperature, 97 pulse, 27 respiratory rate, 84/44, blood p ressure, it is now up to 123/74, 100% O2 sat on oxygen. She was very hypotensive. GENERAL: Well appearing, mildly toxic, by being lethargic. She is alert and oriented x 3 right now. HEENT: Head is atraumatic, normocephalic. Throat is dry. NECK: Supple. HEART: Regular rate. LUNGS: Decreased breath sounds but clear to auscultation. ABDOMEN: Soft, nontender, positive bowel sounds. HEART: Regular rate with a normal S1, S2. ABDOMEN: Soft, nontender, positive bowel sounds. NEUROLOGIC: GCS is 15. Cranial nerves II-XII grossly intact. SKIN: Warm and dry. EXTREMITIES: No edema. CENTRAL NERVOUS SYSTEM: Alert and oriented x 3. LYMPHATIC: No palpable lymphadenopathy appreciated. Thyroid is midline. LABORATORY DATA: She had a urine positive for nitrites, trace bacteria. 125 sodium low, she is on 0 .9. Potassium 4.2, BUN 26, creatinine 0.8, a little dry. GFR is greater than 60, sugar is 125, calc ium is 8.2, phosphorus 3, magnesium 1.6, total bili is 1.2, AST is 20, ALT is 28, alkaline is 96, tot al protein 5.4, troponin I is 0.03. 1.42 INR. 10.9 white count, 8.7, hemoglobin if it drops below 8 will transfuse her, 27 is hematocrit and 257 is platelets. Chest x-ray, no significant change. She was already seen by the well cleaner. Waiting for the infectious disease doctor to come in. She is currently on Ecotrin, Lipitor, Merrem IV, morphine p.r.n., IV fluids 0.9 at 40, Synthroid, Tyl enol and vancomycin IV. She has multiple issues. Hopefully, she will continue to improve. She will be made an inpatient, [facility] physical therapy. Hopefully in the next 2-3 days we can get her home when she is stable. We are watching her sodium, her blood pressure and her hemoglobin, which is now anemic. Saud Riggs DO cc: [id number] TT: 02/18/2017 14:00:21 judi
--- NOTE | 2017-02-18 18:58 | CON ---
DATE: 02/18/2017 CHIEF COMPLAINT: Weakness x 1 day. HISTORY OF PRESENT ILLNESS: This is an 86-year-old female with past medical history significant for hypertension, coronary artery disease and hypothyroidism, who was recently hospitalized for ileitis a nd found to have a hepatic cyst. Has been on antibiotics and the patient was in transitional care an d was given care there and was transferred to acute care with the diagnosis of dehydration, hyponatre gomez, urinary tract infection and transient hypotension. This morning, the patient's granddaughter is at the bedside. The patient was sent to the Emergency Room from transitional care. In the Emergency Room, the patient was seen by Dr. Yahir Romo who states this patient was admitted because of neurological deficit and weakness. No fevers and chills and no chest pain. The patient did have hyp otension in the Emergency Room. This morning there has been no diarrhea reported. No fevers and chi lls. No nausea and vomiting. PAST MEDICAL HISTORY: Significant for hypothyroidism, atrial fibrillation, hypertension, coronary ar manda disease, ileitis, hepatic cysts, colon cancer, DVT and brain aneurysm. PAST SURGICAL HISTORY: Significant for an IVC filter placement. ALLERGIES: The patient has no known allergies. MEDICATIONS: Are noted. PHYSICAL EXAMINATION: GENERAL: The patient is in bed in no acute distress. VITAL SIGNS: Temperature of 98, T-max was 100 and respiratory rate was 18. It was up to 27 in the E mergency Room and heart rate of 83. It was up to 99 in the Emergency Room yesterday and the patient' s blood pressure now 124/60. It was down to 84/44. HEENT: Unremarkable. NECK: Supple. LUNGS: Have decreased breath sounds. HEART: Normal S1, S2. ABDOMEN: Soft, nontender, no organomegaly, no rebound, no guarding and no masses. LABORATORY EXAMINATION: Reveals a white count of 10,000, a hemoglobin of 8 and platelets of 257 with 79% granulocytosis. Coagulation is noted. BUN of 26 and creatinine of 0.8. Urinalysis is noted. Urine WBCs are 2 to 5. Microbiology is pending. The patient had a chest x-ray which showed stable l ower lobe infiltrate and compressive atelectasis. Dr. Saud Riggs's H and P is reviewed. Dr. Chucky Bauer's consultation is also reviewed. ASSESSMENT AND PLAN: An 86-year-old female with hypertension, hypothyroidism, colon cancer, ileitis, hepatic cyst, atrial fibrillation, colon cancer, deep venous thrombosis and brain aneurysm with low grade fevers of 100, tachycardia, dyspnea, hypotension and now the patient was hypertensive is severe, severe sepsis secondary to lower lobe health care, possible gram-positive cocci, possible gra m-negative reed or healthcare-associated pneumonia. Will treat the patient with meropenem, check on t he blood and urine culture and procalcitonin. A dose of vancomycin has been given. Will make furthe r recommendations. Will follow closely with you. Josh Callaway MD cc: [id number] TT: 02/18/2017 18:58:37 Confirmation # [id number] Dictation # [id number] sn
[2017-02-18] MEDS: Morphine 2 mg/ml ISec IVP PRN (19:09)
[2017-02-19] MEDS: Meropenem 1g/NS 100mL IVPB 1 GM/100 ML PIGGYBACK IVPB SCH ×3 (06:04→22:32)
[2017-02-19 08:06] LABS: ADD MANUAL DIFF? NO
[2017-02-19 08:18] LABS: BASO # 0.07 K/mm3 (0.0-2.0); EOS # 0.1 (0.0-0.7); EOS % 1.5 % (1.5-5.0); GRAN # 5.16 (1.4-6.5); GRAN % 70.2 % (50.0-68.0); HEMATOCRIT 29.5 % (36.0-48.0); LYMPH % 14.2 % (22.0-35.0); MEAN CELL VOLUME 93.1 fL (80.0-105.0); MEAN CORPUSCULAR HEMOGLOBIN 29.7 pg (25.0-35.0); MEAN CORPUSCULAR HGB CONC 31.9 g/dl (31.0-37.0); MEAN PLATELET VOLUME 8.4 fl (7.0-11.0); MONO % 13.1 % (1.0-6.0); PLATELET COUNT 256 10^3/uL (120.0-450.0); WHITE BLOOD COUNT 7.3 10^3/ul (4.5-11.0)
[2017-02-19 08:28] LABS: ALB/GLOB RATIO 1.1 (1.1-1.8); ALKALINE PHOSPHATASE 124 U/L (38-133); ALT/SGPT 31 U/L (7-56); AST/SGOT 28 U/L (15-39); BILIRUBIN,TOTAL 0.9 mg/dL (0.2-1.3); BLOOD UREA NITROGEN 12 mg/dL (7-21); CALCIUM 8.1 mg/dL (8.4-10.5); CARBON DIOXIDE 25 mmol/L (21-33); CHLORIDE 102 mmol/L (95-110); GFR AFRICAN-AMERICAN > 60; GLUCOSE,RANDOM 81 mg/dL (70-110); POTASSIUM 3.9 mmol/L (3.6-5.0); SODIUM 132 mmol/L (132-148); TOTAL PROTEIN 5.2 g/dL (5.8-8.3)
[2017-02-19] MEDS: Levothyroxine 25 MCG TAB PO SCH (08:48)
--- NOTE | 2017-02-19 11:21 | PN ---
DATE: 02/19/2017 I saw the patient resting in bed. She is a little bit uncomfortable this morning. I saw her with the nurse. Her pulse is in the 130s. She has rapid AFib. She was on metoprolol, amlodipine, and Cozaar for blood pressure, and now she is off those medications due to hypotension, and I believe she needs to go back on the metoprolol. I called Dr. Bauer - he is a event specialist. I put her on metoprolol 25 twice a day to control the heart rate, and we will follow her. MEDICATIONS: She is on Ambien, Ecotrin, Lipitor, Lopressor, Merrem, morphine as needed, and Synthroid. PHYSICAL EXAMINATION: VITAL SIGNS: Temp 97.7. Pulse is up to 130; it is now 112. She has 143/98 blood pressure, also 112/78, blood pressure. I think she is starting to be normal pressure versus high blood pressure again. Respiratory rate 20, 99% O2 sat on nasal cannula. HEENT: Head is atraumatic, normocephalic. She does not look as good as yesterday - looks a little stressed. HEART: Regular rate, very tachy. LUNGS: Decreased breath sounds, but clear. ABDOMEN: Soft, mildly distended, but positive bowel sounds, nontender. EXTREMITIES: No edema. She looks weaker today than yesterday. LABORATORY DATA: She has a 7.3 white count, 9.4 hemoglobin, 29.5 hematocrit with 256 platelets. She has a 132 sodium - much better than 125 when she came in. BUN is 12, creatinine 1.5. GFR is greater than 60. Sugar is 81. Calcium is 8.1. Total bili is 0.9. AST is 28. ALT is 31, alk phos 124. Total protein is 5.2. She is being seen by infectious disease and cardiology. She has hypertension - now it is hypotension. Hypothyroid, colon cancer, history ileitis, AFib, which is now in the 130s. Hopefully, with the metoprolol, it will drop down. Colon cancer, history of deep venous thrombosis, history of brain aneurysm. She is on IV antibiotics for sepsis by infectious disease. I will add metoprolol 25 mg twice a day. We will watch her pulse, and right now, she is not on any IV fluids - that the sodium is now normal. We will check her labs tomorrow. She has to get out of bed to chair. We have to get physical therapy involved. Continue the IV antibiotics. She had hypotension, low sodium, coronary artery disease, weakness, anemia, atrial fibrillation. Saud Riggs DO cc: [id number] TT: 02/19/2017 11:20:32 Confirmation # [id number] Dictation # [id number] jn MTDD
--- NOTE | 2017-02-19 13:07 | CP.PCM.PN ---
Subjective - Date & Time of Evaluation Date of Evaluation: 02/19/17 Time of Evaluation: 12:56 - Subjective Subjective: Patient's RN called me with a request to write DNR//DNI orders for patient. This was requested by Dr. Riggs, who is covering for Dr. Sr. Patient had these orders on file, while she was in TCU. She was transferred to ER and then to . Patient's family is by bedside. Since patient is reported to be intermittently confused, discussed this with her power of automobile technician: Yahir Thompson. He requested us to put patient on DNR/DNI status. Objective - Vital Signs/Intake and Output Vital Signs (last 24 hours): Temp Pulse Resp BP Pulse Ox 97 F L 103 H 16 140/69 99 02/19/17 11:22 02/19/17 11:22 02/19/17 11:22 02/19/17 11:22 02/19/17 06:00 Intake and Output: 02/19/17 02/19/17 06:59 18:59 Intake Total 880 Output Total 300 Balance 880 -300 - Medications Medications: Current Medications Aspirin (Ecotrin) 81 mg PO DAILY [facility] Last Admin: 02/19/17 09:13 Dose: 81 mg Atorvastatin Calcium (Lipitor) 40 mg PO DIN [facility] Last Admin: 02/18/17 18:10 Dose: 40 mg Meropenem 1g/NS 100mL IVPB (Meropenem 1g/Ns 100ml Ivpb) 1 gm in 100 mls @ 100 mls/hr IVPB Q8 [facility] PRN Reason: Protocol Stop: 02/24/17 22:16 Last Admin: 02/19/17 06:04 Dose: 100 mls/hr Levothyroxine Sodium (Synthroid) 25 mcg PO ACB [facility] Last Admin: 02/19/17 08:48 Dose: 25 mcg Metoprolol Tartrate (Lopressor) 25 mg PO BRKDIN [facility] Morphine Sulfate (Morphine) 1.5 mg IVP Q6H PRN PRN Reason: Pain, severe (8-10) Last Admin: 02/18/17 19:09 Dose: 1.5 mg Zolpidem Tartrate (Ambien) 5 mg PO HS PRN; Protocol PRN Reason: Insomnia Last Admin: 02/18/17 22:54 Dose: 5 mg - Labs Labs: 02/19/17 08:04 02/19/17 08:04 PT 15.3 Seconds (9.9-11.8) H 02/17/17 19:56 INR 1.42 (0.93-1.08) H 02/17/17 19:56 APTT 31.3 Seconds (23.7-30.8) H 02/17/17 19:56
[2017-02-19] MEDS: Morphine 2 mg/ml ISec IVP PRN ×2 (13:54→20:09)
--- NOTE | 2017-02-19 14:23 | PN ---
DATE: 02/19/2017 The patient's transient tachycardia is better controlled with beta blockers which were instituted tocookie morgan. PHYSICAL EXAMINATION: VITAL SIGNS: Blood pressure 140/70, the heart rate is in the 80s, atrial fibrillation. NECK: Negative JVD. LUNGS: Without rales. HEART: Reveals S1, S2. EXTREMITIES: Without edema. LABORATORY DATA: Hemoglobin is 9.4. Chemistries were reviewed, unremarkable. IMPRESSION: 1. Status post atrial fibrillation with tachycardia. 2. Abdominal pain. 3. Hyponatremia. 4. Nonobstructive coronary artery disease. 5. Decreased appetite. PLAN: Given these findings, we will continue beta blockers 25 b.i.d. Do not feel the patient can be anticoagulated long-term safely. Blaze Bauer MD cc: [id number] TT: 02/19/2017 14:23:29 Confirmation # [id number] Dictation # [id number] judi
--- NOTE | 2017-02-19 15:31 | PN ---
DATE: 02/19/2017 The patient is in bed in no acute distress, nontoxic. PHYSICAL EXAMINATION: VITAL SIGNS: Temperature is 97, blood pressure is 140/60, respiratory rate of 18, heart rate of 103. HEENT: Unremarkable. NECK: Supple. LUNGS: Have decreased breath sounds. HEART: Normal S1, S2. ABDOMEN: Soft, nontender. LABORATORY DATA: Reveals a white count of 7.3 and hemoglobin of 9, platelets of 256. BUN of 12, cre atinine of 0.5. Procalcitonin is 0.10. Urinalysis is noted. Microbiology reveals the blood culture s are no growth. ASSESSMENT AND PLAN: This is an 86-year-old female with hypertension, hypothyroidism, colon cancer, ileitis, hepatic cyst, atrial fibrillation, colon cancer, deep venous thrombosis, brain aneurysm, low grade fevers, tachycardia, dyspnea, hypotension, with severe sepsis secondary to lower lobe healthca re-associated possible gram-positive cocci, possible gram-negative [facility]-associated pneumoni a, on meropenem. The patient was on doxycycline as an outpatient and a prior admission with negative blood cultures and negative urinalysis and negative procalcitonin. Would give her a short course of antibiotics. The patient also with a normal white count and will discontinue the meropenem within t he next 24 hours to 48 hours. Josh Callaway MD cc: [id number] TT: 02/19/2017 15:30:40 Confirmation # [id number] Dictation # [id number] dn
[2017-02-20] MEDS: Meropenem 1g/NS 100mL IVPB 1 GM/100 ML PIGGYBACK IVPB SCH ×3 (06:13→23:24)
[2017-02-20 07:21] LABS: ADD MANUAL DIFF? NO
[2017-02-20 07:37] LABS: BASO # 0.07 K/mm3 (0.0-2.0); EOS # 0.2 (0.0-0.7); EOS % 2.4 % (1.5-5.0); GRAN # 4.13 (1.4-6.5); GRAN % 59.4 % (50.0-68.0); HEMATOCRIT 27.8 % (36.0-48.0); LYMPH # 1.6 (1.2-3.4); MEAN CORPUSCULAR HEMOGLOBIN 30.1 pg (25.0-35.0); MEAN CORPUSCULAR HGB CONC 32.4 g/dl (31.0-37.0); MEAN PLATELET VOLUME 8.3 fl (7.0-11.0); MONO % 14.2 % (1.0-6.0); PLATELET COUNT 264 10^3/uL (120.0-450.0); RED CELL DISTRIBUTION WIDTH 14.9 % (11.5-14.5)
[2017-02-20 07:42] LABS: ALB/GLOB RATIO 1.1 (1.1-1.8); ALKALINE PHOSPHATASE 143 U/L (38-133); ALT/SGPT 34 U/L (7-56); AST/SGOT 29 U/L (15-39); BILIRUBIN,TOTAL 0.8 mg/dL (0.2-1.3); BLOOD UREA NITROGEN 7 mg/dL (7-21); CALCIUM 7.9 mg/dL (8.4-10.5); CARBON DIOXIDE 26 mmol/L (21-33); CHLORIDE 100 mmol/L (95-110); GFR AFRICAN-AMERICAN > 60; GLUCOSE,RANDOM 80 mg/dL (70-110); POTASSIUM 4.1 mmol/L (3.6-5.0); SODIUM 129 mmol/L (132-148); TOTAL PROTEIN 4.9 g/dL (5.8-8.3)
[2017-02-20] MEDS: Levothyroxine 25 MCG TAB PO SCH (09:30)
--- NOTE | 2017-02-20 10:03 | CP.PCM.PN ---
Subjective - Date & Time of Evaluation Date of Evaluation: 02/20/17 Time of Evaluation: 10:00 - Subjective Subjective: Medicine progress note for Dr. Sr/Dr. Hernandez service - Carrillo Watson PGY1 Patient seen and examined at bedside this morning. No acute overnight events or new complaints. Patient was previously in the TCU for rehabilitation however was hypotensive and sent to the ED for further evaluation. Being treated for UTI and was given fluids. Currently normotensive and doing better. Encouraged continuing with physical therapy and increased nutritional intake. Will obtain TCU eval. Objective - Vital Signs/Intake and Output Vital Signs (last 24 hours): Temp Pulse Resp BP Pulse Ox 98.3 F 96 H 19 115/67 100 02/20/17 06:00 02/20/17 09:30 02/20/17 06:00 02/20/17 09:30 02/20/17 06:00 Intake and Output: 02/20/17 02/20/17 06:59 18:59 Intake Total 440 Output Total 0 Balance 440 - Medications Medications: Current Medications Aspirin (Ecotrin) 81 mg PO DAILY [facility] Last Admin: 02/20/17 09:30 Dose: 81 mg Atorvastatin Calcium (Lipitor) 40 mg PO DIN [facility] Last Admin: 02/19/17 17:42 Dose: 40 mg Meropenem 1g/NS 100mL IVPB (Meropenem 1g/Ns 100ml Ivpb) 1 gm in 100 mls @ 100 mls/hr IVPB Q8 [facility] PRN Reason: Protocol Stop: 02/24/17 22:16 Last Admin: 02/20/17 06:13 Dose: 100 mls/hr Levothyroxine Sodium (Synthroid) 25 mcg PO ACB [facility] Last Admin: 02/20/17 09:30 Dose: 25 mcg Metoprolol Tartrate (Lopressor) 25 mg PO BRKDIN [facility] Last Admin: 02/20/17 09:30 Dose: 25 mg Morphine Sulfate (Morphine) 1.5 mg IVP Q6H PRN PRN Reason: Pain, severe (8-10) Last Admin: 02/19/17 20:09 Dose: 1.5 mg Zolpidem Tartrate (Ambien) 5 mg PO HS PRN; Protocol PRN Reason: Insomnia Last Admin: 02/19/17 22:31 Dose: 5 mg - Labs Labs: 02/20/17 06:30 06/12/17 06:30 PT 15.3 Seconds (9.9-11.8) H 02/17/17 19:56 INR 1.42 (0.93-1.08) H 02/17/17 19:56 APTT 31.3 Seconds (23.7-30.8) H 02/17/17 19:56 - Constitutional Appears: No Acute Distress - Head Exam Head Exam: ATRAUMATIC, NORMAL INSPECTION, NORMOCEPHALIC - Eye Exam Eye Exam: EOMI, PERRL - ENT Exam ENT Exam: Mucous Membranes Moist - Neck Exam Neck Exam: Normal Inspection - Respiratory Exam Respiratory Exam: absent: Rales, Rhonchi, Wheezes - Cardiovascular Exam Cardiovascular Exam: Irregular Rhythm, +S1, +S2. absent: Gallop, Rubs - GI/Abdominal Exam GI & Abdominal Exam: Soft. absent: Distended, Firm, Guarding, Rigid, Tenderness , Rebound - Extremities Exam Extremities Exam: Normal Inspection - Neurological Exam Neurological Exam: Alert, Awake - Psychiatric Exam Psychiatric exam: Normal Affect, Normal Mood - Skin Skin Exam: Dry, Intact, Normal Color, Warm Assessment and Plan - Assessment and Plan (Free Text) Plan: 86yo female with history of atrial fibrillation (not on anticoagulation), hypertension, hypothyroidism, DVT s/p IVC filter placement 4 years ago and liver cysts who [place] [facility] [place] readmitted from TCU for hypotension/UTI. 1. UTI -Patient currently on meropenem as per ID recommendations -Patient is at high risk of cdiff and other infections due to prolonged hospitalization and extended course of antibiotics -Afebrile, no leukocytosis -Lactate within normal limits -Procalcitonin negative -Blood cultures negative 2. Abdominal pain -Abdominal doppler reviewed; no acute thrombosis -Abdominal US reviewed; revealed hepatic cysts previously known -Patient was previously evaluated by IR and discussed with family the possibility of intervention regarding her known liver cysts, however family is not interested in invasive intervention -Pain control -GI consulted - Dr. Brown 3. Atelectasis -CXR revealed stable lower lobe infiltrates/compressive atelectasis -Procalcitonin negative -Patient currently on meropenem per ID -afebrile, no leukocytosis 4. 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 Orellana 5. Ileitis, resolved -Previously was on vantin and flagyl per ID recommendations; completed over 10 day course 6. Hypokalemia, hypophosphatemia and hypomagnesemia -Will continue to monitor and replete electrolytes as needed 7. Hypothyroidism -Continue synthroid 25 mcg qd. 8. Hypertension -Continue losartan and norvasc 9. Chronic afib -Not on anticoagulation; risk vs benefit previously discussed with family -Continue metoprolol for rate control 10. GI/DVT prophylaxis -Protonix/SCD's Patient seen, examined and case discussed with attending, Dr. Sr
--- NOTE | 2017-02-20 11:11 | PN ---
DATE: 02/20/2017 SUBJECTIVE: The patient is comfortable in bed. She is still weak. PHYSICAL EXAMINATION: VITAL SIGNS: Blood pressure 124/64. The heart rate is atrial fibrillation in the 80s. NECK: Negative JVD. LUNGS: Without rales. HEART: Reveals S1, S2. EXTREMITIES: Without edema. LABORATORY DATA: The hemoglobin is 9. Chemistries: BUN and creatinine are unremarkable. IMPRESSION: 1. Atrial fibrillation with good heart rate control. 2. Nonobstructive coronary artery disease. 3. Resolution of abdominal pain. 4. Questionable sepsis. PLAN: Given these findings, will discontinue telemetry today. From a cardiac perspective, the patie nt should be discharged. Blaze Bauer MD cc: [id number] TT: 02/20/2017 11:10:27 Confirmation # [id number] Dictation # [id number] hi
--- NOTE | 2017-02-20 14:14 | CP.PCM.PN ---
Subjective - Date & Time of Evaluation Date of Evaluation: 02/20/17 Time of Evaluation: 14:11 - Subjective Subjective: Follow up Nephrology Consultation: Assessment: Hypo-osmolar Hyponatremia acute component with relatively conc urine as compared to serum with high urine Na favors excess ADH Likely SIADH. chronic hyponatremia likely due to tea/toast diet, poor solute intake and thiazide diuretics Hypokalemia and Hypomagnesemia Hypertension now with hypotension Hepatomegaly with large liver cysts CAD Plan Resume tolvaptan 15 mg/day. no oral fluid restriction while on vaptans avoid serum Na correction >6-8 meq/day. pt encouraged to eat more protein and food family doesn't wish to pursue aggressive testing for her such as looking for cancer causing these symptoms and hyponatremia. Hence will manage symptomatically HTN controlled with meds as ordered. avoid HCTZ. Glycemic control Further work up for as per primary team Thanks for allowing me to participate in care of your patient. Will follow patient with you. Please call if any Qs Dr Darrell Orellana Office: [phone] subjective: no new complaints. pt herself denies CP/leg swelling or urinary complaints. Physical Examination: General Appearance: in no acute respiratory distress, co-operative . elderly female. ill appearing Vitals reviewed and noted as below Lungs: Normal respiratory rate/effort. Breath sounds decreased at Rt base Heart: Normal rate. s1s2 normal. No rub or gallop. Extremities: no edema. has RLE varicose veins Neurological: Patient was sleeping but easily arousbale. No focal deficit but has generalized weakness Skin: Warm and dry. Normal turgor. No rash. Palpitation: Normal elasticity for age Abdomen: Abdomen is soft. Bowel sounds +. There is mild upper abdominal tenderness with hepatomegaly, no guarding/rigidity : kidney or bladder not palpable Labs/imaging reviewed. Past medical history, past surgical history, family history, social history, allergy reviewed Work up CXR: b/l pleural effusion cath: 1 vessel CAD 50% and normal LVEF Urine Na 106 with osmol 330 Objective - Vital Signs/Intake and Output Vital Signs (last 24 hours): Temp Pulse Resp BP Pulse Ox 98.3 F 81 19 138/84 100 02/20/17 12:00 02/20/17 12:00 02/20/17 12:00 02/20/17 12:00 02/20/17 06:00 Intake and Output: 02/20/17 02/20/17 06:59 18:59 Intake Total 440 Output Total 0 Balance 440 - Medications Medications: Current Medications Aspirin (Ecotrin) 81 mg PO DAILY [facility] Last Admin: 02/20/17 09:30 Dose: 81 mg Atorvastatin Calcium (Lipitor) 40 mg PO DIN [facility] Last Admin: 02/19/17 17:42 Dose: 40 mg Meropenem 1g/NS 100mL IVPB (Meropenem 1g/Ns 100ml Ivpb) 1 gm in 100 mls @ 100 mls/hr IVPB Q8 [facility] PRN Reason: Protocol Stop: 02/24/17 22:16 Last Admin: 02/20/17 06:13 Dose: 100 mls/hr Levothyroxine Sodium (Synthroid) 25 mcg PO ACB [facility] Last Admin: 02/20/17 09:30 Dose: 25 mcg Metoprolol Tartrate (Lopressor) 25 mg PO BRKDIN [facility] Last Admin: 02/20/17 09:30 Dose: 25 mg Morphine Sulfate (Morphine) 1.5 mg IVP Q6H PRN PRN Reason: Pain, severe (8-10) Last Admin: 02/19/17 20:09 Dose: 1.5 mg Pantoprazole Sodium (Protonix Inj) 40 mg IVP DAILY [facility] Last Admin: 02/20/17 10:42 Dose: 40 mg Tolvaptan (Samsca) 15 mg PO DAILY [facility] Stop: 02/22/17 13:49 Zolpidem Tartrate (Ambien) 5 mg PO HS PRN; Protocol PRN Reason: Insomnia Last Admin: 02/19/17 22:31 Dose: 5 mg - Labs Labs: 02/20/17 06:30 02/20/17 06:30 PT 15.3 Seconds (9.9-11.8) H 02/17/17 19:56 INR 1.42 (0.93-1.08) H 02/17/17 19:56 APTT 31.3 Seconds (23.7-30.8) H 02/17/17 19:56
--- NOTE | 2017-02-20 17:09 | CP.PCM.PN ---
Subjective - Date & Time of Evaluation Date of Evaluation: 02/20/17 Time of Evaluation: 09:25 - Subjective Subjective: Comfortably resting in bed, not in distress, afebrile. Objective - Vital Signs/Intake and Output Vital Signs (last 24 hours): Temp Pulse Resp BP Pulse Ox 98.3 F 107 H 19 132/71 100 02/20/17 06:00 02/20/17 06:00 02/20/17 06:00 02/20/17 06:00 02/20/17 06:00 Intake and Output: 02/20/17 02/20/17 06:59 18:59 Intake Total 440 Output Total 0 Balance 440 - Medications Medications: Current Medications Aspirin (Ecotrin) 81 mg PO DAILY [facility] Last Admin: 02/19/17 09:13 Dose: 81 mg Atorvastatin Calcium (Lipitor) 40 mg PO DIN [facility] Last Admin: 02/19/17 17:42 Dose: 40 mg Meropenem 1g/NS 100mL IVPB (Meropenem 1g/Ns 100ml Ivpb) 1 gm in 100 mls @ 100 mls/hr IVPB Q8 [facility] PRN Reason: Protocol Stop: 02/24/17 22:16 Last Admin: 02/20/17 06:13 Dose: 100 mls/hr Levothyroxine Sodium (Synthroid) 25 mcg PO ACB [facility] Last Admin: 02/19/17 08:48 Dose: 25 mcg Metoprolol Tartrate (Lopressor) 25 mg PO BRKDIN [facility] Last Admin: 02/19/17 17:43 Dose: 25 mg Morphine Sulfate (Morphine) 1.5 mg IVP Q6H PRN PRN Reason: Pain, severe (8-10) Last Admin: 02/19/17 20:09 Dose: 1.5 mg Zolpidem Tartrate (Ambien) 5 mg PO HS PRN; Protocol PRN Reason: Insomnia Last Admin: 02/19/17 22:31 Dose: 5 mg - Labs Labs: 02/20/17 06:30 02/20/17 06:30 PT 15.3 Seconds (9.9-11.8) H 02/17/17 19:56 INR 1.42 (0.93-1.08) H 02/17/17 19:56 APTT 31.3 Seconds (23.7-30.8) H 02/17/17 19:56 - Constitutional Appears: Non-toxic, No Acute Distress - Head Exam Head Exam: NORMAL INSPECTION - ENT Exam ENT Exam: Mucous Membranes Moist - Neck Exam Neck Exam: absent: Lymphadenopathy, Meningismus - Respiratory Exam Respiratory Exam: Decreased Breath Sounds - Cardiovascular Exam Cardiovascular Exam: +S1, +S2 - GI/Abdominal Exam GI & Abdominal Exam: Soft. absent: Tenderness Assessment and Plan - Assessment and Plan (Free Text) Plan: Assessment Sepsis due to lower lobe healthcare-associated pneumonia, clinically improving Ileitis, acute, improving clinically hepatic cysts, etiology to be determined HTN CAD hypothyroidism Plan continue Merrem (day 4), to complete a 4-7 day course Will monitor clinically
[2017-02-20] MEDS: Tolvaptan 15 MG TAB PO SCH (18:04)
[2017-02-20] MEDS: Morphine 2 mg/ml ISec IVP PRN (18:50)
[2017-02-21] MEDS: Meropenem 1g/NS 100mL IVPB 1 GM/100 ML PIGGYBACK IVPB SCH ×3 (05:41→21:23)
[2017-02-21 07:20] LABS: ADD MANUAL DIFF? NO
[2017-02-21 07:24] LABS: BASO # 0.08 K/mm3 (0.0-2.0); BASO % 1.1 % (0.0-3.0); EOS # 0.2 (0.0-0.7); EOS % 2.7 % (1.5-5.0); GRAN # 4.51 (1.4-6.5); GRAN % 63.6 % (50.0-68.0); HEMATOCRIT 29.7 % (36.0-48.0); LYMPH # 1.5 (1.2-3.4); MEAN CELL VOLUME 93.1 fL (80.0-105.0); MEAN CORPUSCULAR HEMOGLOBIN 29.5 pg (25.0-35.0); MEAN CORPUSCULAR HGB CONC 31.6 g/dl (31.0-37.0); MEAN PLATELET VOLUME 8.2 fl (7.0-11.0); MONO # 0.8 (0.1-0.6); MONO % 11.6 % (1.0-6.0); PLATELET COUNT 253 10^3/uL (120.0-450.0); RED CELL DISTRIBUTION WIDTH 14.6 % (11.5-14.5); WHITE BLOOD COUNT 7.1 10^3/ul (4.5-11.0)
[2017-02-21 07:49] LABS: ALB/GLOB RATIO 1.1 (1.1-1.8); ALKALINE PHOSPHATASE 179 U/L (38-133); ALT/SGPT 37 U/L (7-56); AST/SGOT 50 U/L (15-39); BILIRUBIN,TOTAL 0.9 mg/dL (0.2-1.3); BLOOD UREA NITROGEN 7 mg/dL (7-21); CALCIUM 8.2 mg/dL (8.4-10.5); CARBON DIOXIDE 26 mmol/L (21-33); CHLORIDE 103 mmol/L (98-107); GFR AFRICAN-AMERICAN > 60; GLUCOSE,RANDOM 84 mg/dL (70-110); POTASSIUM 3.9 mmol/L (3.6-5.0); SODIUM 135 mmol/L (132-148); TOTAL PROTEIN 5.2 g/dL (5.8-8.3)
[2017-02-21] MEDS: Levothyroxine 25 MCG TAB PO SCH (08:21)
--- NOTE | 2017-02-21 10:52 | CP.PCM.PN ---
Subjective - Date & Time of Evaluation Date of Evaluation: 02/21/17 Time of Evaluation: 10:49 - Subjective Subjective: Medicine progress note for Dr. Sr/Dr. Hernandez service - Carrillo Watson PGY1 Patient seen and examined at bedside this morning. No acute overnight events or new complaints reported. Patient to be re-evaluated by physical therapy for potential TCU placement. Patient will require physical therapy/rehabilitation due to deconditioning. Objective - Vital Signs/Intake and Output Vital Signs (last 24 hours): Temp Pulse Resp BP Pulse Ox 97.5 F L 97 H 21 144/91 H 94 L 02/21/17 08:56 02/21/17 08:56 02/21/17 08:56 02/21/17 08:56 02/21/17 08:56 Intake and Output: 02/21/17 02/21/17 06:59 18:59 Intake Total 200 120 Output Total 400 Balance 200 -280 - Medications Medications: Current Medications Aspirin (Ecotrin) 81 mg PO DAILY [facility] Last Admin: 02/21/17 09:22 Dose: 81 mg Atorvastatin Calcium (Lipitor) 40 mg PO DIN [facility] Last Admin: 02/20/17 18:04 Dose: 40 mg Meropenem 1g/NS 100mL IVPB (Meropenem 1g/Ns 100ml Ivpb) 1 gm in 100 mls @ 100 mls/hr IVPB Q8 [facility] PRN Reason: Protocol Stop: 02/24/17 22:16 Last Admin: 02/21/17 05:41 Dose: 100 mls/hr Levothyroxine Sodium (Synthroid) 25 mcg PO ACB [facility] Last Admin: 02/21/17 08:21 Dose: 25 mcg Metoprolol Tartrate (Lopressor) 25 mg PO BRKDIN [facility] Last Admin: 02/21/17 08:21 Dose: 25 mg Morphine Sulfate (Morphine) 1.5 mg IVP Q6H PRN PRN Reason: Pain, severe (8-10) Last Admin: 02/20/17 18:50 Dose: 1.5 mg Pantoprazole Sodium (Protonix Inj) 40 mg IVP DAILY [facility] Last Admin: 02/21/17 09:22 Dose: 40 mg Tolvaptan (Samsca) 15 mg PO DAILY [facility] Stop: 02/22/17 13:49 Last Admin: 02/20/17 18:04 Dose: 15 mg Zolpidem Tartrate (Ambien) 5 mg PO HS PRN; Protocol PRN Reason: Insomnia Last Admin: 02/20/17 23:24 Dose: 5 mg - Labs Labs: 02/21/17 07:00 02/21/17 07:00 PT 15.3 Seconds (9.9-11.8) H 02/17/17 19:56 INR 1.42 (0.93-1.08) H 02/17/17 19:56 APTT 31.3 Seconds (23.7-30.8) H 02/17/17 19:56 - Constitutional Appears: Non-toxic, No Acute Distress - Head Exam Head Exam: ATRAUMATIC, NORMAL INSPECTION, NORMOCEPHALIC - Eye Exam Eye Exam: EOMI, PERRL - ENT Exam ENT Exam: Mucous Membranes Moist - Respiratory Exam Respiratory Exam: Clear to Ausculation Bilateral. absent: Rales, Rhonchi, Wheezes - Cardiovascular Exam Cardiovascular Exam: +S1, +S2. absent: Gallop, Rubs - GI/Abdominal Exam GI & Abdominal Exam: Soft. absent: Distended, Firm, Guarding, Rigid, Tenderness , Rebound - Neurological Exam Neurological Exam: Alert, Awake, Oriented x3 - Psychiatric Exam Psychiatric exam: Normal Affect, Normal Mood - Skin Skin Exam: Dry, Intact, Normal Color, Warm Assessment and Plan - Assessment and Plan (Free Text) Plan: 86yo female with history of atrial fibrillation (not on anticoagulation), hypertension, hypothyroidism, DVT s/p IVC filter placement 4 years ago and liver cysts who originally presented to [facility] with abdominal pain readmitted from TCU for hypotension/UTI. 1. UTI -Patient currently on meropenem as per ID recommendations -Patient is at high risk of cdiff and other infections due to prolonged hospitalization and extended course of antibiotics -Afebrile, no leukocytosis -Lactate within normal limits -Procalcitonin negative; Blood cultures negative 2. Abdominal pain -Abdominal doppler reviewed; no acute thrombosis -Abdominal US reviewed; revealed hepatic cysts previously known -Patient was previously evaluated by IR and discussed with family the possibility of intervention regarding her known liver cysts, however family is not interested in invasive intervention -Pain control -GI consulted - Dr. Brown 3. Atelectasis -CXR revealed stable lower lobe infiltrates/compressive atelectasis -Procalcitonin negative -Patient currently on meropenem per ID -afebrile, no leukocytosis 4. Chronic hyponatremia, resolving -Hyponatremia likely secondary to SIADH/tea-toast diet -Patient on tolvaptan per nephrology recommendation -Nephrology consulted - Dr. Orellana 5. Ileitis, resolved -Previously was on vantin and flagyl per ID recommendations; completed over 10 day course 6. Hypokalemia, hypophosphatemia and hypomagnesemia -Will continue to monitor and replete electrolytes as needed 7. Hypothyroidism -Continue synthroid 25 mcg qd. 8. Hypertension -Continue losartan and norvasc 9. Chronic afib -Not on anticoagulation; risk vs benefit previously discussed with family -Continue metoprolol for rate control 10. GI/DVT prophylaxis -Protonix/SCD's 11. Disposition -Patient is pending evaluation by physical therapy for potential placement to TCU for physical therapy/rehabilitation due to deconditioning. Patient seen, examined and case discussed with attending, Dr. Sr
[2017-02-21] MEDS: Tolvaptan 15 MG TAB PO SCH (10:55)
--- NOTE | 2017-02-21 12:12 | CP.PCM.PN ---
Subjective - Date & Time of Evaluation Date of Evaluation: 02/19/17 Time of Evaluation: 15:00 - Subjective Subjective: no events overnight awake Objective - Vital Signs/Intake and Output Vital Signs (last 24 hours): Temp Pulse Resp BP Pulse Ox 97.5 F L 97 H 21 144/91 H 94 L 02/21/17 08:56 02/21/17 08:56 02/21/17 08:56 02/21/17 08:56 02/21/17 08:56 Intake and Output: 02/21/17 02/21/17 06:59 18:59 Intake Total 200 120 Output Total 400 Balance 200 -280 - Medications Medications: Current Medications Aspirin (Ecotrin) 81 mg PO DAILY [facility] Last Admin: 02/21/17 09:22 Dose: 81 mg Atorvastatin Calcium (Lipitor) 40 mg PO DIN [facility] Last Admin: 02/20/17 18:04 Dose: 40 mg Meropenem 1g/NS 100mL IVPB (Meropenem 1g/Ns 100ml Ivpb) 1 gm in 100 mls @ 100 mls/hr IVPB Q8 YESENIA PRN Reason: Protocol Stop: 02/24/17 22:16 Last Admin: 02/21/17 05:41 Dose: 100 mls/hr Levothyroxine Sodium (Synthroid) 25 mcg PO ACB YESENIA Last Admin: 02/21/17 08:21 Dose: 25 mcg Metoprolol Tartrate (Lopressor) 25 mg PO BRKDIN [facility] Last Admin: 02/21/17 08:21 Dose: 25 mg Morphine Sulfate (Morphine) 1.5 mg IVP Q6H PRN PRN Reason: Pain, severe (8-10) Last Admin: 02/20/17 18:50 Dose: 1.5 mg Pantoprazole Sodium (Protonix Inj) 40 mg IVP DAILY [facility] Last Admin: 02/21/17 09:22 Dose: 40 mg Tolvaptan (Samsca) 15 mg PO DAILY [facility] Stop: 02/22/17 13:49 Last Admin: 02/21/17 10:55 Dose: 15 mg Zolpidem Tartrate (Ambien) 5 mg PO HS PRN; Protocol PRN Reason: Insomnia Last Admin: 02/20/17 23:24 Dose: 5 mg - Labs Labs: 02/21/17 07:00 02/21/17 07:00 PT 15.3 Seconds (9.9-11.8) H 02/17/17 19:56 INR 1.42 (0.93-1.08) H 02/17/17 19:56 APTT 31.3 Seconds (23.7-30.8) H 02/17/17 19:56 - Constitutional Appears: Non-toxic, Older Than Stated Age - Head Exam Head Exam: NORMAL INSPECTION - Eye Exam Eye Exam: Normal appearance - ENT Exam ENT Exam: Mucous Membranes Moist - Respiratory Exam Respiratory Exam: NORMAL BREATHING PATTERN - Cardiovascular Exam Cardiovascular Exam: REGULAR RHYTHM - GI/Abdominal Exam GI & Abdominal Exam: Normal Bowel Sounds - Extremities Exam Extremities Exam: Normal Inspection - Neurological Exam Neurological Exam: Alert, Awake - Psychiatric Exam Psychiatric exam: Flat Affect - Skin Skin Exam: Dry Assessment and Plan - Assessment and Plan (Free Text) Plan: hyponatremia, euvolemia sec to siadh/htn sodium is stable, will hold tolvaptan today monitor I&Os bp, ok continue current meds lytes reviewed please recheck a magnesium level
--- NOTE | 2017-02-21 12:51 | CP.PCM.PN ---
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 chronic hyponatremia likely due to tea/toast diet, poor solute intake and thiazide diuretics Hypokalemia and Hypomagnesemia Hypertension now with hypotension Hepatomegaly with large liver cysts CAD Plan continue with tolvaptan 15 mg/day. no oral fluid restriction while on vaptans avoid serum Na correction >6-8 meq/day. pt encouraged to eat more protein and food family doesn't wish to pursue aggressive testing for her such as looking for cancer causing these symptoms and hyponatremia. Hence will manage symptomatically HTN controlled with meds as ordered. avoid HCTZ. Glycemic control Further work up for as per primary team Thanks for allowing me to participate in care of your patient. Will follow patient with you. Please call if any Qs Dr Darrell Orellana Office: [phone] subjective: no new complaints. pt herself denies CP/leg swelling or urinary complaints. Physical Examination: General Appearance: in no acute respiratory distress, co-operative. elderly female. ill appearing Vitals reviewed and noted as below Lungs: Normal respiratory rate/effort. Breath sounds decreased at Rt base with crackle Heart: Normal rate. s1s2 normal. No rub or gallop. Extremities: no edema. has RLE varicose veins Neurological: Patient was sleeping but easily arousbale. No focal deficit but has generalized weakness Skin: Warm and dry. Normal turgor. No rash. Palpitation: Normal elasticity for age Abdomen: Abdomen is soft. Bowel sounds +. There is mild upper abdominal tenderness with hepatomegaly, no guarding/rigidity : kidney or bladder not palpable Labs/imaging reviewed. Past medical history, past surgical history, family history, social history, allergy reviewed Work up CXR: b/l pleural effusion cath: 1 vessel CAD 50% and normal LVEF Urine Na 106 with osmol 330 Objective - Vital Signs/Intake and Output Vital Signs (last 24 hours): Temp Pulse Resp BP Pulse Ox 97.5 F L 97 H 21 144/91 H 94 L 02/21/17 08:56 02/21/17 08:56 02/21/17 08:56 02/21/17 08:56 02/21/17 08:56 Intake and Output: 02/21/17 02/21/17 06:59 18:59 Intake Total 200 120 Output Total 400 Balance 200 -280 - Medications Medications: Current Medications Aspirin (Ecotrin) 81 mg PO DAILY [facility] Last Admin: 02/21/17 09:22 Dose: 81 mg Atorvastatin Calcium (Lipitor) 40 mg PO DIN [facility] Last Admin: 02/20/17 18:04 Dose: 40 mg Meropenem 1g/NS 100mL IVPB (Meropenem 1g/Ns 100ml Ivpb) 1 gm in 100 mls @ 100 mls/hr IVPB Q8 YESENIA PRN Reason: Protocol Stop: 02/24/17 22:16 Last Admin: 02/21/17 05:41 Dose: 100 mls/hr Levothyroxine Sodium (Synthroid) 25 mcg PO ACB [facility] Last Admin: 02/21/17 08:21 Dose: 25 mcg Metoprolol Tartrate (Lopressor) 25 mg PO BRKDIN [facility] Last Admin: 02/21/17 08:21 Dose: 25 mg Morphine Sulfate (Morphine) 1.5 mg IVP Q6H PRN PRN Reason: Pain, severe (8-10) Last Admin: 02/20/17 18:50 Dose: 1.5 mg Pantoprazole Sodium (Protonix Inj) 40 mg IVP DAILY [facility] Last Admin: 02/21/17 09:22 Dose: 40 mg Tolvaptan (Samsca) 15 mg PO DAILY [facility] Stop: 02/22/17 13:49 Last Admin: 02/21/17 10:55 Dose: 15 mg Zolpidem Tartrate (Ambien) 5 mg PO HS PRN; Protocol PRN Reason: Insomnia Last Admin: 02/20/17 23:24 Dose: 5 mg - Labs Labs: 02/21/17 07:00 02/21/17 07:00 PT 15.3 Seconds (9.9-11.8) H 02/17/17 19:56 INR 1.42 (0.93-1.08) H 02/17/17 19:56 APTT 31.3 Seconds (23.7-30.8) H 02/17/17 19:56
--- NOTE | 2017-02-21 12:54 | CP.PCM.PN ---
Subjective - Date & Time of Evaluation Date of Evaluation: 02/21/17 Time of Evaluation: 10:15 - Subjective Subjective: Comfortable, not in distress. Objective - Vital Signs/Intake and Output Vital Signs (last 24 hours): Temp Pulse Resp BP Pulse Ox 98.3 F 94 H 19 130/64 100 02/20/17 18:00 02/20/17 18:04 02/20/17 18:00 02/20/17 18:04 02/20/17 06:00 Intake and Output: 02/21/17 02/21/17 06:59 18:59 Intake Total 200 120 Output Total 400 Balance 200 -280 - Medications Medications: Current Medications Aspirin (Ecotrin) 81 mg PO DAILY [facility] Last Admin: 02/20/17 09:30 Dose: 81 mg Atorvastatin Calcium (Lipitor) 40 mg PO DIN [facility] Last Admin: 02/20/17 18:04 Dose: 40 mg Meropenem 1g/NS 100mL IVPB (Meropenem 1g/Ns 100ml Ivpb) 1 gm in 100 mls @ 100 mls/hr IVPB Q8 YESENIA PRN Reason: Protocol Stop: 02/24/17 22:16 Last Admin: 02/21/17 05:41 Dose: 100 mls/hr Levothyroxine Sodium (Synthroid) 25 mcg PO ACB [facility] Last Admin: 02/20/17 09:30 Dose: 25 mcg Metoprolol Tartrate (Lopressor) 25 mg PO BRKDIN [facility] Last Admin: 02/20/17 18:04 Dose: 25 mg Morphine Sulfate (Morphine) 1.5 mg IVP Q6H PRN PRN Reason: Pain, severe (8-10) Last Admin: 02/20/17 18:50 Dose: 1.5 mg Pantoprazole Sodium (Protonix Inj) 40 mg IVP DAILY [facility] Last Admin: 02/20/17 10:42 Dose: 40 mg Tolvaptan (Samsca) 15 mg PO DAILY [facility] Stop: 02/22/17 13:49 Last Admin: 02/20/17 18:04 Dose: 15 mg Zolpidem Tartrate (Ambien) 5 mg PO HS PRN; Protocol PRN Reason: Insomnia Last Admin: 02/20/17 23:24 Dose: 5 mg - Labs Labs: 02/20/17 06:30 02/20/17 06:30 PT 15.3 Seconds (9.9-11.8) H 02/17/17 19:56 INR 1.42 (0.93-1.08) H 02/17/17 19:56 APTT 31.3 Seconds (23.7-30.8) H 02/17/17 19:56 - Constitutional Appears: Non-toxic, No Acute Distress - Head Exam Head Exam: NORMAL INSPECTION - ENT Exam ENT Exam: Mucous Membranes Moist - Neck Exam Neck Exam: absent: Lymphadenopathy, Meningismus - Respiratory Exam Respiratory Exam: Decreased Breath Sounds - Cardiovascular Exam Cardiovascular Exam: +S1, +S2 - GI/Abdominal Exam GI & Abdominal Exam: Soft. absent: Tenderness Assessment and Plan - Assessment and Plan (Free Text) Plan: Assessment Sepsis due to lower lobe healthcare-associated pneumonia, clinically improving Ileitis, acute, improving clinically hepatic cysts, etiology to be determined HTN CAD hypothyroidism Plan continue Merrem (day 5), to complete a 4-7 day course Will continue to monitor clinically
[2017-02-21] MEDS: Morphine 2 mg/ml ISec IVP PRN (18:59)
[2017-02-22] MEDS: Meropenem 1g/NS 100mL IVPB 1 GM/100 ML PIGGYBACK IVPB SCH ×3 (05:41→21:15)
[2017-02-22 07:40] LABS: ADD MANUAL DIFF? NO
[2017-02-22 07:47] LABS: BASO # 0.06 K/mm3 (0.0-2.0); BASO % 0.8 % (0.0-3.0); EOS # 0.2 (0.0-0.7); EOS % 2.4 % (1.5-5.0); GRAN # 4.91 (1.4-6.5); GRAN % 64.8 % (50.0-68.0); HEMATOCRIT 30.3 % (36.0-48.0); LYMPH # 1.4 (1.2-3.4); LYMPH % 17.8 % (22.0-35.0); MEAN CELL VOLUME 93.2 fL (80.0-105.0); MEAN CORPUSCULAR HEMOGLOBIN 30.2 pg (25.0-35.0); MEAN CORPUSCULAR HGB CONC 32.3 g/dl (31.0-37.0); MEAN PLATELET VOLUME 8.3 fl (7.0-11.0); MONO # 1.1 (0.1-0.6); MONO % 14.2 % (1.0-6.0); PLATELET COUNT 272 10^3/uL (120.0-450.0); RED CELL DISTRIBUTION WIDTH 14.9 % (11.5-14.5); WHITE BLOOD COUNT 7.6 10^3/ul (4.5-11.0)
[2017-02-22 07:59] LABS: ALB/GLOB RATIO 1.1 (1.1-1.8); ALKALINE PHOSPHATASE 204 U/L (38-133); ALT/SGPT 39 U/L (7-56); AST/SGOT 39 U/L (15-39); BLOOD UREA NITROGEN 8 mg/dL (7-21); CALCIUM 8.3 mg/dL (8.4-10.5); CARBON DIOXIDE 27 mmol/L (21-33); CHLORIDE 103 mmol/L (95-110); GFR AFRICAN-AMERICAN > 60; GLUCOSE,RANDOM 86 mg/dL (70-110); POTASSIUM 3.7 mmol/L (3.6-5.0); SODIUM 136 mmol/L (132-148); TOTAL PROTEIN 5.5 g/dL (5.8-8.3)
[2017-02-22] MEDS: Levothyroxine 25 MCG TAB PO SCH (08:04)
[2017-02-22] MEDS: Pantoprazole 40 mg EC Tab PO SCH (08:04)
--- NOTE | 2017-02-22 10:19 | PN ---
DATE: 02/22/2017 The patient is resting comfortably. PHYSICAL EXAMINATION: VITAL SIGNS: Blood pressure is 147/90, the heart rate is in the 90s. NECK: Negative JVD. LUNGS: Without rales. HEART: Reveals S1, S2. EXTREMITIES: Without edema. LABORATORY DATA: The white count is 7.6, hemoglobin is 9.8. Chemistries: BUN and creatinine are un remarkable. IMPRESSION: 1. Pneumonia. 2. History of atrial fibrillation with good heart rate control. 3. Resolution of abdominal pain. 4. Nonobstructive coronary artery disease. PLAN: Given these findings, the patient is on day 5 of antibiotics. Heart rate is well controlled. Blaze Bauer MD cc: [id number] TT: 02/22/2017 10:18:55 Confirmation # [id number] Dictation # [id number]
[2017-02-22] MEDS: Tolvaptan 15 MG TAB PO SCH (10:39)
--- NOTE | 2017-02-22 12:12 | CP.PCM.PN ---
Subjective - Date & Time of Evaluation Date of Evaluation: 02/22/17 Time of Evaluation: 10:15 - Subjective Subjective: Comfortable, afebrile, not in distress. Objective - Vital Signs/Intake and Output Vital Signs (last 24 hours): Temp Pulse Resp BP Pulse Ox 97.7 F 96 H 18 147/90 95 02/22/17 08:13 02/22/17 08:13 02/22/17 08:13 02/22/17 08:13 02/22/17 08:13 Intake and Output: 02/22/17 02/22/17 06:59 18:59 Intake Total 600 Balance 600 - Medications Medications: Current Medications Aspirin (Ecotrin) 81 mg PO DAILY [facility] Last Admin: 02/21/17 09:22 Dose: 81 mg Atorvastatin Calcium (Lipitor) 40 mg PO DIN [facility] Last Admin: 02/21/17 17:29 Dose: 40 mg Meropenem 1g/NS 100mL IVPB (Meropenem 1g/Ns 100ml Ivpb) 1 gm in 100 mls @ 100 mls/hr IVPB Q8 YESENIA PRN Reason: Protocol Stop: 02/24/17 22:16 Last Admin: 02/22/17 05:41 Dose: 100 mls/hr Levothyroxine Sodium (Synthroid) 25 mcg PO ACB [facility] Last Admin: 02/22/17 08:04 Dose: 25 mcg Metoprolol Tartrate (Lopressor) 25 mg PO BRKDIN [facility] Last Admin: 02/22/17 08:04 Dose: 25 mg Morphine Sulfate (Morphine) 1.5 mg IVP Q6H PRN PRN Reason: Pain, severe (8-10) Last Admin: 02/21/17 18:59 Dose: 1.5 mg Pantoprazole Sodium (Protonix Ec Tab) 40 mg PO ACB [facility] Last Admin: 02/22/17 08:04 Dose: 40 mg Tolvaptan (Samsca) 15 mg PO DAILY [facility] Stop: 02/22/17 13:49 Last Admin: 02/21/17 10:55 Dose: 15 mg Zolpidem Tartrate (Ambien) 5 mg PO HS PRN; Protocol PRN Reason: Insomnia Last Admin: 02/21/17 21:40 Dose: 5 mg - Labs Labs: 02/22/17 07:30 02/22/17 07:30 PT 15.3 Seconds (9.9-11.8) H 02/17/17 19:56 INR 1.42 (0.93-1.08) H 02/17/17 19:56 APTT 31.3 Seconds (23.7-30.8) H 02/17/17 19:56 - Constitutional Appears: Non-toxic, No Acute Distress - Head Exam Head Exam: NORMAL INSPECTION - ENT Exam ENT Exam: Mucous Membranes Moist - Neck Exam Neck Exam: absent: Lymphadenopathy, Meningismus - Respiratory Exam Respiratory Exam: Decreased Breath Sounds - Cardiovascular Exam Cardiovascular Exam: +S1, +S2 - GI/Abdominal Exam GI & Abdominal Exam: Soft. absent: Tenderness Assessment and Plan - Assessment and Plan (Free Text) Plan: Assessment Sepsis due to lower lobe healthcare-associated pneumonia, clinically improving Ileitis, acute, improving clinically hepatic cysts, etiology to be determined HTN CAD hypothyroidism Plan continue Merrem (day 6), to complete a 7 day course Will continue to monitor clinically
--- NOTE | 2017-02-22 14:34 | CP.PCM.PN ---
Subjective - Date & Time of Evaluation Date of Evaluation: 02/22/17 Time of Evaluation: 11:00 - Subjective Subjective: Follow up Nephrology Consultation: Assessment: Stable Hypo-osmolar Hyponatremia with relatively conc urine as compared to serum with high urine Na favors excess ADH Likely SIADH. chronic hyponatremia likely due to tea/toast diet, poor solute intake and thiazide diuretics Hypokalemia and Hypomagnesemia Hypertension now with hypotension Hepatomegaly with large liver cysts CAD Plan continue with tolvaptan 15 mg/day. no oral fluid restriction while on vaptans avoid serum Na correction >6-8 meq/day. pt encouraged to eat more protein and food family doesn't wish to pursue aggressive testing for her such as looking for cancer causing these symptoms and hyponatremia. Hence will manage symptomatically and medically with tolvaptan. she failed conservative management with diuretics, fluid restriction. HTN controlled with meds as ordered. avoid HCTZ. Glycemic control Further work up for as per primary team Thanks for allowing me to participate in care of your patient. Will follow patient with you. Please call if any Qs Dr Darrell Orellana Office: [phone] subjective: no new complaints. pt herself denies CP/leg swelling or urinary complaints. Physical Examination: General Appearance: in no acute respiratory distress, co-operative. elderly female. ill appearing Vitals reviewed and noted as below Lungs: Normal respiratory rate/effort. Breath sounds decreased at Rt base with crackle Heart: Normal rate. s1s2 normal. No rub or gallop. Extremities: no edema. has RLE varicose veins Neurological: Patient was sleeping but easily arousbale. No focal deficit but has generalized weakness Skin: Warm and dry. Normal turgor. No rash. Palpitation: Normal elasticity for age Abdomen: Abdomen is soft. Bowel sounds +. There is mild upper abdominal tenderness with hepatomegaly, no guarding/rigidity : kidney or bladder not palpable Labs/imaging reviewed. Past medical history, past surgical history, family history, social history, allergy reviewed Work up CXR: b/l pleural effusion cath: 1 vessel CAD 50% and normal LVEF Urine Na 106 with osmol 330 Objective - Vital Signs/Intake and Output Vital Signs (last 24 hours): Temp Pulse Resp BP Pulse Ox 97.7 F 96 H 18 147/90 95 02/22/17 08:13 02/22/17 08:13 02/22/17 08:13 02/22/17 08:13 02/22/17 08:13 Intake and Output: 02/22/17 02/22/17 06:59 18:59 Intake Total 600 540 Balance 600 540 - Medications Medications: Current Medications Aspirin (Ecotrin) 81 mg PO DAILY [facility] Last Admin: 02/22/17 10:39 Dose: 81 mg Atorvastatin Calcium (Lipitor) 40 mg PO DIN [facility] Last Admin: 02/21/17 17:29 Dose: 40 mg Meropenem 1g/NS 100mL IVPB (Meropenem 1g/Ns 100ml Ivpb) 1 gm in 100 mls @ 100 mls/hr IVPB Q8 YESENIA PRN Reason: Protocol Stop: 02/24/17 22:16 Last Admin: 02/22/17 13:45 Dose: 100 mls/hr Levothyroxine Sodium (Synthroid) 25 mcg PO ACB [facility] Last Admin: 02/22/17 08:04 Dose: 25 mcg Metoprolol Tartrate (Lopressor) 25 mg PO BRKDIN [facility] Last Admin: 02/22/17 08:04 Dose: 25 mg Morphine Sulfate (Morphine) 1.5 mg IVP Q6H PRN PRN Reason: Pain, severe (8-10) Last Admin: 02/21/17 18:59 Dose: 1.5 mg Pantoprazole Sodium (Protonix Ec Tab) 40 mg PO ACB [facility] Last Admin: 02/22/17 08:04 Dose: 40 mg Zolpidem Tartrate (Ambien) 5 mg PO HS PRN; Protocol PRN Reason: Insomnia Last Admin: 02/21/17 21:40 Dose: 5 mg - Labs Labs: 02/22/17 07:30 02/22/17 07:30 PT 15.3 Seconds (9.9-11.8) H 02/17/17 19:56 INR 1.42 (0.93-1.08) H 02/17/17 19:56 APTT 31.3 Seconds (23.7-30.8) H 02/17/17 19:56
[2017-02-22] MEDS: Morphine 2 mg/ml ISec IVP PRN (17:37)
[2017-02-22 17:54] VITALS: RESP 20
--- NOTE | 2017-02-22 20:16 | CP.PCM.PN ---
Subjective - Date & Time of Evaluation Date of Evaluation: 02/22/17 Time of Evaluation: 20:13 - Subjective Subjective: Medicine progress note for Dr. Sr/Dr. Hernandez service - Carrillo Watson PGY1 Patient seen and examined at bedside this morning. No acute overnight events or new complaints reported. Patient pending insurance approval for TCU. Denies chest pain, palpitations, SOB. Objective - Vital Signs/Intake and Output Vital Signs (last 24 hours): Temp Pulse Resp BP Pulse Ox 97.9 F 78 20 153/93 H 98 02/22/17 16:00 02/22/17 16:37 02/22/17 16:00 02/22/17 16:37 02/22/17 16:00 Intake and Output: 02/22/17 02/23/17 18:59 06:59 Intake Total 540 Balance 540 - Medications Medications: Current Medications Aspirin (Ecotrin) 81 mg PO DAILY [facility] Last Admin: 02/22/17 10:39 Dose: 81 mg Atorvastatin Calcium (Lipitor) 40 mg PO DIN [facility] Last Admin: 02/22/17 16:37 Dose: 40 mg Meropenem 1g/NS 100mL IVPB (Meropenem 1g/Ns 100ml Ivpb) 1 gm in 100 mls @ 100 mls/hr IVPB Q8 YESENIA PRN Reason: Protocol Stop: 02/24/17 22:16 Last Admin: 02/22/17 13:45 Dose: 100 mls/hr Levothyroxine Sodium (Synthroid) 25 mcg PO ACB [facility] Last Admin: 02/22/17 08:04 Dose: 25 mcg Metoprolol Tartrate (Lopressor) 25 mg PO BRKDIN [facility] Last Admin: 02/22/17 16:37 Dose: 25 mg Morphine Sulfate (Morphine) 1.5 mg IVP Q6H PRN PRN Reason: Pain, severe (8-10) Last Admin: 02/22/17 17:37 Dose: 1.5 mg Pantoprazole Sodium (Protonix Ec Tab) 40 mg PO ACB [facility] Last Admin: 02/22/17 08:04 Dose: 40 mg Tolvaptan (Samsca) 15 mg PO DAILY [facility] Stop: 02/27/17 10:01 Zolpidem Tartrate (Ambien) 5 mg PO HS PRN; Protocol PRN Reason: Insomnia Last Admin: 02/21/17 21:40 Dose: 5 mg - Labs Labs: 02/22/17 07:30 02/22/17 07:30 PT 15.3 Seconds (9.9-11.8) H 02/17/17 19:56 INR 1.42 (0.93-1.08) H 02/17/17 19:56 APTT 31.3 Seconds (23.7-30.8) H 02/17/17 19:56 - Constitutional Appears: Non-toxic, No Acute Distress - Head Exam Head Exam: ATRAUMATIC, NORMAL INSPECTION, NORMOCEPHALIC - Eye Exam Eye Exam: EOMI, PERRL - ENT Exam ENT Exam: Mucous Membranes Moist - Cardiovascular Exam Cardiovascular Exam: Irregular Rhythm, +S1, +S2. absent: Gallop, Rubs - GI/Abdominal Exam GI & Abdominal Exam: Soft. absent: Distended, Firm, Guarding, Rigid, Tenderness - Neurological Exam Neurological Exam: Alert, Awake, Oriented x3 - Psychiatric Exam Psychiatric exam: Normal Affect, Normal Mood - Skin Skin Exam: Dry, Intact, Normal Color, Warm Assessment and Plan - Assessment and Plan (Free Text) Plan: 86yo female with history of atrial fibrillation (not on anticoagulation), hypertension, hypothyroidism, DVT s/p IVC filter placement 4 years ago and liver cysts who originally presented to [facility] with abdominal pain readmitted from TCU for hypotension/UTI. 1. UTI -Patient currently on meropenem as per ID recommendations -Patient is at high risk of cdiff and other infections due to prolonged hospitalization and extended course of antibiotics -Afebrile, no leukocytosis -Lactate within normal limits -Procalcitonin negative; Blood cultures negative 2. Abdominal pain -Abdominal doppler reviewed; no acute thrombosis -Abdominal US reviewed; revealed hepatic cysts previously known -Patient was previously evaluated by IR and discussed with family the possibility of intervention regarding her known liver cysts, however family is not interested in invasive intervention -Pain control -GI consulted - Dr. Brown 3. Atelectasis -CXR revealed stable lower lobe infiltrates/compressive atelectasis -Procalcitonin negative -Patient currently on meropenem per ID -afebrile, no leukocytosis 4. Chronic hyponatremia, resolved -Hyponatremia likely secondary to SIADH/tea-toast diet -Patient on tolvaptan per nephrology recommendation -Nephrology consulted - Dr. Orellana 5. Ileitis, resolved -Previously was on vantin and flagyl per ID recommendations; completed over 10 day course 6. Hypokalemia, hypophosphatemia and hypomagnesemia -Will continue to monitor and replete electrolytes as needed 7. Hypothyroidism -Continue synthroid 25 mcg qd. 8. Hypertension -Continue losartan and norvasc 9. Chronic afib -Not on anticoagulation; risk vs benefit previously discussed with family -Continue metoprolol for rate control 10. GI/DVT prophylaxis -Protonix/SCD's 11. Disposition -Patient evaluation by physical therapy and was recommended TCU vs [facility]. Social work pending insurance approval of TCU for rehabilitation. Patient seen, examined and case discussed with attending, Dr. Sr
[2017-02-23] MEDS: Meropenem 1g/NS 100mL IVPB 1 GM/100 ML PIGGYBACK IVPB SCH ×3 (05:42→22:24)
[2017-02-23 07:49] LABS: ADD MANUAL DIFF? NO
[2017-02-23 07:52] LABS: BASO # 0.07 K/mm3 (0.0-2.0); BASO % 0.9 % (0.0-3.0); EOS # 0.2 (0.0-0.7); EOS % 2.5 % (1.5-5.0); GRAN # 5.22 (1.4-6.5); GRAN % 66.3 % (50.0-68.0); HEMATOCRIT 29.9 % (36.0-48.0); LYMPH # 1.5 (1.2-3.4); LYMPH % 19.3 % (22.0-35.0); MEAN CELL VOLUME 93.1 fL (80.0-105.0); MEAN CORPUSCULAR HEMOGLOBIN 29.6 pg (25.0-35.0); MEAN CORPUSCULAR HGB CONC 31.8 g/dl (31.0-37.0); MEAN PLATELET VOLUME 8.5 fl (7.0-11.0); MONO # 0.9 (0.1-0.6); PLATELET COUNT 255 10^3/uL (120.0-450.0); WHITE BLOOD COUNT 7.9 10^3/ul (4.5-11.0)
[2017-02-23 08:03] LABS: ALB/GLOB RATIO 1.1 (1.1-1.8); ALKALINE PHOSPHATASE 203 U/L (38-133); ALT/SGPT 44 U/L (7-56); AST/SGOT 50 U/L (15-39); BILIRUBIN,TOTAL 0.8 mg/dL (0.2-1.3); BLOOD UREA NITROGEN 9 mg/dL (7-21); CALCIUM 8.2 mg/dL (8.4-10.5); CARBON DIOXIDE 26 mmol/L (21-33); CHLORIDE 102 mmol/L (98-107); GFR AFRICAN-AMERICAN > 60; GLUCOSE,RANDOM 86 mg/dL (70-110); POTASSIUM 3.9 mmol/L (3.6-5.0); SODIUM 134 mmol/L (132-148); TOTAL PROTEIN 5.4 g/dL (5.8-8.3)
[2017-02-23] MEDS: Levothyroxine 25 MCG TAB PO SCH (08:11)
[2017-02-23] MEDS: Pantoprazole 40 mg EC Tab PO SCH (08:11)
--- NOTE | 2017-02-23 09:28 | PN ---
DATE: 02/23/2017 The patient is seen earlier this morning in room 363, bed 2. No fevers and no chills. PHYSICAL EXAMINATION: VITAL SIGNS: Temperature is 98. Blood pressure is 150/90, respiratory rate of 16. HEENT: Unremarkable. NECK: Supple. LUNGS: Have decreased breath sounds. HEART: Normal S1, S2. ABDOMEN: Soft, nontender. LABORATORY EXAMINATION: Reveals white count of 7.9. Hemoglobin is noted. Chemistries reveal a BUN of 9, creatinine of 0.5. Urinalysis is noted. Microbiology reveals the blood cultures are negative. Urine cultures are noted. ASSESSMENT AND PLAN: An 86-year-old female with sepsis due to lower lobe healthcare-associated pneum onia, clinically improved, and day #7 of meropenem, and discontinue meropenem after today's dose 7 of 7 days. Josh Callaway MD cc: [id number] TT: 02/23/2017 09:27:58 Confirmation # [id number] Dictation # [id number]
[2017-02-23] MEDS: Tolvaptan 15 MG TAB PO SCH (10:24)
--- NOTE | 2017-02-23 14:08 | CP.PCM.PN ---
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 chronic hyponatremia likely due to tea/toast diet, poor solute intake and thiazide diuretics Hypokalemia and Hypomagnesemia Hypertension now with hypotension Hepatomegaly with large liver cysts CAD Plan continue with tolvaptan 15 mg/day. no oral fluid restriction while on vaptans avoid serum Na correction >6-8 meq/day. pt encouraged to eat more protein and food family doesn't wish to pursue aggressive testing for her such as looking for cancer causing these symptoms and hyponatremia. Hence will manage symptomatically and medically with tolvaptan. she failed conservative management with diuretics, fluid restriction. HTN controlled with meds as ordered. avoid HCTZ. Glycemic control Further work up for as per primary team Thanks for allowing me to participate in care of your patient. Will follow patient with you. Please call if any Qs. pt stable from renal perspective. Dr Darrell Orellana Office: [phone] subjective: no new complaints. pt herself denies CP/leg swelling or urinary complaints. wants to go home. Physical Examination: General Appearance: in no acute respiratory distress, co-operative. elderly female Vitals reviewed and noted as below Lungs: Normal respiratory rate/effort. Breath sounds decreased at Rt base with crackle Heart: Normal rate. s1s2 normal. No rub or gallop. Extremities: no edema. has RLE varicose veins Neurological: Patient was sleeping but easily arousbale. No focal deficit but has generalized weakness Skin: Warm and dry. Normal turgor. No rash. Palpitation: Normal elasticity for age Abdomen: Abdomen is soft. Bowel sounds +. There is mild upper abdominal tenderness with hepatomegaly, no guarding/rigidity : kidney or bladder not palpable Labs/imaging reviewed. Past medical history, past surgical history, family history, social history, allergy reviewed Work up CXR: b/l pleural effusion cath: 1 vessel CAD 50% and normal LVEF Urine Na 106 with osmol 330 Objective - Vital Signs/Intake and Output Vital Signs (last 24 hours): Temp Pulse Resp BP Pulse Ox 98.5 F 92 H 20 150/97 H 99 02/23/17 09:22 02/23/17 09:22 02/23/17 09:22 02/23/17 09:22 02/23/17 09:22 Intake and Output: 02/23/17 02/23/17 06:59 18:59 Intake Total 480 Output Total 1 Balance 479 - Medications Medications: Current Medications Aspirin (Ecotrin) 81 mg PO DAILY [facility] Last Admin: 02/23/17 10:24 Dose: 81 mg Atorvastatin Calcium (Lipitor) 40 mg PO DIN [facility] Last Admin: 02/22/17 16:37 Dose: 40 mg Meropenem 1g/NS 100mL IVPB (Meropenem 1g/Ns 100ml Ivpb) 1 gm in 100 mls @ 100 mls/hr IVPB Q8 YESENIA PRN Reason: Protocol Stop: 02/24/17 22:16 Last Admin: 02/23/17 05:42 Dose: 100 mls/hr Levothyroxine Sodium (Synthroid) 25 mcg PO ACB [facility] Last Admin: 02/23/17 08:11 Dose: 25 mcg Metoprolol Tartrate (Lopressor) 25 mg PO BRKDIN [facility] Last Admin: 02/23/17 08:11 Dose: 25 mg Morphine Sulfate (Morphine) 1.5 mg IVP Q6H PRN PRN Reason: Pain, severe (8-10) Last Admin: 02/22/17 17:37 Dose: 1.5 mg Pantoprazole Sodium (Protonix Ec Tab) 40 mg PO ACB [facility] Last Admin: 02/23/17 08:11 Dose: 40 mg Tolvaptan (Samsca) 15 mg PO DAILY [facility] Stop: 02/27/17 10:01 Last Admin: 02/23/17 10:24 Dose: 15 mg Zolpidem Tartrate (Ambien) 5 mg PO HS PRN; Protocol PRN Reason: Insomnia Last Admin: 02/22/17 22:46 Dose: 5 mg - Labs Labs: 02/23/17 07:00 02/23/17 07:00 PT 15.3 Seconds (9.9-11.8) H 02/17/17 19:56 INR 1.42 (0.93-1.08) H 02/17/17 19:56 APTT 31.3 Seconds (23.7-30.8) H 02/17/17 19:56
[2017-02-23] MEDS: Morphine 2 mg/ml ISec IVP PRN (18:04)
--- NOTE | 2017-02-23 19:51 | CP.PCM.PN ---
<AnamestuardoCarrillo - Last Filed: 02/23/17 19:46> Subjective - Date & Time of Evaluation Date of Evaluation: 02/23/17 Time of Evaluation: 08:40 - Subjective Subjective: Medicine progress note for Dr. Sr/Dr. Hernandez service - Carrillo Walter PGY1 Patient seen and examined at bedside this morning. No acute overnight events or new complaints. Patient tolerating diet well and family is agreeable to discharge home tomorrow with services. She will require visiting nurse services at home. Denies chest pain, palpitations, SOB. Objective - Vital Signs/Intake and Output Vital Signs (last 24 hours): Temp Pulse Resp BP Pulse Ox 97.8 F 93 H 20 151/94 H 98 02/23/17 16:00 02/23/17 16:00 02/23/17 16:00 02/23/17 16:00 02/23/17 16:00 - Medications Medications: Current Medications Aspirin (Ecotrin) 81 mg PO DAILY [facility] Last Admin: 02/23/17 10:24 Dose: 81 mg Atorvastatin Calcium (Lipitor) 40 mg PO DIN [facility] Last Admin: 02/23/17 16:42 Dose: 40 mg Meropenem 1g/NS 100mL IVPB (Meropenem 1g/Ns 100ml Ivpb) 1 gm in 100 mls @ 100 mls/hr IVPB Q8 YESENIA PRN Reason: Protocol Stop: 02/24/17 22:16 Last Admin: 02/23/17 14:39 Dose: 100 mls/hr Levothyroxine Sodium (Synthroid) 25 mcg PO ACB [facility] Last Admin: 02/23/17 08:11 Dose: 25 mcg Metoprolol Tartrate (Lopressor) 25 mg PO BRKDIN [facility] Last Admin: 02/23/17 16:42 Dose: 25 mg Morphine Sulfate (Morphine) 1.5 mg IVP Q6H PRN PRN Reason: Pain, severe (8-10) Last Admin: 02/23/17 18:04 Dose: 1.5 mg Pantoprazole Sodium (Protonix Ec Tab) 40 mg PO ACB [facility] Last Admin: 02/23/17 08:11 Dose: 40 mg Tolvaptan (Samsca) 15 mg PO DAILY [facility] Stop: 02/27/17 10:01 Last Admin: 02/23/17 10:24 Dose: 15 mg Zolpidem Tartrate (Ambien) 5 mg PO HS PRN; Protocol PRN Reason: Insomnia Last Admin: 02/22/17 22:46 Dose: 5 mg - Labs Labs: 02/23/17 07:00 02/23/17 07:00 PT 15.3 Seconds (9.9-11.8) H 02/17/17 19:56 INR 1.42 (0.93-1.08) H 02/17/17 19:56 APTT 31.3 Seconds (23.7-30.8) H 02/17/17 19:56 - Constitutional Appears: No Acute Distress - Head Exam Head Exam: ATRAUMATIC, NORMAL INSPECTION, NORMOCEPHALIC - Eye Exam Eye Exam: EOMI Pupil Exam: PERRL - ENT Exam ENT Exam: Mucous Membranes Moist - Neck Exam Neck Exam: Normal Inspection - Respiratory Exam Respiratory Exam: Clear to Ausculation Bilateral. absent: Rales, Rhonchi, Wheezes - Cardiovascular Exam Cardiovascular Exam: Irregular Rhythm, +S1, +S2. absent: Gallop, Rubs - GI/Abdominal Exam GI & Abdominal Exam: Soft. absent: Distended, Firm, Guarding, Rigid, Tenderness , Rebound - Neurological Exam Neurological Exam: Alert, Awake, Oriented x3 - Psychiatric Exam Psychiatric exam: Normal Affect, Normal Mood - Skin Skin Exam: Dry, Intact, Normal Color, Warm Assessment and Plan - Assessment and Plan (Free Text) Plan: 86yo female with history of atrial fibrillation (not on anticoagulation), hypertension, hypothyroidism, DVT s/p IVC filter placement 4 years ago and liver cysts who originally presented to [facility] with abdominal pain readmitted from TCU for hypotension/UTI. 1. UTI -Patient currently on meropenem as per ID recommendations for a total of 7 days of antibiotics -Patient is at high risk of cdiff and other infections due to prolonged hospitalization and extended course of antibiotics -Afebrile, no leukocytosis -Lactate within normal limits -Procalcitonin negative; Blood cultures negative 2. Abdominal pain -Abdominal doppler reviewed; no acute thrombosis -Abdominal US reviewed; revealed hepatic cysts previously known -Patient was previously evaluated by IR and discussed with family the possibility of intervention regarding her known liver cysts, however family is not interested in invasive intervention -Pain control -GI consulted - Dr. Brown 3. Atelectasis -CXR revealed stable lower lobe infiltrates/compressive atelectasis -Procalcitonin negative -Patient currently on meropenem per ID -afebrile, no leukocytosis 4. Chronic hyponatremia, resolved -Hyponatremia likely secondary to SIADH/tea-toast diet -Patient on tolvaptan per nephrology recommendation -Nephrology consulted - Dr. Orellana 5. Ileitis, resolved -Previously was on vantin and flagyl per ID recommendations; completed over 10 day course 6. Hypokalemia, hypophosphatemia and hypomagnesemia -Will continue to monitor and replete electrolytes as needed 7. Hypothyroidism -Continue synthroid 25 mcg qd. 8. Hypertension -Continue losartan and norvasc 9. Chronic afib -Not on anticoagulation; risk vs benefit previously discussed with family; due to risk of falls, patient not on anticoagulation; family is in agreement -Continue metoprolol for rate control 10. GI/DVT prophylaxis -Protonix/SCD's 11. Disposition -Patient to be discharged home tomorrow with VNS services. Family is aware and in agreement. Patient seen, examined and case discussed with attending, Dr. Hernandez <Leo Hernandez - Last Filed: 02/24/17 18:47> Objective - Vital Signs/Intake and Output Vital Signs (last 24 hours): Temp Pulse Resp BP Pulse Ox 97.7 F 105 H 20 150/92 H 93 L 02/24/17 06:00 02/24/17 06:00 02/24/17 06:00 02/24/17 06:00 02/24/17 06:00 Intake and Output: 02/24/17 02/24/17 06:59 18:59 Intake Total 840 Balance 840 - Labs Labs: 02/23/17 07:00 02/23/17 07:00 PT 15.3 Seconds (9.9-11.8) H 02/17/17 19:56 INR 1.42 (0.93-1.08) H 02/17/17 19:56 APTT 31.3 Seconds (23.7-30.8) H 02/17/17 19:56 Attending/Attestation - Attestation I have personally seen and examined this patient.: Yes I have fully participated in the care of the patient.: Yes I have reviewed all pertinent clinical information, including history, physical exam and plan: Yes Notes (Text): 02/24/17 18:47 Medical record note made by the resident after discussion with my direction and input after the patient was personally seen and examined by me. I have reviewed the chart and agree that the record accurately reflects by personal performance of the history, physical exam, data review, and medical decision-making, in the course for the patient. I have also personally directed the plan of care.
[2017-02-24] MEDS: Meropenem 1g/NS 100mL IVPB 1 GM/100 ML PIGGYBACK IVPB SCH (06:20)
[2017-02-24] MEDS: Pantoprazole 40 mg EC Tab PO SCH (08:13)
[2017-02-24] MEDS: Levothyroxine 25 MCG TAB PO SCH (08:13)
[2017-02-24] MEDS: Tolvaptan 15 MG TAB PO SCH (09:39)
[2017-02-24 10:42] VITALS: BP 150/92; PULSE 105; TEMP 97.7; O2SAT 93
--- NOTE | 2017-02-24 11:24 | CP.PCM.PN ---
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 chronic hyponatremia likely due to tea/toast diet, poor solute intake and thiazide diuretics Hypokalemia and Hypomagnesemia Hypertension now with hypotension Hepatomegaly with large liver cysts CAD Plan continue with tolvaptan 15 mg/day. no oral fluid restriction while on vaptans avoid serum Na correction >6-8 meq/day. pt encouraged to eat more protein and food family doesn't wish to pursue aggressive testing for her such as looking for cancer causing these symptoms and hyponatremia. Hence will manage symptomatically and medically with tolvaptan. she failed conservative management with diuretics, fluid restriction. HTN controlled with meds as ordered. avoid HCTZ. Glycemic control Further work up for as per primary team Thanks for allowing me to participate in care of your patient. Please call if any Qs. pt planned for d/c home today. pt stable from renal perspective. f/up in office 1-2 post d/c with me Dr Darrell Orellana Office: [phone] subjective: no new complaints. pt herself denies CP/leg swelling or urinary complaints. says I am going home today. Physical Examination: General Appearance: in no acute respiratory distress, co-operative. elderly female Vitals reviewed and noted as below Lungs: Normal respiratory rate/effort. Breath sounds decreased at Rt base with crackle Heart: Normal rate. s1s2 normal. No rub or gallop. Extremities: no edema. has RLE varicose veins Neurological: Patient was sleeping but easily arousbale. No focal deficit but has generalized weakness Skin: Warm and dry. Normal turgor. No rash. Palpitation: Normal elasticity for age Abdomen: Abdomen is soft. Bowel sounds +. There is mild upper abdominal tenderness with hepatomegaly, no guarding/rigidity : kidney or bladder not palpable Labs/imaging reviewed. Past medical history, past surgical history, family history, social history, allergy reviewed Work up CXR: b/l pleural effusion cath: 1 vessel CAD 50% and normal LVEF Urine Na 106 with osmol 330 Objective - Vital Signs/Intake and Output Vital Signs (last 24 hours): Temp Pulse Resp BP Pulse Ox 97.7 F 105 H 20 150/92 H 93 L 02/24/17 06:00 02/24/17 06:00 02/24/17 06:00 02/24/17 06:00 02/24/17 06:00 Intake and Output: 02/24/17 02/24/17 06:59 18:59 Intake Total 840 Balance 840 - Medications Medications: Current Medications Aspirin (Ecotrin) 81 mg PO DAILY [facility] Last Admin: 02/24/17 09:39 Dose: 81 mg Atorvastatin Calcium (Lipitor) 40 mg PO DIN [facility] Last Admin: 02/23/17 16:42 Dose: 40 mg Meropenem 1g/NS 100mL IVPB (Meropenem 1g/Ns 100ml Ivpb) 1 gm in 100 mls @ 100 mls/hr IVPB Q8 YESENIA PRN Reason: Protocol Stop: 02/24/17 22:16 Last Admin: 02/24/17 06:20 Dose: 100 mls/hr Levothyroxine Sodium (Synthroid) 25 mcg PO ACB [facility] Last Admin: 02/24/17 08:13 Dose: 25 mcg Metoprolol Tartrate (Lopressor) 25 mg PO BRKDIN [facility] Last Admin: 02/24/17 08:13 Dose: 25 mg Morphine Sulfate (Morphine) 1.5 mg IVP Q6H PRN PRN Reason: Pain, severe (8-10) Last Admin: 02/23/17 18:04 Dose: 1.5 mg Pantoprazole Sodium (Protonix Ec Tab) 40 mg PO ACB [facility] Last Admin: 02/24/17 08:13 Dose: 40 mg Tolvaptan (Samsca) 15 mg PO DAILY [facility] Stop: 02/27/17 10:01 Last Admin: 02/24/17 09:39 Dose: 15 mg Zolpidem Tartrate (Ambien) 5 mg PO HS PRN; Protocol PRN Reason: Insomnia Last Admin: 02/23/17 22:25 Dose: 5 mg - Labs Labs: 02/23/17 07:00 02/23/17 07:00 PT 15.3 Seconds (9.9-11.8) H 02/17/17 19:56 INR 1.42 (0.93-1.08) H 02/17/17 19:56 APTT 31.3 Seconds (23.7-30.8) H 02/17/17 19:56
--- NOTE | 2017-02-24 11:28 | CP.PCM.DIS ---
<Carrillo Watson - Last Filed: 02/25/17 10:40> Provider - Provider Date of Admission: 02/18/17 12:31 Attending physician: Thanh Sr MD Primary care physician: Thanh Sr MD Consults: Nephrology - Dr. Orellana Cardiology - Dr. Bauer ID - Dr. Callaway Time Spent in preparation of Discharge (in minutes): 30 Hospital Course - Lab Results Lab Results: Most Recent Lab Values WBC 7.9 10^3/ul (4.5-11.0) 02/23/17 07:00 RBC 3.21 10^6/uL (3.5-6.1) L 02/23/17 07:00 Hgb 9.5 gm/dL (12.0-16.0) L 02/23/17 07:00 Hct 29.9 % (36.0-48.0) L 02/23/17 07:00 MCV 93.1 fL (80.0-105.0) 02/23/17 07:00 MCH 29.6 pg (25.0-35.0) 02/23/17 07:00 MCHC 31.8 g/dl (31.0-37.0) 02/23/17 07:00 RDW 15.0 % (11.5-14.5) H 02/23/17 07:00 Plt Count 255 10^3/uL (120.0-450.0) 02/23/17 07:00 MPV 8.5 fl (7.0-11.0) 02/23/17 07:00 Gran % 66.3 % (50.0-68.0) 02/23/17 07:00 Lymph % (Auto) 19.3 % (22.0-35.0) L 02/23/17 07:00 [place] % (Auto) 11.0 % (1.0-6.0) H 02/23/17 07:00 Eos % (Auto) 2.5 % (1.5-5.0) 02/23/17 07:00 Baso % (Auto) 0.9 % (0.0-3.0) 02/23/17 07:00 Gran # 5.22 (1.4-6.5) 02/23/17 07:00 Lymph # 1.5 (1.2-3.4) 02/23/17 07:00 [place] # 0.9 (0.1-0.6) H 02/23/17 07:00 Eos # 0.2 (0.0-0.7) 02/23/17 07:00 Baso # 0.07 K/mm3 (0.0-2.0) 02/23/17 07:00 PT 15.3 Seconds (9.9-11.8) H 02/17/17 19:56 INR 1.42 (0.93-1.08) H 02/17/17 19:56 APTT 31.3 Seconds (23.7-30.8) H 02/17/17 19:56 pO2 211 mm/Hg (30-55) H 02/17/17 19:56 VBG pH 7.46 (7.32-7.43) H 02/17/17 19:56 VBG pCO2 39.0 (40-60) L 02/17/17 19:56 VBG HCO3 27.7 mmol/l (21-28) 02/17/17 19:56 VBG Total CO2 28.9 mmol.L (22-28) H 02/17/17 19:56 VBG O2 Sat (Calc) 99.6 % (40-65) H 02/17/17 19:56 VBG Base Excess 3.6 mmol/L (0.0-2.0) H 02/17/17 19:56 VBG Potassium 4.3 mmol/L (3.6-5.2) 02/17/17 19:56 Sodium 126.0 mmol/L (132-148) L 02/17/17 19:56 Chloride 97.0 mmol/L (98-107) L 02/17/17 19:56 Glucose 135 mg/dl (65-105) H 02/17/17 19:56 Lactate 1.3 mmol/L (0.7-2.1) 02/17/17 19:56 FiO2 21.0 % 02/17/17 19:56 Sodium 134 mmol/L (132-148) 02/23/17 07:00 Potassium 3.9 mmol/L (3.6-5.0) 02/23/17 07:00 Chloride 102 mmol/L (98-107) 02/23/17 07:00 Carbon Dioxide 26 mmol/L (21-33) 02/23/17 07:00 Anion Gap 10 (10-20) 02/23/17 07:00 BUN 9 mg/dL (7-21) 02/23/17 07:00 Creatinine 0.5 mg/dL (0.5-1.4) 02/23/17 07:00 Est GFR ( Amer) > 60 02/23/17 07:00 Est GFR (Non-Af Amer) > 60 02/23/17 07:00 Random Glucose 86 mg/dL (70-110) 02/23/17 07:00 Calcium 8.2 mg/dL (8.4-10.5) L 02/23/17 07:00 Phosphorus 3.0 mg/dL (2.5-4.5) 02/17/17 19:56 Magnesium 1.6 mg/dL (1.7-2.2) L 02/17/17 19:56 Total Bilirubin 0.8 mg/dL (0.2-1.3) 02/23/17 07:00 AST 50 U/L (15-39) H 02/23/17 07:00 ALT 44 U/L (7-56) 02/23/17 07:00 Alkaline Phosphatase 203 U/L (38-133) H 02/23/17 07:00 Troponin I 0.03 ng/mL 02/17/17 19:56 Total Protein 5.4 g/dL (5.8-8.3) L 02/23/17 07:00 Albumin 2.8 g/dL (3.0-4.8) L 02/23/17 07:00 Globulin 2.6 gm/dL 02/23/17 07:00 Albumin/Globulin Ratio 1.1 (1.1-1.8) 02/23/17 07:00 Procalcitonin 0.10 NG/ML (0.19-0.49) L 02/17/17 19:00 Venous Blood Potassium 4.3 mmol/L (3.6-5.2) 02/17/17 19:56 Urine Color yellow (YELLOW) 02/18/17 01:10 Urine Appearance Clear (CLEAR) 02/18/17 01:10 Urine pH 6.5 (4.7-8.0) 02/18/17 01:10 Ur Specific [place] <= 1.005 (1.005-1.035) 02/18/17 01:10 Urine Protein Negative mg/dL (<30 mg/dL) 02/18/17 01:10 Urine Glucose (UA) Negative mg/dL (NEGATIVE) 02/18/17 01:10 Urine Ketones Negative mg/dL (NEGATIVE) 02/18/17 01:10 Urine Blood Negative (NEGATIVE) 02/18/17 01:10 Urine Nitrate Positive (NEGATIVE) H 02/18/17 01:10 Urine Bilirubin Negative (NEGATIVE) 02/18/17 01:10 Urine Urobilinogen 0.2 E.U./dL (<1 E.U./dL) 02/18/17 01:10 Ur Leukocyte Esterase Trace Rosita/uL (NEGATIVE) H 02/18/17 01:10 Urine RBC TEST NOT PERFORMED 02/18/17 01:10 Urine WBC 2 - 5 /hpf (0-6) 02/18/17 01:10 Ur Epithelial Cells 6 - 8 /hpf (0-5) 02/18/17 01:10 Urine Bacteria Trace (NEG) 02/18/17 01:10 - Hospital Course Hospital Course: Patient is an 86yo female with history of atrial fibrillation, hypertension, scoliosis, hypothyroidism, DVT s/p IVC filter 4 years ago, brain aneurysm s/p clipping, dementia, shingles, colon ca s/p resection and chemotherapy 2012 and liver cysts who originally presented to [facility] c/o abdominal pain for several days prior to presentation. A CT abd/pelvis was done in the ED and showed ileitis. Patient was started on cetriaxone and flagyl and was subsequently transitioned to oral vantin and flagyl. Patient reported improvement in her abdominal pain had no issues with bowel or bladder movement. A repeat abdominal flat plate and abdominal CTwas negative for obstructions. Patient was also noted to have multiple liver cysts with the largest being 20 cm. She was evaluated by interventional radiology for possible drainage, however the family was not interested in surgical intervention. She also underwent a cardiac catherization due to concerns for possible cardiac etiology of her chest pain. It revealed 50% stenosis of mid LAD and no stents were placed. Post cardiac cath, patient developed pulm congestion, 2nd to fluid overload, chest x-ray revealed pulm congestion and atelectasis. Patient was giving bronchodilators, Lasix 40 mg ivp. Patient improved after lasix. Patient underwent repeat sepsis workup with blood cultures that revealed no growth, procalcitonin was low and she had a mildly elevated NT-proBNP. 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 She was subsequently started on tolvaptan and had resolution of her hyponatermia. Patient also has known chronic atrial fibrillation, however she is not on anticoagulation. As per patient and family, patient is at increased risk of falling, and has a history of brain aneurysm, giving the reasons why they don't want patient to be on anticoagulation. Risk versus benefit of choosing anticoagulation versus refusing anticoag discussed with family at bedside. A head CT was done and revealed chronic microvascular changes, no acute findings. A chest CT showed moderate size pleural effusion with no evidence of lung mass or consolidation. She was subsequently discharged to the transitional care unit for physical therapy/rehabilitation. During the course of her stay at the TCU, she became hypotensive and was subsequently sent down to the emergency room for evaluation. A urinalysis was consistent with UTI and she was treated with IV fluids and IV rocephin. She was readmitted and treated with IV antibiotics. Her symptoms improved and she was hemodynamically stable throughout. She was then discharged with instructions to follow up with her primary doctor within 1 week. Workup/plan was communicated with the family throughout her hospital course and family was in agreement for discharge. Discharge Exam - Head Exam Head Exam: ATRAUMATIC, NORMAL INSPECTION, NORMOCEPHALIC - Eye Exam Eye Exam: EOMI, PERRL - Respiratory Exam Respiratory Exam: Clear to PA & Lateral. absent: Rales, Rhonchi, Wheezes - Cardiovascular Exam Cardiovascular Exam: Irregular Rhythm, +S1, +S2. absent: Gallop, Rubs - GI/Abdominal Exam GI & Abdominal Exam: Normal Bowel Sounds, Soft. absent: Distended, Firm, Guarding, Rebound, Tenderness - Neurological Exam Neurological exam: Alert, Oriented x3 - Psychiatric Exam Psychiatric exam: Normal Affect, Normal Mood - Skin Skin Exam: Dry, Intact, Normal Color, Warm Discharge Plan - Discharge Medications Prescriptions: Tolvaptan [Samsca] 15 mg PO DAILY #30 tab - Follow Up Plan Condition: STABLE Disposition: HOME/ ROUTINE Instructions: Dehydration (DC), Hyponatremia (DC) Additional Instructions: 1. Follow up with your PMD within 1 week of discharge 2. Continue to take your medications as prescribed 3. Return to the emergency room should your condition worsen Referrals: Thanh Sr MD [Primary Care Provider] - <Leo Hernandez - Last Filed: 02/27/17 17:47> Provider - Provider Date of Admission: 02/18/17 12:31 Attending physician: Thanh Sr MD Primary care physician: Thanh Sr MD Hospital Course - Lab Results Lab Results: Most Recent Lab Values WBC 7.9 10^3/ul (4.5-11.0) 02/23/17 07:00 RBC 3.21 10^6/uL (3.5-6.1) L 02/23/17 07:00 Hgb 9.5 gm/dL (12.0-16.0) L 02/23/17 07:00 Hct 29.9 % (36.0-48.0) L 02/23/17 07:00 MCV 93.1 fL (80.0-105.0) 02/23/17 07:00 MCH 29.6 pg (25.0-35.0) 02/23/17 07:00 MCHC 31.8 g/dl (31.0-37.0) 02/23/17 07:00 RDW 15.0 % (11.5-14.5) H 02/23/17 07:00 Plt Count 255 10^3/uL (120.0-450.0) 02/23/17 07:00 MPV 8.5 fl (7.0-11.0) 02/23/17 07:00 Gran % 66.3 % (50.0-68.0) 02/23/17 07:00 Lymph % (Auto) 19.3 % (22.0-35.0) L 02/23/17 07:00 [place] % (Auto) 11.0 % (1.0-6.0) H 02/23/17 07:00 Eos % (Auto) 2.5 % (1.5-5.0) 02/23/17 07:00 Baso % (Auto) 0.9 % (0.0-3.0) 02/23/17 07:00 Gran # 5.22 (1.4-6.5) 02/23/17 07:00 Lymph # 1.5 (1.2-3.4) 02/23/17 07:00 [place] # 0.9 (0.1-0.6) H 02/23/17 07:00 Eos # 0.2 (0.0-0.7) 02/23/17 07:00 Baso # 0.07 K/mm3 (0.0-2.0) 02/23/17 07:00 PT 15.3 Seconds (9.9-11.8) H 02/17/17 19:56 INR 1.42 (0.93-1.08) H 02/17/17 19:56 APTT 31.3 Seconds (23.7-30.8) H 02/17/17 19:56 pO2 211 mm/Hg (30-55) H 02/17/17 19:56 VBG pH 7.46 (7.32-7.43) H 02/17/17 19:56 VBG pCO2 39.0 (40-60) L 02/17/17 19:56 VBG HCO3 27.7 mmol/l (21-28) 02/17/17 19:56 VBG Total CO2 28.9 mmol.L (22-28) H 02/17/17 19:56 VBG O2 Sat (Calc) 99.6 % (40-65) H 02/17/17 19:56 VBG Base Excess 3.6 mmol/L (0.0-2.0) H 02/17/17 19:56 VBG Potassium 4.3 mmol/L (3.6-5.2) 02/17/17 19:56 Sodium 126.0 mmol/L (132-148) L 02/17/17 19:56 Chloride 97.0 mmol/L (98-107) L 02/17/17 19:56 Glucose 135 mg/dl (65-105) H 02/17/17 19:56 Lactate 1.3 mmol/L (0.7-2.1) 02/17/17 19:56 FiO2 21.0 % 02/17/17 19:56 Sodium 134 mmol/L (132-148) 02/23/17 07:00 Potassium 3.9 mmol/L (3.6-5.0) 02/23/17 07:00 Chloride 102 mmol/L (98-107) 02/23/17 07:00 Carbon Dioxide 26 mmol/L (21-33) 02/23/17 07:00 Anion Gap 10 (10-20) 02/23/17 07:00 BUN 9 mg/dL (7-21) 02/23/17 07:00 Creatinine 0.5 mg/dL (0.5-1.4) 02/23/17 07:00 Est GFR ( Amer) > 60 02/23/17 07:00 Est GFR (Non-Af Amer) > 60 02/23/17 07:00 Random Glucose 86 mg/dL (70-110) 02/23/17 07:00 Calcium 8.2 mg/dL (8.4-10.5) L 02/23/17 07:00 Phosphorus 3.0 mg/dL (2.5-4.5) 02/17/17 19:56 Magnesium 1.6 mg/dL (1.7-2.2) L 02/17/17 19:56 Total Bilirubin 0.8 mg/dL (0.2-1.3) 02/23/17 07:00 AST 50 U/L (15-39) H 02/23/17 07:00 ALT 44 U/L (7-56) 02/23/17 07:00 Alkaline Phosphatase 203 U/L (38-133) H 02/23/17 07:00 Troponin I 0.03 ng/mL 02/17/17 19:56 Total Protein 5.4 g/dL (5.8-8.3) L 02/23/17 07:00 Albumin 2.8 g/dL (3.0-4.8) L 02/23/17 07:00 Globulin 2.6 gm/dL 02/23/17 07:00 Albumin/Globulin Ratio 1.1 (1.1-1.8) 02/23/17 07:00 Procalcitonin 0.10 NG/ML (0.19-0.49) L 02/17/17 19:00 Venous Blood Potassium 4.3 mmol/L (3.6-5.2) 02/17/17 19:56 Urine Color yellow (YELLOW) 02/18/17 01:10 Urine Appearance Clear (CLEAR) 02/18/17 01:10 Urine pH 6.5 (4.7-8.0) 02/18/17 01:10 Ur Specific [place] <= 1.005 (1.005-1.035) 02/18/17 01:10 Urine Protein Negative mg/dL (<30 mg/dL) 02/18/17 01:10 Urine Glucose (UA) Negative mg/dL (NEGATIVE) 02/18/17 01:10 Urine Ketones Negative mg/dL (NEGATIVE) 02/18/17 01:10 Urine Blood Negative (NEGATIVE) 02/18/17 01:10 Urine Nitrate Positive (NEGATIVE) H 02/18/17 01:10 Urine Bilirubin Negative (NEGATIVE) 02/18/17 01:10 Urine Urobilinogen 0.2 E.U./dL (<1 E.U./dL) 02/18/17 01:10 Ur Leukocyte Esterase Trace Ros[place]/uL (NEGATIVE) H 02/18/17 01:10 Urine RBC TEST NOT PERFORMED 02/18/17 01:10 Urine WBC 2 - 5 /hpf (0-6) 02/18/17 01:10 Ur Epithelial Cells 6 - 8 /hpf (0-5) 02/18/17 01:10 Urine Bacteria Trace (NEG) 02/18/17 01:10 Attending/Attestation - Attestation I have personally seen and examined this patient.: Yes I have fully participated in the care of the patient.: Yes I have reviewed all pertinent clinical information, including history, physical exam and plan: Yes Notes (Text): 02/27/17 17:47 Medical record note made by the resident after discussion with my direction and input after the patient was personally seen and examined by me. I have reviewed the chart and agree that the record accurately reflects by personal performance of the history, physical exam, data review, and medical decision-making, in the course for the patient. I have also personally directed the plan of care.
== END 2017-02-24 14:43 | disposition home or self-care (01) | DRG 871 ==
LOC: ED 19:27 → ERH 21:26 → 2RSO 02-18 01:09 → OBSVTOIN 02-18 12:31 → 2RSO 02-19 22:58 → 3RNO 02-20 21:13
PROVIDERS: ADMIT Internal Medicine; ATTEND Internal Medicine
DX: A41.9 Sepsis, unspecified organism (principal); J18.9 Pneumonia, unspecified organism; I67.1 Cerebral aneurysm, nonruptured; E22.2 Syndrome of inappropriate secretion of antidiuretic hormone; N39.0 Urinary tract infection, site not specified; I48.2 Chronic atrial fibrillation; K76.89 Other specified diseases of liver; E83.39 Other disorders of phosphorus metabolism; E83.42 Hypomagnesemia; R16.0 Hepatomegaly, not elsewhere classified; J98.11 Atelectasis; E86.0 Dehydration; I10 Essential (primary) hypertension; E03.9 Hypothyroidism, unspecified; I25.10 Atherosclerotic heart disease of native coronary artery without angina pectoris; K52.9 Noninfective gastroenteritis and colitis, unspecified; Z66 Do not resuscitate; E78.00 Pure hypercholesterolemia, unspecified; E87.6 Hypokalemia; Y95 Nosocomial condition; Z85.038 Personal history of other malignant neoplasm of large intestine; Z86.718 Personal history of other venous thrombosis and embolism; Z79.82 Long term (current) use of aspirin; Z87.891 Personal history of nicotine dependence

== ENCOUNTER 2017-02-28 09:50 | Emergency (ER) | payer MEDICARE ==
[2017-02-28 09:52] VITALS: BMI 19.5
[2017-02-28 10:16] VITALS: TEMP 97.8
[2017-02-28] MEDS ORDERED: Sodium Chloride 0.9% 500 ML IV STA (10:23)
[2017-02-28 10:53] LABS: ADD MANUAL DIFF? NO
[2017-02-28 10:58] LABS: VENOUS BLOOD GAS BASE EXCESS 2.7 mmol/L (0.0-2.0); VENOUS BLOOD PH 7.41 (7.32-7.43)
[2017-02-28 11:00] LABS: BASO # 0.03 K/mm3 (0.0-2.0); BASO % 0.3 % (0.0-3.0); EOS # 0.1 (0.0-0.7); EOS % 1.2 % (1.5-5.0); GRAN # 8.39 (1.4-6.5); GRAN % 80.8 % (50.0-68.0); HEMATOCRIT 30.4 % (36.0-48.0); LYMPH % 9.6 % (22.0-35.0); MEAN CELL VOLUME 91.3 fL (80.0-105.0); MEAN CORPUSCULAR HGB CONC 32.9 g/dl (31.0-37.0); MEAN PLATELET VOLUME 8.9 fl (7.0-11.0); MONO # 0.8 (0.1-0.6); MONO % 8.1 % (1.0-6.0); PLATELET COUNT 229 10^3/uL (120.0-450.0); WHITE BLOOD COUNT 10.4 10^3/ul (4.5-11.0)
--- NOTE | 2017-02-28 11:01 | ED PDOC ---
Arrival/HPI - General Chief Complaint: Trauma Time Seen by Provider: 02/28/17 10:00 Historian: Patient, Family - History of Present Illness Narrative History of Present Illness (Text): 02/28/17 11:20 An 86 year old female, hospice patient, whose past medical history includes atrial fibrillation, hypertension, colon cancer, brain aneurysm with clip, hypothyroidism, DVT (with IVC placement) and dementia, presents to the emergency department s/p fall. Family states patient fell out of bed and hit head. Patient states she missed her daytime babysitter and fell and is complaining of pain to forehead with a hematoma. Patient denies any other pain or complaints at this time. Patient's history mostly given by family. PMD: Dr. Sr Symptom Onset: Sudden Symptom Course: Unchanged Activities at Onset: Rest Associated Symptoms (Text): none Past Medical History - Provider Review Nursing Documentation Reviewed: Yes - Infectious Disease Hx of Infectious Diseases: None - Tetanus Immunization Tetanus Immunization: Unknown - Reproductive Menopause: Yes - Cardiac Hx Cardiac Disorders: Yes Hx Atrial Fibrillation: Yes Other/Comment: embolism 20 years ago has ivc filter pt and family not sure where the embolism was,pt is scheduled for cardiac catherization 02/09/[address] trujillo, varicose veins to ble, feet turn "blue" at times when feet are down - Pulmonary Hx Respiratory Disorders: No - Neurological Hx Neurological Disorder: No - HEENT Hx Cataracts: Yes (b/l no sx) - Renal Hx Renal Disorder: No - Endocrine/Metabolic Hx Hypothyroidism: Yes - Hematological/Oncological Hx Blood Disorders: No Hx Chemotherapy: Yes (1 yr) - Integumentary Hx Dermatological Disorder: Yes - Musculoskeletal/Rheumatological Hx Falls: No - Gastrointestinal Hx Gastrointestinal Disorders: Yes Other/Comment: COLON CA, incarciated hernia - Genitourinary/Gynecological Hx Genitourinary Disorders: No - Psychiatric Hx Depression: No Hx Emotional Abuse: No Hx Physical Abuse: No Hx Substance Use: No - Past Surgical History Past Surgical History: Non-Contributing - Surgical History Hx Cardiac Catheterization: Yes Other/Comment: R/T COLON CA, ANEURYSM - Anesthesia Hx Anesthesia: Yes Hx Anesthesia Reactions: No - Suicidal Assessment Feels Threatened In Home Enviroment: No Family/Social History - Physician Review Nursing Documentation Reviewed: Yes Family/Social History: No Known Family HX Smoking Status: Former Smoker Hx Alcohol Use: No Hx Substance Use: No Allergies/Home Meds Allergies/Adverse Reactions: Allergies No Known Allergies Allergy (Verified 02/28/17 10:04) Home Medications: Home Meds Medication Instructions Recorded Confirmed Rosuvastatin Calcium [Crestor] 10 mg PO DAILY 01/30/17 02/28/17 Clindamycin [Cleocin] 4 tab PO DAILY 02/28/17 02/28/17 Propafenone [Rythmol] 150 mg PO DAILY 02/28/17 02/28/17 Review of Systems - Physician Review All systems were reviewed & negative as marked: Yes - Review of Systems Constitutional: Other (pain to forehead, hematoma) Musculoskeletal: absent: Back Pain, Neck Pain Physical Exam Vital Signs Reviewed: Yes Vital Signs Temp Pulse Resp BP Pulse Ox 02/28/17 12:18 115 H 18 141/107 H 97 02/28/17 11:00 118 H 18 145/71 94 L 02/28/17 09:51 97.8 F 128 H 15 148/74 91 L Temperature: Afebrile Blood Pressure: Normal Pulse: Tachycardic Respiratory Rate: Normal Appearance: Positive for: Well-Appearing, Non-Toxic, Comfortable Pain Distress: None Mental Status: Positive for: Alert and Oriented X 3 - Systems Exam Head: Present: Atraumatic, Other (hematoma to forehead) Pupils: Present: PERRL Extroacular Muscles: Present: EOMI Conjunctiva: Present: Normal Mouth: Present: Moist Mucous Membranes Nose (Internal): Present: Other (dried red blood R naris) Neck: Present: Normal Range of Motion. No: MIDLINE TENDERNESS Respiratory/Chest: Present: Clear to Auscultation, Good Air Exchange. No: Respiratory Distress, Accessory Muscle Use Cardiovascular: Present: Regular Rate and Rhythm, Normal S1, S2. No: Murmurs Abdomen: Present: Normal Bowel Sounds, Hernias (reducible). No: Tenderness, Distention, Peritoneal Signs Back: Present: Normal Inspection. No: Midline Tenderness Upper Extremity: Present: Normal Inspection. No: Cyanosis, Edema Lower Extremity: Present: Normal Inspection, Normal ROM, Other (ecchymosis to right hip ). No: Edema Neurological: Present: GCS=15, CN II-XII Intact, Speech Normal Skin: Present: Warm, Dry, Normal Color. No: Rashes Psychiatric: Present: Alert, Normal Insight, Normal Concentration. No: Oriented x 3 (oriented X2) Medical Decision Making ED Course and Treatment: 02/28/17 10:51 Impression: An 86 year old female s/p fall with pain to forehead. Differential Diagnosis included but are not limited to: mechanical fall head injury r/o fracture, cerebral hemorrhage Plan: -- EKG -- CT abd and pelvis -- CT cervical spine -- CT head -- CT maxillofacial -- labs -- IV fluids -- Reassess and disposition Prior Visits: Notes and results from previous visits were reviewed. Patient last reported to the emergency department on 02/18/17 for evaluation of hypotension. Patient admitted under Dr. Sr' service to telemetry observation for transient hypotension, dehydration, UTI and hyponatremia. Patient was discharged on 02/24/17. Progress Notes: EKG: Ordered, reviewed, and independently interpreted the EKG. Rate : 133 BPM Rhythm : Atrial fibrillation Interpretation : nonspecific T wave inversion Family reports patient is rapid atrial fibrillation at 100's is her baseline. Patient was made hospice yesterday by Dr. Hernandez as per family. 02/28/17 11:44 CT Cervical Spine without contrast Creator : Blaze Carcamo MD IMPRESSION: No fracture. Grade 1 anterolisthesis at C7-T1 likely degenerative in origin. Multilevel degenerative disc disease with bilateral neural foraminal stenosis but no central spinal stenosis. Right pleural effusion. 02/28/2017 11:25:38 Creator : Isak Nunez MD CT HEAD WITHOUT CONTRAST FINDINGS: IMPRESSION: Localized hyperdense appearance of bifrontal inferior bifrontal cortex felt to be secondary to motion and streak/beam hardening artifact and not a true parenchymal hemorrhage . Mid and right frontal scalp contusion. Moderate to significant chronic white matter and basal nuclei ischemic changes. Moderate to significant generalized volume loss. Tiny bubble of air within the right posteromedial orbit seen on concurrent CT scan maxillofacial skeleton not appreciated on this study There there is a small rounded metallic foreign bodies (questionable BB) approximately 1.5 mm tiny metallic foreign body within the right cavernous carotid canal the which appears to be located in the cavernous artery itself. Clinical correlation recommended. Note that these small metallic foreign bodies preclude the patient from having any at MRI studies in the future. . Note that 2 additional similar tiny metallic foreign bodies within the soft tissues of the knee at right neck and skullbase are not appreciated on this exam than seen on concurrent CT scan maxillofacial skeleton. Findings discussed with emergency room physician Dr. Frye at 11:49 a.m. with written down and read back verification. 02/28/2017 11:56 CT scan maxillofacial skeleton Creator : Isak Nunez MD Impression: Bilateral nasal bone fractures with overlying soft tissue swelling extending superiorly to the bridge of the nose and glabella region left greater than right. There is also deviation of nasal septum that could be pre-existing finding. There is also a small right-sided nasal septal spur daly. Mid and right frontal scalp contusion/soft tissue swelling. Tiny bubble of air within the posteromedial aspect right orbit source of which is uncertain though could be secondary to adjacent ethmoid air complex the right lamina papyracea is intact. There are multiple small rounded metallic foreign bodies (questionable BBs) as follows: Approximately 1.3 mm metallic density/foreign body within the right submandibular region as detailed above. 2nd approximately 1.5 mm metallic rounded metallic foreign body within posterior superior soft tissues near the skullbase 3rd similar approximately 1.5 mm tiny metallic foreign body within the right cavernous carotid canal the which appears to be located in the cavernous artery itself. Clinical correlation recommended. Note that this small metallic foreign bodies preclude the patient from having at MRI studies in the future. Findings discussed with emergency room physician Dr. Frye at 11:49 a.m. with written down and read back verification. 02/28/17 12:[address] Arredondo, who placed patient on hospice yesterday. Family at bedside agree with hospice care. Family refuse abdomen CAT scan, not planning on doing any interventions with CT findings. Family want patient to be discharged. Potassium and Magnesium replaced. Nasal fractures appreciated. Treated with Augmentin. rX Augmentin and Afrin spray. Will follow up hospiceand with Dr. Hernandez. Patient and family feel comfortable with discharge plan and will make sure to follow up with Dr. Arredondo and ENT. - Lab Interpretations Lab Results: 02/28/17 10:00 02/28/17 10:00 Lab Results 02/28/17 10:00: Sodium 125 L, Chloride 93 L, Potassium 3.4 L, Carbon Dioxide 26 , Anion Gap 9 L, BUN 13, Creatinine 0.7, Est GFR ( Amer) > 60, Est GFR ( Non-Af Amer) > 60, Random Glucose 99, Calcium 8.4, Magnesium 1.4 L, Total Bilirubin 2.1 H, AST 66 H, ALT 42, Alkaline Phosphatase 216 H, Total Protein 5.9 , Albumin 3.1, Globulin 2.8, Albumin/Globulin Ratio 1.1 02/28/17 10:00: pO2 67 H, VBG pH 7.41, VBG pCO2 44.0, VBG HCO3 27.9, VBG Total CO2 29.3 H, VBG O2 Sat (Calc) 96.3 H, VBG Base Excess 2.7 H, VBG Potassium 3.3 L , Sodium 127.0 L, Chloride 94.0 L, Glucose 102, Lactate 1.3, FiO2 21.0, Venous Blood Potassium 3.3 L 02/28/17 10:00: WBC 10.4 D, RBC 3.33 L, Hgb 10.0 L, Hct 30.4 L, MCV 91.3, MCH 30.0, MCHC 32.9, RDW 15.0 H, Plt Count 229, MPV 8.9, Gran % 80.8 H, Lymph % ( Auto) 9.6 L, [place] % (Auto) 8.1 H, Eos % (Auto) 1.2 L, Baso % (Auto) 0.3, Gran # 8.39 H, Lymph # 1.0 L, [place] # 0.8 H, Eos # 0.1, Baso # 0.03 I have reviewed the lab results: Yes Interpretation: Abnormal lab values - RAD Interpretation Radiology Orders: 02/28/17 10:21 CERVICAL SPINE W/O CONTRAST [CT] Stat HEAD W/O CONTRAST [CT] Stat MAXILLOFACIAL W/O CONTRAST [CT] Stat 02/28/17 10:54 Hip Right [HIP MIN 2V W/ PELVIS RT] [RAD] Stat Xrays negative Accounting Machine Operator: ED Physician - EKG Interpretation Interpreted by ED Physician: Yes Type: 12 lead EKG - Medication Orders Current Medication Orders: Discontinued Medications Amoxicillin/Clavulanate Potassium (Augmentin 875 Mg-125 Mg Tab) 1 tab PO STAT STA PRN Reason: Protocol Stop: 02/28/17 12:54 Last Admin: 02/28/17 13:26 Dose: Sodium Chloride (Sodium Chloride 0.9%) 500 mls @ 999 mls/hr IV .Q31M STA Stop: 02/28/17 10:53 Last Admin: 02/28/17 10:51 Dose: 999 mls/hr Magnesium Oxide (Mag-Ox) 400 mg PO STAT STA Stop: 02/28/17 11:43 Last Admin: 02/28/17 12:01 Dose: 400 mg Potassium Chloride (K-Dur 20 Meq Er Tab) 40 meq PO STAT STA Stop: 02/28/17 11:44 Last Admin: 02/28/17 12:01 Dose: 40 meq - Scribe Statement The provider has reviewed the documentation as recorded by the Christi Allen Provider Scribe Attestation: All medical record entries made by the Radhaibjefe were at my direction and personally dictated by me. I have reviewed the chart and agree that the record accurately reflects my personal performance of the history, physical exam, medical decision making, and the department course for this patient. I have also personally directed, reviewed, and agree with the discharge instructions and disposition. Disposition/Present on Arrival - Present on Arrival Any Indicators Present on Arrival: No History of DVT/PE: No History of Uncontrolled Diabetes: No Urinary Catheter: No History of Decub. Ulcer: No History Surgical Site Infection Following: None - Disposition Have Diagnosis and Disposition been Completed?: Yes Diagnosis: Nasal bone fracture, Head contusion, Contusion, hip, Chronic hyponatremia Disposition: HOME/ ROUTINE Disposition Time: 13:10 Patient Plan: Discharge Condition: GOOD Discharge Instructions (ExitCare): Nasal Fracture (ED), Hyponatremia (ED), Head Injury (ED), Hip Contusion (ED) Additional Instructions: Ms Thompson, thank you for letting us take care of you today. Your provider was Dr. Frye. You were treated for Head Contusion, Nasal Bone Fractures, Hip Contusion, Hyponatremia, Hypokalemia, Hypomagnesium. The emergency medical care you received today was directed at your acute symptoms. If you were prescribed any medication, please fill it and take as directed. It may take several days for your symptoms to resolve. Return to the Emergency Department if your symptoms worsen, do not improve, or if you have any other problems. Please contact your doctor or call one of the physicians/clinics you have been referred to that are listed on the Patient Visit Information form that is included in your discharge packet. Bring any paperwork you were given at discharge with you along with any medications you are taking to your follow up visit. Our treatment cannot replace ongoing medical care by a primary care provider (PCP) outside of the emergency department. Thank you for allowing the [facility] team to be part of your care today. If you had an X-Ray or CT scan: A Radiologist will review the ED reading if any change in treatment is needed we will contact you. If you had a blood, urine, or wound culture: It will take several days for the results, if any change in treatment is needed we will contact you. If you had an STI test: It will take 48 hours for the results. Please call after 1 week if you have not heard back. Prescriptions: Amoxicillin/Clavulanate [Augmentin 875 MG-125 MG] 1 tab PO BID #14 tab Oxymetazoline 0.05% [Afrin 0.05%] 2 spr NS Q12H #1 bottle Referrals: Thanh Sr MD [Primary Care Provider] - Follow up with primary
[2017-02-28 11:09] LABS: ALB/GLOB RATIO 1.1 (1.1-1.8); ALKALINE PHOSPHATASE 216 U/L (38-133); ALT/SGPT 42 U/L (7-56); AST/SGOT 66 U/L (15-39); BILIRUBIN,TOTAL 2.1 mg/dL (0.2-1.3); BLOOD UREA NITROGEN 13 mg/dL (7-21); CALCIUM 8.4 mg/dL (8.4-10.5); CARBON DIOXIDE 26 mmol/L (21-33); CHLORIDE 93 mmol/L (98-107); GFR AFRICAN-AMERICAN > 60; GLUCOSE,RANDOM 99 mg/dL (70-110); MAGNESIUM 1.4 mg/dL (1.7-2.2); POTASSIUM 3.4 mmol/L (3.6-5.0); SODIUM 125 mmol/L (132-148); TOTAL PROTEIN 5.9 g/dL (5.8-8.3)
--- NOTE | 2017-02-28 11:30 | CP.PCM.CON ---
History of Present Illness - History of Present Illness History of Present Illness: Palliative consult requested by Dr Ramana Sr attending Reason: homicide discussion 86 year old female who presented to ED with a scalp hematoma after a mechanical fall at home. She complains of pain /tenderness of forehead and nose. Recently admitted for dehydration and hyponatremia, 02/18/17. PMHX: chronic atrial fibrillation, colon cancer, brain aneurysm with clip, DVT s /p IVC placement, HTN, hypothyroidism,dementia. Family History: Non contributory. Social History: Non smoker,no alcohol or drug use. Lives with son and daughter in law Advance Car Planning: The patient is DNR/DNI. Her son, Yahir Thompson is POA. Review of System: As per HPI, otherwise unremarkable. Past Patient History - Infectious Disease Hx of Infectious Diseases: None - Tetanus Immunizations Tetanus Immunization: Unknown - Past Social History Smoking Status: Former Smoker - CARDIAC Hx Cardiac Disorders: Yes Hx Atrial Fibrillation: Yes Other/Comment: embolism 20 years ago has ivc filter pt and family not sure where the embolism was,pt is scheduled for cardiac catherization 02/09/[address] trujillo, varicose veins to ble, feet turn "blue" at times when feet are down - PULMONARY Hx Respiratory Disorders: No - NEUROLOGICAL Hx Neurological Disorder: No - HEENT Hx Cataracts: Yes (b/l no sx) - RENAL Hx Chronic Kidney Disease: No - ENDOCRINE/METABOLIC Hx Hypothyroidism: Yes - HEMATOLOGICAL/ONCOLOGICAL Hx Blood Disorders: No Hx Chemotherapy: Yes (1 yr) - INTEGUMENTARY Hx Dermatological Problems: Yes - MUSCULOSKELETAL/RHEUMATOLOGICAL Hx Falls: No - GASTROINTESTINAL Hx Gastrointestinal Disorders: Yes Other/Comment: COLON CA, incarciated hernia - GENITOURINARY/GYNECOLOGICAL Hx Genitourinary Disorders: No - PSYCHIATRIC Hx Depression: No Hx Emotional Abuse: No Hx Physical Abuse: No Hx Substance Use: No - SURGICAL HISTORY Hx Cardiac Catheterization: Yes Other/Comment: R/T COLON CA, ANEURYSM - ANESTHESIA Hx Anesthesia: Yes Hx Anesthesia Reactions: No Meds Allergies/Adverse Reactions: Allergies Allergy/AdvReac Type Severity Reaction Status Date / Time No Known Allergies Allergy Verified 02/28/17 10:04 Physical Exam - Constitutional Appears: Chronically Ill - Head Exam Additional comments: hematoma forehead - Eye Exam Eye Exam: Normal appearance, PERRL - ENT Exam ENT Exam: Mucous Membranes Moist, Normal Oropharynx - Neck Exam Neck exam: Positive for: Normal Inspection - Respiratory Exam Respiratory Exam: Decreased Breath Sounds, NORMAL BREATHING PATTERN - Cardiovascular Exam Cardiovascular Exam: Tachycardia, Irregular Rhythm, +S1, +S2 - GI/Abdominal Exam GI & Abdominal Exam: Normal Bowel Sounds, Soft - Extremities Exam Extremities exam: Positive for: normal inspection, pedal pulses present - Back Exam Back exam: NORMAL INSPECTION - Neurological Exam Neurological exam: Alert, Oriented x3 - Skin Skin Exam: Dry, Pallor - Additional Findings Additional findings: Palliative performance scale rating, 40% Results - Vital Signs Recent Vital Signs: Last Vital Signs Temp 97.8 F 02/28/17 09:51 Pulse 128 H 02/28/17 09:51 Resp 15 02/28/17 09:51 BP 148/74 02/28/17 09:51 Pulse Ox 91 L 02/28/17 09:51 - Labs Result Diagrams: 02/28/17 10:00 02/28/17 10:00 Labs: Laboratory Results - last 24 hr 02/28/17 02/28/17 02/28/17 10:00 10:00 10:00 WBC 10.4 D RBC 3.33 L Hgb 10.0 L Hct 30.4 L MCV 91.3 MCH 30.0 MCHC 32.9 RDW 15.0 H Plt Count 229 MPV 8.9 Gran % 80.8 H Lymph % (Auto) 9.6 L [place] % (Auto) 8.1 H Eos % (Auto) 1.2 L Baso % (Auto) 0.3 Gran # 8.39 H Lymph # 1.0 L [place] # 0.8 H Eos # 0.1 Baso # 0.03 pO2 67 H VBG pH 7.41 VBG pCO2 44.0 VBG HCO3 27.9 VBG Total CO2 29.3 H VBG O2 Sat (Calc) 96.3 H VBG Base Excess 2.7 H VBG Potassium 3.3 L Sodium 127.0 L 125 L Chloride 94.0 L 93 L Glucose 102 Lactate 1.3 FiO2 21.0 Potassium 3.4 L Carbon Dioxide 26 Anion Gap 9 L BUN 13 Creatinine 0.7 Est GFR ( Amer) > 60 Est GFR (Non-Af Amer) > 60 Random Glucose 99 Calcium 8.4 Magnesium 1.4 L Total Bilirubin 2.1 H AST 66 H ALT 42 Alkaline Phosphatase 216 H Total Protein 5.9 Albumin 3.1 Globulin 2.8 Albumin/Globulin Ratio 1.1 Venous Blood Potassium 3.3 L Assessment & Plan - Assessment and Plan (Free Text) Assessment: 86 year old female s/p mechanical fall at home. Multiple comorbidities, please see PMH. Extensive discussion with patients son and daughter in law. Family had been in the process of arranging for hospice care. Family understands that hospice is end of life care and that the goal is to provide pain and symptom management rather than curative/invasive care. Family's intent is to have home hospice care. They are requesting [facility]. A referral was made by me to [facility] for initiation of services tomorrow. The patient is DNR/DNI. Time spent in discussion with family regarding goals of care and end of life counseling, 30 minutes Plan: Discharge to home [facility] hospice evaluation
[2017-02-28 11:39] VITALS: RESP 18
[2017-02-28] MEDS ORDERED: Magnesium Oxide 400 mg Tab UD PO STA (11:42)
[2017-02-28] MEDS ORDERED: Potassium Chloride 20 mEq ER Tab PO STA (11:43)
--- NOTE | 2017-02-28 11:44 | CT ---
PROCEDURE: CT Cervical Spine without contrast HISTORY: Status post fall COMPARISON: None available. TECHNIQUE: Axial computed tomography images were obtained of the cervical spine without the use of intravenous contrast. Coronal and sagittal reformatted images were created and reviewed. Radiation dose: Total exam DLP = 172.31 mGy-cm. This CT exam was performed using one or more of the following dose reduction techniques: Automated exposure control, adjustment of the mA and/or kV according to patient size, and/or use of iterative reconstruction technique. FINDINGS: VERTEBRAE: The vertebral bodies are maintained height. The transverse processes and posterior elements are intact. There is grade 1 anterolisthesis at C7-T1, most likely degenerative in origin. Normal alignment is maintained elsewhere. The atlantoaxial articulation and odontoid process are intact. DISCS/SPINAL CANAL/NEURAL FORAMINA: There is marked narrowing of the intervertebral disc space from C3-4 through C6-7. Multilevel bilateral neural foraminal stenosis is noted. There is no significant central spinal stenosis. PARASPINAL SOFT TISSUES: Note is made of dependent posterior pleural effusion extending to the right lung apex. OTHER FINDINGS: None. IMPRESSION: No fracture. Grade 1 anterolisthesis at C7-T1 likely degenerative in origin. Multilevel degenerative disc disease with bilateral neural foraminal stenosis but no central spinal stenosis. Right pleural effusion.
--- NOTE | 2017-02-28 11:54 | CT ---
PROCEDURE: CT scan maxillofacial skeleton 02/28/2017 HISTORY: Status post fall COMPARISON: Study was read in conjunction with concurrent CT scan brain. TECHNIQUE: Contiguous helical/ transaxial CT images of the maxillofacial bones were obtained. Coronal and sagittal reformats were generated. Radiation dose: Total exam DLP = 714.53 mGy-cm. This CT exam was performed using one or more of the following dose reduction techniques: Automated exposure control, adjustment of the mA and/or kV according to patient size, and/or use of iterative reconstruction technique. . Findings: The current study re- demonstrates mid and right frontal scalp contusion. . Bilateral nasal bone fractures are present with mild overlying soft tissue swelling left greater than right. . Swelling extends superiorly into the level of the bridge of the nose and glabella region left more so than right. . The nasal septum is deviated to the right side which could represent a pre-existing finding. . There is also a small right-sided septal spur. Anterior nasal spine of the maxilla appears intact. . No other definitive acute maxillofacial skeletal fractures are seen. No evidence of acute maxillofacial skeletal fracture seen. There is a tiny bubble of air within the posteromedial aspect right orbit, source of which is uncertain though could be possibly arise from the adjacent ethmoid air complex however the right lamina papyracea appears intact so far as can be seen. Orbits and contents otherwise appear unremarkable. Globes are intact and lenses appropriately located. There are no retrobulbar hemorrhages or collections. Optic nerves and extraocular musculature unremarkable. . The paranasal sinuses are well-developed and currently well-aerated. No fluid levels seen to suggest acute hemorrhage or sinusitis. Small focal area polypoid like mucosal thickening noted in the posterior inferolateral margin of the left maxillary antrum and another in the right sphenoid sinus. The mandible appears grossly intact. Multilevel degenerative spondylosis of the cervical spine. Note is made of partially calcified atherosclerotic plaque There are multiple small rounded metallic foreign bodies (questionable BBs) as follows: Approximately 1.3 mm metallic density/foreign body within the right submandibular region as detailed above. 2nd approximately 1.5 mm metallic rounded metallic foreign body within posterior superior soft tissues near the skullbase 3rd similar approximately 1.5 mm tiny metallic foreign body within the right cavernous carotid canal the which appears to be located in the cavernous artery itself. Clinical correlation recommended. Note that this small metallic foreign bodies preclude the patient from having any at MRI studies in the future. . Impression: Bilateral nasal bone fractures with overlying soft tissue swelling extending superiorly to the bridge of the nose and glabella region left greater than right. There is also deviation of nasal septum that could be pre-existing finding. There is also a small right-sided nasal septal spur daly. Mid and right frontal scalp contusion/soft tissue swelling. Tiny bubble of air within the posteromedial aspect right orbit source of which is uncertain though could be secondary to adjacent ethmoid air complex the right lamina papyracea is intact. There are multiple small rounded metallic foreign bodies (questionable BBs) as follows: Approximately 1.3 mm metallic density/foreign body within the right submandibular region as detailed above. 2nd approximately 1.5 mm metallic rounded metallic foreign body within posterior superior soft tissues near the skullbase 3rd similar approximately 1.5 mm tiny metallic foreign body within the right cavernous carotid canal the which appears to be located in the cavernous artery itself. Clinical correlation recommended. Note that this small metallic foreign bodies preclude the patient from having at MRI studies in the future. Findings discussed with emergency room physician Dr. Frye at 11:49 a.m. with written down and read back verification.
--- NOTE | 2017-02-28 11:58 | CT ---
PROCEDURE: CT HEAD WITHOUT CONTRAST. HISTORY: fall r/o ICH COMPARISON: Comparison made with prior CT scan brain 02/14/2017 correlation also made with the concurrent CT scan maxillofacial skeleton. TECHNIQUE: Axial computed tomography images were obtained through the head/brain without intravenous contrast. Changes note that the examination is limited by motion artifact. Radiation dose: Total exam DLP = 712.18 mGy-cm. This CT exam was performed using one or more of the following dose reduction techniques: Automated exposure control, adjustment of the mA and/or kV according to patient size, and/or use of iterative reconstruction technique. FINDINGS: HEMORRHAGE: There are localized areas of increased attenuation along the inferior bifrontal cortices felt to represent felt to represent normal cortex though slightly more dense in appearance due to motion as well as streak/beam hardening artifact. . These foci are not felt to represent hemorrhage BRAIN: Moderate -significant diffuse/confluent chronic white matter ischemic additionally, there are chronic bilateral basal nuclei with infarct changes as well. Moderate to significant generalized volume loss. Mild vascular calcifications. VENTRICLES: No obstructive hydrocephalus CALVARIUM: No acute calvarial fractures. Localized right and mid frontal scalp contusion. PARANASAL SINUSES: Unremarkable as visualized. No significant inflammatory changes. MASTOID AIR CELLS: The mastoid air complexes are slightly underpneumatized and sclerotic with partial opacification OTHER FINDINGS: Tiny bubble of air within the right posteromedial orbit seen on concurrent CT scan maxillofacial skeleton not appreciated on this study IMPRESSION: Localized hyperdense appearance of bifrontal inferior bifrontal cortex felt to be secondary to motion and streak/beam hardening artifact and not a true parenchymal hemorrhage . Mid and right frontal scalp contusion. Moderate to significant chronic white matter and basal nuclei ischemic changes. Moderate to significant generalized volume loss. Tiny bubble of air within the right posteromedial orbit seen on concurrent CT scan maxillofacial skeleton not appreciated on this study There there is a small rounded metallic foreign bodies (questionable BB) approximately 1.5 mm tiny metallic foreign body within the right cavernous carotid canal the which appears to be located in the cavernous artery itself. Clinical correlation recommended. Note that these small metallic foreign bodies preclude the patient from having any at MRI studies in the future. . Note that 2 additional similar tiny metallic foreign bodies within the soft tissues of the knee at right neck and skullbase are not appreciated on this exam than seen on concurrent CT scan maxillofacial skeleton. Findings discussed with emergency room physician Dr. Frye at 11:49 a.m. with written down and read back verification.
[2017-02-28 12:19] VITALS: BP 141/107; PULSE 115; O2SAT 97
[2017-02-28] MEDS ORDERED: Amoxicillin-Clav 875-125 mg Tab PO STA (12:53)
--- NOTE | 2017-02-28 16:19 | CON ---
DATE: 02/28/2017 HISTORY OF PRESENT ILLNESS: This is an 86-year-old white female who comes from home after sustaining a fall in her home, fell out of bed, hit head and also her hip, and patient brought to [facility]. The patient with marked dementia, difficult to attain history, unable to attain; however, as per family there was no focal neurologic symptom associated prior or after the fall. The patient is not complaining of any specific pain in one area. 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 SOCIAL HISTORY: No cigarette, no ETOH. FAMILY HISTORY: Noncontributory. REVIEW OF SYSTEMS: As mentioned. GENERAL: With dementia, weakness. The patient has been having marked weakness and debilitation, dec reased appetite recently. HEAD: With fall with a hematoma on her head. EYES: No noted changes in vision. EARS: Unremarkable. THROAT: Unremarkable. PULMONARY: No current shortness of breath. CARDIAC: No current chest pain. GASTROINTESTINAL: With noted hernia in the ventral wall, which the family continues not to wish to d o anything about. GENITOURINARY: No change with urination. MUSCULOSKELETAL: With marked arthritis. PSYCHIATRIC: With dementia. NEUROLOGIC: With dementia. No focal symptom at this time. SKIN: With hematoma, but no new rashes or lesions. PHYSICAL EXAMINATION: GENERAL: She is in the bed. She is in no acute distress. She is pleasantly with dementia. VITAL SIGNS: Temperature afebrile, blood pressure is 148/74, pulse is 98, respirations 16. HEENT: Her head notes a large hematoma on the front of her forehead. EYES: No noted visual disturbance. EARS: Unremarkable. THROAT: Unremarkable. PULMONARY: Lungs are clear bilaterally. Respiratory effort appears to be reasonable. CARDIAC: S1, S2 irregular. VASCULAR: Distal pulses appear unremarkable. ABDOMEN: Soft. There is a hernia in the abdominal wall which does provide some mild discomfort on p alpation; however, it appears to be reducible. No peritoneal signs. EXTREMITIES: No clubbing, cyanosis or edema. The hip does not appear to show any significant discom fort at this time. NEUROLOGIC: No focal current sensorimotor deficit, just generalized weakness. PSYCHIATRIC: With marked dementia. EKG does note atrial fibrillation and nonspecific T-wave inversions. LABORATORY DATA: Her WBC count 10.4, hemoglobin 10, hematocrit 30.4, platelets 229. Her sodium is 1 25 but her potassium is 3.4, chloride of 93, CO2 of 26, BUN 13, 0.7 is her creatinine with a glucose of 99. ASSESSMENT: Mechanical fall with head injury, hyponatremia, atrial fibrillation, abdominal hernia of the ventral wall, hypertension, dementia, history of colon cancer, history of brain aneurysm. PLAN: I have reviewed and discussed the case with the family. The family wishes conservative therap y only. Unless there is an acute fracture or bleed, they did not wish anything further to be done. They wish to attain hospice care. They do not wish anything to be done for the ventral hernia. On r eviewing CT of the cervical spine, it appears that there is no fracture. There is a grade I anteroli sthesis at C7-T1 and arthritis with some foraminal stenosis. Her maxillofacial CT notes bilateral na shakir bone fractures with overlying soft tissue swelling to the bridge, deviation of the nasal septum, scalp contusion, foreign bodies, metallic foreign body within the right cavernous carotid canal which appears to be located in the cavernous artery itself. The family at this time on review wishes cons ervative therapy. We are still awaiting the head CT. A consultation for hospice care at home, which is the family's wish, is being attained with Roselia Paramonte as well as evaluation with [facility]. They do not wish any aggressive therapy, only comfort care at this time as they feel she has b een gradually deteriorating over the past several months and with multiple diagnoses, dementia, and c urrent state they wish only conservative treatment. This will be arranged via hospice care. Case re viewed with the Emergency Room physician to followup CT of the head at this time. Thanh Sr MD cc: [id number] TT: 02/28/2017 16:18:31 Confirmation # [id number] Dictation # [id number] mn
--- NOTE | 2017-02-28 16:52 | RAD ---
PROCEDURE: Right Hip Radiographs. HISTORY: fall r/o fx COMPARISON: None. FINDINGS: BONES: Normal. No fracture. JOINTS: Normal. SOFT TISSUES: Normal. OTHER FINDINGS: None. IMPRESSION: Normal radiographs of right hip.
--- NOTE | 2017-02-28 17:27 | CARD ---
APPROVED REPORT EKG Measurement Heart [id number] <Conclusion> Atrial flutter with variable AV block with premature ventricular or aberrantly conducted complexes Left axis deviation Septal infarct, age undetermined ST & T wave abnormality, consider lateral ischemia Abnormal ECG
== END 2017-02-28 13:10 | disposition home or self-care (01) ==
LOC: ED 09:50
DX: S02.2XXA Fracture of nasal bones, initial encounter for closed fracture (principal); S00.83XA Contusion of other part of head, initial encounter; S70.01XA Contusion of right hip, initial encounter; W06.XXXA Fall from bed, initial encounter; Y93.89 Activity, other specified; Y92.003 Bedroom of unspecified non-institutional (private) residence as the place of occurrence of the external cause; E87.1 Hypo-osmolality and hyponatremia; I10 Essential (primary) hypertension; I67.1 Cerebral aneurysm, nonruptured; F03.90 Unspecified dementia, unspecified severity, without behavioral disturbance, psychotic disturbance, mood disturbance, and anxiety; Z87.891 Personal history of nicotine dependence
CPT/HCPCS: 70450; 70486; 72125; 73502; 80053; 82803; 83735; 85025; 93005; 99285; J7040